=== PATIENT | male | born 1950 | race Caucasian/White ===

== ENCOUNTER → 2016-10-25 | Outpatient (CLI) | payer MEDICARE ==
--- NOTE | 2016-10-25 13:40 | CONS ---
DATE OF CONSULTATION: 10/25/2016 CONSULTATION/NEW PATIENT EVALUATION A 65-year-old gentleman who has been evaluated in the sleep center for his sleep problems. HISTORY OF PRESENT ILLNESS/SLEEP-WAKE EVALUATION: Patient started to complain about difficulties to sleep for about 2 years after he had urosepsis in March 2014. SLEEP SCHEDULE: Presently his sleep schedule from around 11:00 p.m. until 7:00 a.m. FALLING ASLEEP: He has difficulties to fall asleep. DURING SLEEP: According to him, he does not sleep at all. Usually he gets out of bed around 8:00 a.m. in the morning. According to his she could hear snoring at night and she believes that patient still sleeps. No TV in bedroom. He stays in different positions. Positive history of sleeptalking. Patient worries about his sleep during the day. [place] Sleepiness Scale is 0. DURING THE DAY/WAKE STATE: He lies down during the day. He does not feel that he sleeps, but according to his , his head goes down and she believes he has episodes of sleep during that time. PAST MEDICAL HISTORY: Positive for urosepsis in 2013, major ( ) cognitive disorder, hypertension, hyperlipidemia, questionable transient ischemic attack with episodes of dizziness in August 2015, anxiety, depression, hypothyroidism, psoriasis. PAST SURGICAL HISTORY: Surgery for thyroid nodules, benign, removed in 2014. Status post TURP in 2013. MEDICATIONS: Amlodipine, levothyroxine, atorvastatin, clopidogrel, paroxetine, donepezil, alprazolam. SOCIAL HISTORY: Negative for smoking or using alcohol. REVIEW OF SYSTEMS: Difficulties to sleep. No fevers. No double vision. No recent chest pain. No shortness of breath. No abdominal pain. No bleeding episodes. No blood in urine. No seizure episodes. FAMILY HISTORY: Hypertension, cancer, mental illness, restless legs. PHYSICAL EXAMINATION: GENERAL: A 65-year-old gentleman without distress. VITAL SIGNS: BP 147/82, HR 62, RR 16. Height 5 feet 9-1/2 inches, weight 190 pounds, BMI 27.6. Neck 18-1/2 inches in circumference. Temperature 97.9. HEENT: PERRLA, EOMI. Evaluation of oropharynx showed low position of soft palate, retrognathia 3 mm. NECK: Supple. No JVD. Thyroid is not palpable. LUNGS: Clear to percussion and to auscultation. Good air exchange. No wheezing or rhonchi. HEART: S1, S2 regular. No murmurs, gallops or rubs. ABDOMEN: Soft and nontender. Bowel sounds are present. No organomegaly appreciated. EXTREMITIES: Psoriatic plaques on elbow. No clubbing or cyanosis. [employer] SYSTEMS ADMINISTRATOR: Slight bilateral tremor of the hands. Awake, alert, and oriented x3. Cranial nerves 2 to 7 intact. There is no fasciculation or atrophy noted. No focal deficits observed. IMPRESSION: 1. Difficulties to initiate sleep, insomnia. 2. Possible paradoxical insomnia, sleep state misperception. 3. Snoring, low position of soft palate, restriction of nasal breathing, possible obstructive sleep apnea-hypopnea syndrome. 4. Hypertension. 5. Major ( ) cognitive disorder. 6. Hyperlipidemia. 7. History of transient ischemic attack with significant episodes of dizziness in 2014. 8. Anxiety. 9. Depression. 10. Hypothyroidism. 11. Status post benign nodule removed from thyroid 2014. 12. Status post urosepsis in 2013. 13. Status post TURP. 14. Psoriasis. 15. Restriction of nasal breathing on the right side. PLAN: 1. Polysomnography for evaluation of patient's breathing during sleep. 2. CPAP/BiPAP titration if sleep study confirms obstructive sleep apnea-hypopnea syndrome. 3. Preferable position during sleep on the side. 4. No driving if patient feels any sleepiness. Patient is aware of civil and criminal liability for unsafe driving. 5. I will see patient for follow-up visit to explain results of the testing and following plan. 6. I discussed with the patient stimulus control, paradoxical intention for treatment of insomnia. 7. Check for insomnia has been recommended. 8. No watching clock. Thank you very much for referring this patient for consultation. Sincerely, Milton Fabian MD, PhD, FAASM. Diplomat of [place] [employer], Sleep Medicine Board by [place] [employer] [place] [employer] [facility] [place]
== END | disposition home or self-care (01) ==
LOC: SLEEP 10:18
PROVIDERS: ATTEND Internal Medicine
DX: G47.00 Insomnia, unspecified (principal); I10 Essential (primary) hypertension; F09 Unspecified mental disorder due to known physiological condition; E78.5 Hyperlipidemia, unspecified; Z86.73 Personal history of transient ischemic attack (TIA), and cerebral infarction without residual deficits; F41.9 Anxiety disorder, unspecified; F32.9 Major depressive disorder, single episode, unspecified; E03.9 Hypothyroidism, unspecified; L40.9 Psoriasis, unspecified; R06.83 Snoring; Z98.890 Other specified postprocedural states; Z79.899 Other long term (current) drug therapy
CPT/HCPCS: 99211

== ENCOUNTER 2016-11-27 12:51 | Inpatient (IN) | payer MEDICARE ==
[2016-11-27] MEDS ORDERED: LORazepam 2 MG/ML SYRINGE IM STA (13:30)
[2016-11-27] MEDS ORDERED: SODIUM CHLORIDE 0.9% 1,000 ML IV ONE (13:32)
[2016-11-27] MEDS ORDERED: LORazepam 2 MG/ML SYRINGE IV STA ×2 (13:32→20:32)
--- NOTE | 2016-11-27 13:32 | ED ---
General Adult HPI - General Chief complaint: Altered Mental Status Stated complaint: Mental Health Time Seen by Provider: 11/27/16 13:05 Source: EMS, RN notes reviewed Mode of arrival: EMS Limitations: altered mental status - History of Present Illness Initial comments: This is a 66-year-old male who presents to the emergency department with his he is unable to give me any history secondary to his altered mental status. states he became agitated and aggressive today. states she started throwing things around the house the TV clocks off the wall and started shuffling her. states he has had mental illness. The last 3 years which seemed to start after the patient was uroseptic 3 years ago. states he's been altered ever since the urosepsis incident but he normally does not get violent or start destroying things in the house. states prior to today he' s had no fever or chills that she knows of he has not had any vomiting or diarrhea that she knows of he has not exhibited any shortness of breath or difficulty breathing. She states that he has not indicated to her anything that is bothering him. She states is baseline is sitting on a couch biting his hands and making grunting noises. She states she deals with everything around the house he only thing he can do his feet himself go to the bathroom and shower. - Related Data Home Medications Medication Instructions Recorded Confirmed Levothyroxine Sodium [Synthroid] 50 mcg PO [id number] 03/09/15 11/27/16 amLODIPine [Norvasc] 10 mg PO DAILY 01/20/16 11/27/16 ALPRAZolam [Xanax] 1 mg PO HS PRN 11/27/16 11/27/16 Donepezil [Aricept] 10 mg PO HS 11/27/16 11/27/16 PARoxetine [Paxil] 20 mg PO DIRECTED 11/27/16 11/27/16 Previous Rx's Medication Instructions Recorded Atorvastatin [Lipitor] 40 mg PO DAILY #30 tab 09/21/15 Clopidogrel [Plavix] 75 mg PO DAILY #30 tab 09/21/15 Allergies Allergy/AdvReac Type Severity Reaction Status Date / Time levofloxacin AdvReac Unknown Verified 11/27/16 13:34 Review of Systems ROS Statement: Those systems with pertinent positive or pertinent negative responses have been documented in the HPI. ROS Other: All systems not noted in ROS Statement are negative. Past Medical History Past Medical History: Chest Pain / Angina, GERD/Reflux, Hypertension, Osteoarthritis (OA), Thyroid Disorder Additional Past Medical History / Comment(s): HX UTI W/ SEPSIS 2013, past hx. chest pain-nothing current, tremors hands, heart murmur, esophageal spasms History of Any Multi-Drug Resistant Organisms: None Reported Past Surgical History: Prostate Surgery, Tonsillectomy Additional Past Surgical History / Comment(s): TURP, right thyroid lobectomy () Past Anesthesia/Blood Transfusion Reactions: No Reported Reaction Additional Past Anesthesia/Blood Transfusion Reaction / Comment(s): CLAUSTERPHOBIA Past Psychological History: Anxiety, Panic Disorder Additional Psychological History / Comment(s): ANXIETY, PANIC ATTACKS SINCE LAST HOSPITALIZATION Smoking Status: Never smoker Past Alcohol Use History: None Reported Past Drug Use History: None Reported - Past Family History Brother(s) Family Medical History: Cancer Sister(s) Family Medical History: Hypertension Father Family Medical History: Hypertension Additional Family Medical History / Comment(s): PT STATED DAD AT AGE 89 COMPLICATIONS FROM MRSA INFECTION. Mother Family Medical History: Hypertension General Exam - General Exam Comments Initial Comments: GENERAL: Patient is well-developed and well-nourished. Patient is nontoxic and well- hydrated and is in no acute distress. ENT: Neck is soft and supple. No significant lymphadenopathy is noted. Oropharynx is clear. Moist mucous membranes. EYES: The sclera were anicteric and conjunctiva were pink and moist. Extraocular movements were intact and pupils were equal round and reactive to light. Eyelids were unremarkable. PULMONARY: Unlabored respirations. Good breath sounds bilaterally. No audible rales rhonchi or wheezing was noted. CARDIOVASCULAR: There is a regular rate and rhythm without any murmurs gallops or rubs. ABDOMEN: Soft and nontender with normal bowel sounds. No palpable organomegaly was noted. There is no palpable pulsatile mass. SKIN: Skin is clear with no lesions or rashes and otherwise unremarkable. NEUROLOGIC: Patient is alert and oriented unable to assess orientation since he doesn't answer my questions. Cranial nerves II through XII are grossly intact. Motor and sensory are also intact. Normal speech, volume and content. Symmetrical smile. MUSCULOSKELETAL: Normal extremities with adequate strength and full range of motion. No lower extremity swelling or edema. No calf tenderness. LYMPHATICS: No significant lymphadenopathy is noted PSYCHIATRIC: Patient does not answer my questions he just sits there and wants and bites his hands on talking with his . Limitations: altered mental status Course Vital Signs 11/27/16 13:02 Temperature 98.1 F Pulse Rate 106 H Respiratory 26 H Rate Blood Pressure 154/99 Medical Decision Making - Medical Decision Making I had a clinical certification because the petition the patient to be admitted - Lab Data Result diagrams: 11/27/16 13:05 11/27/16 13:05 Lab Results 11/27/16 11/27/16 11/27/16 Range/Units 13:05 13:05 13:05 WBC 8.0 (3.8-10.6) k/uL RBC 4.66 (4.30-5.90) m/uL Hgb 14.1 (13.0-17.5) gm/dL Hct 43.1 (39.0-53.0) % MCV 92.5 (80.0-100.0) fL MCH 30.3 (25.0-35.0) pg MCHC 32.8 (31.0-37.0) g/dL RDW 14.3 (11.5-15.5) % Plt Count 293 (150-450) k/uL Neutrophils % 76 % Lymphocytes % 14 % Monocytes % 7 % Eosinophils % 1 % Basophils % 0 % Neutrophils # 6.1 (1.3-7.7) k/uL Lymphocytes # 1.1 (1.0-4.8) k/uL Monocytes # 0.5 (0-1.0) k/uL Eosinophils # 0.1 (0-0.7) k/uL Basophils # 0.0 (0-0.2) k/uL Sodium 145 (137-145) mmol/L Potassium 4.3 (3.5-5.1) mmol/L Chloride 106 (98-107) mmol/L Carbon Dioxide 23 (22-30) mmol/L Anion Gap 16 mmol/L BUN 11 (9-20) mg/dL Creatinine 0.75 (0.66-1.25) mg/dL Est GFR (MDRD) Af Amer >60 (>60 ml/min/1.73 sqM) Est GFR (MDRD) Non-Af >60 (>60 ml/min/1.73 sqM) Glucose 90 (74-99) mg/dL Calcium 9.5 (8.4-10.2) mg/dL Total Bilirubin 0.8 (0.2-1.3) mg/dL AST 26 (17-59) U/L ALT 37 (21-72) U/L Alkaline Phosphatase 97 (38-126) U/L Total Protein 7.4 (6.3-8.2) g/dL Albumin 4.5 (3.5-5.0) g/dL Urine Color Yellow Urine Appearance Clear (Clear) Urine pH 7.0 (5.0-8.0) Ur Specific [place] 1.014 (1.001-1.035) Urine Protein Trace H (Negative) Urine Glucose (UA) Negative (Negative) Urine Ketones Negative (Negative) Urine Blood Negative (Negative) Urine Nitrate Negative (Negative) Urine Bilirubin Negative (Negative) Urine Urobilinogen <2.0 (<2.0) mg/dL Ur Leukocyte Esterase Negative (Negative) Urine Opiates Screen Not Detected (NotDetected) Ur Oxycodone Screen Not Detected (NotDetected) Urine Methadone Screen Not Detected (NotDetected) Ur Propoxyphene Screen Not Detected (NotDetected) Ur Barbiturates Screen Not Detected (NotDetected) U Tricyclic Antidepress Not Detected (NotDetected) Ur Phencyclidine Scrn Not Detected (NotDetected) Ur Amphetamines Screen Not Detected (NotDetected) U Methamphetamines Scrn Not Detected (NotDetected) U Benzodiazepines Scrn Detected H (NotDetected) Urine Cocaine Screen Not Detected (NotDetected) U Marijuana (THC) Screen Not Detected (NotDetected) Serum Alcohol <10 mg/dL Disposition Clinical Impression: Anxiety, Mood disorder Disposition: ADMITTED IP TO THIS HOSP Referrals: Maribel Long III, MD [Primary Care Provider] - 1-2 days Time of Disposition: 17:37
[2016-11-27 14:50] LABS: Appearance,Urine Clear (Clear); Bilirubin,Urine Negative (Negative); Glucose,Urine (UA) Negative (Negative); Ketones,Urine Negative (Negative); Leukocyte Esterase,Urine Negative (Negative); Nitrite,Urine Negative (Negative); Protein,Urine Trace (Negative); Specific Gravity,Urine 1.014 (1.001-1.035); UA Billing (MACRO vs. MICRO) CHEM; Urobilinogen,Urine <2.0 mg/dL (<2.0)
[2016-11-27 14:52] LABS: Basophils % (A) 0 %; CH 31.5; CHCM 34.2; Eosinophils # (A) 0.1 k/uL (0-0.7); Eosinophils % (A) 1 %; HCT 43.1 % (39.0-53.0); HDW 3.08; HGB 14.1 gm/dL (13.0-17.5); Luc # (Auto) 0.19; Luc % (Auto) 2; Lymphocytes # (A) 1.1 k/uL (1.0-4.8); Lymphocytes % (A) 14 %; MCH 30.3 pg (25.0-35.0); MCHC 32.8 g/dL (31.0-37.0); MCV 92.5 fL (80.0-100.0); Mean Platelet Volume 7.3; Monocytes # (A) 0.5 k/uL (0-1.0); Monocytes % (A) 7 %; Neutrophils # (A) 6.1 k/uL (1.3-7.7); Neutrophils % (A) 76 %; RBC 4.66 m/uL (4.30-5.90); RDW 14.3 % (11.5-15.5); WBC (Perox) 8.47
[2016-11-27 15:08] LABS: ALT 37 U/L (21-72); AST 26 U/L (17-59); Alcohol <10 mg/dL; Alkaline Phosphatase 97 U/L (38-126); Anion Gap 16 mmol/L; Blood Urea Nitrogen 11 mg/dL (9-20); Calcium 9.5 mg/dL (8.4-10.2); Carbon Dioxide 23 mmol/L (22-30); Chloride 106 mmol/L (98-107); Glucose 90 mg/dL (74-99); Non-African American GFR(MDRD) >60 (>60 ml/min/1.73 sqM); Potassium 4.3 mmol/L (3.5-5.1); Sodium 145 mmol/L (137-145); Total Bilirubin 0.8 mg/dL (0.2-1.3); Total Protein 7.4 g/dL (6.3-8.2)
[2016-11-27] MEDS ORDERED: ACETAMINOPHEN TAB 325 MG TAB PO PRN (22:38)
[2016-11-27] MEDS ORDERED: ZIPRASIDONE 20 MG VIAL IM PRN (22:38)
[2016-11-27] MEDS ORDERED: MAGNESIUM HYDROXIDE 2,400 MG/10 ML CUP PO PRN (22:38)
[2016-11-27] MEDS ORDERED: MAG HYDROX/AL HYDROX/SIMETH 30 ML CUP PO PRN (22:38)
[2016-11-28] MEDS: LEVOTHYROXINE 50 MCG TAB PO SCH (08:12)
[2016-11-28] MEDS: CLOPIDOGREL 75 MG TAB PO SCH (08:13)
[2016-11-28] MEDS: ATORVASTATIN 40 MG TAB PO SCH (08:13)
[2016-11-28] MEDS: amLODIPine 10 MG TAB PO SCH (08:13)
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
[2016-11-28] MEDS: CITALOPRAM HYDROBROMIDE 10 MG TAB PO SCH (11:59)
[2016-11-28] MEDS: LORazepam 1 MG TAB PO PRN (15:48)
[2016-11-28] MEDS: DONEPEZIL 10 MG TAB PO SCH (20:21)
[2016-11-28] MEDS ORDERED: QUEtiapine 25 MG TAB PO SCH (21:00)
--- NOTE | 2016-11-28 22:57 | CONS ---
DATE OF CONSULTATION: REASON FOR CONSULTATION: Medical history and physical. HISTORY OF PRESENTING ILLNESS: This is a 66-year-old gentleman who has been admitted to the hospital, as he had an episode of agitation due to an argument with his . Patient apparently threw lamps and caused a ruckus at home. Patient was petitioned by his in the emergency room. Patient apparently has been having tinnitus for the last 6 to 7 months. Patient was seen by Dr. Robison and was examined and was apparently told to undergo a sleep study. Patient denies being on any recent antibiotics like gentamicin or diuretics like furosemide. Patient denies having any loss of hearing, states that his only complaint is tinnitus, which has been bothering him. Patient also underwent a workup up at [facility] and was noted to have some Lewy body dementia. At the time of my examination, patient stated that his tinnitus has been unbearable, stated that hence he gets anxious and starts biting his fingers. As mentioned above, he denies having any change in hearing. Denies having any ear fullness or vertigo at this time. Patient denies having any headaches, change in vision, neck stiffness, nausea, vomiting chest pain, difficulty in breathing, dyspnea, abdominal pain, urinary urgency or frequency or change in bowel habits in the recent times. Past medical history includes: 1. History of hypertension. 2. History of hypothyroidism. 3. History of dyslipidemia. ALLERGIES: LEVAQUIN. Medications were reviewed. FAMILY HISTORY: Not pertinent to current admission. SOCIAL HISTORY: Patient currently lives with his . Denies any illicit drug use or tobacco history. PHYSICAL EXAM: Vitals were reviewed and were within normal limits. GENERAL APPEARANCE: Alert, oriented x3, in no distress. HEAD: Atraumatic, normocephalic. Pupils are equal, round and reactive to light and accommodation. Gross examination of his external ears appeared to be within normal limits. Extraocular movements are intact. Pupils are round and reactive to light and accommodation. Neck is supple. No JVD. LUNGS: Good air entry. Clear to auscultation. No rhonchi or wheezing appreciated. HEART: S1, S2 heard. Regular rate and rhythm. No murmurs appreciated. ABDOMEN: Soft, nontender. No organomegaly. Bowel sounds are intact. LOWER EXTREMITIES: No edema noted. NEUROLOGICAL EXAMINATION: Cranial nerves II through XII grossly intact. No motor or sensory deficits noted. Strength is 5/5 in all 4 extremities. No dysdiadochokinesia noted. Gait appears to be within normal limits. Patient is able to follow a 2-step command. No gross hearing loss is appreciated at this time. LABORATORY DATA: Reviewed. Patient's labs were within normal limits. ASSESSMENT AND PLAN: 1. Acute psychosis. 2. Some concern for Lewy body dementia? 3. Hypothyroidism. 4. Hypertension. 5. Dyslipidemia 6. Tinnitus. PLAN: Patient appears to have had some testing done by ENT physician in the community, Dr. Robison. Patient does not appear to have any loss of ( ) hearing. Further testing, including rare differentials, would include acoustic neuroma, which would also be extremely uncommon. There may be some benefit with obtaining MRI. However, this could be done on an outpatient basis, as patient has had this issue for a chronic period of time. The patient's tinnitus can be treated with benzodiazepines; however, there are not really any additional treatment options, unfortunately. Please call us with any additional questions. We will follow the patient intermittently. Thank you for the consultation.
[2016-11-29] MEDS: LEVOTHYROXINE 50 MCG TAB PO SCH (06:36)
[2016-11-29] MEDS: ATORVASTATIN 40 MG TAB PO SCH (08:39)
[2016-11-29] MEDS: CITALOPRAM HYDROBROMIDE 10 MG TAB PO SCH (08:39)
[2016-11-29] MEDS: amLODIPine 10 MG TAB PO SCH (08:39)
[2016-11-29] MEDS: CLOPIDOGREL 75 MG TAB PO SCH (08:39)
[2016-11-29] MEDS: LORazepam 1 MG TAB PO PRN (08:48)
--- NOTE | 2016-11-29 09:01 | P.PN ---
Progress Note - Text Interval history: The patient is found in his room nursing is at bedside. The patient's has been hyperventilating he is acutely agitated he is not verbalizing why. He continues to intermittently and briefly by at his hand he demonstrates some of the same air swallowing behavior. It is documented that the patient slept 6 hours last evening. We will discuss his other function on the unit during team meeting this morning. Mental status exam: The patient is dressed in the same clothing is yesterday he has a disheveled appearance hygiene is impaired. Eye contact is poor. He is hyperventilating he does respond to nursing intervention somewhat and that he slows his breathing rate. Very quickly he will bite at his hand he will run his hands through his hair and demonstrates significant psychomotor agitation. He is not verbalizing any responses to questions asked. Insight and judgment are poor. He continues to experience symptoms of psychosis. He continues to demonstrate tremor of his upper extremities. Plan: The patient will continue on his current medications we will titrate the Seroquel to 25 mg twice daily hoping to have a calming effect. Vital signs reviewed. Lab results reviewed. The patient remains an indirect danger to himself and requires continued psychiatric hospitalization. Social work notes were reviewed. We will continue to discuss appropriate placement for the patient upon discharge. We will continue to monitor him for safety. We will monitor his by mouth intake. We will consider other medication changes
[2016-11-29] MEDS: QUEtiapine 25 MG TAB PO SCH ×2 (09:35→21:38)
[2016-11-29] MEDS: DONEPEZIL 10 MG TAB PO SCH (21:38)
[2016-11-30] MEDS: LEVOTHYROXINE 50 MCG TAB PO SCH (06:33)
--- NOTE | 2016-11-30 09:11 | P.PN ---
Progress Note - Text Interval history: The patient is found in his room he follows me to an interview room. He states that he has not been attending groups he reports that he has not been attending meals he states he did not sleep. Nursing documentation suggests that he slept 7 hours last night. Documentation reports he did not eat breakfast this morning. He states that "I'm never going to get better I'm just going to ". He states "nothing will make this better" he terminates the interview by stating "can I go back to my room and ". He was seen by the welder repair for routine medical consultation no acute issues were identified. Mental status exam: The patient's presents with poor hygiene and poor grooming there is a foul body odor. He is dressed in the same clothing. Eye contact is poor. He holds his head with both hands elbows resting on the table. He shakes both of his legs. He is quite perseverative and repeats some words numerous times consecutively. He continues to describe having a buzzing/ ringing in his ears that will not cease. He continues to have evidence of skin irritation due to self-inflicted biting on his hand. He endorses hopelessness thinking he reports no thoughts of harming others. He is partially cooperative today. Insight and judgment are poor. Plan: The patient will be continued on his current medications we will consider titrating them further. We will give consideration to possibly using a mood stabilizer like Depakote or even possibly Clozaril although there is limited evidence. The patient requires continued psychiatric hospitalization. I did speak with his in person yesterday and we decided that we would need to hold a family meeting on the unit involving her son's to discuss placement options. We will continue to monitor the patient for safety and monitor his by mouth intake as well as vital signs.
[2016-11-30] MEDS: amLODIPine 10 MG TAB PO SCH (10:19)
[2016-11-30] MEDS: ATORVASTATIN 40 MG TAB PO SCH (10:19)
[2016-11-30] MEDS: CLOPIDOGREL 75 MG TAB PO SCH (10:20)
[2016-11-30] MEDS: CITALOPRAM HYDROBROMIDE 10 MG TAB PO SCH (10:21)
[2016-11-30] MEDS: QUEtiapine 25 MG TAB PO SCH ×2 (10:21→21:58)
[2016-11-30] MEDS: DONEPEZIL 10 MG TAB PO SCH (21:58)
[2016-12-01] MEDS: amLODIPine 10 MG TAB PO SCH (08:12)
[2016-12-01] MEDS: ATORVASTATIN 40 MG TAB PO SCH (08:12)
[2016-12-01] MEDS: LEVOTHYROXINE 50 MCG TAB PO SCH (08:12)
[2016-12-01] MEDS: CLOPIDOGREL 75 MG TAB PO SCH (08:12)
[2016-12-01] MEDS: QUEtiapine 25 MG TAB PO SCH (08:14)
[2016-12-01] MEDS: CITALOPRAM HYDROBROMIDE 10 MG TAB PO SCH (08:14)
[2016-12-01] MEDS: LORazepam 1 MG TAB PO PRN ×2 (08:14→22:36)
--- NOTE | 2016-12-01 10:07 | P.PN ---
Progress Note - Text Interval history: The patient is found in his room he follows me to an interview room. He reports that he did not sleep at all last night it is documented that he slept 6 hours. The patient is much more engaged in the interview today and participates. He states he continues to have significant ringing of his ears and buzzing sounds. Specifically he states it's ringing in his right ear and buzzing in his left ear. He continues to stay in his room throughout the day and not attend groups. We discussed the importance of him not doing that and at least getting out in the hallway even if he is seated alone and reading a book or some other activity. We discussed his current medications. He anticipates his family will visit over the weekend. Mental status exam: The patient is alert he is dressed in the same clothing he does not have a follow odor today. He has a disheveled appearance. He states he is making a conscious effort not to bite his fingers. He does have erythematous regions on both index fingers but they appear to be the same as yesterday. He is reporting no suicidal or homicidal thoughts. He shares some insight into his aggressive behavior at home and he verbalizes remorse. He states he continues to be tortured by the ear ringing/buzzing phenomenon. His affect is brighter today. He demonstrates no verbal or physical aggressiveness. He does move numerous times while seated in the chair demonstrating increased psychomotor agitation. With outstretched hands he continues to demonstrate a tremor of fine amplitude bilaterally. Plan: The patient will continue on the Celexa we will titrate the Seroquel to 25 mg during the day and 50 mg at bedtime. We will trial Symmetrel 100 mg during the day to see if this reduces any tremor behavior. We discussed possibly using Clozaril. We will monitor him for safety and encourage his participation in the milieu. Social work is attempting to arrange a family meeting. Vital signs reviewed.
[2016-12-01] MEDS: AMANTADINE HCL 100 MG CAP PO SCH (11:33)
[2016-12-01] MEDS: DONEPEZIL 10 MG TAB PO SCH (21:43)
[2016-12-01] MEDS: QUEtiapine 50 MG TAB PO SCH (21:43)
[2016-12-02] MEDS: LORazepam 1 MG TAB PO PRN ×2 (06:47→22:13)
[2016-12-02] MEDS: LEVOTHYROXINE 50 MCG TAB PO SCH (08:18)
[2016-12-02] MEDS: ATORVASTATIN 40 MG TAB PO SCH (08:19)
[2016-12-02] MEDS: CLOPIDOGREL 75 MG TAB PO SCH (08:19)
[2016-12-02] MEDS: amLODIPine 10 MG TAB PO SCH (08:19)
[2016-12-02] MEDS: QUEtiapine 25 MG TAB PO SCH (08:21)
[2016-12-02] MEDS: AMANTADINE HCL 100 MG CAP PO SCH ×2 (08:21→13:10)
[2016-12-02] MEDS: CITALOPRAM HYDROBROMIDE 10 MG TAB PO SCH (08:21)
--- NOTE | 2016-12-02 10:58 | P.PN ---
Progress Note - Text Interval history: The patient is found in group he follows me to an interview room. He states group is "fascinating, I didn't want to leave". During our session he details the variety of topics that were discussed in group. He reports that he walked 2 hours yesterday and he is making an effort to participate in the milieu. He felt his tremor was more controlled and he had more motivation. He states for some reason after to 30 he lost energy and he felt he was shaky again. He states he did not sleep one hour last night however it is documented he slept 6 hours. He reports that last evening the ringing and buzzing noise switched to a big band radio station. He did have a visit with his last evening and he anticipates she will return tonight with their son Fer. Mental status exam: The patient is disheveled but less so than previous days. He continues to wear the same clothing. There is no foul body odor. Eye contact is improved he is much more engaged conversation today. Speech is verbose he is directable he reports his mood is better he reports no suicidal or homicidal ideation intent or plan. He continues to report the ringing/ buzzing phenomenon in his years and last night and into this morning big band music. Insight and judgment limited. He does much better today tracking the conversation and his premorbid above average intelligence is more evident in conversation. He does demonstrate some tremor of his upper extremities. Plan: The patient will be continued on his current medications I will increase is symmetrical to 100 mg twice daily. We discussed the risks of exacerbating any hallucinations with this medication in general and certainly the increase. We both feel that the benefits may outweigh this risk and we will proceed area we will continue to monitor him for safety and encourage his participation in the milieu. We do have a family meeting scheduled on the mental health unit for Saturday. He is aware that he has a deferral conference tomorrow and we discussed that meeting.
[2016-12-02] MEDS: DONEPEZIL 10 MG TAB PO SCH (22:12)
[2016-12-02] MEDS: QUEtiapine 50 MG TAB PO SCH (22:13)
[2016-12-03] MEDS: LEVOTHYROXINE 50 MCG TAB PO SCH (06:30)
[2016-12-03] MEDS: ATORVASTATIN 40 MG TAB PO SCH (09:06)
[2016-12-03] MEDS: CITALOPRAM HYDROBROMIDE 10 MG TAB PO SCH (09:06)
[2016-12-03] MEDS: CLOPIDOGREL 75 MG TAB PO SCH (09:06)
[2016-12-03] MEDS: QUEtiapine 25 MG TAB PO SCH (09:06)
[2016-12-03] MEDS: AMANTADINE HCL 100 MG CAP PO SCH ×2 (09:06→12:37)
[2016-12-03] MEDS: LORazepam 1 MG TAB PO PRN ×2 (09:07→21:14)
--- NOTE | 2016-12-03 09:43 | P.PN ---
Progress Note - Text Interval history: The patient is found in his room he follows me to an interview room. He states "nothing is going to help nothing is ever going to get better". He states he has no goals for today and is is going to lying in bed in his room. He reports ongoing auditory stimuli causing distress. He is reporting no visual hallucinations. We tried to discuss some of his successes over the weekend but he minimizes those and states "nothing's going to help". Mental status exam: The patient is disheveled he is wearing different clothing today versus prior days. Eye contact is intermittent. Speech is less spontaneous. He appears more distressed and does not readily engage in conversation. He continues report some hopelessness thinking he verbalizes no desire to kill himself he reports no thoughts of harming others. Compared to the weekend his thinking is much more nihilistic. He demonstrates tremor of his upper extremities at rest and with intention. He remains oriented to person place and date. Plan: We will continue the patient's medications as written we will continue to monitor him for safety. I believe he has a deferral conference today and we have a family meeting scheduled for tomorrow. The patient's presentation has been changing day-to-day which is concerning in terms of trying to predict future behavior. He was recently violent due to his frustrations with his current symptoms and lack of hope. Vital signs reviewed blood pressure elevated today we will monitor further.
[2016-12-03] MEDS: amLODIPine 10 MG TAB PO SCH (10:25)
[2016-12-03] MEDS: DONEPEZIL 10 MG TAB PO SCH (21:12)
[2016-12-03] MEDS: QUEtiapine 50 MG TAB PO SCH (21:12)
[2016-12-04] MEDS: LEVOTHYROXINE 50 MCG TAB PO SCH (06:58)
[2016-12-04] MEDS: AMANTADINE HCL 100 MG CAP PO SCH ×2 (08:42→13:30)
[2016-12-04] MEDS: amLODIPine 10 MG TAB PO SCH (08:42)
[2016-12-04] MEDS: ATORVASTATIN 40 MG TAB PO SCH (08:43)
[2016-12-04] MEDS: CITALOPRAM HYDROBROMIDE 10 MG TAB PO SCH (08:43)
[2016-12-04] MEDS: LORazepam 1 MG TAB PO PRN ×2 (08:43→21:26)
[2016-12-04] MEDS: CLOPIDOGREL 75 MG TAB PO SCH (08:43)
[2016-12-04] MEDS: QUEtiapine 25 MG TAB PO SCH (08:43)
--- NOTE | 2016-12-04 09:03 | P.PN ---
Progress Note - Text Interval history: The patient is found in his room he follows me to an interview room. He states things are "terrible" he feels he will not get better. He endorses feelings of hopelessness. He was observed earlier in the morning the dining room he reports eating a little. He continues to report no sleep but staff feel that he is getting some sleep overnight. I was informed that the patient did not defer and that he does have a full court hearing this afternoon.. He does not seem aware of this proceeding and we discussed that in detail. He endorses an anxious mood and depressed mood. He continues to state "nothing will help". Mental status exam: The patient is a male appearing his stated age. He has a disheveled appearance he is dressed in the same clothing is yesterday. Eye contact is intermittent. He endorses a depressed and anxious mood he reports feeling hopeless. When asked about suicide he states "nobody wants to hurt himself" no homicidal ideation. He is endorsing no visual hallucinations but reports a constant ringing buzzing noise. He states the big band music stopped. Insight and judgment limited. He is oriented to person place and date. There is tremor noted of his upper extremities. He is picking at the skin on his scalp he is redirected not to. The skin irritation on his index fingers appears stable with no worsening. Insight and judgment impaired. He demonstrates no verbal or physical aggressiveness. Plan: The patient will continue on his current medications. I will participate in a family meeting with his and son this morning. We will just he and the court hearing this afternoon. We will consider use of Clozaril. The patient requires continued hospitalization as there is been no appreciable improvement and his behavior remains unpredictable at this point. Vital signs reviewed. No new labs to review. We will continue to monitor him for safety.
[2016-12-04 10:47] LABS: Basophils % (A) 1 %; CH 31.5; CHCM 33.9; Eosinophils % (A) 1 %; HCT 44.5 % (39.0-53.0); HDW 2.97; HGB 14.5 gm/dL (13.0-17.5); Luc # (Auto) 0.13; Luc % (Auto) 2; Lymphocytes # (A) 0.9 k/uL (1.0-4.8); Lymphocytes % (A) 15 %; MCH 30.5 pg (25.0-35.0); MCHC 32.7 g/dL (31.0-37.0); MCV 93.3 fL (80.0-100.0); Mean Platelet Volume 6.7; Monocytes # (A) 0.3 k/uL (0-1.0); Monocytes % (A) 5 %; Neutrophils # (A) 4.7 k/uL (1.3-7.7); Neutrophils % (A) 77 %; RBC 4.77 m/uL (4.30-5.90); RDW 14.2 % (11.5-15.5); WBC 6.1 k/uL (3.8-10.6)
[2016-12-04] MEDS: DONEPEZIL 10 MG TAB PO SCH (21:18)
[2016-12-04] MEDS: QUEtiapine 50 MG TAB PO SCH (21:19)
[2016-12-05] MEDS: LEVOTHYROXINE 50 MCG TAB PO SCH (08:21)
[2016-12-05] MEDS: AMANTADINE HCL 100 MG CAP PO SCH ×2 (09:20→13:45)
[2016-12-05] MEDS: amLODIPine 10 MG TAB PO SCH (09:21)
[2016-12-05] MEDS: CLOPIDOGREL 75 MG TAB PO SCH (09:21)
[2016-12-05] MEDS: ATORVASTATIN 40 MG TAB PO SCH (09:21)
[2016-12-05] MEDS: LORazepam 1 MG TAB PO PRN (09:23)
[2016-12-05] MEDS: CITALOPRAM HYDROBROMIDE 10 MG TAB PO SCH (09:23)
[2016-12-05] MEDS: QUEtiapine 25 MG TAB PO SCH (09:23)
--- NOTE | 2016-12-05 10:15 | P.PN ---
Progress Note - Text Interval history the patient is found in his room he follows me to an interview room. On the wait to the interview room he can be heard stating to himself numerous times "nothing is going to help". She seated in his chair he has poor eye contact he has no spontaneous speech today. Most responses include him saying "nothing is going to help". He endorses ongoing auditory hallucinations. He continues to deny sleeping at night. Mental status exam: The patient has a disheveled appearance he has not shaved hair is uncombed. He is dressed in the same clothing as the last 2 days. No eye contact no spontaneous speech. He holds his hand up to his forehead but demonstrates no picking behavior. Insight and judgment impaired. Affect is blunted. He endorses ongoing auditory hallucination in the form of ringing/ buzzing. He is more engaged in nihilistic thinking today. Plan: A family meeting was held yesterday involving the patient's son and . We discussed the patient's current symptoms recent behavior and prognosis. We reviewed his current medications and Clozaril as an option. We decided to taper him off of Seroquel and initiate Clozaril hoping that it would reduce some of the psychosis with the least amount of extrapyramidal side effect risk. We also discussed placement needs for the patient upon discharge. At this point they do not feel safe with him returning home. His has applied for guardianship and that is currently with the court. They have met with their family wire tester to address financial issues regarding placement. I will illuminate the Seroquel evening dose and initiate Clozaril 25 mg at bedtime. We just a CBC and differential yesterday those are within normal limits. We will continue the Aricept Celexa and Symmetrel is written. We will look for opportunities to simplify his medication regimen if possible. We discussed with his family the risk of agranulocytosis, sedation and weight gain. They all concurred that any potential benefit from claws role out ways those risks. The patient requires continued psychiatric hospitalization as he is unsuited for return home or any other placement at this time.
[2016-12-05] MEDS: DONEPEZIL 10 MG TAB PO SCH (20:15)
[2016-12-05] MEDS: cloZAPine 25 MG TAB PO SCH (20:16)
[2016-12-06] MEDS: LEVOTHYROXINE 50 MCG TAB PO SCH (08:14)
--- NOTE | 2016-12-06 09:27 | P.PN ---
Progress Note - Text Interval history: The patient is found in his room he follows me to an interview room. He states his mood is "terrible". We did initiate Clozaril last evening and he perceives sleeping 3-4 hours. Again it is documented that he slept 6. He states he continues to experiencing ringing buzzing and now banging noise in his head. He feels the banging noise is at the top left portion of his head. He has been isolating in his room. He reports that he has gone down to meals and eating "a little bit". Mental status exam: The patient is a disheveled male appearing his stated age. He is dressed in the same clothing. His hair is not combed. He is noticed to pick at his scalp he will stop when redirected. He has not demonstrated any biting behavior. He continues to convey he feels hopeless and states "nothing will work". He continues to be engaged in nihilistic thinking. He reports no thoughts of harming others he is endorsing no other hallucinations and the noises described above. He is oriented to person place and date. There is no verbal or physical aggressiveness demonstrated. Insight and judgment remains impaired. Plan: The patient will continue on the Clozaril. I will discontinue the Seroquel after this morning's dose. We plan to titrate the claws role further during the course of this hospitalization. The patient requires continued psychiatric hospitalization. We will monitor his vitals and continue monitoring him for safety. We will continue to encourage his participation milieu.
[2016-12-06] MEDS: QUEtiapine 25 MG TAB PO SCH (09:31)
[2016-12-06] MEDS: AMANTADINE HCL 100 MG CAP PO SCH ×2 (10:34→13:06)
[2016-12-06] MEDS: ATORVASTATIN 40 MG TAB PO SCH (10:34)
[2016-12-06] MEDS: CLOPIDOGREL 75 MG TAB PO SCH (10:34)
[2016-12-06] MEDS: amLODIPine 10 MG TAB PO SCH (10:34)
[2016-12-06] MEDS: CITALOPRAM HYDROBROMIDE 10 MG TAB PO SCH (10:35)
[2016-12-06] MEDS: LORazepam 1 MG TAB PO PRN (10:35)
[2016-12-06] MEDS: cloZAPine 25 MG TAB PO SCH (20:22)
[2016-12-06] MEDS: DONEPEZIL 10 MG TAB PO SCH (20:22)
[2016-12-07] MEDS: LEVOTHYROXINE 50 MCG TAB PO SCH (06:39)
--- NOTE | 2016-12-07 08:17 | P.PN ---
Progress Note - Text Interval history: The patient is found in his room. He follows me to the [facility] to speak. He continues to state things are "terrible" he continues to state several times "nothing will help". He seated quietly he slowly picks at her scalp and he is directed not to. He initiates no conversation. He reports attending no groups but does continue to eat. I described recent medication changes he asks no questions. Mental status exam: The patient is alert he seated calmly in the chair he has his elbow on the table his hand on his head he is noted to gently pick at his scalp. Eye contact is poor. No spontaneous speech he provides brief answers. He continues to be engaged in nihilistic thinking. He reports feeling hopeless. He continues to report a buzzing/banging/ringing no lanes in different parts of his head. Insight and judgment are impaired. He is oriented to person place he names a day the week as Saturday rather than Saturday. He demonstrates no verbal or physical aggressiveness. His tremor today seems less prominent. He is endorsing no visual hallucinations he is endorsing no thoughts of harming others. Plan: The patient will continue on the Clozaril we will increase the dose to 50 mg at bedtime. Vital signs reviewed. He will continue on the Aricept, Celexa, Symmetrel. We will monitor him for safety and encourage some ambulation on the unit with some participation in groups. He continues to require continued psychiatric hospitalization.
[2016-12-07] MEDS: CLOPIDOGREL 75 MG TAB PO SCH (08:45)
[2016-12-07] MEDS: AMANTADINE HCL 100 MG CAP PO SCH ×2 (08:45→12:40)
[2016-12-07] MEDS: ATORVASTATIN 40 MG TAB PO SCH (08:45)
[2016-12-07] MEDS: CITALOPRAM HYDROBROMIDE 10 MG TAB PO SCH (08:45)
[2016-12-07] MEDS: amLODIPine 10 MG TAB PO SCH (08:45)
[2016-12-07] MEDS: cloZAPine 25 MG TAB PO SCH (21:10)
[2016-12-07] MEDS: DONEPEZIL 10 MG TAB PO SCH (21:10)
[2016-12-08] MEDS: LEVOTHYROXINE 50 MCG TAB PO SCH (07:59)
[2016-12-08] MEDS: AMANTADINE HCL 100 MG CAP PO SCH ×2 (08:22→12:24)
[2016-12-08] MEDS: CLOPIDOGREL 75 MG TAB PO SCH (08:22)
[2016-12-08] MEDS: ATORVASTATIN 40 MG TAB PO SCH (08:22)
[2016-12-08] MEDS: amLODIPine 10 MG TAB PO SCH (08:22)
[2016-12-08] MEDS: CITALOPRAM HYDROBROMIDE 10 MG TAB PO SCH (08:22)
[2016-12-08] MEDS: LORazepam 1 MG TAB PO PRN ×2 (08:23→23:25)
--- NOTE | 2016-12-08 15:46 | P.PN ---
Progress Note - Text Interval history: Patient seen in cross coverage today for Dr. Ramsey. He reports that he has had significant difficulty with sleep. Reports that he has had this issue with hearing a buzzing sound. He reports that he has been feeling a grinding feeling in his head and also hears a buzzing sound. He also relays that 3 times a day he hears a radio broadcast. He reports how frustrating this is. He makes reference to chipping some of his teeth today because of grinding. Mental status exam: He is alert and cooperative with the interview. He does not show any significant agitation. He describes feeling a grinding feeling in his head and also hearing a buzzing sound. He also makes reference to hearing a radio broadcast 3 times a day. He seems to relay that his mood is doing pretty good. He denies any thoughts of harm to self or others. Plan: We'll maintain current psychotropic medications. Patient relates that he feels like the current medications have given him some benefit. He has been recently started on Clozaril. We will monitor for any medication side effects continue to monitor his symptoms. We'll continue to cover this patient over the weekend for Dr. Ramsey.
[2016-12-08] MEDS: cloZAPine 25 MG TAB PO SCH (20:59)
[2016-12-08] MEDS: DONEPEZIL 10 MG TAB PO SCH (21:00)
[2016-12-09] MEDS: amLODIPine 10 MG TAB PO SCH (08:48)
[2016-12-09] MEDS: CLOPIDOGREL 75 MG TAB PO SCH (08:48)
[2016-12-09] MEDS: LEVOTHYROXINE 50 MCG TAB PO SCH (08:48)
[2016-12-09] MEDS: ATORVASTATIN 40 MG TAB PO SCH (08:48)
[2016-12-09] MEDS: CITALOPRAM HYDROBROMIDE 10 MG TAB PO SCH (08:48)
[2016-12-09] MEDS: AMANTADINE HCL 100 MG CAP PO SCH ×2 (08:48→12:32)
--- NOTE | 2016-12-09 16:33 | P.PN ---
Progress Note - Text Interval history: Patient seen in cross coverage today for Dr. Ramsey. He reports that he feels about the same today. He slept about 4 hours last night which is better than before. He continues to report feeling the grinding feeling and also hearing the buzzing. He relays that this is more than frustrating for him. He has not been going to any groups today. Mental status exam: He was found in his room lying in bed. He does awaken easily with name-calling and is cooperative with the interview. His speech is fluent, not rapid or pressured. He does not show any significant agitation. His mood he describes as about the same. He denies any thoughts of harm to self or others. he continues to verbalize hearing a buzzing sound and feeling a grinding feeling. Plan: We'll maintain current psychotropic medications. Continue to monitor for any side effects and monitor his ongoing response. Dr. Ramsey to resume care this patient starting tomorrow.
[2016-12-09] MEDS: DONEPEZIL 10 MG TAB PO SCH (21:09)
[2016-12-09] MEDS: cloZAPine 25 MG TAB PO SCH (21:09)
[2016-12-10] MEDS: ATORVASTATIN 40 MG TAB PO SCH (08:07)
[2016-12-10] MEDS: CITALOPRAM HYDROBROMIDE 10 MG TAB PO SCH (08:07)
[2016-12-10] MEDS: AMANTADINE HCL 100 MG CAP PO SCH ×2 (08:07→12:50)
[2016-12-10] MEDS: LEVOTHYROXINE 50 MCG TAB PO SCH (08:07)
[2016-12-10] MEDS: amLODIPine 10 MG TAB PO SCH (08:07)
[2016-12-10] MEDS: CLOPIDOGREL 75 MG TAB PO SCH (08:07)
--- NOTE | 2016-12-10 09:22 | P.PN ---
Progress Note - Text Interval history: The patient is found in his room he follows me to an interview room. He states "nothing changed" he states his mood is terrible and continues to repeat several times "nothing will work". He answers a few questions briefly he offers no spontaneous speech other than to ask "are we done yet". Mental status exam: The patient is alert he has impaired eye contact he seated holding his head in his hand. He is dressed in different clothing from when I have seen him last. Speech is in response to questions asked the only spontaneous speech she will offer is as noted above. He is perseverating and continues to utilize nihilistic thinking. He reports feeling hopeless. He states he does not want to kill himself but "this is no life". He becomes upset when discussing his family's desire not to have him back home and states "I don't know what the plan is" he is reporting no homicidal thoughts he is demonstrating no verbal or physical aggressiveness. Insight and judgment remain impaired. He appears disheveled hygiene is impaired. Plan: The patient will continue on his current medications I will titrate Clozaril to 75 mg at bedtime. He is reporting no side effects so far we will continue to monitor. He requires continued psychiatric hospitalization. Social work and the patient's family have been looking for appropriate placement for when he is appropriate for discharge from this unit. Vital signs reviewed.
[2016-12-10] MEDS: cloZAPine 25 MG TAB PO SCH (20:49)
[2016-12-10] MEDS: DONEPEZIL 10 MG TAB PO SCH (20:49)
[2016-12-10] MEDS: LORazepam 1 MG TAB PO PRN (20:51)
[2016-12-11] MEDS: LEVOTHYROXINE 50 MCG TAB PO SCH (08:23)
[2016-12-11] MEDS: CLOPIDOGREL 75 MG TAB PO SCH (08:23)
[2016-12-11] MEDS: CITALOPRAM HYDROBROMIDE 10 MG TAB PO SCH (08:23)
[2016-12-11] MEDS: amLODIPine 10 MG TAB PO SCH (08:23)
[2016-12-11] MEDS: ATORVASTATIN 40 MG TAB PO SCH (08:23)
[2016-12-11] MEDS: AMANTADINE HCL 100 MG CAP PO SCH ×2 (08:24→12:36)
--- NOTE | 2016-12-11 09:38 | P.PN ---
Progress Note - Text Interval history: The patient is found in his room he follows me to an interview room. Although staff documented less sleep last night he feels he slept well. He states this morning he is trying to be more optimistic. The radio station hallucination has returned. He states he continues to hear "this is HM the big band sound" he continues to hear a buzzing and ringing noise. He asks me if I would be able to use a stethoscope and listen to his head so that I can perceive the same sound. Social work notes reviewed it appears that family is exploring placement at [facility] on the [place]. The patient reports eating this morning he is reporting no medication side effect. He is reporting no excessive sedation because of the claws role. Vital signs reviewed. Mental status exam: The patient is alert he is dressed in his own clothing he has combed his hair. Speech is spontaneous fluent and mildly pressured at times. He is quite demonstrative with speech today but demonstrates no agitated behavior. His affect appears brighter today. Insight and judgment limited. He continues to experience auditory hallucinations he is reporting no visual hallucinations. He is reporting no acute suicidal ideation intent or plan but states it's torture trying to live with these hallucinations. The previous wounds on his fingers are healing he has not been participating in biting behavior. Plan: The patient will continue on his current medications we will likely titrate the claws role further tomorrow night. He appears to be tolerating the claws role without any adverse side effects. We will continue monitoring him for safety and encourage his participation in the milieu when possible. Reality orientation is provided.
[2016-12-11] MEDS: cloZAPine 25 MG TAB PO SCH (20:34)
[2016-12-11] MEDS: DONEPEZIL 10 MG TAB PO SCH (20:34)
[2016-12-11] MEDS: LORazepam 1 MG TAB PO PRN (20:35)
[2016-12-12] MEDS: LORazepam 1 MG TAB PO PRN (06:31)
--- NOTE | 2016-12-12 08:56 | P.PN ---
Progress Note - Text Interval history: The patient is found in the dining room he follows me to an interview room. He reports that he has had the best night's sleep since he's been here. Interestingly staff documentation reflects that he did not sleep at all last night. He reports that some of the ringing noise has reduced he is now feeling "puffs of air" coming from his ears. He reports making more of an effort to get out of his room and sits through portions of groups. He reports difficulty trying to attend to conversations when he is experiencing these auditory hallucinations as it is distracting. He continues to hear music at times as well as the buzzing and ringing noises. Mental status exam: The patient is dressed in the same clothing is yesterday. Again he is combed his hair. Eye contact is appropriate he has spontaneous speech that is mildly pressured at times but he is directable. There is some disorganization of thought at times but at other times his thought process can be more linear. He continues to report auditory hallucinations. His mood is adversely affected by those hallucinations. Affect is brighter. He continues to demonstrate still a significant amount of fluctuation in mood and affect. Insight and judgment impaired. He is oriented to person and place month and year. He continues to have some tremor of his upper extremities. Plan: The patient will continue on the Clozaril we will titrate 200 mg at bedtime. Vital signs reviewed. He remains afebrile there has been no significant decrease in blood pressure. He is reporting no increase in appetite he is reporting no excessive sedation during the day. We will monitor for side effects further. He requires continued psychiatric hospitalization. Family has been collaborating with social work in terms of placement options.
[2016-12-12] MEDS: AMANTADINE HCL 100 MG CAP PO SCH ×2 (09:23→13:07)
[2016-12-12] MEDS: ATORVASTATIN 40 MG TAB PO SCH (09:23)
[2016-12-12] MEDS: amLODIPine 10 MG TAB PO SCH (09:23)
[2016-12-12] MEDS: CLOPIDOGREL 75 MG TAB PO SCH (09:24)
[2016-12-12] MEDS: CITALOPRAM HYDROBROMIDE 10 MG TAB PO SCH (09:24)
[2016-12-12 09:59] LABS: Basophils # (A) 0.1 k/uL (0-0.2); Basophils % (A) 1 %; CH 32.1; CHCM 34.3; Eosinophils % (A) 1 %; HCT 41.3 % (39.0-53.0); HDW 3.01; Luc # (Auto) 0.13; Luc % (Auto) 2; Lymphocytes % (A) 12 %; MCV 94.3 fL (80.0-100.0); Mean Platelet Volume 8.2; Monocytes # (A) 0.3 k/uL (0-1.0); Monocytes % (A) 4 %; Neutrophils # (A) 6.7 k/uL (1.3-7.7); Neutrophils % (A) 81 %; RBC 4.38 m/uL (4.30-5.90); RDW 14.3 % (11.5-15.5); WBC 8.3 k/uL (3.8-10.6); WBC (Perox) 8.42
[2016-12-12] MEDS: cloZAPine 100 MG TAB PO SCH (21:09)
[2016-12-12] MEDS: DONEPEZIL 10 MG TAB PO SCH (21:09)
[2016-12-13] MEDS: LORazepam 1 MG TAB PO PRN (04:11)
[2016-12-13] MEDS: LEVOTHYROXINE 50 MCG TAB PO SCH (07:16)
--- NOTE | 2016-12-13 08:54 | P.PN ---
Progress Note - Text Interval history: The patient is found in the hallway he follows me to an interview room. He still describes his mood as "terrible" but he has been more alert and interactive on the mental health unit at times. He states that he slept better it is documented he slept 4 hours. Appetite is stable. He appreciated a visit from his last evening. He continues to report auditory hallucinations of "ringing, buzzing, crunching noises". We discussed the continued titration of Clozaril and he is reporting no side effect. Mental status exam: The patient is alert he is dressed in his own clothing he has combed his hair. Eye contact is appropriate. He spontaneously engages in conversation. He describes his mood as being "terrible" due to ongoing auditory hallucinations. He can be linear at times it will briefly become tangential. He will engage in some description of delusional thought briefly. Insight and judgment impaired. He continues to have some tremor of his upper extremities he demonstrates no verbal or physical aggressiveness. He is aware of the correct month day and year and current location. Wounds on his fingers continue to heal. At times he picks at his scalp but causes no injury. He is reporting no acute suicidal ideation intent or plan but states "it's hard to live like this". Plan: The patient will continue on his current medication we have recently titrated the Clozaril. Results from the last CBC with differential were reviewed and they are adequate for continued Clozaril use. Vital signs reviewed. He is afebrile. We will continue to monitor him for safety. As we continue to attempt to stabilize him his family continues to look for appropriate placement for when he is ready for discharge.
[2016-12-13] MEDS: ATORVASTATIN 40 MG TAB PO SCH (09:00)
[2016-12-13] MEDS: CITALOPRAM HYDROBROMIDE 10 MG TAB PO SCH (09:00)
[2016-12-13] MEDS: amLODIPine 10 MG TAB PO SCH (09:00)
[2016-12-13] MEDS: AMANTADINE HCL 100 MG CAP PO SCH ×2 (09:00→13:25)
[2016-12-13] MEDS: CLOPIDOGREL 75 MG TAB PO SCH (09:00)
[2016-12-13] MEDS: cloZAPine 100 MG TAB PO SCH (21:54)
[2016-12-13] MEDS: DONEPEZIL 10 MG TAB PO SCH (21:55)
[2016-12-14] MEDS: LEVOTHYROXINE 50 MCG TAB PO SCH (06:53)
[2016-12-14] MEDS: CITALOPRAM HYDROBROMIDE 10 MG TAB PO SCH (09:28)
[2016-12-14] MEDS: LORazepam 1 MG TAB PO PRN (09:28)
[2016-12-14] MEDS: amLODIPine 10 MG TAB PO SCH (09:29)
[2016-12-14] MEDS: CLOPIDOGREL 75 MG TAB PO SCH (09:29)
[2016-12-14] MEDS: ATORVASTATIN 40 MG TAB PO SCH (09:29)
[2016-12-14] MEDS: AMANTADINE HCL 100 MG CAP PO SCH ×2 (09:29→13:02)
--- NOTE | 2016-12-14 11:40 | P.PN ---
Progress Note - Text Interval history: The patient is found in the dining room he follows me to an interview room. He reports his mood is "terrible". He is endorsing auditory and visual hallucinations. Staff report that he is described several symptoms of psychosis lately. His sleep is documented as 4 hours last night he feels it was longer. Appetite is stable. He is reporting no feelings of fatigue in the morning subsequent to the Clozaril we will monitor. Efforts are continued in terms of finding him placement. Mental status exam: The patient is dressed in his own clothing he has a disheveled appearance eye contact is intermittent. Speech is less spontaneous today versus last 2 days. He does provide brief answers to questions asked. He continues to hold his hand in a position where he picks at his scalp lightly causing no injury. He continues to have auditory and visual hallucinations. At times he verbalizes a delusional thought process. Insight and judgment are impaired. Plan: The patient will continue on his current medication we will titrate the Clozaril to 125 mg at bedtime and continue his other psychotropic medications as written. We will continue to monitor him for safety and encourage his participation in the milieu. Vital signs reviewed.
[2016-12-14] MEDS: cloZAPine 100 MG TAB PO SCH (21:42)
[2016-12-14] MEDS: cloZAPine 25 MG TAB PO SCH (21:42)
[2016-12-14] MEDS: DONEPEZIL 10 MG TAB PO SCH (21:42)
[2016-12-15] MEDS: LORazepam 1 MG TAB PO PRN (03:28)
[2016-12-15] MEDS: LEVOTHYROXINE 50 MCG TAB PO SCH (06:52)
[2016-12-15] MEDS: CLOPIDOGREL 75 MG TAB PO SCH (08:50)
[2016-12-15] MEDS: AMANTADINE HCL 100 MG CAP PO SCH ×2 (08:50→13:11)
[2016-12-15] MEDS: ATORVASTATIN 40 MG TAB PO SCH (08:50)
[2016-12-15] MEDS: CITALOPRAM HYDROBROMIDE 10 MG TAB PO SCH (08:50)
[2016-12-15] MEDS: amLODIPine 10 MG TAB PO SCH (08:53)
--- NOTE | 2016-12-15 13:07 | P.PN ---
Progress Note - Text SUBJECTIVE: I reviewed the medical record, interviewed patient He complained of having poor sleep because"I AM HAVING RINGING ON MY RIGHT EAR ,BUZZ ON MY LEFT EAR AND NOW I AM HEARING MUSIC FOR LAST THREE DAYS",patient endorses anxiety because "PEOPLE ASSUMING THAT I AM CRAZY BUT I WANT CURE FOR THESE RINGING ,I WANT TO SLEEP 8 HOURS" OBJECTIVE: He presented as a casually dressed male who was pleasant on approach.,not shaved ,marginal grooming He maintained eye contact and attended the interview. Speech is circumstantial ,intense demeanor ,endorses hallucinations and somatic delusion ,stated mood "ANXIOUS",affect is constricted ,denies any suicidal or homicidal ideation.,alert and oriented to person ,could not recall hospital name ,concrete thinking,perseveration , insight is impaired PLAN: Continue inpatient psychiatric hospitalization. Started on Clozaril and will be titrate it slowly to eliminate psychosis. Encourage participation in therapeutic groups and activities. Assess clinical status response to treatment daily basis.
[2016-12-15] MEDS: DONEPEZIL 10 MG TAB PO SCH (21:46)
[2016-12-15] MEDS: cloZAPine 25 MG TAB PO SCH (21:46)
[2016-12-15] MEDS: cloZAPine 100 MG TAB PO SCH (21:46)
[2016-12-16] MEDS: LORazepam 1 MG TAB PO PRN ×2 (00:40→08:21)
[2016-12-16] MEDS ORDERED: ZIPRASIDONE 20 MG VIAL IM PRN (00:58)
[2016-12-16] MEDS ORDERED: LORazepam 2 MG/ML SYRINGE IM PRN (01:01)
[2016-12-16] MEDS ORDERED: WATER FOR INJECTION, STERILE 10 ML IV ONE (01:10)
[2016-12-16] MEDS: LEVOTHYROXINE 50 MCG TAB PO SCH (06:55)
[2016-12-16] MEDS: CLOPIDOGREL 75 MG TAB PO SCH (08:19)
[2016-12-16] MEDS: CITALOPRAM HYDROBROMIDE 10 MG TAB PO SCH (08:19)
[2016-12-16] MEDS: amLODIPine 10 MG TAB PO SCH (08:19)
[2016-12-16] MEDS: AMANTADINE HCL 100 MG CAP PO SCH ×2 (08:19→12:56)
[2016-12-16] MEDS: ATORVASTATIN 40 MG TAB PO SCH (08:19)
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
--- NOTE | 2016-12-16 14:26 | P.PN ---
Progress Note - Text ADDENDUM TO MY PREVIOUS NOTE: I discontinue Symmetral as it might increase psychosis
[2016-12-16 15:34] LABS: Potassium 4.2 mmol/L (3.5-5.1)
[2016-12-16] MEDS: cloZAPine 25 MG TAB PO SCH (21:30)
[2016-12-16] MEDS: DONEPEZIL 10 MG TAB PO SCH (21:30)
[2016-12-16] MEDS: cloZAPine 100 MG TAB PO SCH (21:30)
[2016-12-17] MEDS: LEVOTHYROXINE 50 MCG TAB PO SCH (08:43)
[2016-12-17] MEDS: CLOPIDOGREL 75 MG TAB PO SCH (08:44)
[2016-12-17] MEDS: ATORVASTATIN 40 MG TAB PO SCH (08:44)
[2016-12-17] MEDS: CITALOPRAM HYDROBROMIDE 10 MG TAB PO SCH (08:44)
[2016-12-17] MEDS: amLODIPine 10 MG TAB PO SCH (08:44)
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
[2016-12-17] MEDS: DONEPEZIL 10 MG TAB PO SCH (21:09)
[2016-12-17] MEDS: cloZAPine 25 MG TAB PO SCH (21:09)
[2016-12-17] MEDS: cloZAPine 100 MG TAB PO SCH (21:09)
[2016-12-18] MEDS: LEVOTHYROXINE 50 MCG TAB PO SCH (06:45)
[2016-12-18] MEDS: ATORVASTATIN 40 MG TAB PO SCH (08:25)
[2016-12-18] MEDS: CITALOPRAM HYDROBROMIDE 10 MG TAB PO SCH (08:25)
[2016-12-18] MEDS: CLOPIDOGREL 75 MG TAB PO SCH (08:25)
[2016-12-18] MEDS: amLODIPine 10 MG TAB PO SCH (08:25)
--- NOTE | 2016-12-18 08:49 | P.PN ---
Progress Note - Text Interval history: The patient is found in his room. He states he stayed in his room all day yesterday. He reports feeling "worse than ever". He states he does not sleep well appetite is stable. He continues to experience auditory hallucinations. He admits to having some thoughts of people trying to kill him and blowing up the hospital. He has been compliant with his medication. He has no questions regarding his medication. Mental status exam: The patient is alert he is dressed in different clothing today he has combed his hair. Eye contact is poor speech is nonspontaneous. He provides brief answers to questions asked. He continues to engage in hopeless nihilistic thinking. He appears to have ongoing paranoid and persecutory thought in the presence of auditory hallucinations and likely visual hallucinations. Insight and judgment are poor. He continues to demonstrate tremor of his upper extremities. He continues to hold his hand up by his head gently rubbing his scalp no injury noted. Affect is flat. He demonstrates no verbal or physical aggressive behavior. He is oriented to person place and date. Plan: The patient will continue on the Clozaril we will titrate to 175 mg at bedtime. He will continue on the Aricept and Celexa. Vital signs reviewed. We will monitor him for safety he requires continued hospitalization for his acute symptoms of psychosis. He is not appropriate for discharge to a lesser level of care as this would put him and possibly others at risk.
[2016-12-18] MEDS: DONEPEZIL 10 MG TAB PO SCH (20:30)
[2016-12-18] MEDS: cloZAPine 100 MG TAB PO SCH (20:33)
[2016-12-18] MEDS: cloZAPine 25 MG TAB PO SCH (20:33)
[2016-12-19] MEDS: LEVOTHYROXINE 50 MCG TAB PO SCH (06:36)
--- NOTE | 2016-12-19 08:41 | P.PN ---
Progress Note - Text Interval history: The patient is found in the dining room he follows me to an interview room. He perceives that he slept better last evening. He continues to speak at length regarding the buzzing ear piercing noise he is hearing. He states last night he was able to change the sound by tapping the left side of his forehead and this would worsen the sound and cause reverberations. He notices when he is excited in his heart rate is up the noise will increase as well. He tends to isolate in his room lately. He has been speaking with his he is aware that she is looking at an [facility] home today. Mental status exam: The patient is alert he seated calmly eye contact is appropriate speech is more spontaneous he's more engaged in the conversation. He speaks several minutes about his son's and some of their history. The patient states he feels terrible he doesn't feel that this noise phenomenon will ever improve. He does have hopelessness thinking he is reporting no desire to however. He reports no thoughts of harming others. He is endorsing no specific delusions today but they have been intermittent lately. He is endorsing no current visual hallucinations but again those have been intermittent lately. Insight and judgment impaired. He is oriented to person place and date. Plan: The patient will continue on his current medication we plan to continue titrating the Clozaril. Vital signs reviewed. We will redraw a CBC with differential. He is encouraged to stay out of his room more and participate in at least portions of the milieu.
[2016-12-19] MEDS: CLOPIDOGREL 75 MG TAB PO SCH (09:13)
[2016-12-19] MEDS: CITALOPRAM HYDROBROMIDE 10 MG TAB PO SCH (09:13)
[2016-12-19] MEDS: ATORVASTATIN 40 MG TAB PO SCH (09:13)
[2016-12-19] MEDS: amLODIPine 10 MG TAB PO SCH (09:13)
[2016-12-19] MEDS: LORazepam 1 MG TAB PO PRN ×2 (09:13→17:55)
[2016-12-19 09:30] LABS: Basophils % (A) 0 %; CH 31.4; CHCM 33.9; Eosinophils # (A) 0.1 k/uL (0-0.7); Eosinophils % (A) 2 %; HCT 43.6 % (39.0-53.0); HGB 14.3 gm/dL (13.0-17.5); Luc # (Auto) 0.16; Luc % (Auto) 2; Lymphocytes # (A) 1.2 k/uL (1.0-4.8); Lymphocytes % (A) 14 %; MCH 30.7 pg (25.0-35.0); MCHC 32.8 g/dL (31.0-37.0); MCV 93.4 fL (80.0-100.0); Mean Platelet Volume 7.1; Monocytes # (A) 0.4 k/uL (0-1.0); Monocytes % (A) 5 %; Neutrophils # (A) 6.3 k/uL (1.3-7.7); Neutrophils % (A) 76 %; RBC 4.67 m/uL (4.30-5.90); WBC 8.2 k/uL (3.8-10.6)
[2016-12-19] MEDS: cloZAPine 100 MG TAB PO SCH (21:09)
[2016-12-19] MEDS: DONEPEZIL 10 MG TAB PO SCH (21:09)
[2016-12-19] MEDS: cloZAPine 25 MG TAB PO SCH (21:09)
[2016-12-20] MEDS: LORazepam 1 MG TAB PO PRN ×2 (04:48→09:06)
[2016-12-20] MEDS: LEVOTHYROXINE 50 MCG TAB PO SCH (06:26)
[2016-12-20] MEDS: amLODIPine 10 MG TAB PO SCH (09:06)
[2016-12-20] MEDS: ATORVASTATIN 40 MG TAB PO SCH (09:06)
[2016-12-20] MEDS: CLOPIDOGREL 75 MG TAB PO SCH (09:06)
[2016-12-20] MEDS: CITALOPRAM HYDROBROMIDE 10 MG TAB PO SCH (09:06)
--- NOTE | 2016-12-20 09:35 | P.PN ---
Progress Note - Text SUBJECTIVE: Patient was seen and I reviewed records:,patient slept better with higher of Clozaril",still endorsing auditory hallucinations ,persecutory delusion ,not able to concentrate "Because of buzzing in my ears", still having anxiety and according to him "Voices are the same ,some old friends trying to mess up my brain " Per nursing staff :patient slept 6 hours ,minimal participation in groups ,did require PRN Ativan this morning for anxiety OBJECTIVE: He presented as a casually dressed male .,not shaved , marginal grooming ,body odor He maintained eye contact . Speech is non spontaneous ,endorses hallucinations and delusion ,denies any suicidal or homicidal ideation ,insight and judgment are poor PLAN: Continue inpatient psychiatric hospitalization. Continue Clozaril and Celexa ,same doses. Encourage participation in therapeutic groups and activities. Assess clinical status response to treatment daily basis.
[2016-12-20] MEDS: DONEPEZIL 10 MG TAB PO SCH (20:15)
[2016-12-20] MEDS: cloZAPine 100 MG TAB PO SCH (20:15)
[2016-12-20] MEDS: cloZAPine 25 MG TAB PO SCH (20:15)
[2016-12-21] MEDS: LEVOTHYROXINE 50 MCG TAB PO SCH (06:32)
[2016-12-21] MEDS: amLODIPine 10 MG TAB PO SCH (08:20)
[2016-12-21] MEDS: CITALOPRAM HYDROBROMIDE 10 MG TAB PO SCH (08:20)
[2016-12-21] MEDS: ATORVASTATIN 40 MG TAB PO SCH (08:20)
[2016-12-21] MEDS: CLOPIDOGREL 75 MG TAB PO SCH (08:20)
--- NOTE | 2016-12-21 12:46 | P.PN ---
Progress Note - Text Progress Note - Text SUBJECTIVE: Patient was seen,cross covering DR Ramsey , still endorsing auditory hallucinations ,persecutory delusion ,not able to concentrate "Because of buzzing in my ears", still having anxiety and according to him "Voices are the same ,some old friends trying to mess up my brain ",he reports that his sleep is restless any "Up every hour"but able to fall back asleep Discussed his case and postplan discharge in morning treatment team , is his guardian ,son and are reluctant to look for placement Per nursing staff :patient slept 6 hours ,minimal participation in groups ,did not require any PRN since yesterday noon ,no aggressive or combative behavior OBJECTIVE: He presented as a casually dressed male .,not shaved , marginal grooming ,body odor He maintained eye contact . Speech is non spontaneous ,endorses hallucinations and delusion ,denies any suicidal or homicidal ideation ,insight and judgment are poor PLAN: Continue inpatient psychiatric hospitalization. Increase Clozaril to 200 mg HS ,continue rest of medications ,same dose Encourage participation in therapeutic groups and activities. Assess clinical status response to treatment daily basis.,SW to meet with family to discuss placement
[2016-12-21] MEDS: LORazepam 1 MG TAB PO PRN (14:43)
[2016-12-21] MEDS: DONEPEZIL 10 MG TAB PO SCH (21:10)
[2016-12-21] MEDS: cloZAPine 100 MG TAB PO SCH (21:10)
[2016-12-22] MEDS: LEVOTHYROXINE 50 MCG TAB PO SCH (06:43)
[2016-12-22] MEDS: ATORVASTATIN 40 MG TAB PO SCH (08:03)
[2016-12-22] MEDS: amLODIPine 10 MG TAB PO SCH (08:03)
[2016-12-22] MEDS: CITALOPRAM HYDROBROMIDE 10 MG TAB PO SCH (08:03)
[2016-12-22] MEDS: CLOPIDOGREL 75 MG TAB PO SCH (08:04)
[2016-12-22] MEDS: LORazepam 1 MG TAB PO PRN (08:04)
--- NOTE | 2016-12-22 16:57 | P.PN ---
Progress Note - Text SUBJECTIVE: I reviewed the medical record and interviewed Mr. Jordan. 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 He presented to the unit on 12/07/2016 with increasing agitation. He stated that he is doing poorly and complaining of constant ringing in his ears. He alleged has a result of the tinnitus he is "nonfunctional." He complains of poor sleep, poor appetite and restlessness. OBJECTIVE: He presented as a casually groomed elderly male who was pleasant on approach. He maintained eye contact and appeared to attend to the interview. He held his fingers to his Zoroastrianism throughout the interview. He had no physical abnormalities. He had a distressed facial expression. He was alert and oriented to person, month and year. He showed psychomotor retardation but no abnormal involuntary movements. His gait was slow but steady. His speech was spontaneous with decreased rate, rhythm and volume. He had no articulation difficulties. His affect was blunted and dysphoric. He denied suicidal ideation or wishes. He denied homicidal ideation. He expressed depressive cognitions such as hopelessness and helplessness. He perseverated about the tinnitus and his general poor functioning. He did not express ideas reference or paranoid ideation. His thinking was concrete but his associations were coherent. He denied hallucinations and did not appear to be responding to internal stimuli. [facility] completed the [facility] Orientation Memory and Concentration test. His total weighted error score was 10; the total weighted score greater than 10 is consistent with a dementia. He knew the year and the month. He was able to register the memory phrase "Jarret Wall, [address] [place] [address].". He estimated the time correctly within 1 hour actual time. He was able to count backwards from 20 and see the months of the year in reverse order (beginning with September ). He did not remember single element of the memory phrase. ASSESSMENT: He severely mentally ill and showed a minimal response to treatment. He continues to have evidence of memory impairment. PLAN: Continue inpatient hospitalization. warp worker is assisting the family with placement. Continue Celexa 10 mg daily, clozapine 200 mg at bedtime and Aricept 20 mg at bedtime. Continue lorazepam 1 mg by mouth/IM every 4 hours when necessary for agitation. Continue Norvasc 10 mg daily for hypertension and Lipitor 40 mg daily for hypercholesterolemia. Encouraged participation in therapeutic groups and activities as tolerated. Evaluate clinical status response to treatment on a daily basis.
[2016-12-22] MEDS: DONEPEZIL 10 MG TAB PO SCH (21:12)
[2016-12-22] MEDS: cloZAPine 100 MG TAB PO SCH (21:12)
[2016-12-23] MEDS: LEVOTHYROXINE 50 MCG TAB PO SCH (05:56)
[2016-12-23] MEDS: amLODIPine 10 MG TAB PO SCH (10:31)
[2016-12-23] MEDS: ATORVASTATIN 40 MG TAB PO SCH (10:31)
[2016-12-23] MEDS: CLOPIDOGREL 75 MG TAB PO SCH (10:32)
[2016-12-23] MEDS: CITALOPRAM HYDROBROMIDE 10 MG TAB PO SCH (10:33)
[2016-12-23] MEDS: LORazepam 1 MG TAB PO PRN (10:33)
--- NOTE | 2016-12-23 15:51 | P.PN ---
Progress Note - Text SUBJECTIVE: I reviewed the medical record and interviewed Mr. Jordan. 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 He presented to the unit on 12/07/2016 with increasing agitation. He again complained of any constant ringing in his ears. He also talked about the "grinding sound" in his left ear "that sounds like a meat blender." He complains of poor sleep but denied that he is tired or fatigued during the day. OBJECTIVE: He presented as a casually groomed elderly male who was pleasant on approach. He maintained eye contact and appeared to attend to the interview. As yesterday, he held his fingers to his religion throughout the interview. He had no physical abnormalities. He had a distressed facial expression. He showed psychomotor retardation but no abnormal involuntary movements. His gait was slow but steady. His speech was spontaneous with decreased rate, rhythm and volume. He had no articulation difficulties. His affect was blunted and dysphoric. He denied suicidal ideation or wishes. He denied homicidal ideation. He expressed depressive cognitions such as hopelessness and helplessness. He perseverated about the tinnitus and his general poor functioning. He did not express ideas reference or paranoid ideation. His thinking was concrete but his associations were coherent. He denied hallucinations and did not appear to be responding to internal stimuli. ASSESSMENT: He severely mentally ill and showed a minimal response to treatment. He continues to have evidence of memory impairment. PLAN: Continue inpatient hospitalization. warp worker is assisting the family with placement. Continue Celexa 10 mg daily, clozapine 200 mg at bedtime and Aricept 20 mg at bedtime. Continue lorazepam 1 mg by mouth/IM every 4 hours when necessary for agitation. Continue Norvasc 10 mg daily for hypertension and Lipitor 40 mg daily for hypercholesterolemia. Encouraged participation in therapeutic groups and activities as tolerated. Evaluate clinical status response to treatment on a daily basis.
[2016-12-23] MEDS: DONEPEZIL 10 MG TAB PO SCH (20:16)
[2016-12-23] MEDS: cloZAPine 100 MG TAB PO SCH (20:16)
[2016-12-24] MEDS: LEVOTHYROXINE 50 MCG TAB PO SCH (06:50)
[2016-12-24] MEDS: CLOPIDOGREL 75 MG TAB PO SCH (09:16)
[2016-12-24] MEDS: CITALOPRAM HYDROBROMIDE 10 MG TAB PO SCH (09:16)
[2016-12-24] MEDS: ATORVASTATIN 40 MG TAB PO SCH (09:16)
[2016-12-24] MEDS: amLODIPine 10 MG TAB PO SCH (09:16)
[2016-12-24] MEDS: LORazepam 1 MG TAB PO PRN (09:19)
--- NOTE | 2016-12-24 09:54 | P.PN ---
Progress Note - Text Interval history: The patient is found in his room he follows me to an interview room. He reports things are about the same. He does describe experiencing auditory and visual hallucinations last evening where he saw and heard numerous family members in his room. He states it felt very real to him and couldn't understand why they were all in his room at midnight. He continues to report poor sleep staff documented 7 hours of sleep however. He states his appetite is been stable. He is describing no feelings of fatigue he is describing no dizziness. Social work notes reviewed. Mental status exam: patient is disheveled he is dressed in his own clothing hygiene grooming impaired. Eye contact is intermittent. He does have some spontaneous speech and overall is cooperative today. He is troubled by recent auditory and visual hallucinations. He continues to report a nonstop buzzing/ ringing sound. He continues to feel hopeless as he feels these symptoms will never improve. He is reporting no thoughts of harming others. Speech is nonpressured. He is oriented to person place day month and year. Minimal tremor noticed this morning. He continues to hold his hand at the side of his head. Insight and judgment impaired. Plan: The patient will continue on his current medications the Clozaril was titrated in my absence to 200 mg at bedtime. Vital signs are reviewed. We will continue to monitor him for safety. Social work continues to collaborate with his family in terms of placement options.
[2016-12-24] MEDS: DONEPEZIL 10 MG TAB PO SCH (20:19)
[2016-12-24] MEDS: cloZAPine 100 MG TAB PO SCH (20:19)
[2016-12-25] MEDS: LEVOTHYROXINE 50 MCG TAB PO SCH (06:35)
[2016-12-25] MEDS: CITALOPRAM HYDROBROMIDE 10 MG TAB PO SCH (08:33)
[2016-12-25] MEDS: CLOPIDOGREL 75 MG TAB PO SCH (08:33)
[2016-12-25] MEDS: amLODIPine 10 MG TAB PO SCH (08:33)
[2016-12-25] MEDS: ATORVASTATIN 40 MG TAB PO SCH (08:33)
--- NOTE | 2016-12-25 08:43 | P.PN ---
Progress Note - Text Interval history: The patient is found in his room he follows me to an interview room. He describes that his mood is terrible he feels fearful and distraught. He states the visual hallucinations are worse. Last night he visualized family members and past employees in his room. He finds this very discomforting. Subsequently he has been isolating in his room despite a desire of wanting to go to group. It was recorded that he had no hours of sleep last night and he endorses the same. He endorses hopeless feelings and continues to have nihilistic thoughts. Mental status exam: The patient is alert he seated calmly in the chair he has no eye contact he holds his hand to his head. His hair is uncombed hygiene grooming impaired. He has not shaved and is growing a muir. Tremor of his upper extremities is fine amplitude. He endorses a terrible mood with hopelessness thinking. He is focused on a worsening of his psychosis primarily visual hallucinations. He is concerned that there is some meaning behind the occurrence of the visual hallucinations. He has demonstrated paranoid thinking. Insight and judgment impaired. He demonstrates increased psychomotor activity without aggressiveness this morning. He has no spontaneous speech he briefly answers questions. He was oriented to month and year he incorrectly name the day of the week as Saturday. Plan: We will continue the Clozaril and increase to 225 mg at bedtime. The patient's symptoms of psychosis appear exacerbated further which is causing more dysfunction for him. Continue Aricept and Celexa as written. The patient requires inpatient psychiatric hospitalization at this time. Due to the current status of his psychosis he would not be appropriate for a lesser level of care as he would almost certainly be readmitted immediately. We will continue to monitor for safety and encourage full participation in the milieu. We have a family meeting scheduled involving his son and this morning.
[2016-12-25 11:39] VITALS: BMI 26.0
[2016-12-25] MEDS: cloZAPine 100 MG TAB PO SCH (21:26)
[2016-12-25] MEDS: cloZAPine 25 MG TAB PO SCH (21:26)
[2016-12-25] MEDS: DONEPEZIL 10 MG TAB PO SCH (21:27)
[2016-12-25] MEDS: LORazepam 1 MG TAB PO PRN (21:28)
[2016-12-26] MEDS ORDERED: ZIPRASIDONE 20 MG VIAL IM PRN (00:03)
[2016-12-26] MEDS ORDERED: WATER FOR INJECTION, STERILE 10 ML IV ONE (00:14)
[2016-12-26] MEDS ORDERED: ZIPRASIDONE 20 MG VIAL IM ONE (00:14)
[2016-12-26] MEDS: LEVOTHYROXINE 50 MCG TAB PO SCH (07:12)
--- NOTE | 2016-12-26 09:01 | P.PN ---
Progress Note - Text Interval history: The patient is found in his room he follows me to an interview room. He had a more difficult evening and that he had more visual hallucinations which was causing him concern and fear. Nursing had contacted me last night as result and he was given a Geodon injection. This did seem to calm his symptoms. There was no report of any aggressive behavior and he was directable. Sleep was documented at only 3 hours. He continues to describe a bad mood with ongoing auditory hallucinations. We did hold a family meeting yesterday involving his son and [id number] and family sports attorney. We discussed discharge plans and were able to reach a consensus. We agreed that we need to continue attempting to reduce the psychosis prior to discharge however as it does lead to dysfunction in any residential setting. Mental status exam: The patient is alert he is disheveled grooming is poor. Eye contact is intermittent. He initially has no spontaneous speech but this improves as the session goes on. He continues to experience auditory hallucinations last evening he was experiencing visual hallucinations of the pictures falling off of the moya. Nursing states he was inspecting the doors and appeared fearful. He verbalizes concern that his may not be safe he is reassured that she is safe as we do spoke with her in person yesterday. Insight and judgment are poor. He demonstrates no aggressive behavior this morning. Speech is nonpressured fluent. He demonstrates no tremor this morning. There is some psychomotor slowing. Plan: The patient has shown no beneficial response to any other antipsychotic previously we will continue utilizing the claws role due to its low risk of EPS. We have just titrated yesterday we will plan to titrate further. We will consider increasing Celexa. Because of the patient's psychosis he is not appropriate for discharge at this time. Discharge planning continues. Vital signs reviewed. We will continue to monitor him for safety. Blood work continues to be appropriate for continued use of Clozaril.
[2016-12-26] MEDS: CLOPIDOGREL 75 MG TAB PO SCH (09:08)
[2016-12-26] MEDS: CITALOPRAM HYDROBROMIDE 10 MG TAB PO SCH (09:08)
[2016-12-26] MEDS: ATORVASTATIN 40 MG TAB PO SCH (09:08)
[2016-12-26] MEDS: amLODIPine 10 MG TAB PO SCH (09:08)
[2016-12-26] MEDS: LORazepam 1 MG TAB PO PRN ×2 (09:10→21:56)
[2016-12-26 09:31] LABS: Basophils # (A) 0.1 k/uL (0-0.2); Basophils % (A) 1 %; CH 31.4; CHCM 33.7; Eosinophils # (A) 0.2 k/uL (0-0.7); Eosinophils % (A) 2 %; HCT 41.7 % (39.0-53.0); HGB 13.3 gm/dL (13.0-17.5); Luc # (Auto) 0.18; Luc % (Auto) 2; Lymphocytes # (A) 1.1 k/uL (1.0-4.8); Lymphocytes % (A) 14 %; MCH 29.8 pg (25.0-35.0); MCHC 31.9 g/dL (31.0-37.0); MCV 93.4 fL (80.0-100.0); Mean Platelet Volume 7.5; Monocytes # (A) 0.4 k/uL (0-1.0); Monocytes % (A) 5 %; Neutrophils % (A) 76 %; RBC 4.47 m/uL (4.30-5.90); RDW 13.7 % (11.5-15.5); WBC 7.9 k/uL (3.8-10.6); WBC (Perox) 8.11
[2016-12-26] MEDS: cloZAPine 100 MG TAB PO SCH (21:53)
[2016-12-26] MEDS: cloZAPine 25 MG TAB PO SCH (21:54)
[2016-12-26] MEDS: DONEPEZIL 10 MG TAB PO SCH (21:54)
[2016-12-27] MEDS: LEVOTHYROXINE 50 MCG TAB PO SCH (06:34)
--- NOTE | 2016-12-27 08:49 | P.PN ---
Progress Note - Text Interval history: The patient is found in his room he follows me to an interview room. He reports he feels "terrible". He believes he may have slept more last night compared to the past 2 nights. Staff documented 6 hours of sleep last night. He continues to comply with his medications. He reports waking in the middle night feeling confused. No agitated behavior reported. He has no questions regarding his medications he is endorsing no side effects. He abbreviate's session this morning wanting to go back to bed. Mental status exam: The patient is alert he is disheveled he is wearing different clothing than yesterday. Staff were able to get him in the shower yesterday. Eye contact is intermittent. Speech is fluent mainly responsive to questions asked. He is endorsing ongoing auditory and visual hallucinations. He will intermittently express paranoid thoughts. Insight and judgment are impaired. He is demonstrating no verbal or physical aggressiveness. He is easily directable. He is oriented to person place month and year. No tremor noted today. Plan: The patient will continue on his current medication we will consider titrating Clozaril further. We will monitor him for safety. Vital signs reviewed. Results from CBC with differential reviewed those values are appropriate for continued use of Clozaril.
[2016-12-27] MEDS: ATORVASTATIN 40 MG TAB PO SCH (08:56)
[2016-12-27] MEDS: amLODIPine 10 MG TAB PO SCH (08:56)
[2016-12-27] MEDS: CLOPIDOGREL 75 MG TAB PO SCH (08:57)
[2016-12-27] MEDS: CITALOPRAM HYDROBROMIDE 10 MG TAB PO SCH (08:57)
[2016-12-27] MEDS: LORazepam 1 MG TAB PO PRN (08:58)
[2016-12-27] MEDS: DONEPEZIL 10 MG TAB PO SCH (20:29)
[2016-12-27] MEDS ORDERED: cloZAPine 100 MG TAB PO SCH (21:00)
[2016-12-27] MEDS ORDERED: cloZAPine 25 MG TAB PO SCH (21:00)
[2016-12-28] MEDS: LEVOTHYROXINE 50 MCG TAB PO SCH (06:32)
--- NOTE | 2016-12-28 08:25 | P.PN ---
Progress Note - Text Interval history: The patient is found in his room he follows me to an interview room. He reports he did sleep somewhat last night, staff recorded 6 hours of sleep. Social work notes reviewed. Vital signs reviewed. Lab results reviewed. The patient continues to report visual hallucinations. He endorses no thoughts of harming himself or others. He voices no concerns regarding his medication he reports no physical pain or dizziness. He does not feel sedated during the day. Mental status exam: The patient is alert he seated calmly he slowly rubs his left mormonism with his hand there is no picking behavior. He seated calmly eye contact is intermittent. He has little spontaneous speech but does respond to questions briefly. He is endorsing no current hallucinations. He has intermittently been experiencing some delusional thought but he denies having any at this moment. Insight and judgment impaired. He demonstrates no verbal or physical aggressiveness. He remains oriented to person place and date. Affect is fairly [place]. Tremor activity is very low amplitude. Plan: The patient will continue on his current medication we will titrate the Clozaril to 250 mg at bedtime he will continue on the Celexa and Aricept. We will continue to monitor for safety and encourage more participation in the milieu.
[2016-12-28] MEDS: CLOPIDOGREL 75 MG TAB PO SCH (09:03)
[2016-12-28] MEDS: ATORVASTATIN 40 MG TAB PO SCH (09:03)
[2016-12-28] MEDS: amLODIPine 10 MG TAB PO SCH (09:03)
[2016-12-28] MEDS: CITALOPRAM HYDROBROMIDE 10 MG TAB PO SCH (09:03)
[2016-12-28] MEDS: DONEPEZIL 10 MG TAB PO SCH (21:26)
[2016-12-28] MEDS: cloZAPine 100 MG TAB PO SCH (21:26)
[2016-12-28] MEDS: cloZAPine 25 MG TAB PO SCH (21:26)
[2016-12-28] MEDS: LORazepam 1 MG TAB PO PRN (21:28)
[2016-12-29] MEDS: LEVOTHYROXINE 50 MCG TAB PO SCH (06:47)
[2016-12-29] MEDS: amLODIPine 10 MG TAB PO SCH (09:20)
[2016-12-29] MEDS: CLOPIDOGREL 75 MG TAB PO SCH (09:20)
[2016-12-29] MEDS: ATORVASTATIN 40 MG TAB PO SCH (09:20)
[2016-12-29] MEDS: CITALOPRAM HYDROBROMIDE 10 MG TAB PO SCH (09:21)
--- NOTE | 2016-12-29 13:07 | P.PN ---
Progress Note - Text Interval history: The patient is found in his room he follows me to an interview room. It is documented he slept approximately 5 hours last night. He reports either having hallucinations or vivid dreams and cannot discern the difference. He states the auditory hallucination described as white noise is worse. He has isolated in his room most of yesterday and all of this morning. He will go down for lunch he is encouraged to participate in groups afterward. Mental status exam: The patient is alert grooming is mildly improved hygiene is impaired. Eye contact is appropriate speech is fluent nonpressured. He maintains a flat affect. He continues to endorse auditory hallucinations. He is reporting no acute suicidal or homicidal ideation intent or plan. There is no verbal or physical aggressiveness. Insight and judgment limited. He is oriented to person place and date. Plan: The patient will continue on his current medication we will consider further titrations. We will monitor him for safety. He has been evaluated for placement we are awaiting feedback. Vital signs reviewed.
[2016-12-29] MEDS: cloZAPine 100 MG TAB PO SCH (21:30)
[2016-12-29] MEDS: LORazepam 1 MG TAB PO PRN (21:31)
[2016-12-29] MEDS: DONEPEZIL 10 MG TAB PO SCH (21:31)
[2016-12-29] MEDS: cloZAPine 25 MG TAB PO SCH (21:31)
[2016-12-30] MEDS: CITALOPRAM HYDROBROMIDE 10 MG TAB PO SCH (09:15)
--- NOTE | 2016-12-30 11:34 | P.PN ---
Progress Note - Text Interval history: The patient is found in his room he follows me to an interview room. He reports things are "about the same". He endorses ongoing auditory and visual hallucinations. He did meet with his last evening. He was able to discuss topics that he read about in the newspaper. He has not been attending groups he did eat breakfast. He is endorsing no side effects from his medication. We discussed placement plans upon discharge. Mental status exam: The patient is alert he is cooperative more pleasant. He endorses the same mood that feels "terrible". He does readily engage in a conversation pertaining to local government and politics. He is reporting no acute suicidal or homicidal ideation intent or plan. He verbalizes some visual hallucinations over the evening hours. He verbalizes concerns that people here at the hospital are approaching him to participate in fund raising activities. He expresses concern as this would be inappropriate as he is a patient here. No verbal or physical aggressiveness. He is oriented to person place and date. Insight and judgment limited. Plan: The patient's will continue on his current medications. Vital signs reviewed. Recent labs reviewed. We will continue to monitor him for safety and encourage his participation in the milieu.
[2016-12-30] MEDS: cloZAPine 25 MG TAB PO SCH (21:07)
[2016-12-30] MEDS: DONEPEZIL 10 MG TAB PO SCH (21:07)
[2016-12-30] MEDS: cloZAPine 100 MG TAB PO SCH (21:07)
[2016-12-30] MEDS: LORazepam 1 MG TAB PO PRN (21:08)
[2016-12-31] MEDS: CITALOPRAM HYDROBROMIDE 10 MG TAB PO SCH (09:00)
[2016-12-31] MEDS: LORazepam 1 MG TAB PO PRN (09:01)
--- NOTE | 2016-12-31 09:32 | P.PN ---
Progress Note - Text Interval history: The patient is found in his room he follows me to an interview room. He reports he feels about the same. He did have a pleasant visit with his last evening and he was able to discussed that at length. He continues to describe auditory hallucinations at cause concern. He reports no command auditory hallucinations. He has no suicidal or homicidal ideation. We discussed his impending transition to another placement he had no questions. He is reporting no side effects from the Clozaril. Mental status exam: The patient is alert he is disheveled he is dressed in his own clothing. Speech is more spontaneous today he is more engaged in the session. He continues to report auditory hallucinations. He describes having vivid dreams throughout the night. Typically he is found lying in bed. He demonstrates no aggressive behavior speech is nonpressured he maintains an appropriate tone. His tremor overall is improved. Insight and judgment limited. He maintains a constricted affect. He is oriented to person place and date. Again he reports no acute suicidal or homicidal ideation intent or plan. Plan: The patient's will continue on his current medication we will consider further titration. We will discuss discharge planning further during team meeting this morning. Vital signs reviewed.
--- NOTE | 2016-12-31 11:59 | XR ---
EXAMINATION TYPE: XR chest 1V DATE OF EXAM: 12/31/2016 11:30 AM COMPARISON: Prior chest x-ray 30 June 2016 HISTORY: [facility] placement TECHNIQUE: Single frontal view of the chest is obtained. FINDINGS: Heart size is borderline which may be technical. No evident pneumonia, pneumothorax, or pl eural effusion. Exam is expiratory. Pulmonary vascularity and traci are stable. IMPRESSION: Borderline cardiac size, expiratory exam. Patient is rotated. Follow-up as indicated.
[2016-12-31] MEDS: cloZAPine 100 MG TAB PO SCH (20:56)
[2016-12-31] MEDS: cloZAPine 25 MG TAB PO SCH (20:56)
[2016-12-31] MEDS: DONEPEZIL 10 MG TAB PO SCH (20:56)
[2017-01-01] MEDS ORDERED: ACETAMINOPHEN TAB 325 MG TAB PO PRN (08:30)
[2017-01-01] MEDS ORDERED: MAGNESIUM HYDROXIDE 2,400 MG/10 ML CUP PO PRN (08:31)
[2017-01-01] MEDS ORDERED: MAG HYDROX/AL HYDROX/SIMETH 30 ML CUP PO PRN (08:31)
[2017-01-01] MEDS: CITALOPRAM HYDROBROMIDE 10 MG TAB PO SCH (08:37)
[2017-01-01] MEDS: LORazepam 1 MG TAB PO PRN ×2 (08:37→21:52)
[2017-01-01] MEDS: CLOPIDOGREL 75 MG TAB PO SCH (08:47)
[2017-01-01] MEDS: ATORVASTATIN 40 MG TAB PO SCH (08:47)
[2017-01-01] MEDS: LEVOTHYROXINE 50 MCG TAB PO SCH (08:47)
[2017-01-01] MEDS: amLODIPine 10 MG TAB PO SCH (08:47)
--- NOTE | 2017-01-01 09:11 | P.DS ---
Providers Date of admission: 11/27/16 21:13 Expected date of discharge: 01/01/17 Attending physician: Clemente Ramsey Consults: 11/27/16 22:38 Consult Physician Routine Consulting Provider: eNema Townsend Consult Reason/Comments: follow up H & P Do you want consulting provider notified?: Yes, Notify in am Primary care physician: Maribel Long - Discharge Diagnosis(es) (1) Unspecified psychosis Current Visit: Yes Status: Acute Priority: High (2) Major neurocognitive disorder Current Visit: Yes Status: Acute Priority: High Hospital Course: Brief summary of admission note: This patient is a 66-year-old male who is known to my outpatient practice who was admitted to the mental health unit through the emergency room for acute agitated behavior in the context of experiencing psychosis. The patient was petitioned to the hospital by his as he had demonstrated aggressive behavior at home he threw a lamp a TV jewelry boxes and made a hole in the wall. He had been experiencing visual hallucinations. The patient has been extensively evaluated by neurology's primary care and also neuropsychology. With his second neuropsychology evaluation there was documentation that he was demonstrating characteristics of major neurocognitive disorder and there was a strong suspicion of Mercedes body involvement. The patient is previously been tried on numerous psychotropic medications. For full details please refer to my psychiatric evaluation dated 11/28/2016. Summary of hospital course: For complete detail please refer to the electronic medical record as the patient has been admitted for over 1 month. The patient was admitted involuntarily there was a hearing and subsequent court order for treatment. The patient was placed back on Celexa as the Paxil was discontinued we restarted Aricept and ultimately decided to use Clozaril. The patient did demonstrate some tremor that was assumed to be Parkinson's like but not necessarily due to Parkinson's disease. We did try to reduce that with Symmetrel and the patient seemed to eventually get more agitated with it. Symmetrel was discontinued after a brief trial. Clozaril was initiated and slowly titrated during the course of the hospitalization. The patient demonstrated no sedation no excessive salivation and reported no substantial increase in appetite. During the hospitalization we held 2 family meetings involving his and son Nhan. His family did not feel safe having him return home and a variety of placement options were discussed. The patient did demonstrate agitated behavior at least twice on the mental health unit during the course of the month but there has been no aggressive behavior over the last more than one week. The claws role may be controlling that better. He does continue to verbalize visual and auditory hallucinations that are intermittent. He has been able to participate in meals. He has been directable for bathing. He was seen for routine medical consultation. Mental status exam: The patient is alert he has a disheveled appearance he is dressed in his own clothing. Eye contact is good speech is mainly reactive to questions asked today. Intermittently he can demonstrate some spontaneous speech. He holds his hands up to his head but does not demonstrate any self- injurious behavior there is no picking or scratching behavior. He has stopped biting at his finger and those wounds have healed several weeks ago. He reports no acute suicidal or homicidal ideation intent or plan. He reports an auditory hallucination that we'll change from a ringing/buzzing/banging noise. He will report some intermittent visual hallucinations but reports none now. There is mild evidence of tremor of his left upper extremity amplitude is low. He demonstrates no verbal or physical aggressiveness. He is oriented to person place and date. Affect is flat. Impressions 1. Psychosis unspecified, major neurocognitive disorder was suspected Mercedes body involvement 2. Hypertension, hypothyroidism, hyperlipidemia 3. Psychosocial dysfunction due to progressive symptoms of major neurocognitive impairment Plan: The patient will be discharged today to a placement at [facility]. A patient portal representative from that facility has met with the patient and was found suitable for there residence. The patient's family has visited that site as well and has found it acceptable. The patient will continue on Celexa 10 mg daily, Aricept 20 mg at bedtime, Clozaril 250 mg at bedtime, Ativan will be available as needed 1 mg up to twice daily. He will continue to require weekly blood draws for a complete blood count and differential in order to continue Clozaril use. There have been no lab abnormalities preventing Clozaril use while hospitalized. The patient appears to have a progressive neurocognitive disorder and he has demonstrated significant decline over the last 2 years. He has been on our mental health unit for over 1 month we feel at this point he is stable enough to transition to a lesser level of care. Family is instructed to bring him back to the hospital with any acute safety concerns. Plan - Discharge Summary New Discharge Prescriptions: Atorvastatin [Lipitor] 40 mg PO DAILY #30 tab Citalopram Hydrobromide [CeleXA] 10 mg PO DAILY #30 tab Clopidogrel [Plavix] 75 mg PO DAILY #30 tab Donepezil [Aricept] 20 mg PO HS #60 tab LORazepam [Ativan] 1 mg PO BID PRN #60 tab PRN Reason: Anxiety Levothyroxine Sodium [Synthroid] 50 mcg PO AC-BRKFST #30 tab amLODIPine [Norvasc] 10 mg PO DAILY #30 tab cloZAPine [Clozaril] 200 mg PO HS #60 tab cloZAPine [Clozaril] 50 mg PO HS #60 tab Discharge Medication List Atorvastatin [Lipitor] 40 mg PO DAILY #30 tab 01/01/17 [Rx] Citalopram Hydrobromide [CeleXA] 10 mg PO DAILY #30 tab 01/01/17 [Rx] Clopidogrel [Plavix] 75 mg PO DAILY #30 tab 01/01/17 [Rx] Donepezil [Aricept] 20 mg PO HS #60 tab 01/01/17 [Rx] LORazepam [Ativan] 1 mg PO BID PRN #60 tab 01/01/17 [Rx] Levothyroxine Sodium [Synthroid] 50 mcg PO AC-BRKFST #30 tab 01/01/17 [Rx] amLODIPine [Norvasc] 10 mg PO DAILY #30 tab 01/01/17 [Rx] cloZAPine [Clozaril] 50 mg PO HS #60 tab 01/01/17 [Rx] cloZAPine [Clozaril] 200 mg PO HS #60 tab 01/01/17 [Rx] Follow up Appointment(s)/Referral(s): Maribel Long III, MD [Primary Care Provider] - 1-2 days Activity/Diet/Wound Care/Special Instructions: Follow up with Dr Long for referral of MRI due to ringing in ears
[2017-01-01 11:31] LABS: Basophils # (A) 0.1 k/uL (0-0.2); Basophils % (A) 1 %; CH 31.8; CHCM 34.2; Eosinophils # (A) 0.1 k/uL (0-0.7); Eosinophils % (A) 1 %; HCT 43.1 % (39.0-53.0); HDW 3.13; HGB 14.4 gm/dL (13.0-17.5); Luc # (Auto) 0.15; Luc % (Auto) 2; Lymphocytes # (A) 0.9 k/uL (1.0-4.8); Lymphocytes % (A) 13 %; MCH 31.2 pg (25.0-35.0); MCHC 33.3 g/dL (31.0-37.0); MCV 93.6 fL (80.0-100.0); Mean Platelet Volume 7.5; Monocytes # (A) 0.3 k/uL (0-1.0); Monocytes % (A) 5 %; Neutrophils # (A) 5.9 k/uL (1.3-7.7); Neutrophils % (A) 79 %; RDW 13.5 % (11.5-15.5); WBC 7.5 k/uL (3.8-10.6); WBC (Perox) 7.25
[2017-01-01] MEDS: cloZAPine 25 MG TAB PO SCH (21:51)
[2017-01-01] MEDS: cloZAPine 100 MG TAB PO SCH (21:51)
[2017-01-01] MEDS: DONEPEZIL 10 MG TAB PO SCH (21:51)
[2017-01-02] MEDS: LEVOTHYROXINE 50 MCG TAB PO SCH (05:31)
[2017-01-02] MEDS: amLODIPine 10 MG TAB PO SCH (09:38)
[2017-01-02] MEDS: ATORVASTATIN 40 MG TAB PO SCH (09:38)
[2017-01-02] MEDS: CLOPIDOGREL 75 MG TAB PO SCH (09:38)
[2017-01-02] MEDS: CITALOPRAM HYDROBROMIDE 10 MG TAB PO SCH (09:38)
[2017-01-02] MEDS: LORazepam 1 MG TAB PO PRN (09:40)
--- NOTE | 2017-01-02 10:45 | P.PN ---
Progress Note - Text Interval history: The patient is found in his room he follows me to an interview room. He reports no change in mood. Staff report that the patient's been isolating in his room. He has been participating in meals. His was here yesterday for a visit as a continue to discuss placement plans. The patient has no questions or concerns regarding his medication. Mental status exam: The patient is alert he is a disheveled appearance he is dressed in his own clothing the samples as yesterday. Eye contact is intermittent. He often looks down at the floor. He continues to endorse auditory hallucinations. He is endorsing no specific delusions today. There has been no aggressive behavior. Insight and judgment are impaired. He demonstrates no verbal or physical aggressiveness. He is oriented to person place and date. Affect is flat. Plan: The patient's will continue on his current psychotropic medications we anticipated discharge tomorrow. The patient cannot be discharged to any other level of care sooner. We will continue to monitor him for safety and encourage his participation in the milieu.
[2017-01-02] MEDS: DONEPEZIL 10 MG TAB PO SCH (21:51)
[2017-01-02] MEDS: cloZAPine 25 MG TAB PO SCH (21:51)
[2017-01-02] MEDS: cloZAPine 100 MG TAB PO SCH (21:51)
[2017-01-03] MEDS: LEVOTHYROXINE 50 MCG TAB PO SCH (06:17)
[2017-01-03 07:00] VITALS: BP 170/92; PULSE 58; RESP 18; TEMP 97.5
[2017-01-03] MEDS: CITALOPRAM HYDROBROMIDE 10 MG TAB PO SCH (08:50)
[2017-01-03] MEDS: amLODIPine 10 MG TAB PO SCH (08:50)
[2017-01-03] MEDS: CLOPIDOGREL 75 MG TAB PO SCH (08:50)
[2017-01-03] MEDS: ATORVASTATIN 40 MG TAB PO SCH (08:51)
--- NOTE | 2017-01-03 09:16 | P.DS ---
Providers Date of admission: 11/27/16 21:13 Expected date of discharge: 01/03/17 Attending physician: Clemente Ramsey Consults: 11/27/16 22:38 Consult Physician Routine Consulting Provider: Neema Townsend Consult Reason/Comments: follow up H & P Do you want consulting provider notified?: Yes, Notify in am Primary care physician: Maribel Long - Discharge Diagnosis(es) (1) Unspecified psychosis Current Visit: Yes Status: Acute Priority: High (2) Major neurocognitive disorder Current Visit: Yes Status: Acute Priority: High Hospital Course: Please refer to discharge summary hospital course dictated on 01/01/2017. The discharge had to be canceled on 01/01/2017 due to paperwork and logistical issues. The patient continues to demonstrate no aggressive behavior. Mental status exam: The patient is alert he is dressed in his own clothing he has a disheveled appearance. Eye contact is improved from yesterday. He continues to hold his hand up by his [employer] but is not scratching or picking. He is aware he is being discharged today. He reports no acute suicidal or homicidal ideation intent or plan. He endorses a continued auditory hallucination of a ringing/buzzing noise. He reports no command auditory hallucinations. He states his visual hallucinations have stopped now for several nights. He is endorsing no specific delusions currently he has demonstrated some suspiciousness from time to time. Insight and judgment impaired. Cognitively he is oriented to person place and date. He demonstrates no abnormal involuntary movements since initiating claws role. His previously noted tremor has improved. Patient Condition at Discharge: Stable Plan - Discharge Summary New Discharge Prescriptions: Atorvastatin [Lipitor] 40 mg PO DAILY #30 tab Citalopram Hydrobromide [CeleXA] 10 mg PO DAILY #30 tab Clopidogrel [Plavix] 75 mg PO DAILY #30 tab Donepezil [Aricept] 20 mg PO HS #60 tab LORazepam [Ativan] 1 mg PO BID PRN #60 tab PRN Reason: Anxiety Levothyroxine Sodium [Synthroid] 50 mcg PO AC-BRKFST #30 tab amLODIPine [Norvasc] 10 mg PO DAILY #30 tab cloZAPine [Clozaril] 200 mg PO HS #60 tab cloZAPine [Clozaril] 50 mg PO HS #60 tab Discharge Medication List Atorvastatin [Lipitor] 40 mg PO DAILY #30 tab 01/01/17 [Rx] Citalopram Hydrobromide [CeleXA] 10 mg PO DAILY #30 tab 01/01/17 [Rx] Clopidogrel [Plavix] 75 mg PO DAILY #30 tab 01/01/17 [Rx] Donepezil [Aricept] 20 mg PO HS #60 tab 01/01/17 [Rx] LORazepam [Ativan] 1 mg PO BID PRN #60 tab 01/01/17 [Rx] Levothyroxine Sodium [Synthroid] 50 mcg PO AC-BRKFST #30 tab 01/01/17 [Rx] amLODIPine [Norvasc] 10 mg PO DAILY #30 tab 01/01/17 [Rx] cloZAPine [Clozaril] 50 mg PO HS #60 tab 01/01/17 [Rx] cloZAPine [Clozaril] 200 mg PO HS #60 tab 01/01/17 [Rx] Follow up Appointment(s)/Referral(s): Clemente Ramsey [Other] - 01/04/17 3:40 pm (Dr Ramsey) Maribel Long III, MD [Primary Care Provider] - 1-2 days Patient Instructions/Handouts: Mood Disorders (DC), Generalized Anxiety Disorder (DC), Suicide Prevention for Adults (DC) Activity/Diet/Wound Care/Special Instructions: Follow up with Dr Long for referral of MRI due to ringing in ears. Take medications as prescribed. Regular diet. Activity as tolerated. Notify your care provider if symptoms worsen.
== END 2017-01-03 15:19 | disposition home or self-care (01) | DRG 57 ==
LOC: EC 12:51 → 3MHU 21:13
PROVIDERS: ADMIT Psychiatry & Neurology Psychiatry; ATTEND Psychiatry & Neurology Psychiatry
DX: G31.83 Neurocognitive disorder with Lewy bodies (principal); F01.51 Vascular dementia, unspecified severity, with behavioral disturbance; R45.851 Suicidal ideations; F02.81 Dementia in other diseases classified elsewhere, unspecified severity, with behavioral disturbance; F23 Brief psychotic disorder; I10 Essential (primary) hypertension; K22.4 Dyskinesia of esophagus; F22 Delusional disorders; G47.9 Sleep disorder, unspecified; F41.0 Panic disorder [episodic paroxysmal anxiety]; K21.9 Gastro-esophageal reflux disease without esophagitis; M19.90 Unspecified osteoarthritis, unspecified site; E89.0 Postprocedural hypothyroidism; R06.4 Hyperventilation; L53.9 Erythematous condition, unspecified; F41.9 Anxiety disorder, unspecified; E78.00 Pure hypercholesterolemia, unspecified; R25.1 Tremor, unspecified; E78.5 Hyperlipidemia, unspecified; H93.19 Tinnitus, unspecified ear; Z81.8 Family history of other mental and behavioral disorders; Z82.49 Family history of ischemic heart disease and other diseases of the circulatory system; Z79.899 Other long term (current) drug therapy; Z87.440 Personal history of urinary (tract) infections; Z88.1 Allergy status to other antibiotic agents; Z62.810 Personal history of physical and sexual abuse in childhood; Z91.5 Personal history of self-harm; Z80.9 Family history of malignant neoplasm, unspecified; Z90.79 Acquired absence of other genital organ(s); Z71.3 Dietary counseling and surveillance; Z86.79 Personal history of other diseases of the circulatory system
CPT/HCPCS: 36415; 71010; 80051; 80053; 80306; 80320; 81003; 84520; 85025; 93005; 96372; 96374; 96376; 99285

== ENCOUNTER → 2017-02-05 | Outpatient (CLI) | payer MEDICARE ==
--- NOTE | 2017-02-06 16:26 | MR ---
MR brain with and without contrast HISTORY: Tinnitus, ringing in ears and headaches Multiplanar multisequence and postcontrast images through the brain following 20 cc MultiHance IV Comparison to prior brain MRI dated 05 January 2015 There is no restricted diffusion there is no hemorrhage or hydrocephalus. Cerebellopontine angles, co rpus callosum, pituitary, cervical medullary junction are normal. There is cortical atrophy. Perivent ricular and subcortical hyperintensities are again noted on inversion recovery and T2-weighted sequen eugene. No abnormal enhancement following contrast administration. The orbits show a symmetric appearanc e. Mild inflammatory change in the ethmoid air cells, maxillary sinus. IMPRESSION: Stable brain MRI, age-related atrophy and probable chronic small vessel ischemia
== END | disposition home or self-care (01) ==
LOC: RADMRIMAIN 17:56
PROVIDERS: ATTEND Family Medicine
DX: G31.9 Degenerative disease of nervous system, unspecified (principal); H93.13 Tinnitus, bilateral
CPT/HCPCS: 70553; A9577; 36415; 80053; 84439; 84443

== ENCOUNTER → 2017-02-05 | Outpatient (CLI) | payer MEDICARE ==
[2017-02-05 11:50] LABS: ALT 39 U/L (21-72); AST 32 U/L (17-59); Alkaline Phosphatase 136 U/L (38-126); Anion Gap 10 mmol/L; Blood Urea Nitrogen 16 mg/dL (9-20); Calcium 9.7 mg/dL (8.4-10.2); Carbon Dioxide 31 mmol/L (22-30); Chloride 103 mmol/L (98-107); Glucose 91 mg/dL (74-99); Non-African American GFR(MDRD) >60 (>60 ml/min/1.73 sqM); Potassium 4.2 mmol/L (3.5-5.1); Sodium 144 mmol/L (137-145); Total Bilirubin 0.7 mg/dL (0.2-1.3); Total Protein 7.7 g/dL (6.3-8.2)
== END | disposition home or self-care (01) ==
LOC: LABWHC1 11:21
PROVIDERS: ATTEND Family Medicine
DX: E03.9 Hypothyroidism, unspecified (principal); I10 Essential (primary) hypertension
CPT/HCPCS: 36415; 80053; 84439; 84443

== ENCOUNTER → 2017-09-18 | Outpatient (CLI) | payer MEDICARE ==
[2017-09-18 09:51] LABS: ALT 38 U/L (21-72); AST 22 U/L (17-59); Alkaline Phosphatase 111 U/L (38-126); Anion Gap 11 mmol/L; Blood Urea Nitrogen 14 mg/dL (9-20); Calcium 9.8 mg/dL (8.4-10.2); Carbon Dioxide 27 mmol/L (22-30); Chloride 107 mmol/L (98-107); Cholesterol 158 mg/dL (<200); Glucose 101 mg/dL (74-99); HDL Cholesterol 47 mg/dL (40-60); Non-African American GFR(MDRD) >60 (>60 ml/min/1.73 sqM); Potassium 4.2 mmol/L (3.5-5.1); Sodium 145 mmol/L (137-145); Total Bilirubin 0.5 mg/dL (0.2-1.3); Total Protein 7.2 g/dL (6.3-8.2)
== END | disposition home or self-care (01) ==
LOC: LABWHC1 08:32
PROVIDERS: ATTEND Family Medicine
DX: Z00.01 Encounter for general adult medical examination with abnormal findings (principal); I10 Essential (primary) hypertension; R14.2 Eructation; E03.9 Hypothyroidism, unspecified; F41.1 Generalized anxiety disorder; I67.9 Cerebrovascular disease, unspecified; F33.1 Major depressive disorder, recurrent, moderate
CPT/HCPCS: 36415; 80053; 80061; 82306; 83735; 84439; 84443

== ENCOUNTER → 2018-03-14 | Outpatient (CLI) | payer MEDICARE | END | disposition home or self-care (01) | LOC: LABWHC1 12:49 | PROVIDERS: ATTEND Otolaryngology | DX: E03.9 Hypothyroidism, unspecified (principal) | CPT/HCPCS: 36415; 84439; 84443 ==

== ENCOUNTER 2018-05-17 12:22 | Inpatient (IN) | payer MEDICARE ==
[2018-05-17] MEDS ORDERED: SODIUM CHLORIDE 0.9% 500 ML IV ONE (12:57)
--- NOTE | 2018-05-17 13:03 | ED ---
General Adult HPI - General Chief complaint: Altered Mental Status Stated complaint: TREMORS, SPEACH PROBLEMS Time Seen by Provider: 05/17/18 12:33 Source: patient, RN notes reviewed, old records reviewed Mode of arrival: wheelchair Limitations: no limitations - History of Present Illness Initial comments: 67-year-old male presents for evaluation of confusion and UTI. Patient is accompanied by his who is able to give the majority history. She states that he has been dealing with some confusion over the past several months. This has been worse over the past several days. He was diagnosed with urinary tract infection at his primary care office yesterday and was started on Bactrim. Patient's was instructed to present to the emergency Department if symptoms did not improve with antibiotic treatment. Patient does report increased urinary frequency and dysuria. No fever or chills. No headache. No focal numbness or weakness. No chest pain or shortness of breath. - Related Data Home Medications Medication Instructions Recorded Confirmed Aspirin 325 mg PO HS 05/17/18 05/17/18 Cholecalciferol [Vitamin D3] 1,000 unit PO DAILY 05/17/18 05/17/18 Citalopram Hydrobromide [CeleXA] 20 mg PO HS 05/17/18 05/17/18 Donepezil [Aricept] 20 mg PO DAILY 05/17/18 05/17/18 Gabapentin [Neurontin] 100 mg PO TID 05/17/18 05/17/18 Levothyroxine Sodium [Synthroid] 75 mcg PO DAILY 05/17/18 05/17/18 Lisinopril [Zestril] 10 mg PO HS 05/17/18 05/17/18 Sulfamethox-Tmp 800-160Mg [Bactrim 1 tab PO Q12HR 05/17/18 05/17/18 DS 800-160 mg] cloZAPine [Clozaril] 50 mg PO QAM 05/17/18 05/17/18 cloZAPine [Clozaril] 250 mg PO HS 05/17/18 05/17/18 Previous Rx's Medication Instructions Recorded Atorvastatin [Lipitor] 40 mg PO DAILY #30 tab 01/01/17 Allergies Allergy/AdvReac Type Severity Reaction Status Date / Time levofloxacin AdvReac Unknown Verified 05/17/18 13:10 Review of Systems ROS Statement: Those systems with pertinent positive or pertinent negative responses have been documented in the HPI. ROS Other: All systems not noted in ROS Statement are negative. Past Medical History Past Medical History: Chest Pain / Angina, GERD/Reflux, Hypertension, Osteoarthritis (OA), Thyroid Disorder Additional Past Medical History / Comment(s): HX UTI W/ SEPSIS 2013, past hx. chest pain-nothing current, tremors hands, heart murmur, esophageal spasms History of Any Multi-Drug Resistant Organisms: None Reported Past Surgical History: Prostate Surgery, Tonsillectomy Additional Past Surgical History / Comment(s): TURP, right thyroid lobectomy () Past Anesthesia/Blood Transfusion Reactions: No Reported Reaction Additional Past Anesthesia/Blood Transfusion Reaction / Comment(s): CLAUSTERPHOBIA Past Psychological History: Anxiety, Panic Disorder Smoking Status: Never smoker Past Alcohol Use History: None Reported Past Drug Use History: None Reported - Past Family History Brother(s) Family Medical History: Cancer Sister(s) Family Medical History: Hypertension Father Family Medical History: Hypertension Additional Family Medical History / Comment(s): PT STATED DAD AT AGE 89 COMPLICATIONS FROM MRSA INFECTION. Mother Family Medical History: Hypertension General Exam Limitations: no limitations General appearance: alert, in no apparent distress Head exam: Present: atraumatic, normocephalic Eye exam: Present: normal appearance, PERRL, EOMI ENT exam: Present: normal exam Neck exam: Present: normal inspection. Absent: tenderness, meningismus Respiratory exam: Present: normal lung sounds bilaterally. Absent: respiratory distress, wheezes Cardiovascular Exam: Present: regular rate, normal rhythm GI/Abdominal exam: Present: soft. Absent: distended, tenderness Extremities exam: Present: normal inspection, normal capillary refill. Absent: pedal edema Neurological exam: Present: alert, oriented X3, CN II-XII intact, other ( Generalized tremor). Absent: motor sensory deficit Psychiatric exam: Present: normal affect, normal mood Skin exam: Present: warm, dry, intact Course Vital Signs 05/17/18 05/17/18 05/17/18 12:25 13:29 14:27 Temperature 99.1 F Pulse Rate 94 89 64 Respiratory 20 20 20 Rate Blood Pressure 117/72 147/74 132/88 O2 Sat by Pulse 99 95 99 Oximetry EKG Findings - EKG Comments: EKG Findings:: EKG: Normal sinus rhythm, rightward axis, no ST segment elevation or depression, rate of 88, CA interval 140, QRS duration 88, QTC 399 Medical Decision Making - Medical Decision Making 67-year-old male presenting with acute on chronic confusion and altered mental status. Patient is being treated for UTI as an outpatient. His neurologic examination is nonfocal. Head CT is obtained, there is concern for vague wedge- shaped hypoattenuation in the right frontal region. Patient is given aspirin although there is no exact time course related to the symptoms as patient has been confused for several days and has some level of confusion over the past several months. Chest x-ray negative for focal pneumonia. Urinalysis does show positive nitrates, large leukocyte esterase and greater than 182 white blood cell count. Urine culture pending. Patient started on ceftriaxone for UTI, failed outpatient treatment. CBC is unremarkable, CMP within normal limits. Patient will be admitted for further evaluation and treatment. Neurology placed on consult for acute on chronic confusion and abnormal CT. - Lab Data Result diagrams: 05/17/18 13:15 05/17/18 13:15 Lab Results 05/17/18 05/17/18 05/17/18 Range/Units 13:15 13:15 13:15 WBC 8.9 (3.8-10.6) k/uL RBC 3.82 L (4.30-5.90) m/uL Hgb 11.2 L (13.0-17.5) gm/dL Hct 34.9 L (39.0-53.0) % MCV 91.3 (80.0-100.0) fL MCH 29.4 (25.0-35.0) pg MCHC 32.1 (31.0-37.0) g/dL RDW 14.5 (11.5-15.5) % Plt Count 203 (150-450) k/uL Neutrophils % 84 % Lymphocytes % 6 % Monocytes % 7 % Eosinophils % 0 % Basophils % 0 % Neutrophils # 7.5 (1.3-7.7) k/uL Lymphocytes # 0.5 L (1.0-4.8) k/uL Monocytes # 0.6 (0-1.0) k/uL Eosinophils # 0.0 (0-0.7) k/uL Basophils # 0.0 (0-0.2) k/uL PT 11.1 (9.0-12.0) sec INR 1.2 H (<1.2) APTT 26.4 (22.0-30.0) sec Sodium 142 (137-145) mmol/L Potassium 4.3 (3.5-5.1) mmol/L Chloride 106 (98-107) mmol/L Carbon Dioxide 28 (22-30) mmol/L Anion Gap 8 mmol/L BUN 18 (9-20) mg/dL Creatinine 1.10 (0.66-1.25) mg/dL Est GFR (CKD-EPI)AfAm 79 (>60 ml/min/1.73 sqM) Est GFR (CKD-EPI)NonAf 68 (>60 ml/min/1.73 sqM) Glucose 107 H (74-99) mg/dL Plasma Lactic Acid Tay (0.7-2.0) mmol/L Calcium 8.9 (8.4-10.2) mg/dL Total Bilirubin 0.6 (0.2-1.3) mg/dL AST 25 (17-59) U/L ALT 32 (21-72) U/L Alkaline Phosphatase 79 (38-126) U/L Total Protein 6.3 (6.3-8.2) g/dL Albumin 3.7 (3.5-5.0) g/dL Urine Color Urine Appearance (Clear) Urine pH (5.0-8.0) Ur Specific [place] (1.001-1.035) Urine Protein (Negative) Urine Glucose (UA) (Negative) Urine Ketones (Negative) Urine Blood (Negative) Urine Nitrite (Negative) Urine Bilirubin (Negative) Urine Urobilinogen (<2.0) mg/dL Ur Leukocyte Esterase (Negative) Urine RBC (0-5) /hpf Urine WBC (0-5) /hpf Urine WBC Clumps (None) /hpf Urine Bacteria (None) /hpf Urine Mucus (None) /hpf 05/17/18 05/17/18 Range/Units 13:15 13:15 WBC (3.8-10.6) k/uL RBC (4.30-5.90) m/uL Hgb (13.0-17.5) gm/dL Hct (39.0-53.0) % MCV (80.0-100.0) fL MCH (25.0-35.0) pg MCHC (31.0-37.0) g/dL RDW (11.5-15.5) % Plt Count (150-450) k/uL Neutrophils % % Lymphocytes % % Monocytes % % Eosinophils % % Basophils % % Neutrophils # (1.3-7.7) k/uL Lymphocytes # (1.0-4.8) k/uL Monocytes # (0-1.0) k/uL Eosinophils # (0-0.7) k/uL Basophils # (0-0.2) k/uL PT (9.0-12.0) sec INR (<1.2) APTT (22.0-30.0) sec Sodium (137-145) mmol/L Potassium (3.5-5.1) mmol/L Chloride (98-107) mmol/L Carbon Dioxide (22-30) mmol/L Anion Gap mmol/L BUN (9-20) mg/dL Creatinine (0.66-1.25) mg/dL Est GFR (CKD-EPI)AfAm (>60 ml/min/1.73 sqM) Est GFR (CKD-EPI)NonAf (>60 ml/min/1.73 sqM) Glucose (74-99) mg/dL Plasma Lactic Acid Tay 1.0 (0.7-2.0) mmol/L Calcium (8.4-10.2) mg/dL Total Bilirubin (0.2-1.3) mg/dL AST (17-59) U/L ALT (21-72) U/L Alkaline Phosphatase (38-126) U/L Total Protein (6.3-8.2) g/dL Albumin (3.5-5.0) g/dL Urine Color Yellow Urine Appearance Cloudy (Clear) Urine pH 6.5 (5.0-8.0) Ur Specific [place] 1.015 (1.001-1.035) Urine Protein 1+ H (Negative) Urine Glucose (UA) Negative (Negative) Urine Ketones Negative (Negative) Urine Blood Small H (Negative) Urine Nitrite Positive (Negative) Urine Bilirubin Negative (Negative) Urine Urobilinogen <2.0 (<2.0) mg/dL Ur Leukocyte Esterase Large H (Negative) Urine RBC 2 (0-5) /hpf Urine WBC >182 H (0-5) /hpf Urine WBC Clumps Few H (None) /hpf Urine Bacteria Rare H (None) /hpf Urine Mucus Occasional H (None) /hpf Disposition Clinical Impression: UTI (urinary tract infection), Failure of outpatient treatment, Altered mental status Disposition: ADMITTED IP TO THIS HOSP Condition: Stable Is patient prescribed a controlled substance at d/c from ED?: No Referrals: Maribel Long III, MD [Primary Care Provider] - 1-2 days Decision to Admit Reason: Admit from EC Decision Date: 05/17/18 Decision Time: 15:16
[2018-05-17 13:44] LABS: Basophils % (A) 0 %; Eosinophils % (A) 0 %; HCT 34.9 % (39.0-53.0); HGB 11.2 gm/dL (13.0-17.5); Lymphocytes # (A) 0.5 k/uL (1.0-4.8); Lymphocytes % (A) 6 %; MCH 29.4 pg (25.0-35.0); MCHC 32.1 g/dL (31.0-37.0); MCV 91.3 fL (80.0-100.0); Monocytes # (A) 0.6 k/uL (0-1.0); Monocytes % (A) 7 %; Neutrophils # (A) 7.5 k/uL (1.3-7.7); Neutrophils % (A) 84 %; Platelet Count 203 k/uL (150-450); RBC 3.82 m/uL (4.30-5.90); RDW 14.5 % (11.5-15.5); WBC 8.9 k/uL (3.8-10.6)
[2018-05-17 13:51] LABS: Albumin 3.7 g/dL (3.5-5.0); Calcium 8.9 mg/dL (8.4-10.2); Potassium 4.3 mmol/L (3.5-5.1); Total Bilirubin 0.6 mg/dL (0.2-1.3); Total Protein 6.3 g/dL (6.3-8.2)
[2018-05-17 14:06] LABS: INR 1.2 (<1.2); Partial Thromboplastin Time 26.4 sec (22.0-30.0); Prothrombin Time 11.1 sec (9.0-12.0)
--- NOTE | 2018-05-17 14:14 | CT ---
EXAMINATION TYPE: CT brain wo con DATE OF EXAM: 05/17/2018 COMPARISON: 09/16/2015 HISTORY: Altered mental status CT DLP: 1008.1 mGycm Automated exposure control for dose reduction was used. FINDINGS: There is a vague wedge-shaped area of hypoattenuation within the right frontal lobe seen o n 2 images only and therefore this could be artifact related to the dense adjacent calvarium are unde rlying early infarct. There is no acute intracranial hemorrhage or midline shift identified. There is diffuse ventricular and sulcal prominence consistent with diffuse age-related cerebral atrophy. The re is low-attenuation in the periventricular white matter consistent with chronic small vessel ischem ic change. The globes are intact and the visualized sinuses are clear. IMPRESSION: Vague wedge-shaped area of hypoattenuation within the right frontal lobe may relate to fo siria ischemia or artifact as it is seen on 2 images only series 6 image 29 and image 28. This is in th e distribution of the middle cerebral artery. If there is further concern MRI could be performed.
[2018-05-17 14:15] LABS: Appearance,Urine Cloudy (Clear); Bacteria,Urine Rare /hpf; Bilirubin,Urine Negative (Negative); Blood,Urine Small (Negative); Color,Urine Yellow; Glucose,Urine (UA) Negative (Negative); Ketones,Urine Negative (Negative); Leukocyte Esterase,Urine Large (Negative); Mucus,Urine Occasional /hpf; Nitrite,Urine Positive (Negative); PH, Urine 6.5 (5.0-8.0); Protein,Urine 1+ (Negative); RBC,Urine 2 /hpf (0-5); Specific Gravity,Urine 1.015 (1.001-1.035); Urobilinogen,Urine <2.0 mg/dL (<2.0); WBC,Urine >182 /hpf (0-5)
--- NOTE | 2018-05-17 14:20 | XR ---
EXAMINATION TYPE: XR chest 2V DATE OF EXAM: 05/17/2018 COMPARISON: 12/31/2016 HISTORY: Altered mental status TECHNIQUE: Frontal and lateral views of the chest are obtained. FINDINGS: There is no focal air space opacity, pleural effusion, or pneumothorax seen. The cardiac silhouette size is mildly enlarged. The osseous structures are intact. Mild multilevel degenerative changes of the thoracic spine are seen. IMPRESSION: No acute cardiopulmonary process.
[2018-05-17] MEDS ORDERED: ASPIRIN 325 MG TAB PO STA (14:27)
[2018-05-17] MEDS ORDERED: cefTRIAXone IN SWFI 1,000 MG/10 ML SYRINGE IVP STA (14:31)
[2018-05-17] MEDS ORDERED: NALOXONE 0.4 MG/ML 1 ML VIAL IV PRN (15:10)
[2018-05-17] MEDS ORDERED: SODIUM CHLORIDE 0.9% 1,000 ML IV SCH (15:15)
[2018-05-17] MEDS ORDERED: LORazepam 2 MG/ML INJ IV PRN (15:45)
[2018-05-17] MEDS ORDERED: HYDROcodone/APAP 5-325MG 1 EACH TAB PO PRN (15:45)
[2018-05-17] MEDS ORDERED: ALPRAZolam 0.25 MG TAB PO PRN (15:45)
[2018-05-17] MEDS ORDERED: ACETAMINOPHEN TAB 325 MG TAB PO STA (15:57)
[2018-05-17] MEDS ORDERED: SODIUM CHLORIDE 0.9% 1,000 ML with MVI, ADULT NO.4 WITH VIT K 10 ML, THIAMINE 100 MG, F... IV ONE ×4 (17:00)
--- NOTE | 2018-05-17 17:05 | HP ---
HISTORY AND PHYSICAL CHIEF COMPLAINT: Change in mental status. HISTORY OF PRESENT ILLNESS: This 67-year-old gentleman with past medical history of multiple medical problems including chest pain, GERD, hypertension, hyperlipidemia, hypothyroidism, prostate surgery, claustrophobia, anxiety, panic disorder, being followed by Dr. Long in the outpatient setting apparently had features of UTI. The patient was being treated in the outpatient setting for UTI with antibiotics. The family noted that the patient is getting progressively more confused and because of concerns, the patient was taken to [facility] and was admitted for further evaluation and treatment. Confusion worsening 80% over the past several months also. There is no history of headache, loss of consciousness, seizures at this time. PAST MEDICAL HISTORY: History of GERD, hypertension and DJD, history of prostate surgery, anxiety/ panic disorder. MEDICATIONS: Prior to admission include home medications are: 1. Bactrim DS 1 p.o. b.i.d. 2. Synthroid 75 mcg p.o. daily. 3. Neurontin 100 mg p.o. daily. 4. Aricept 10 mg. 5. Vitamin D3 1000 daily. 6. Clozaril 50 mg q.h.s. 7. Lipitor 40 mg p.o. daily. 8. Aspirin 320 mg q.h.s. 9. Zestril 10 mg q.h.s. 10.Celexa 10 mg. 11.Clozaril 250 mg q.h.s. ALLERGIES: LEVAQUIN. FAMILY HISTORY: History of cancer, MRSA in the family. SOCIAL HISTORY: No history of smoking. No history of alcohol intake. REVIEW OF SYSTEMS: Review of systems could not be taken, the patient is mildly confused. PHYSICAL EXAM: The pulse is 68, blood pressure 140/77, respiration 20. Patient is confused. Temperature 98 degrees, pulse ox 98% on 2 L. HEENT is conjunctivae normal. Oral mucosa moist. Neck is no jugular venous distention. No carotid bruit. No lymph node enlargement. Cardiovascular systems: S1, S2 muffled. Respirations: Breath sounds diminished in the bases, scattered rhonchi. No crackles. ABDOMEN: Soft, nontender. No mass palpable. Legs: No edema and no swelling. NERVOUS SYSTEM: Higher functions as mentioned earlier. Moves all four extremities. No focal deficits. Lymphatics: No lymph nodes palpable in the neck, axillae or groin. Skin: No ulcer, rash or bleeding. LAB STUDIES: WBC 8.8, hemoglobin 11.2, INR 1.2 glucose 107. UA noted. ASSESSMENT: 1. Acute urinary tract infection with sepsis. 2. Change in mental status acute on chronic metabolic encephalopathy. Rule out stroke, right frontal lobe infarction. 3. Gastroesophageal reflux disease. 4. History of chest pain, angina. 5. Hypertension. 6. History of degenerative joint disease. 7. Hypothyroidism. 8. History of sepsis in the past. 9. History of tremors. 10.History of claustrophobia. 11.Anxiety/panic disorder. 12.History of unspecified psychosis. RECOMMENDATION AND DISCUSSION: Recommend to continue current medications, management and symptomatic treatment. Otherwise, at this time, I would initiate broad-spectrum IV antibiotics. Follow the cultures. The CT scan of the brain which is done today showed area of hypoattenuation within the right frontal lobe disorder. I would also recommend possible MRI and Neurology consultation also as well. Overall prognosis guarded because of multiple complex medical issues as mentioned earlier. Further recommendations to follow. See orders for details. DVT prophylaxis. Discussed with the family at length. Copy of dictation being forwarded to Dr. Long who is the primary physician. MMODL / IJN: [id number] / NED
[2018-05-17] MEDS: GABAPENTIN 100 MG CAP PO SCH ×2 (17:24→21:09)
[2018-05-17] MEDS ORDERED: ASPIRIN 325 MG TAB PO SCH (21:00)
[2018-05-17] MEDS: HEPARIN SODIUM,PORCINE 5,000 UNIT/ML 1 ML VIAL SQ SCH (21:09)
[2018-05-17] MEDS: CITALOPRAM HYDROBROMIDE 20 MG TAB PO SCH (21:09)
[2018-05-17] MEDS: LISINOPRIL 10 MG TAB PO SCH (21:09)
[2018-05-17] MEDS: cloZAPine 100 MG TAB PO SCH (21:53)
[2018-05-18 06:25] LABS: Basophils % (A) 0 %; Eosinophils # (A) 0.1 k/uL (0-0.7); Eosinophils % (A) 1 %; HCT 32.2 % (39.0-53.0); HGB 10.6 gm/dL (13.0-17.5); Lymphocytes # (A) 0.5 k/uL (1.0-4.8); Lymphocytes % (A) 7 %; MCH 29.9 pg (25.0-35.0); MCHC 33.1 g/dL (31.0-37.0); MCV 90.4 fL (80.0-100.0); Mean Platelet Volume 6.9; Monocytes # (A) 0.6 k/uL (0-1.0); Monocytes % (A) 8 %; Neutrophils # (A) 5.8 k/uL (1.3-7.7); Neutrophils % (A) 81 %; Platelet Count 195 k/uL (150-450); RBC 3.55 m/uL (4.30-5.90); RDW 14.6 % (11.5-15.5); WBC 7.2 k/uL (3.8-10.6)
[2018-05-18] MEDS: PANTOPRAZOLE 40 MG TABLET PO SCH (06:32)
[2018-05-18] MEDS: LEVOTHYROXINE 75 MCG TAB PO SCH (06:32)
[2018-05-18 06:41] LABS: Anion Gap 6 mmol/L; Blood Urea Nitrogen 16 mg/dL (9-20); Calcium 8.4 mg/dL (8.4-10.2); Carbon Dioxide 27 mmol/L (22-30); Chloride 108 mmol/L (98-107); Glucose 106 mg/dL (74-99); Potassium 4.3 mmol/L (3.5-5.1); Sodium 141 mmol/L (137-145)
[2018-05-18] MEDS: cefTRIAXone IN SWFI 1,000 MG/10 ML SYRINGE IVP SCH (08:02)
[2018-05-18] MEDS: CHOLECALCIFEROL 1,000 UNIT TAB PO SCH (08:02)
[2018-05-18] MEDS: GABAPENTIN 100 MG CAP PO SCH ×3 (08:02→21:17)
[2018-05-18] MEDS: DONEPEZIL 10 MG TAB PO SCH (08:02)
[2018-05-18] MEDS: cloZAPine 25 MG TAB PO SCH (08:02)
[2018-05-18] MEDS: HEPARIN SODIUM,PORCINE 5,000 UNIT/ML 1 ML VIAL SQ SCH ×2 (08:02→21:16)
[2018-05-18] MEDS: ATORVASTATIN 40 MG TAB PO SCH (08:02)
[2018-05-18] MEDS: ACETAMINOPHEN TAB 500 MG TAB PO PRN ×3 (08:19→21:30)
[2018-05-18 09:16] LABS: Cholesterol 116 mg/dL (<200); HDL Cholesterol 25 mg/dL (40-60); LDL Cholesterol,Calculated 71 mg/dL (0-99); Triglycerides 99 mg/dL (<150)
--- NOTE | 2018-05-18 09:29 | US ---
EXAMINATION TYPE: US carotid duplex BILAT DATE OF EXAM: 05/18/2018 COMPARISON: Previous study dated 09/09/1715. CLINICAL HISTORY: cva. uncontrolled movements, h/o TIA EXAM MEASUREMENTS: RIGHT: Peak Systolic Velocity (PSV) cm/sec ----- Right CCA: 57.2 ----- Right ICA: 131.8 ----- Right ECA: 201.2 ICA/CCA ratio: 2.3 RIGHT: End Diastole cm/sec ----- Right CCA: 18.8 ----- Right ICA: 57.5 ----- Right ECA: 20.0 LEFT: Peak Systolic Velocity (PSV) cm/sec ----- Left CCA: 55.0 ----- Left ICA: 160.4 ----- Left ECA: 144.2 ICA/CCA ratio: 2.9 LEFT: End Diastole cm/sec ----- Left CCA: 18.7 ----- Left ICA: 60.2 ----- Left ECA: 21.5 VERTEBRALS (direction of flow): Right Vertebral: Antegrade Left Vertebral: Antegrade Rhythm: Normal Extensive plaque seen at bilateral bulbs/ICA's with increased velocities noted at bilateral prox ICA' s. IMPRESSION: 1. 50-69% BY DIAMETER STENOSIS OF BOTH PROXIMAL ICAS. 2. ELEVATED FLOW VELOCITY BOTH ECAS. Criteria for Assigning % of Stenosis / Diameter reduction (Estimation based on the indirect measurements of the internal carotid artery velocities (ICA PSV). 1. Normal (no stenosis)=ICA PSV < 125 cm/s: ratio < 2.0: ICA EDV<40 cm/s. 2. Less than 50% stenosis=ICA PSV < 125 cm/s: ratio < 2.0: ICA EDV<40 cm/s. 3. 50 to 69% stenosis=ICA PSV of 125 to 230 cm/s: ration 2.0 ? 4.0: ICA EDV 40-100 cm/s. 4. Greater than 70% stenosis to near occlusion= ICA PSV > 230 cm/s: ratio > 4.0: ICA EDV > 100 cm/s. 5. Near occlusion= ICA PSV velocities may be low or undetectable: variable ratio and ICA EDV. 6. Total occlusion=unable to detect flow.
[2018-05-18] MEDS: MULTIVITAMINS, THERA 1 EACH TAB PO SCH (12:10)
[2018-05-18] MEDS: THIAMINE 100 MG TAB PO SCH (12:10)
[2018-05-18] MEDS: FOLIC ACID 1 MG TAB PO SCH (12:10)
--- NOTE | 2018-05-18 13:15 | PN ---
PROGRESS NOTE DATE OF SERVICE: 05/18/2018 This 67-year-old gentleman was admitted with acute UTI and sepsis. He continues to be confused. The patient also complaining of involuntary jerks also. The CT scan showed right frontal lobe possible right frontal infarction. MRI is pending at this time. Carotid Doppler was done which showed a 50-69% diameter stenosis of both proximal internal carotid arteries. PAST MEDICAL HISTORY: Reviewed. REVIEW OF SYSTEMS: CARDIOVASCULAR, no angina. RESPIRATORY: As mentioned earlier. GI: As mentioned. : No dysuria. NERVOUS SYSTEM: No numbness, weakness. CURRENT MEDICATIONS: Reviewed and include: 1. Tylenol 500 mg q.6 hours p.r.n. 2. [place] 5 mg q.6h p.r.n. 3. Xanax 0.5 t.i.d. 4. Aspirin 325 mg q.h.s. 5. Lipitor 40 mg daily. 6. Rocephin 1 g daily. 7. Vitamin D3 1000 daily. 8. Celexa 20 mg q.h.s. 9. Cozaar 250 mg q.h.s. 10.Aricept 20 mg p.o. daily. 11.Neurontin 100 mg p.o. t.i.d. 12.Heparin 5000 subcu b.i.d. 13.Synthroid 75 mcg p.o. daily. 14.Zestril 10 mg p.o. q.h.s. 15.Ativan 0.5 mg p.r.n. 16.Narcan. 17.Protonix. PHYSICAL EXAM: Patient is alert and oriented x1. Pulse 71, blood pressure 123/64, respirations 20, temperature is 99.5, T-max 100.5, pulse ox 98% on room air. HEENT: Conjunctivae normal. Oral mucosa moist. NECK: No jugular venous distention. No carotid bruit. No lymph node enlargement. CARDIOVASCULAR: S1, S2. No S3, no S4. RESPIRATORY: Breath sounds diminished in the bases. A few scattered rhonchi and crackles. ABDOMEN: Soft, obese, nontender. No mass palpable. LEGS: No edema, no swelling. NERVOUS SYSTEM: Diffusely weak. LABS: WBC 7.8, hemoglobin 10.6. UA noted. ASSESSMENT: 1. Acute urinary tract infection with sepsis. 2. Change in mental status, acute on chronic metabolic encephalopathy with possibly secondary to sepsis. 3. 50-69% internal carotid artery stenosis bilaterally. 4. Possible acute right frontal lobe infarction. 5. Gastroesophageal reflux disease. 6. Possible myoclonic jerks. 7. History of chest pain, angina. 8. Hypertension. 9. History of degenerative joint disease. 10.Hypothyroidism. 11.History of sepsis in the past. 12.History of tremors. 13.History of claustrophobia. 14.Anxiety, panic disorder. 15.History of unspecified psychosis. RECOMMENDATIONS AND DISCUSSION: I recommend to continue current management and symptomatic treatment. Otherwise at this time I would recommend continue with neurology evaluation. I would also recommend infectious disease evaluation. Otherwise continue the rest of the medications. DVT prophylaxis. Will supplement multivitamins and further recommendations to follow. Also check magnesium. Will await neurology consultation. Overall prognosis guarded because of multiple complex medical issues. Final cultures are still pending. The patient is initiated on Rocephin. MMODL / IJN: [id number] /
--- NOTE | 2018-05-18 17:43 | P.CNNES ---
History of Present Illness Consult date: 05/18/18 Requesting physician: Reynaldo Cedeño Reason for Consult: altered mental status Chief complaint: altered mental status History of Present Illness: Neurology is consulting on a 67-year-old male with altered mental status. Patient presented evaluation related to confusion UTI. Patient's stated to the ED that he has been dealing with some confusion over the past several months. Been worse in the past several days. Patient was diagnosed with urinary tract infection by primary care provider and started on Bactrim. Patient's was told to bring the patient to the ED if the symptoms did not improve with antibiotic treatment. Patient reported increased urinary frequency and dysuria. No fever or chills, no headache, no focal numbness or weakness, no chest pain shortness of breath. On contact today, patient was supine in bed resting in no acute distress. patient was alert and oriented 3. Patient had complaints of bilateral lower extremity generalized weakness. Patient denied unilateral weakness. Patient did complain of an upper torso tremor/twitch that has been increasing in frequency, intensity and distribution for the last 6-12 months. Patient states the twitch originally began directly below the xiphoid process radiated superiorly and outward and now causes the shoulders to rotate inward during the event. Patient states his symptoms are quite distressing. No exacerbating or alleviating factors noted. Review of Systems systems not noted in HPI or negative Past Medical History Past Medical History: Cancer, Chest Pain / Angina, GERD/Reflux, Hypertension, Osteoarthritis (OA), Thyroid Disorder Additional Past Medical History / Comment(s): HX UTI W/ SEPSIS 2013, past hx. chest pain-nothing current, tremors hands, heart murmur, esophageal spasms History of Any Multi-Drug Resistant Organisms: None Reported Past Surgical History: Prostate Surgery, Tonsillectomy Additional Past Surgical History / Comment(s): TURP, right thyroid lobectomy (), skin ca removed Past Anesthesia/Blood Transfusion Reactions: No Reported Reaction Additional Past Anesthesia/Blood Transfusion Reaction / Comment(s): CLAUSTERPHOBIA Smoking Status: Never smoker - Past Family History Brother(s) Family Medical History: Cancer Sister(s) Family Medical History: Hypertension Father Family Medical History: Hypertension Additional Family Medical History / Comment(s): PT STATED DAD AT AGE 89 COMPLICATIONS FROM MRSA INFECTION. Mother Family Medical History: Hypertension Medications and Allergies Home Medications Medication Instructions Recorded Confirmed Type Atorvastatin [Lipitor] 40 mg PO DAILY #30 tab 01/01/17 05/17/18 Rx Aspirin 325 mg PO HS 05/17/18 05/17/18 History Cholecalciferol [Vitamin D3] 1,000 unit PO DAILY 05/17/18 05/17/18 History Citalopram Hydrobromide [CeleXA] 20 mg PO HS 05/17/18 05/17/18 History Donepezil [Aricept] 20 mg PO DAILY 05/17/18 05/17/18 History Gabapentin [Neurontin] 100 mg PO TID 05/17/18 05/17/18 History Levothyroxine Sodium [Synthroid] 75 mcg PO DAILY 05/17/18 05/17/18 History Lisinopril [Zestril] 10 mg PO HS 05/17/18 05/17/18 History Sulfamethox-Tmp 800-160Mg [Bactrim 1 tab PO Q12HR 05/17/18 05/17/18 History DS 800-160 mg] cloZAPine [Clozaril] 50 mg PO QAM 05/17/18 05/17/18 History cloZAPine [Clozaril] 250 mg PO HS 05/17/18 05/17/18 History Allergies Allergy/AdvReac Type Severity Reaction Status Date / Time levofloxacin AdvReac Unknown Verified 05/17/18 13:10 Physical Examination - Vital Signs Vital Signs: Vital Signs Temp Pulse Resp BP Pulse Ox 05/18/18 15:47 100 F H 81 20 132/78 93 L 05/18/18 11:24 99.5 F 71 20 123/64 96 05/18/18 08:00 100.5 F H 88 20 132/62 92 L 05/18/18 04:05 98.8 F 88 20 158/81 96 05/18/18 00:05 98.5 F 73 17 115/67 95 05/17/18 20:10 98.1 F 73 17 115/67 95 Intake and Output 05/18/18 05/18/18 05/18/18 06:59 14:59 22:59 Intake Total 690 476 Output Total 525 Balance 690 -49 Intake: Intake, IV Titration 450 Amount Sodium Chloride 0.9% 1, 450 000 ml @ 75 mls/hr IV . [id number] ONE with Mvi, Adult No.4 with Vit K 10 ml with Thiamine 100 mg with Folic Acid 1 mg Rx#: [id number] Oral 240 476 Output: Urine 525 Other: Voiding Method Urinal Urinal Urinal Incontinent Incontinent Incontinent # Voids 2 1 Weight 100.5 kg General appearance: Alert & oriented x3, no apparent distress. Head: Atraumatic, normocephalic, normal inspection Eyes: Well appearance, PERRLA, EOMI. Absent scleral icterus, conjunctival injection, nystagmus, periorbital swelling. Ear, nose and throat: Normal exam, mucous membranes moist Neck: Normal inspection, absent tenderness, lymphadenopathy. Respiratory: No increased work of breathing Cardiovascular: Regular rate, rhythm GI/abdominal: No guarding, twitch that originates directly below the xiphoid process and can occur up to several times per minute. (Last approximately 2-3 seconds. Extremities: Full range of motion, normal capillary refill, no tenderness, pedal edema joint swelling, calf tenderness. Neurological: cranial nerves II through XII intact no lateralizing weakness no seizure activity noted on physical exam no pronator drift and no nystagmus. Left lower extremity: 4-/5 Right lower extremity: 4-/5 Left upper extremity: 4/5 Right upper extremity: 4/5 Sensation: Left lower extremity: normal Right lower extremity: normal Left upper extremity: normal Right upper extremity:normal Psychological: Mood and Affect appropriate for setting Results CT brain vague wedge-shaped area of hypoattenuation within the right frontal lobe. A related to focal ischemia artifacts as it is seen in 2 images only C6 image 29 and 28. This is in the distribution of the middle cerebral artery. If there is further concern MRI recommended. Carotid Doppler: 50-69% bilateral diameter stenosis of both proximal ICAs. Elevated flow velocity both ECAs. EEG ordered MRI brain with contrast ordered by other provider - Laboratory Findings CBC and BMP: 05/18/18 05:41 05/18/18 05:41 Abnormal Lab Findings: Abnormal Labs 05/17/18 05/17/18 05/17/18 13:15 13:15 13:15 RBC 3.82 L Hgb 11.2 L Hct 34.9 L Lymphocytes # 0.5 L INR 1.2 H Chloride Glucose 107 H Magnesium HDL Cholesterol Urine Protein Urine Blood Ur Leukocyte Esterase Urine WBC Urine WBC Clumps Urine Bacteria Urine Mucus 05/17/18 05/18/18 05/18/18 13:15 05:41 05:41 RBC 3.55 L Hgb 10.6 L Hct 32.2 L Lymphocytes # 0.5 L INR Chloride 108 H Glucose 106 H Magnesium HDL Cholesterol Urine Protein 1+ H Urine Blood Small H Ur Leukocyte Esterase Large H Urine WBC >182 H Urine WBC Clumps Few H Urine Bacteria Rare H Urine Mucus Occasional H 05/18/18 05/18/18 05:41 05:41 RBC Hgb Hct Lymphocytes # INR Chloride Glucose Magnesium 2.4 H HDL Cholesterol 25 L Urine Protein Urine Blood Ur Leukocyte Esterase Urine WBC Urine WBC Clumps Urine Bacteria Urine Mucus urinalysis significant findings notes large leukoesterase, urine wbc's greater than 182, urine nitrite positive Assessment and Plan (1) Twitch Narrative/Plan: Patient on physical exam does have intermittent but recurrent twitching of the upper abdominal area which then encompasses the bilateral shoulders causing the shoulders to rotate in. Occurrences take place frequently and are causing significant emotional distress for the patient. Neurological workup as follows : MRI brain with contrast as previously ordered by other provider, EEG. Current Visit: Yes Status: Acute Code(s): R25.3 - FASCICULATION SNOMED Code(s): 19172183 (2) Altered mental status Narrative/Plan: patient is alert and oriented 3. It does appear the patient altered mental status has improved. symptoms at presentation are consistent to some degree with both right frontal lobe infarct as well as UTI. Continue to monitor patient for any neurological status changes. discontinue: Aspirin 325 mg Prescribed: Plavix 75 mg daily Continue Lipitor as noted. Continue to correct any other underlying etiology which may have attributed to patient status which would include UTI Current Visit: Yes Status: Acute Code(s): R41.82 - ALTERED MENTAL STATUS, UNSPECIFIED SNOMED Code(s): 260606561 (3) UTI (urinary tract infection) Narrative/Plan: continue to correct underlying etiology. Defer to primary team Current Visit: Yes Status: Acute Code(s): N39.0 - URINARY TRACT INFECTION, SITE NOT SPECIFIED SNOMED Code(s): 74283184 (4) Abnormal CT of brain Narrative/Plan: Patient does have vague wedge-shaped area of hypoattenuation within the right frontal lobe which may relate to focal ischemia or artifact. In distribution of middle cerebral artery. MRI should be performed. Patient does have MRI with contrast are scheduled by nursing home social worker. patient does exhibit some symptoms consistent with right frontal lobe infarct which would include muscle weakness, behavior/personality changes. some symptoms are also consistent with UTI as well. Definitive etiology for patient's symptoms is still undetermined. further workup pending. Current Visit: Yes Status: Acute Code(s): R90.89 - OTH ABNORMAL FINDINGS ON DIAGNOSTIC IMAGING OF CNSL SNOMED Code(s): 239019845 Plan: Status: Neurology will continue to follow and provide updates as needed or warranted. Contact our office with any questions I have discussed the plan of care with the physician prior to implementation and he agrees with the plan as implemented.
[2018-05-18] MEDS: cloZAPine 100 MG TAB PO SCH (21:16)
[2018-05-18] MEDS: CITALOPRAM HYDROBROMIDE 20 MG TAB PO SCH (21:16)
[2018-05-18] MEDS: LISINOPRIL 10 MG TAB PO SCH (21:17)
[2018-05-19 06:31] LABS: Basophils % (A) 0 %; Eosinophils # (A) 0.1 k/uL (0-0.7); Eosinophils % (A) 1 %; HCT 31.5 % (39.0-53.0); HGB 10.1 gm/dL (13.0-17.5); Lymphocytes # (A) 0.9 k/uL (1.0-4.8); Lymphocytes % (A) 10 %; MCH 28.7 pg (25.0-35.0); MCHC 32.1 g/dL (31.0-37.0); MCV 89.5 fL (80.0-100.0); Mean Platelet Volume 7.4; Monocytes # (A) 0.5 k/uL (0-1.0); Monocytes % (A) 6 %; Neutrophils # (A) 7.1 k/uL (1.3-7.7); Neutrophils % (A) 80 %; Platelet Count 217 k/uL (150-450); RBC 3.52 m/uL (4.30-5.90); RDW 14.3 % (11.5-15.5); WBC 8.9 k/uL (3.8-10.6)
[2018-05-19 06:47] LABS: Anion Gap 5 mmol/L; Blood Urea Nitrogen 12 mg/dL (9-20); Calcium 8.5 mg/dL (8.4-10.2); Carbon Dioxide 26 mmol/L (22-30); Chloride 109 mmol/L (98-107); Glucose 107 mg/dL (74-99); Potassium 4.2 mmol/L (3.5-5.1); Sodium 140 mmol/L (137-145)
[2018-05-19] MEDS: LEVOTHYROXINE 75 MCG TAB PO SCH (06:56)
[2018-05-19] MEDS: PANTOPRAZOLE 40 MG TABLET PO SCH (06:57)
[2018-05-19] MEDS: CLOPIDOGREL 75 MG TAB PO SCH (08:37)
[2018-05-19] MEDS: ATORVASTATIN 40 MG TAB PO SCH (08:37)
[2018-05-19] MEDS: HEPARIN SODIUM,PORCINE 5,000 UNIT/ML 1 ML VIAL SQ SCH ×2 (08:38→20:55)
[2018-05-19] MEDS: cloZAPine 25 MG TAB PO SCH (08:38)
[2018-05-19] MEDS: CHOLECALCIFEROL 1,000 UNIT TAB PO SCH (08:38)
[2018-05-19] MEDS: GABAPENTIN 100 MG CAP PO SCH ×3 (08:39→20:54)
[2018-05-19] MEDS: DONEPEZIL 10 MG TAB PO SCH (08:39)
[2018-05-19] MEDS: cefTRIAXone IN SWFI 1,000 MG/10 ML SYRINGE IVP SCH (09:43)
--- NOTE | 2018-05-19 10:54 | P.CONS ---
History of Present Illness - Reason for Consult Consult date: 05/19/18 Sepsis - History of Present Illness This is a 67-year-old male patient who presented to the emergency center due to altered mental status thought to be related to underlying urinary tract infection. Patient apparently was treated for a urinary tract infection by Dr. Long and has been on Bactrim for several days. Patient's noted that he was more confused and brought him into [facility] emergency center for evaluation. He was found to have a temperature max of 102.2, heart rate and blood pressure were stable. White count 8.9 and lactic acid 1. Creatinine 1.1. Urinalysis was cloudy, blood small, leukoesterase large, WBCs greater than 182, WBC clumps few. Blood culture showing no growth after 24 hours and urine culture was finalized with no growth after 18 hours. He had a chest x-ray that showed no acute cardiopulmonary process. CAT scan of the brain revealed a vague wedge-shaped area of hypoattenuation within the right frontal lobe may relate to focal ischemia or artifact. Patient is scheduled for MRI this morning. Carotid ultrasound showed 50-69% stenosis bilateral proximal ICA. Patient has been admitted to the selective care unit, started on Rocephin. He has been seen in consultation by neurology and MRI of the brain and EEG, homocystine been ordered. Patient is complaining of twitching to his upper body which he states has been constant and going on for more than a year. He states he has seen Dr. Ceballos and Dr. Kidd for this with no real explanation for the twitching. Patient does state he has shortness of breath is been going on for a long time and no change. He denies having any chest pain. No cough or sputum production. He has had decreased appetite and thinks he has lost 3-4 pounds in the past week. He does complain of dysuria that has been going on for at least 3 days and leaking of urine. Patient does complain of lightheadedness and he has had 3 falls due to dizziness at home. He denies having any injury with these falls. At one point , patient states he has some lower abdominal pain and later he does not have pain. He states he has had fever and chills. He complains of low back pain which he thinks is from the bed. He denies any nausea, vomiting or diarrhea. He does have surgical scars noted on his left cheek and left rastafarian area which he states is for cancer and treated by Dr. Jonh sanders 6-7 weeks ago. He believes he has a follow-up appointment but does not know when this is scheduled. Review of Systems All systems: negative Constitutional: Reports chills, Reports fatigue, Reports fever, Reports poor appetite, Reports weight loss Eyes: denies blurred vision, denies pain Ears, nose, mouth and throat: Reports vertigo, Denies dental pain, Denies headache, Denies mouth pain, Denies sore throat Cardiovascular: Reports lightheadedness, Reports shortness of breath, Denies chest pain, Denies decreased exercise tolerance, Denies dyspnea on exertion, Denies edema, Denies leg edema, Denies syncope Respiratory: Reports dyspnea, Denies cough, Denies cough with sputum, Denies excessive sputum, Denies hemoptysis, Denies home oxygen, Denies wheezing Gastrointestinal: Denies abdominal pain, Denies diarrhea, Denies nausea, Denies vomiting Genitourinary: Reports dysuria, Reports incontinence Musculoskeletal: Reports frequent falls, Reports gait dysfunction, Denies myalgias Integumentary: Denies pruritus, Denies rash Neurological: Denies numbness, Denies weakness Psychiatric: Denies anxiety, Denies depression Endocrine: Denies fatigue, Denies weight change Past Medical History Past Medical History: Cancer, Chest Pain / Angina, GERD/Reflux, Hypertension, Osteoarthritis (OA), Thyroid Disorder Additional Past Medical History / Comment(s): HX UTI W/ SEPSIS 2013, past hx. chest pain-nothing current, tremors hands, heart murmur, esophageal spasms History of Any Multi-Drug Resistant Organisms: None Reported Past Surgical History: Prostate Surgery, Tonsillectomy Additional Past Surgical History / Comment(s): TURP, right thyroid lobectomy (), skin ca removed Past Anesthesia/Blood Transfusion Reactions: No Reported Reaction Additional Past Anesthesia/Blood Transfusion Reaction / Comm: CLAUSTERPHOBIA Smoking Status: Never smoker Additional Past Alcohol Use History / Comment(s): Patient is a lifelong nonsmoker. He denies any marijuana, street drug or alcohol use. 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 He lives at home with his . He denies any service. - Past Family History Brother(s) Family Medical History: Cancer Sister(s) Family Medical History: Hypertension Father Family Medical History: Hypertension Additional Family Medical History / Comment(s): PT STATED DAD AT AGE 89 COMPLICATIONS FROM MRSA INFECTION. Mother Family Medical History: Hypertension Medications and Allergies Home Medications Medication Instructions Recorded Confirmed Type Atorvastatin [Lipitor] 40 mg PO DAILY #30 tab 01/01/17 05/17/18 Rx Aspirin 325 mg PO HS 05/17/18 05/17/18 History Cholecalciferol [Vitamin D3] 1,000 unit PO DAILY 05/17/18 05/17/18 History Citalopram Hydrobromide [CeleXA] 20 mg PO HS 05/17/18 05/17/18 History Donepezil [Aricept] 20 mg PO DAILY 05/17/18 05/17/18 History Gabapentin [Neurontin] 100 mg PO TID 05/17/18 05/17/18 History Levothyroxine Sodium [Synthroid] 75 mcg PO DAILY 05/17/18 05/17/18 History Lisinopril [Zestril] 10 mg PO HS 05/17/18 05/17/18 History Sulfamethox-Tmp 800-160Mg [Bactrim 1 tab PO Q12HR 05/17/18 05/17/18 History DS 800-160 mg] cloZAPine [Clozaril] 50 mg PO QAM 05/17/18 05/17/18 History cloZAPine [Clozaril] 250 mg PO HS 05/17/18 05/17/18 History Allergies Allergy/AdvReac Type Severity Reaction Status Date / Time levofloxacin AdvReac Unknown Verified 05/17/18 13:10 Physical Exam Vitals: Vital Signs Temp Pulse Resp BP Pulse Ox 05/19/18 08:00 99.5 F 80 19 133/70 95 05/19/18 03:51 98.8 F 81 20 145/76 93 L 05/19/18 00:15 99.4 F 83 20 129/67 95 05/18/18 20:10 99.9 F H 73 20 113/64 96 05/18/18 15:47 100 F H 81 20 132/78 93 L 05/18/18 11:24 99.5 F 71 20 123/64 96 Intake and Output 05/18/18 05/19/18 05/19/18 22:59 06:59 14:59 Intake Total 716 240 Output Total 500 Balance 716 -500 240 Intake: Oral 716 240 Output: Urine 500 Other: Voiding Method Urinal Urinal Urinal Incontinent Incontinent Incontinent # Voids 1 Weight 101.1 kg Gen: This is a obese 67-year-old male. He has seen in bed and appears to be comfortable and in no acute distress. HEENT: Head is normocephalic. There is a surgical scar over the left cheek and left rastafarian area. Wound are healed with no signs of infection. Pupils equal, round. Sclerae is anicteric. Conjunctiva pink. Mucous members of the mouth are moist. NECK: Supple. No JVD. No lymphadenopathy. No thyromegaly. LUNGS: Clear to auscultation. No wheezes or rhonchi. No intercostal retractions. HEART: Regular rate and rhythm. No murmur. ABDOMEN: Soft. Bowel sounds are present. No masses. No tenderness. No suprapubic tenderness. No CVA tenderness bilaterally. EXTREMITIES: No pedal edema. No calf tenderness. Dorsalis pedis +1 bilaterally. NEUROLOGICAL: Patient is awake, alert and oriented x3. Cranial nerves 2 through 12 are grossly intact. Patient is able to answer most questions appropriately. There appears to be some short-term memory deficits. Results Results: Laboratory Results WBC 8.9 k/uL (3.8-10.6) 05/19/18 06:12 RBC 3.52 m/uL (4.30-5.90) L 05/19/18 06:12 Hgb 10.1 gm/dL (13.0-17.5) L 05/19/18 06:12 Hct 31.5 % (39.0-53.0) L 05/19/18 06:12 MCV 89.5 fL (80.0-100.0) 05/19/18 06:12 MCH 28.7 pg (25.0-35.0) 05/19/18 06:12 MCHC 32.1 g/dL (31.0-37.0) 05/19/18 06:12 RDW 14.3 % (11.5-15.5) 05/19/18 06:12 Plt Count 217 k/uL (150-450) 05/19/18 06:12 Neutrophils % 80 % 05/19/18 06:12 Lymphocytes % 10 % 05/19/18 06:12 Monocytes % 6 % 05/19/18 06:12 Eosinophils % 1 % 05/19/18 06:12 Basophils % 0 % 05/19/18 06:12 Neutrophils # 7.1 k/uL (1.3-7.7) 05/19/18 06:12 Lymphocytes # 0.9 k/uL (1.0-4.8) L 05/19/18 06:12 Monocytes # 0.5 k/uL (0-1.0) 05/19/18 06:12 Eosinophils # 0.1 k/uL (0-0.7) 05/19/18 06:12 Basophils # 0.0 k/uL (0-0.2) 05/19/18 06:12 PT 11.1 sec (9.0-12.0) 05/17/18 13:15 INR 1.2 (<1.2) H 05/17/18 13:15 APTT 26.4 sec (22.0-30.0) 05/17/18 13:15 Sodium 140 mmol/L (137-145) 05/19/18 06:12 Potassium 4.2 mmol/L (3.5-5.1) 05/19/18 06:12 Chloride 109 mmol/L (98-107) H 05/19/18 06:12 Carbon Dioxide 26 mmol/L (22-30) 05/19/18 06:12 Anion Gap 5 mmol/L 05/19/18 06:12 BUN 12 mg/dL (9-20) 05/19/18 06:12 Creatinine 0.80 mg/dL (0.66-1.25) 05/19/18 06:12 Est GFR (CKD-EPI)AfAm >90 (>60 ml/min/1.73 sqM) 05/19/18 06:12 Est GFR (CKD-EPI)NonAf >90 (>60 ml/min/1.73 sqM) 05/19/18 06:12 Glucose 107 mg/dL (74-99) H 05/19/18 06:12 Plasma Lactic Acid Tay 1.0 mmol/L (0.7-2.0) 05/17/18 13:15 Calcium 8.5 mg/dL (8.4-10.2) 05/19/18 06:12 Magnesium 2.4 mg/dL (1.6-2.3) H 05/18/18 05:41 Total Bilirubin 0.6 mg/dL (0.2-1.3) 05/17/18 13:15 AST 25 U/L (17-59) 05/17/18 13:15 ALT 32 U/L (21-72) 05/17/18 13:15 Alkaline Phosphatase 79 U/L (38-126) 05/17/18 13:15 Total Protein 6.3 g/dL (6.3-8.2) 05/17/18 13:15 Albumin 3.7 g/dL (3.5-5.0) 05/17/18 13:15 Triglycerides 99 mg/dL (<150) 05/18/18 05:41 Cholesterol 116 mg/dL (<200) 05/18/18 05:41 LDL Cholesterol, Calc 71 mg/dL (0-99) 05/18/18 05:41 HDL Cholesterol 25 mg/dL (40-60) L 05/18/18 05:41 Urine Color Yellow 05/17/18 13:15 Urine Appearance Cloudy (Clear) 05/17/18 13:15 Urine pH 6.5 (5.0-8.0) 05/17/18 13:15 Ur Specific [place] 1.015 (1.001-1.035) 05/17/18 13:15 Urine Protein 1+ (Negative) H 05/17/18 13:15 Urine Glucose (UA) Negative (Negative) 05/17/18 13:15 Urine Ketones Negative (Negative) 05/17/18 13:15 Urine Blood Small (Negative) H 05/17/18 13:15 Urine Nitrite Positive (Negative) 05/17/18 13:15 Urine Bilirubin Negative (Negative) 05/17/18 13:15 Urine Urobilinogen <2.0 mg/dL (<2.0) 05/17/18 13:15 Ur Leukocyte Esterase Large (Negative) H 05/17/18 13:15 Urine RBC 2 /hpf (0-5) 05/17/18 13:15 Urine WBC >182 /hpf (0-5) H 05/17/18 13:15 Urine WBC Clumps Few /hpf (None) H 05/17/18 13:15 Urine Bacteria Rare /hpf (None) H 05/17/18 13:15 Urine Mucus Occasional /hpf (None) H 05/17/18 13:15 CBC & Chem 7: 05/19/18 06:12 05/19/18 06:12 Labs: Abnormal Lab Results - Last 24 Hours (Table) 05/18/18 05/19/18 05/19/18 Range/Units 05:41 06:12 06:12 RBC 3.52 L (4.30-5.90) m/uL Hgb 10.1 L (13.0-17.5) gm/dL Hct 31.5 L (39.0-53.0) % Lymphocytes # 0.9 L (1.0-4.8) k/uL Chloride 109 H (98-107) mmol/L Glucose 107 H (74-99) mg/dL Magnesium 2.4 H (1.6-2.3) mg/dL Microbiology - Last 24 Hours (Table) 05/17/18 13:15 Urine Culture - Final Urine,Voided 05/17/18 13:15 Blood Culture - Preliminary Blood No Growth after 24 hours Assessment and Plan Plan: This is a 67-year-old male patient who presented to the hospital with signs of sepsis possibly from urinary tract infection. Patient presented with fever and metabolic encephalopathy. Patient is currently on Rocephin which will be continued. Urine culture has been finalized with no growth on this admission. Blood cultures showing no growth after 24 hours. We will ask that the urinalysis and urine culture done at Dr. Long's office be obtained for review. There is also concern for abnormality on the CAT scan of the brain and possible stroke like symptoms. Patient is followed by neurology and is scheduled for MRI and EEG today. Continue supportive care. Further recommendations as patient progresses. The above dictated assessment and findings were discussed with Dr. Boston. The impression and plan of care have been directed as dictated. Homa Harris nurse practitioner acting as scribe for Dr. Boston.
[2018-05-19] MEDS: MULTIVITAMINS, THERA 1 EACH TAB PO SCH (11:20)
[2018-05-19] MEDS: THIAMINE 100 MG TAB PO SCH (11:20)
[2018-05-19] MEDS: FOLIC ACID 1 MG TAB PO SCH (11:20)
--- NOTE | 2018-05-19 15:16 | PN ---
PROGRESS NOTE DATE OF SERVICE: 05/19/2018. INTERVAL HISTORY: This 67-year-old gentleman admitted with UTI and sepsis, is on broad-spectrum antibiotics. Sensorium is slightly improved. The Infectious Disease and neurology are following the patient closely at this time. No chest pain. No palpitations. No fever. EXAM: Alert and oriented x2. Pulse 77, blood pressure 130/72, respiration 18, temperature 98.2, pulse ox 98% on room air. HEENT: Conjunctivae normal. Neck: No jugular venous distention. Cardiovascular: S1, S2 muffled. Respiratory: Breath sounds diminished in the bases. Bilateral scattered rhonchi and crackles. Abdomen is soft, nontender. Legs are no edema, no swelling. LABS: WBC 8, hemoglobin 10.1. ASSESSMENT: 1. Acute urinary tract infection with sepsis, negative cultures so far. 2. Change in mental status, acute on chronic metabolic encephalopathy, possibly secondary to sepsis. 3. 50-69 internal carotid artery stenosis bilaterally. 4. Possible acute right frontal lobe infarction. 5. Gastroesophageal reflux disease. 6. Possible myoclonic jerks. 7. History of chest pain/angina. 8. Hypertension. 9. History of degenerative joint disease. 10.Hypothyroidism. 11.History of sepsis in the past. 12.History of tremors. 13.History of claustrophobia. 14.History of panic disorder. 15.History of unspecified psychosis. RECOMMENDATIONS AND DISCUSSION: Recommend to continue current medications, medical management. Continue to monitor. Symptomatic treatment. Otherwise at this time, continue the current medication. Cultures are negative so far. As mentioned earlier, we will continue to monitor along with Neurology. MR brain has been ordered and as well as EEG. The prognosis guarded because of multiple complex medical issues. Further recommendations to follow. MMODL / IJN: [id number] /
--- NOTE | 2018-05-19 20:36 | P.PN ---
Subjective Progress Note Date: 05/19/18 Principal diagnosis: altered mental status Neurology is following on a 67-year-old male for altered mental status. Patient presented to the ED for confusion and possible UTI. Patient has been having increased confusion over the past several months. It increased in the several days preceding presentation. Patient was diagnosed with UTI per primary care provider, started on antibioticsBactrim. When patient did not improve with antibiotic therapy, spouse brought patient to the ED for further evaluation and workup. On contact today, patient was supine in bed resting in no acute distress. Patient was alert and oriented 2. Patient complains still of bilateral lower extremity generalized weakness but it is mildly improving. Patient denied unilateral lateralizing weakness. Patient did complain of upper torso tremors/ twitching that has been increasing in frequency, intensity and distribution the last 6-12 months. Patient noted that the twitch originally began directly below the xiphoid process radiated superiorly and outward and now causes the shoulders to rotate inward during the event. Patient states his symptoms are quite distressing. No exacerbating or relieving factors. Objective - Vital Signs Vital signs: Vital Signs Temp 98.5 F 05/19/18 16:00 Pulse 75 05/19/18 16:00 Resp 18 05/19/18 16:00 BP 125/66 05/19/18 16:00 Pulse Ox 97 05/19/18 16:00 Intake & Output 05/19/18 05/19/18 05/20/18 06:59 18:59 06:59 Intake Total 480 576 Output Total 500 175 Balance -20 401 Weight 101.1 kg Intake: Oral 480 576 Output: Urine 500 175 Other: Voiding Method Urinal Urinal Incontinent Incontinent # Voids 1 # Bowel Movements 1 - Exam General appearance: Alert & oriented x2, no apparent distress. Head: Atraumatic, normocephalic, normal inspection Eyes: Well appearance, PERRLA, EOMI. Absent scleral icterus, conjunctival injection, nystagmus, periorbital swelling. Ear, nose and throat: Normal exam, mucous membranes moist Neck: Normal inspection, absent tenderness, lymphadenopathy. Respiratory: No increased work of breathing Cardiovascular: Regular rate, rhythm GI/abdominal: No guarding twitch that originates directly below xiphoid process and can occur up to several times per minute Extremities: Full range of motion, normal capillary refill, no tenderness, pedal edema joint swelling, calf tenderness. Neurological: cranial nerves II through XII intact no lateralizing weakness no seizure activity noted on physical exam no pronator drift and no nystagmus. Left lower extremity: 4/5 Right lower extremity: 4/5 Left upper extremity: 5/5 Right upper extremity:5 /5 Sensation: Left lower extremity: normal Right lower extremity: normal Left upper extremity: normal Right upper extremity:normal Psychological: Mood and Affect appropriate for setting - Labs CBC & Chem 7: 05/19/18 06:12 05/19/18 06:12 Labs: Abnormal Lab Results - Last 24 Hours (Table) 05/19/18 05/19/18 Range/Units 06:12 06:12 RBC 3.52 L (4.30-5.90) m/uL Hgb 10.1 L (13.0-17.5) gm/dL Hct 31.5 L (39.0-53.0) % Lymphocytes # 0.9 L (1.0-4.8) k/uL Chloride 109 H (98-107) mmol/L Glucose 107 H (74-99) mg/dL Microbiology - Last 24 Hours (Table) 05/17/18 13:15 Blood Culture - Preliminary Blood No Growth after 48 hours 05/17/18 13:15 Urine Culture - Final Urine,Voided Assessment and Plan (1) Twitch Narrative/Plan: Patient on physical exam does have intermittent but recurrent twitching of the upper abdominal area which then encompasses the bilateral shoulders causing the shoulders to rotate in. Occurrences are taking place less frequently today but are causing significant emotional distress for the patient. Neurological workup as follows: MRI brain with contrast as previously ordered by other provider. EEG is pending. patient was previously worked up by [facility] in [place] no etiology found approximately 2 years ago. Patient did not have any further workup post [facility]. If patient's MRI brain is unremarkable for any verifiable etiology, patient can continue workup in the outpatient setting. Current Visit: Yes Status: Acute Code(s): R25.3 - FASCICULATION SNOMED Code(s): 47482046 (2) Altered mental status Narrative/Plan: patient is alert and oriented 2. . Symptoms at presentation are consistent to some degree with both right frontal lobe infarct as well as UTI. Possible multifactorial encephalopathy, EEG pending Continue to monitor patient for any neurological status changes. discontinue: Aspirin 325 mg Prescribed: Plavix 75 mg daily Continue Lipitor as noted. Continue to correct any other underlying etiology which may have attributed to patient status which would include UTI Current Visit: Yes Status: Acute Code(s): R41.82 - ALTERED MENTAL STATUS, UNSPECIFIED SNOMED Code(s): 948218939 (3) UTI (urinary tract infection) Narrative/Plan: continue to correct underlying etiology. Defer to primary team Current Visit: Yes Status: Acute Code(s): N39.0 - URINARY TRACT INFECTION, SITE NOT SPECIFIED SNOMED Code(s): 61288750 (4) Abnormal CT of brain Narrative/Plan: Patient does have "vague wedge-shaped area of hypoattenuation within the right frontal lobe which may relate to focal ischemia or artifact. In distribution of middle cerebral artery." MRI should be performed. Patient does have MRI with contrast are scheduled by seaming inspector. Patient does exhibit some symptoms consistent with right frontal lobe infarct which would include muscle weakness, behavior/personality changes. Some symptoms are also consistent with UTI/encephalopathy as well. Definitive etiology for patient's symptoms is still undetermined. further workup pending. If MRI of the brain confirms acute or subacute infarct, patient can be placed for rehabilitation for lower extremity strengthening and generalized weakness. Current Visit: Yes Status: Acute Code(s): R90.89 - OTH ABNORMAL FINDINGS ON DIAGNOSTIC IMAGING OF CNSL SNOMED Code(s): 287991651 (5) Carotid stenosis Narrative/Plan: Patient does have carotid stenosis noted at 50-69% bilaterally. medical management recommended. Current Visit: Yes Status: Acute Code(s): I65.29 - OCCLUSION AND STENOSIS OF UNSPECIFIED CAROTID ARTERY SNOMED Code(s): 01017189 Plan: STATUS: Neurology will continue to follow provide updates as needed or warranted. contact our office with any questions I have discussed the plan of care with the physician prior to implementation and he agrees with the plan as implemented.
[2018-05-19] MEDS: cloZAPine 100 MG TAB PO SCH (20:54)
[2018-05-19] MEDS: CITALOPRAM HYDROBROMIDE 20 MG TAB PO SCH (20:54)
[2018-05-19] MEDS: LISINOPRIL 10 MG TAB PO SCH (20:54)
--- NOTE | 2018-05-19 23:52 | P.CON ---
Consult Note - . Consult date: 05/19/18 Assessment/Plan:: This is a 67-year-old male patient who presented to the emergency center due to altered mental status thought to be related to underlying urinary tract infection. Patient apparently was treated for a urinary tract infection by Dr. Long and has been on Bactrim for several days. Patient's noted that he was more confused and brought him into [facility] emergency center for evaluation. He was found to have a temperature max of 102.2, heart rate and blood pressure were stable. White count 8.9 and lactic acid 1. Creatinine 1.1. Urinalysis was cloudy, blood small, leukoesterase large, WBCs greater than 182, WBC clumps few. Blood culture showing no growth after 24 hours and urine culture was finalized with no growth after 18 hours. He had a chest x-ray that showed no acute cardiopulmonary process. CAT scan of the brain revealed a vague wedge-shaped area of hypoattenuation within the right frontal lobe may relate to focal ischemia or artifact. Patient is scheduled for MRI this morning. Carotid ultrasound showed 50-69% stenosis bilateral proximal ICA. Patient has been admitted to the selective care unit, started on Rocephin. He has been seen in consultation by neurology and MRI of the brain and EEG, homocystine been ordered. Patient is complaining of twitching to his upper body which he states has been constant and going on for more than a year. He states he has seen Dr. Ceballos and Dr. Kidd for this with no real explanation for the twitching. Patient does state he has shortness of breath is been going on for a long time and no change. He denies having any chest pain. No cough or sputum production. He has had decreased appetite and thinks he has lost 3-4 pounds in the past week. He does complain of dysuria that has been going on for at least 3 days and leaking of urine. Patient does complain of lightheadedness and he has had 3 falls due to dizziness at home. He denies having any injury with these falls. At one point , patient states he has some lower abdominal pain and later he does not have pain. He states he has had fever and chills. He complains of low back pain which he thinks is from the bed. He denies any nausea, vomiting or diarrhea. He does have surgical scars noted on his left cheek and left episcopalian area which he states is for cancer and treated by Dr. Jonh sanders 6-7 weeks ago. He believes he has a follow-up appointment but does not know when this is scheduled. Please see the consult note as dictated by nurse practitioner Mrs. Homa Harris. This pleasant 67-year-old gentleman has multiple difficulties including evidence of a fever in the outpatient setting and likely urinary tract infection. It is a. The urine culture is positive for E. coli and we await the final data. For now we'll treat with Rocephin pending further culture data. No valvular finish his course of antibiotic therapy as an outpatient for his gram-negative urinary tract infection and evidence of sepsis at admission. His fever is improving and his mental status is also improved. He is quite distraught about his underlying neurological difficulties that are of a jerking activity that apparently initiates subdiaphragmatic and then involves both of his arms. At rest on the exam is noted that he has fasciculations of his tongue and also has fasciculations of the interossei muscles of the hands left more predominant than the right. The patient is having neurological evaluation to further try to characterize the time between all of these findings. Fasciculations of interossei muscles are noted and would query neurology about amyotrophic lateral sclerosis. There apparently is culture that shows evidence of E. coli and hopefully this will be susceptible to oral agents to allow the transition to oral treatment. Cultures should be back tomorrow from the outpatient setting. I agree with evaluation, assessment and plan as dictated by nurse practitioner Mrs. Homa Harris.
[2018-05-20] MEDS: ACETAMINOPHEN TAB 500 MG TAB PO PRN (04:44)
[2018-05-20 06:34] LABS: Glucose,Whole Blood 100 mg/dL (75-99)
[2018-05-20] MEDS: LEVOTHYROXINE 75 MCG TAB PO SCH (06:36)
[2018-05-20] MEDS: PANTOPRAZOLE 40 MG TABLET PO SCH (06:36)
[2018-05-20 06:50] LABS: Basophils % (A) 1 %; Eosinophils # (A) 0.2 k/uL (0-0.7); Eosinophils % (A) 2 %; HCT 33.7 % (39.0-53.0); HGB 11.1 gm/dL (13.0-17.5); Lymphocytes # (A) 1.2 k/uL (1.0-4.8); Lymphocytes % (A) 15 %; MCH 29.3 pg (25.0-35.0); MCHC 32.8 g/dL (31.0-37.0); MCV 89.4 fL (80.0-100.0); Mean Platelet Volume 7.2; Monocytes # (A) 0.4 k/uL (0-1.0); Monocytes % (A) 5 %; Neutrophils # (A) 6.1 k/uL (1.3-7.7); Neutrophils % (A) 75 %; Platelet Count 252 k/uL (150-450); RBC 3.77 m/uL (4.30-5.90); RDW 14.4 % (11.5-15.5); WBC 8.1 k/uL (3.8-10.6)
[2018-05-20 07:13] LABS: Anion Gap 6 mmol/L; Blood Urea Nitrogen 12 mg/dL (9-20); Carbon Dioxide 26 mmol/L (22-30); Chloride 108 mmol/L (98-107); Glucose 100 mg/dL (74-99); Potassium 4.5 mmol/L (3.5-5.1); Sodium 140 mmol/L (137-145)
--- NOTE | 2018-05-20 09:19 | MR ---
EXAMINATION TYPE: MR brain wo/w con DATE OF EXAM: 05/20/2018 COMPARISON: MRI brain February 05, 2017. CT brain May 17, 2018. HISTORY: Uncontrolled tremors/acute stroke per order. Patient admitted for acute onset confusion and altered mental status with tremors and difficulty speaking 3 days earlier. TECHNIQUE: Multiplanar, multisequence images of the brain and brainstem is performed without and with IV contras t, utilizing 10 mL intravenous Gadavist . FINDINGS: Diffusion weighted images demonstrate no evidence of a recent infarct or other diffusion ab normality. There is no worrisome extra-axial fluid collection. There is diffuse ventricular and sulc al prominence consistent with diffuse cerebral atrophy. There are scattered foci of T2 hyperintensity seen throughout the white matter bilaterally. Approximately 10-20 scattered small lesions are redemo nstrated. Midline structures demonstrate normal morphology. The craniocervical junction appears within normal limits. Post contrast images demonstrate no abnormal enhancement. The dural venous sinuses appear pa tent. The visualized sinuses are clear and the globes are intact. The nasal septum remains deviated t o left of midline. IMPRESSION: 1. No evidence of a recent infarct. 2. Stable mild diffuse age-related cerebral atrophy and mild to moderate chronic small vessel ischemi c change. No abnormal enhancement noted.
[2018-05-20] MEDS: ATORVASTATIN 40 MG TAB PO SCH (10:27)
[2018-05-20] MEDS: DONEPEZIL 10 MG TAB PO SCH (10:28)
[2018-05-20] MEDS: CLOPIDOGREL 75 MG TAB PO SCH (10:28)
[2018-05-20] MEDS: cloZAPine 25 MG TAB PO SCH (10:28)
[2018-05-20] MEDS: GABAPENTIN 100 MG CAP PO SCH ×3 (10:28→20:13)
[2018-05-20] MEDS: HEPARIN SODIUM,PORCINE 5,000 UNIT/ML 1 ML VIAL SQ SCH ×2 (10:28→20:14)
[2018-05-20] MEDS: CHOLECALCIFEROL 1,000 UNIT TAB PO SCH (10:28)
[2018-05-20] MEDS: MULTIVITAMINS, THERA 1 EACH TAB PO SCH (10:29)
[2018-05-20] MEDS: FOLIC ACID 1 MG TAB PO SCH (10:29)
[2018-05-20] MEDS: THIAMINE 100 MG TAB PO SCH (10:30)
[2018-05-20] MEDS: cefTRIAXone IN SWFI 1,000 MG/10 ML SYRINGE IVP SCH (10:44)
--- NOTE | 2018-05-20 12:53 | PN ---
PROGRESS NOTE DATE OF SERVICE: 05/20/2018 This 67-year-old gentleman admitted with acute UTI with sepsis is being treated with antibiotics. The cultures are negative so far. No chest pain or palpitations. Patient has tremors and also gait dysfunction. ECF rehab is also being evaluated. PHYSICAL EXAMINATION: On exam, alert and oriented x3. Pulse 71, pressure 129/76, respirations 16, temperature 98 degrees, pulse ox 93% on room air. HEENT: Conjunctivae normal. Oral mucosa moist. NECK: No jugular venous distention. No carotid bruit. No lymph node enlargement. CARDIOVASCULAR: S1 and S2 muffled. RESPIRATORY: Breath sounds diminished at the bases. No rhonchi, no crackles. ABDOMEN: Soft, nontender. LEGS: No edema, no swelling. NERVOUS SYSTEM: Diffusely weak and tremors. LABS: WBC 8.2, hemoglobin 11.1. Sodium 140, potassium 4.5. ASSESSMENT: 1. Acute urinary tract infection with sepsis, negative cultures so far. 2. Change in mental status, acute on chronic metabolic encephalopathy, possibly secondary to sepsis. 3. A 50% to 69% internal carotid artery stenosis bilaterally. 4. Possible acute right frontal lobe infarction suspected on admission but MRI shows no infarction currently. 5. Gastroesophageal reflux disease. 6. Possible myoclonic jerks. 7. History of chest pain, angina. 8. Hypertension. 9. History of degenerative joint disease. 10.Hypothyroidism. 11.History of sepsis in the past. 12.History of tremors. 13.History of claustrophobia. 14.History of panic disorder. 15.History of unspecified psychosis. 16.Gait dysfunction. RECOMMENDATIONS AND DISCUSSION: In this 67-year-old gentleman who presented with multiple complex medical issues, will monitor the patient closely. Continue the current medications. Continue symptomatic treatment. PT/OT evaluation. DVT prophylaxis. Broad-spectrum IV antibiotics. Otherwise continue to monitor. The prognosis is guarded. Also discussed with the patient as well as case resource manager, PT, OT evaluation, possible ECF rehab. Guarded prognosis. Further recommendations to follow. MMBLAKEL / MEGGAN: [id number] /
--- NOTE | 2018-05-20 17:27 | P.PN ---
Subjective Progress Note Date: 05/20/18 Patient is a pleasant 67-year-old male who is being followed by the neurology service for altered mental status. Patient came to [facility] for increasing weakness and confusion. On admission, patient was found to have a urinary tract infection. Patient had a fever and infectious disease was consulted. Patient is currently being treated with antibiotics. Patient had computed tomography scan of the brain which showed area of hypoattenuation within the frontal lobe which could be focal ischemia or artifact. MRI of the brain was done which showed no evidence of recent infarct. MRI of the brain did show age-related cerebral atrophy and chronic small vessel ischemic disease. Patient does have involuntary muscle movements which have been going on for months. Patient is extremely weak but did get up with physical therapy today. Patient continues to have tongue fasciculations as well as fasciculations of both hands. At the time of my evaluation, patient is resting comfortably in bed and appears to be in no acute distress. Objective - Vital Signs Vital signs: Vital Signs Temp 97.3 F L 05/20/18 12:00 Pulse 64 05/20/18 12:00 Resp 18 05/20/18 12:00 BP 128/72 05/20/18 12:00 Pulse Ox 96 05/20/18 12:00 Intake & Output 05/19/18 05/20/18 05/20/18 18:59 06:59 18:59 Intake Total 576 10 298 Output Total 175 Balance 401 10 298 Weight 100 kg Intake: IV 10 0.9 NS 10 Oral 576 298 Output: Urine 175 Other: Voiding Method Urinal Urinal Urinal Incontinent Incontinent Diaper Incontinent # Voids 1 1 # Bowel Movements 1 - Exam PHYSICAL EXAM: GENERAL APPEARANCE: Patient is a well-developed, male who appears to be in no acute distress. HEENT: Normocephalic, atraumatic, no facial asymmetry is seen. Neck is supple with no masses felt. CARDIOVASCULAR: Regular rate and rhythm. ABDOMEN: Nontender, nondistended. EXTREMITIES: Show no edema or clubbing. Bilateral muscle jerking noted NEUROLOGICAL EXAM: Patient is awake, alert, and oriented 3. Speech and language are normal. Strength is 5-/5 in bilateral upper extremities and 4+/5 in bilateral lower extremities. Sensory exam to light touch is normal in all 4 extremities. No facial asymmetry is seen on cranial nerve testing. Patient has large muscle group twitching which is uncontrolled. Patient does have noticeable tongue fasciculations while at rest. Mild chronic bilateral upper extremity tremors noted. No seizure activity is seen. - Labs CBC & Chem 7: 05/20/18 06:09 05/20/18 06:09 Labs: Abnormal Lab Results - Last 24 Hours (Table) 05/20/18 05/20/18 05/20/18 Range/Units 06:09 06:09 06:32 RBC 3.77 L (4.30-5.90) m/uL Hgb 11.1 L (13.0-17.5) gm/dL Hct 33.7 L (39.0-53.0) % Chloride 108 H (98-107) mmol/L Glucose 100 H (74-99) mg/dL POC Glucose (mg/dL) 100 H (75-99) mg/dL Microbiology - Last 24 Hours (Table) 05/17/18 13:15 Blood Culture - Preliminary Blood No Growth after 72 hours Assessment and Plan Plan: Impression: 1. Involuntary muscle twitching 2. Altered mental status, likely from infectious encephalopathy 3. Urinary tract infection 4. Carotid artery stenosis 5. History of tremors 6. Lower extremity weakness Recommendations: Altered mental status has significantly improved. Altered mental status likely due to infectious encephalopathy. Patient continues to be treated for urinary tract infection. A vascular consult is ordered due to carotid artery stenosis. Given patient's increased weakness, muscle jerking and twitching, tongue fasciculations, and other muscle twitching, patient will need NCS/EMG's as an outpatient as well as possible muscle biopsy. ALS is certainly in the differential diagnosis. I will order a CPK. Patient will need outpatient follow-up to confirm or dismiss diagnosis of ALS. Continue current medical management. Continue physical therapy. I will continue to follow with you. Further recommendations to follow. I performed an examination of the patient and discussed the management with the COUNSEL. I have reviewed the COUNSEL notes and agree with the findings and plan of care.
--- NOTE | 2018-05-20 18:26 | EEG ---
ELECTROENCEPHALOGRAM REPORT DATE OF SERVICE: 05/20/2018. REASON FOR TESTING: Altered mental status. DESCRIPTION OF THE PROCEDURE: This EEG was performed using a 21 channel digital electroencephalograph, following international 10-20 system. DESCRIPTION OF THE RECORDING: From the beginning of the tracing, and with patient's eyes closed, the background rhythm was mostly consisting of 8 Hz alpha frequency in the posterior occipital leads. No obvious asymmetry is seen. Photic stimulation was performed with no driving response seen. No pathological waves were elicited. Hyperventilation was not performed. The patient remains awake throughout the tracing. No epileptiform discharges were seen. Occasional movement artifacts are noticed. His EKG lead showed an irregularly irregular rhythm with a normal rate. INTERPRETATION: This awake EEG can be considered within normal limits except his EKG lead showed an irregularly irregular rhythm with a normal rate. No epileptiform discharges were seen. The absence of epileptiform discharges does not rule out the diagnosis of epilepsy; therefore, clinical correlation is recommended. MMBLAKEL / IJN: [id number] /
[2018-05-20] MEDS: cloZAPine 100 MG TAB PO SCH (20:13)
[2018-05-20] MEDS: CITALOPRAM HYDROBROMIDE 20 MG TAB PO SCH (20:13)
[2018-05-20] MEDS: LISINOPRIL 10 MG TAB PO SCH (20:13)
[2018-05-20] MEDS ORDERED: ONDANSETRON 4 MG/2 ML VIAL IVP PRN (21:08)
--- NOTE | 2018-05-20 21:40 | XR ---
EXAMINATION TYPE: XR abdomen 1V DATE OF EXAM: 05/20/2018 9:30 PM CLINICAL HISTORY: Abdominal pain TECHNIQUE: Supine and left supine image of the abdomen is obtained. COMPARISON: 01/16/2016. FINDINGS: Similar-appearing calcification is seen over the right iliac bone in comparison to the prio r of 2016. No dilated large or small bowel are seen. Phleboliths are noted within the pelvis. Moderat e degenerative change of the femoral acetabular joints and lumbosacral junction are noted. Evaluation for pneumoperitoneum is limited given patient motion on the exam. IMPRESSION: Nonobstructive bowel gas pattern.
--- NOTE | 2018-05-20 22:42 | P.PN ---
Subjective Progress Note Date: 05/20/18 This is a 67-year-old male patient who presented to the emergency center due to altered mental status thought to be related to underlying urinary tract infection. Patient apparently was treated for a urinary tract infection by Dr. Long and has been on Bactrim for several days. Patient's noted that he was more confused and brought him into [facility] emergency center for evaluation. He was found to have a temperature max of 102.2, heart rate and blood pressure were stable. White count 8.9 and lactic acid 1. Creatinine 1.1. Urinalysis was cloudy, blood small, leukoesterase large, WBCs greater than 182, WBC clumps few. Blood culture showing no growth after 24 hours and urine culture was finalized with no growth after 18 hours. He had a chest x-ray that showed no acute cardiopulmonary process. CAT scan of the brain revealed a vague wedge-shaped area of hypoattenuation within the right frontal lobe may relate to focal ischemia or artifact. Patient is scheduled for MRI this morning. Carotid ultrasound showed 50-69% stenosis bilateral proximal ICA. Patient has been admitted to the selective care unit, started on Rocephin. He has been seen in consultation by neurology and MRI of the brain and EEG, homocystine been ordered. Patient is complaining of twitching to his upper body which he states has been constant and going on for more than a year. He states he has seen Dr. Ceballos and Dr. Kidd for this with no real explanation for the twitching. Patient does state he has shortness of breath is been going on for a long time and no change. He denies having any chest pain. No cough or sputum production. He has had decreased appetite and thinks he has lost 3-4 pounds in the past week. He does complain of dysuria that has been going on for at least 3 days and leaking of urine. Patient does complain of lightheadedness and he has had 3 falls due to dizziness at home. He denies having any injury with these falls. At one point , patient states he has some lower abdominal pain and later he does not have pain. He states he has had fever and chills. He complains of low back pain which he thinks is from the bed. He denies any nausea, vomiting or diarrhea. He does have surgical scars noted on his left cheek and left buddhism area which he states is for cancer and treated by Dr. Jonh sanders 6-7 weeks ago. He believes he has a follow-up appointment but does not know when this is scheduled. 05/20/2018 patient is feeling slightly better today. Still is quite bothered by the jerking events that occur. Is not having fever today. Objective - Vital Signs Vital signs: Vital Signs Temp 97.0 F L 05/20/18 19:58 Pulse 90 05/20/18 20:00 Resp 18 05/20/18 20:00 BP 123/78 05/20/18 19:58 Pulse Ox 95 05/20/18 19:58 Intake & Output 05/20/18 05/20/18 05/21/18 06:59 18:59 06:59 Intake Total 10 298 10 Balance 10 298 10 Weight 100 kg Intake: IV 10 10 0.9 NS 10 Invasive Line 1 10 Oral 298 Other: Voiding Method Urinal Urinal Toilet Incontinent Diaper Urinal Incontinent Diaper Incontinent # Voids 1 1 - Exam Gen: This is a obese 67-year-old male. He has seen in bed and appears to be comfortable and in no acute distress. HEENT: Head is normocephalic. There is a surgical scar over the left cheek and left buddhism area. Wound are healed with no signs of infection. Pupils equal, round. Sclerae is anicteric. Conjunctiva pink. Mucous members of the mouth are moist. NECK: Supple. No JVD. No lymphadenopathy. No thyromegaly. LUNGS: Clear to auscultation. No wheezes or rhonchi. No intercostal retractions. HEART: Regular rate and rhythm. No murmur. ABDOMEN: Soft. Bowel sounds are present. No masses. No tenderness. No suprapubic tenderness. No CVA tenderness bilaterally. EXTREMITIES: No pedal edema. No calf tenderness. Dorsalis pedis +1 bilaterally. NEUROLOGICAL: Patient is awake, alert and oriented x3. Has evidence of fasciculations of the tongue and of the interossei muscles of the hand has seen occasional significant jerk it appears originally in the left chest and up to the shoulders. - Labs CBC & Chem 7: 05/20/18 06:09 05/20/18 06:09 Labs: Abnormal Lab Results - Last 24 Hours (Table) 05/20/18 05/20/18 05/20/18 Range/Units 06:09 06:09 06:32 RBC 3.77 L (4.30-5.90) m/uL Hgb 11.1 L (13.0-17.5) gm/dL Hct 33.7 L (39.0-53.0) % Chloride 108 H (98-107) mmol/L Glucose 100 H (74-99) mg/dL POC Glucose (mg/dL) 100 H (75-99) mg/dL Creatine Kinase (55-170) U/L 05/20/18 Range/Units 17:49 RBC (4.30-5.90) m/uL Hgb (13.0-17.5) gm/dL Hct (39.0-53.0) % Chloride (98-107) mmol/L Glucose (74-99) mg/dL POC Glucose (mg/dL) (75-99) mg/dL Creatine Kinase 36 L (55-170) U/L Microbiology - Last 24 Hours (Table) 05/17/18 13:15 Blood Culture - Preliminary Blood No Growth after 72 hours Laboratory Results WBC 8.1 k/uL (3.8-10.6) 05/20/18 06:09 RBC 3.77 m/uL (4.30-5.90) L 05/20/18 06:09 Hgb 11.1 gm/dL (13.0-17.5) L 05/20/18 06:09 Hct 33.7 % (39.0-53.0) L 05/20/18 06:09 MCV 89.4 fL (80.0-100.0) 05/20/18 06:09 MCH 29.3 pg (25.0-35.0) 05/20/18 06:09 MCHC 32.8 g/dL (31.0-37.0) 05/20/18 06:09 RDW 14.4 % (11.5-15.5) 05/20/18 06:09 Plt Count 252 k/uL (150-450) 05/20/18 06:09 Neutrophils % 75 % 05/20/18 06:09 Lymphocytes % 15 % 05/20/18 06:09 Monocytes % 5 % 05/20/18 06:09 Eosinophils % 2 % 05/20/18 06:09 Basophils % 1 % 05/20/18 06:09 Neutrophils # 6.1 k/uL (1.3-7.7) 05/20/18 06:09 Lymphocytes # 1.2 k/uL (1.0-4.8) 05/20/18 06:09 Monocytes # 0.4 k/uL (0-1.0) 05/20/18 06:09 Eosinophils # 0.2 k/uL (0-0.7) 05/20/18 06:09 Basophils # 0.0 k/uL (0-0.2) 05/20/18 06:09 PT 11.1 sec (9.0-12.0) 05/17/18 13:15 INR 1.2 (<1.2) H 05/17/18 13:15 APTT 26.4 sec (22.0-30.0) 05/17/18 13:15 Sodium 140 mmol/L (137-145) 05/20/18 06:09 Potassium 4.5 mmol/L (3.5-5.1) 05/20/18 06:09 Chloride 108 mmol/L (98-107) H 05/20/18 06:09 Carbon Dioxide 26 mmol/L (22-30) 05/20/18 06:09 Anion Gap 6 mmol/L 05/20/18 06:09 BUN 12 mg/dL (9-20) 05/20/18 06:09 Creatinine 0.80 mg/dL (0.66-1.25) 05/20/18 06:09 Est GFR (CKD-EPI)AfAm >90 (>60 ml/min/1.73 sqM) 05/20/18 06:09 Est GFR (CKD-EPI)NonAf >90 (>60 ml/min/1.73 sqM) 05/20/18 06:09 Glucose 100 mg/dL (74-99) H 05/20/18 06:09 POC Glucose (mg/dL) 100 mg/dL (75-99) H 05/20/18 06:32 POC Glu Events Manager ID Angelica Mcneill 05/20/18 06:32 Plasma Lactic Acid Tay 1.0 mmol/L (0.7-2.0) 05/17/18 13:15 Calcium 9.0 mg/dL (8.4-10.2) 05/20/18 06:09 Magnesium 2.4 mg/dL (1.6-2.3) H 05/18/18 05:41 Total Bilirubin 0.6 mg/dL (0.2-1.3) 05/17/18 13:15 AST 25 U/L (17-59) 05/17/18 13:15 ALT 32 U/L (21-72) 05/17/18 13:15 Alkaline Phosphatase 79 U/L (38-126) 05/17/18 13:15 Creatine Kinase 36 U/L (55-170) L 05/20/18 17:49 Total Protein 6.3 g/dL (6.3-8.2) 05/17/18 13:15 Albumin 3.7 g/dL (3.5-5.0) 05/17/18 13:15 Triglycerides 99 mg/dL (<150) 05/18/18 05:41 Cholesterol 116 mg/dL (<200) 05/18/18 05:41 LDL Cholesterol, Calc 71 mg/dL (0-99) 05/18/18 05:41 HDL Cholesterol 25 mg/dL (40-60) L 05/18/18 05:41 Homocysteine 13.66 umol/L (4.00-14.00) 05/18/18 14:45 Urine Color Yellow 05/17/18 13:15 Urine Appearance Cloudy (Clear) 05/17/18 13:15 Urine pH 6.5 (5.0-8.0) 05/17/18 13:15 Ur Specific Offerman 1.015 (1.001-1.035) 05/17/18 13:15 Urine Protein 1+ (Negative) H 05/17/18 13:15 Urine Glucose (UA) Negative (Negative) 05/17/18 13:15 Urine Ketones Negative (Negative) 05/17/18 13:15 Urine Blood Small (Negative) H 05/17/18 13:15 Urine Nitrite Positive (Negative) 05/17/18 13:15 Urine Bilirubin Negative (Negative) 05/17/18 13:15 Urine Urobilinogen <2.0 mg/dL (<2.0) 05/17/18 13:15 Ur Leukocyte Esterase Large (Negative) H 05/17/18 13:15 Urine RBC 2 /hpf (0-5) 05/17/18 13:15 Urine WBC >182 /hpf (0-5) H 05/17/18 13:15 Urine WBC Clumps Few /hpf (None) H 05/17/18 13:15 Urine Bacteria Rare /hpf (None) H 05/17/18 13:15 Urine Mucus Occasional /hpf (None) H 05/17/18 13:15 Microbiology 05/17/18 13:15 Blood Blood Culture - Preliminary No Growth after 72 hours 05/17/18 13:15 Urine,Voided Urine Culture - Final Assessment and Plan (1) Failure of outpatient treatment Current Visit: Yes Status: Acute Code(s): Z78.9 - OTHER SPECIFIED HEALTH STATUS SNOMED Code(s): 013351582 (2) UTI (urinary tract infection) Narrative/Plan: This pleasant 67-year-old gentleman has multiple difficulties including evidence of a fever in the outpatient setting and likely urinary tract infection. The urine culture is positive for E. coli and we await the final culture data. For now we'll treat with Rocephin pending further culture data. No valvular finish his course of antibiotic therapy as an outpatient for his gram-negative urinary tract infection and evidence of sepsis at admission. His fever is improving and his mental status is also improved. He is quite distraught about his underlying neurological difficulties that are of a jerking activity that apparently initiates subdiaphragmatic and then involves both of his arms. At rest on the exam is noted that he has fasciculations of his tongue and also has fasciculations of the interossei muscles of the hands left more predominant than the right. The patient is having neurological evaluation to further try to characterize the time between all of these findings. Fasciculations of interossei muscles are noted and would query neurology about amyotrophic lateral sclerosis. At this time await the final susceptibility so that a plan for outpatient Therapy can be initiated. Hopefully will be oral. He has been seen by neurology and several tests have occurred. Await her final input and if any further workup needs to be initiated regarding this event fasciculations is having on his tongue and hand muscles at this time. Current Visit: Yes Status: Acute Code(s): N39.0 - URINARY TRACT INFECTION, SITE NOT SPECIFIED SNOMED Code(s): 26780755 (3) Fasciculations of muscle Current Visit: Yes Status: Acute Code(s): R25.3 - FASCICULATION SNOMED Code(s): 46053677
[2018-05-21 04:49] VITALS: RESP 16
[2018-05-21] MEDS: PANTOPRAZOLE 40 MG TABLET PO SCH (06:32)
[2018-05-21] MEDS: LEVOTHYROXINE 75 MCG TAB PO SCH (06:32)
[2018-05-21 06:37] LABS: Basophils # (A) 0.1 k/uL (0-0.2); Basophils % (A) 1 %; Eosinophils # (A) 0.1 k/uL (0-0.7); Eosinophils % (A) 1 %; HCT 37.8 % (39.0-53.0); HGB 11.5 gm/dL (13.0-17.5); Lymphocytes # (A) 1.2 k/uL (1.0-4.8); Lymphocytes % (A) 11 %; MCH 27.3 pg (25.0-35.0); MCHC 30.5 g/dL (31.0-37.0); MCV 89.3 fL (80.0-100.0); Mean Platelet Volume 7.3; Monocytes # (A) 0.5 k/uL (0-1.0); Monocytes % (A) 5 %; Neutrophils % (A) 81 %; Platelet Count 324 k/uL (150-450); RBC 4.24 m/uL (4.30-5.90); RDW 14.5 % (11.5-15.5)
[2018-05-21 06:56] LABS: Anion Gap 8 mmol/L; Blood Urea Nitrogen 18 mg/dL (9-20); Calcium 8.9 mg/dL (8.4-10.2); Carbon Dioxide 25 mmol/L (22-30); Chloride 107 mmol/L (98-107); Glucose 98 mg/dL (74-99); Potassium 4.7 mmol/L (3.5-5.1); Sodium 140 mmol/L (137-145)
--- NOTE | 2018-05-21 08:42 | CONS ---
DATE OF CONSULTATION: 05/21/2018 This is 67-year-old gentleman who has been admitted to [facility] with history of mental status change. The patient has been diagnosed with urinary tract infection under care of Infectious Disease. There is no history of TIA, amaurosis fugax or any motor deficit. The patient had an ultrasound of the carotid which showed 50% to 69% stenosis bilateral. His MRI of the brain showed no evidence of acute stroke age related findings. MEDICAL HISTORY: History of angina, history of hypertension, history of osteoarthritis, history of thyroid disorder. PHYSICAL EXAMINATION: On examination, patient was seen in her room. His vital signs stable. NECK: Supple. No bruit appreciated. CHEST: Clear to auscultation. ABDOMEN: Soft. Femoral pulses are present. Normal motor functions. CT scan showed there is a wedge-shaped area of hypoattenuation with right frontal lobe which may be related to a focal ischemic infarct. MRI of the brain showed no evidence of ischemic infarct. Ultrasound is 50% to 69% stenosis. Plan is at this point, the patient has no evidence of any motor deficit. Motor functions are normal. MRI of the brain shows no evidence of acute stroke. PLAN: The plan is medical management. Will follow with you. Discussed with the patient in detail. MMODL / IJN: [id number] / MTDD
[2018-05-21] MEDS: ATORVASTATIN 40 MG TAB PO SCH (08:53)
[2018-05-21] MEDS: CHOLECALCIFEROL 1,000 UNIT TAB PO SCH (08:53)
[2018-05-21] MEDS: HEPARIN SODIUM,PORCINE 5,000 UNIT/ML 1 ML VIAL SQ SCH (08:53)
[2018-05-21] MEDS: DONEPEZIL 10 MG TAB PO SCH (08:54)
[2018-05-21] MEDS: MULTIVITAMINS, THERA 1 EACH TAB PO SCH (08:54)
[2018-05-21] MEDS: THIAMINE 100 MG TAB PO SCH (08:54)
[2018-05-21] MEDS: GABAPENTIN 100 MG CAP PO SCH ×2 (08:54→15:06)
[2018-05-21] MEDS: FOLIC ACID 1 MG TAB PO SCH (08:54)
[2018-05-21] MEDS: cloZAPine 25 MG TAB PO SCH (08:54)
[2018-05-21] MEDS: CLOPIDOGREL 75 MG TAB PO SCH (08:54)
[2018-05-21] MEDS: cefTRIAXone IN SWFI 1,000 MG/10 ML SYRINGE IVP SCH (08:56)
[2018-05-21 13:30] LABS: Glucose,Whole Blood 137 mg/dL (75-99)
--- NOTE | 2018-05-21 14:53 | P.PN ---
Subjective Progress Note Date: 05/21/18 Patient is a pleasant 67-year-old male who is being followed by the neurology service for altered mental status. Patient came to [facility] for increasing weakness and confusion. On admission, patient was found to have a urinary tract infection. Patient had a fever and infectious disease was consulted. Patient is currently being treated with antibiotics. Patient had computed tomography scan of the brain which showed area of hypoattenuation within the frontal lobe which could be focal ischemia or artifact. MRI of the brain was done which showed no evidence of recent infarct. MRI of the brain did show age-related cerebral atrophy and chronic small vessel ischemic disease. Patient does have involuntary muscle movements which have been going on for months. Patient is extremely weak but did get up with physical therapy today. Patient continues to have tongue fasciculations as well as fasciculations of both hands. At the time of my evaluation, patient is resting comfortably in bed and appears to be in no acute distress. 05/21/2018 Patient is a pleasant 67-year-old male is being followed by the neurology service for altered mental status. Patient and state patient has been getting weaker and weaker over the past few months. Patient does report increased shortness of breath even though O2 sat is within normal limits. Patient has concerning large muscle group jerking as well as tongue fasciculations and hand fasciculations. He denies difficulty swallowing. Hand eye coordination is normal. Patient is currently being treated for urinary tract infection. Infectious disease is following. Patient also states he has lower extremity weakness which has been progressing over the last few months. Patient was seen by physical therapy and deemed safe to go home with a walker. No new neurological symptoms reported. At the time of my evaluation, patient's resting comfortably in bed and appears to be in no acute distress. Patient does have ongoing twitching and muscle jerking. Objective - Vital Signs Vital signs: Vital Signs Temp 97.1 F L 05/21/18 11:37 Pulse 88 05/21/18 11:39 Resp 16 05/21/18 11:39 BP 123/80 05/21/18 11:37 Pulse Ox 96 05/21/18 11:37 Intake & Output 05/20/18 05/21/18 05/21/18 18:59 06:59 18:59 Intake Total 642 712 1250 Balance 899 402 3045 Weight 99.3 kg Intake: IV 10 Invasive Line 1 10 Oral 408 [id number] Other: Voiding Method Urinal Toilet Toilet Diaper Urinal Urinal Incontinent Diaper Diaper Incontinent Incontinent # Voids 1 1 - Exam PHYSICAL EXAM: GENERAL APPEARANCE: Patient is a well-developed, male who appears to be in no acute distress. HEENT: Normocephalic, atraumatic, no facial asymmetry is seen. Neck is supple with no masses felt. CARDIOVASCULAR: Regular rate and rhythm. ABDOMEN: Nontender, nondistended. EXTREMITIES: Show no edema or clubbing. Bilateral muscle jerking noted NEUROLOGICAL EXAM: Patient is awake, alert, and oriented 3. Speech and language are normal. Strength is 5-/5 in bilateral upper extremities and 4+/5 in bilateral lower extremities. Sensory exam to light touch is normal in all 4 extremities. No facial asymmetry is seen on cranial nerve testing. Patient has large muscle group twitching which is uncontrolled. Patient does have noticeable tongue fasciculations while at rest. Mild chronic bilateral upper extremity tremors noted. No seizure activity is seen. - Labs CBC & Chem 7: 05/21/18 05:51 05/21/18 05:51 Labs: Abnormal Lab Results - Last 24 Hours (Table) 05/20/18 05/21/18 05/21/18 Range/Units 17:49 05:51 13:28 WBC 11.0 H (3.8-10.6) k/uL RBC 4.24 L (4.30-5.90) m/uL Hgb 11.5 L (13.0-17.5) gm/dL Hct 37.8 L (39.0-53.0) % MCHC 30.5 L (31.0-37.0) g/dL Neutrophils # 9.0 H (1.3-7.7) k/uL POC Glucose (mg/dL) 137 H (75-99) mg/dL Creatine Kinase 36 L (55-170) U/L Microbiology - Last 24 Hours (Table) 05/17/18 13:15 Blood Culture - Preliminary Blood No Growth after 72 hours Assessment and Plan Plan: Impression: 1. Involuntary muscle twitching 2. Altered mental status, likely from infectious encephalopathy 3. Urinary tract infection 4. Carotid artery stenosis 5. History of tremors 6. Lower extremity weakness Recommendations: Altered mental status has significantly improved. Altered mental status likely due to infectious encephalopathy. Patient continues to be treated for urinary tract infection. Vascular consult for carotid artery stenosis was done and medical management is recommended. Given patient's increased weakness, muscle jerking and twitching, tongue fasciculations, and other muscle twitching, patient will need NCS/EMG's as an outpatient as well as possible muscle biopsy. ALS is certainly in the differential diagnosis. CPK was done and is low at 36. Patient will need outpatient follow-up to confirm or dismiss diagnosis of ALS. I recommend he follow up in the office in 1-2 weeks so testing can begin. Patient is stable from a neurological standpoint for discharge. I do recommend short-term inpatient rehab if PT deems it necessary. Continue current medical management. Continue physical therapy. I will continue to follow with you on an as-needed basis. Feel free to call with any questions or concerns. I performed an examination of the patient and discussed the management with the POLE INSPECTOR. I have reviewed the POLE INSPECTOR notes and agree with the findings and plan of care.
[2018-05-21 15:14] VITALS: BP 119/75; PULSE 82; TEMP 97.7
--- NOTE | 2018-05-21 16:45 | P.DS ---
Providers Date of admission: 05/17/18 15:10 Expected date of discharge: 05/21/18 Attending physician: Neema Choudhury Consults: 05/17/18 15:11 Consult Physician Routine Consulting Provider: Lb Kidd Consult Reason/Comments: AMS Do you want consulting provider notified?: Yes 05/18/18 11:36 Consult Physician Routine Consulting Provider: Jarret Boston Consult Reason/Comments: sepsis Do you want consulting provider notified?: Yes 05/20/18 14:24 Consult Physician Routine Consulting Provider: Yves Ryan Consult Reason/Comments: positive carotid doppler, symptomatic Do you want consulting provider notified?: Yes Primary care physician: Maribel [facility] Course: Final Diagnoses: 1. Acute UTI with sepsis, urine culture negative 2. Acute on chronic metabolic encephalopathy, possibly secondary to sepsis 3. Bilateral internal carotid stenosis, 50-69% 4. Possible acute right frontal lobe infarction suspected on admission, but MRI shows no infarction currently 5. Possible myoclonic jerks in a patient with history of tremors; further workup outpatient with neurology 6. Panic disorder 7. Hypertension 8. Gait dysfunction Hospital course:This a 67-year-old gentleman admitted with acute UTI with sepsis and multiple other medical issues including gait dysfunction and tremors. Neurology workup completed. Neurology recommending further outpatient testing including muscle biopsy, ruling out possible ALS. Bilateral Carotid stenosis, evaluated by vascular surgery, recommending follow- up in one month. Treated with IV antibiotics as per infectious disease. Evaluated by PT/OT, recommending home at discharge. Significant clinical improvement. Patient has been cleared by consults for discharge. Patient is being discharged home in a stable condition with guarded prognosis. EXAM: GENERAL: Sitting up in bed, no acute distressCARDIOVASCULAR: S1, S2 muffled. No murmur RESPIRATION: Breath sounds diminished in the bases. No rhonchi or crackles.ABDOMEN: Soft, nontender . No guarding. no masses.Bowel sounds heard. PSYCHIATRY: Alert and oriented -3, mood and affect normal.NERVOUS SYSTEM: No focal deficits. The impression and plan of care has been dictated as directed. : I performed a history and examination of this patient, discussed the same with the dictator. I agree with the dictator's note ,documented as a scribe. Any additional findings or plans will be noted. Patient Condition at Discharge: Stable Plan - Discharge Summary Discharge Rx Participant: Yes New Discharge Prescriptions: New Sulfamethox-Tmp 800-160Mg [Bactrim DS 800-160 mg] 1 tab PO Q12HR #28 tab Clopidogrel [Plavix] 75 mg PO DAILY #30 tab Folic Acid 1 mg PO DAILY@1200 #30 tab Multivitamins, Thera [Multivitamin (formulary)] 1 each PO DAILY@1200 #30 tab Pantoprazole [Protonix] 40 mg PO AC-BRKFST #30 tablet. Thiamine [Vitamin B-1] 100 mg PO DAILY@1200 #30 tab Continue Atorvastatin [Lipitor] 40 mg PO DAILY #30 tab Lisinopril [Zestril] 10 mg PO HS Levothyroxine Sodium [Synthroid] 75 mcg PO DAILY Gabapentin [Neurontin] 100 mg PO TID Donepezil [Aricept] 20 mg PO DAILY Citalopram Hydrobromide [CeleXA] 20 mg PO HS Cholecalciferol [Vitamin D3] 1,000 unit PO DAILY cloZAPine [Clozaril] 250 mg PO HS cloZAPine [Clozaril] 50 mg PO QAM Discontinued Sulfamethox-Tmp 800-160Mg [Bactrim DS 800-160 mg] 1 tab PO Q12HR Aspirin 325 mg PO HS Discharge Medication List Atorvastatin [Lipitor] 40 mg PO DAILY #30 tab 01/01/17 [Rx] Cholecalciferol [Vitamin D3] 1,000 unit PO DAILY 05/17/18 [History] Citalopram Hydrobromide [CeleXA] 20 mg PO HS 05/17/18 [History] Donepezil [Aricept] 20 mg PO DAILY 05/17/18 [History] Gabapentin [Neurontin] 100 mg PO TID 05/17/18 [History] Levothyroxine Sodium [Synthroid] 75 mcg PO DAILY 05/17/18 [History] Lisinopril [Zestril] 10 mg PO HS 05/17/18 [History] cloZAPine [Clozaril] 50 mg PO QAM 05/17/18 [History] cloZAPine [Clozaril] 250 mg PO HS 05/17/18 [History] Clopidogrel [Plavix] 75 mg PO DAILY #30 tab 05/21/18 [Rx] Folic Acid 1 mg PO DAILY@1200 #30 tab 05/21/18 [Rx] Multivitamins, Thera [Multivitamin (formulary)] 1 each PO DAILY@1200 #30 tab 11/07 [Rx] Pantoprazole [Protonix] 40 mg PO AC-BRKFST #30 tablet.dr 05/21/18 [Rx] Sulfamethox-Tmp 800-160Mg [Bactrim DS 800-160 mg] 1 tab PO Q12HR #28 tab [Rx] Thiamine [Vitamin B-1] 100 mg PO DAILY@1200 #30 tab 05/21/18 [Rx] Follow up Appointment(s)/Referral(s): Maribel Long III, MD [Primary Care Provider] - 05/23/18 2:00 pm (Saturday. Previously scheduled appointment) Jarret Boston MD [STAFF PHYSICIAN] - As Needed (Office will call you if follow up appointment is needed or you can follow up with Dr. Long on urinary tract infection.) Lb Kidd MD [STAFF PHYSICIAN] - 1 Week (Follow up in 1-2 weeks for further testing. Office will call you with appointment.) Yves Ryan MD [STAFF PHYSICIAN] - 4 Weeks (Please follow up in 1 month ) Ambulatory/Diagnostic Orders: Complete Blood Count w/diff [LAB.AMB] Time Frame: 3 Days, Location: None Selected Patient Instructions/Handouts: Urinary Tract Infection in Men (DC), Carotid Artery Disease (DC), Encephalopathy (DC)
[2018-05-22] MEDS ORDERED: cloZAPine 25 MG TAB PO SCH (09:00)
== END 2018-05-21 18:33 | disposition home or self-care (01) | DRG 871 ==
LOC: EC 12:22 → EEVIPCON 12:22 → 6SEL 15:10
PROVIDERS: ADMIT Hospitalist; ATTEND Hospitalist
DX: A41.51 Sepsis due to Escherichia coli [E. coli] (principal); G93.41 Metabolic encephalopathy; N39.0 Urinary tract infection, site not specified; R65.20 Severe sepsis without septic shock; K21.9 Gastro-esophageal reflux disease without esophagitis; I10 Essential (primary) hypertension; E78.5 Hyperlipidemia, unspecified; R01.1 Cardiac murmur, unspecified; I65.23 Occlusion and stenosis of bilateral carotid arteries; E03.9 Hypothyroidism, unspecified; F41.9 Anxiety disorder, unspecified; R26.9 Unspecified abnormalities of gait and mobility; F40.240 Claustrophobia; E66.9 Obesity, unspecified; F41.0 Panic disorder [episodic paroxysmal anxiety]; Z79.82 Long term (current) use of aspirin; Z79.890 Hormone replacement therapy; Z79.899 Other long term (current) drug therapy; Z88.1 Allergy status to other antibiotic agents; Z82.49 Family history of ischemic heart disease and other diseases of the circulatory system; Z68.29 Body mass index [BMI] 29.0-29.9, adult
CPT/HCPCS: 36415; 70450; 70553; 71046; 74018; 80048; 80053; 80061; 81001; 82550; 83090; 83605; 83735; 85025; 85610; 85730; 87040; 87086; 93005; 93880; 95816; 96361; 96374; 99285

== ENCOUNTER → 2018-05-24 | Outpatient (CLI) | payer MEDICARE ==
[2018-05-24 11:33] LABS: Basophils # (A) 0.1 k/uL (0-0.2); Basophils % (A) 1 %; Eosinophils # (A) 0.1 k/uL (0-0.7); Eosinophils % (A) 1 %; HCT 38.3 % (39.0-53.0); HGB 12.3 gm/dL (13.0-17.5); Lymphocytes # (A) 1.3 k/uL (1.0-4.8); Lymphocytes % (A) 12 %; MCH 28.8 pg (25.0-35.0); MCHC 32.2 g/dL (31.0-37.0); MCV 89.4 fL (80.0-100.0); Mean Platelet Volume 7.2; Monocytes # (A) 0.3 k/uL (0-1.0); Monocytes % (A) 3 %; Neutrophils # (A) 8.8 k/uL (1.3-7.7); Neutrophils % (A) 82 %; Platelet Count 454 k/uL (150-450); RBC 4.28 m/uL (4.30-5.90); RDW 14.5 % (11.5-15.5); WBC 10.9 k/uL (3.8-10.6)
[2018-05-24 11:41] LABS: Calcium 9.7 mg/dL (8.4-10.2); Potassium 4.7 mmol/L (3.5-5.1)
== END | disposition home or self-care (01) ==
LOC: LABWHC1 11:20
PROVIDERS: ATTEND Nurse Practitioner
DX: N39.0 Urinary tract infection, site not specified (principal)
CPT/HCPCS: 36415; 80048; 85025

== ENCOUNTER → 2018-06-19 | Outpatient (CLI) | payer MEDICARE ==
[2018-06-19 13:25] LABS: C Reactive Protein 5.2 mg/L (<10.0)
== END | disposition home or self-care (01) ==
LOC: LABWHC1 12:24
PROVIDERS: ATTEND Nurse Practitioner Acute Care
DX: M62.838 Other muscle spasm (principal); R25.1 Tremor, unspecified
CPT/HCPCS: 36415; 82550; 85652; 86140

== ENCOUNTER → 2018-10-08 | Outpatient (CLI) | payer MEDICARE ==
--- NOTE | 2018-10-08 18:21 | PN ---
PROGRESS NOTE DATE OF SERVICE: 10/08/2018 67-year-old gentleman who has been [facility] for treatment of obstructive sleep apnea-hypopnea syndrome. I saw patient in October of 2016, and then the patient had a home sleep apnea test which was done by primary care physician and subsequently patient received automatic machine which she is using now. Patient continues to wake up with the machine. I checked his CPAP unit today. Usage is every night in 27/30 nights more than 4 hours. Average usage 7.5 hours. Pressure in the range from 5-15 cm of water. Leak is 37 L/minute apnea-hypopnea index 18.4 with a central apnea index 11.4. [place] Sleepiness Scale is 14. MEDICATIONS: Levothyroxine, atorvastatin, Donepezil, clozapine, citalopram, lisinopril, clonazepam, Divalproex. PHYSICAL EXAM: Patient in no distress. BP 144/88, HR 87, RR 15, height 5 feet 10 inches, weight 220.6, body mass index 31.5. Neck is 17 inches in circumference. Temperature 98.3, oxygen saturation at room air 96%. Oropharynx: Low position of soft palate. Abdomen slightly obese. Slight bilateral tremor of hands. Neck Supple, no JVD. Thyroid is not palpable. LUNGS Clear to percussion and to auscultation. Good air exchange. No wheezing or rhonchi. HEART S1, S2 regular. No murmurs, gallops, or rubs. ABDOMEN: Obese. Soft and nontender. Bowel sounds are present. No organomegaly appreciated. EXTREMITIES No clubbing or cyanosis. CODING COMPLIANCE MANAGER Awake, alert, and oriented X3. Cranial nerves 2 to 7 intact. There is no fasciculation or atrophy. noted. No focal deficits observed. SKIN: Psoriatic plaques on elbows and back. IMPRESSION: 1. Obstructive sleep apnea and central sleep apnea-hypopnea syndrome, but by results of the home sleep study on treatment with auto PAP presently patient demonstrated great compliance with treatment, but treatment is not fully effective. The patient has episodes of obstructive and central sleep apnea by the reading from the machine and awakenings from sleep. 2. History of transient ischemic attack with episodes of dizziness in 2014. 3. Hypertension. 4. Hyperlipidemia. 5. Memory problem. 6. History of anxiety. 7. History of depression. 8. History of hypothyroidism. 9. Status post benign nodule removed from thyroid 2014. 10.Status post urosepsis in 2013. 11.Status post TURP. PLAN: 1. To get results to home sleep apnea test from 2016. 2. CPAP titration if necessary using of Auto Servo ventilator for correction of patient respiratory abnormalities during sleep. 3. Losing weight. 4. Sleep hygiene with regular time in bed for at least 8 hours. 5. The patient does not drive. 6. Significant leaking from the mask, we will fit the patient with a different style of mask. Thank you very much for allowing me to participate in management of your patient. Sincerely, Milton Fabian MD, PhD, FAASM Diplomat of [employer] Rug Cleaner Helper of [facility] MMODL / IJN: [id number] /
== END | disposition home or self-care (01) ==
LOC: SLEEP 16:00
PROVIDERS: ATTEND Internal Medicine
DX: G47.33 Obstructive sleep apnea (adult) (pediatric) (principal); I10 Essential (primary) hypertension; E78.5 Hyperlipidemia, unspecified; Z86.73 Personal history of transient ischemic attack (TIA), and cerebral infarction without residual deficits; R41.3 Other amnesia; F41.9 Anxiety disorder, unspecified; F32.9 Major depressive disorder, single episode, unspecified; E03.9 Hypothyroidism, unspecified; Z99.89 Dependence on other enabling machines and devices; Z98.890 Other specified postprocedural states; Z79.899 Other long term (current) drug therapy

== ENCOUNTER → 2018-11-26 | Outpatient (CLI) | payer MEDICARE ==
--- NOTE | 2018-11-26 16:29 | PN ---
PROGRESS NOTE DATE OF SERVICE: 11/26/2018 68-year-old gentleman has been followed in [facility] for treatment of obstructive and central sleep apnea-hypopnea syndrome. In October of 2018, patient had CPAP-BiPAP titration and on the pressure 18/13 cm of water, patient respiration was on control. Apnea-hypopnea index was 0. SLEEP SCHEDULE: Presently, the patient is on treatment with BiPAP at home and I recommend range of the pressure with minimal pressure of 13 and maximal 18. While using machine, patient continued to have awakenings from sleep and there is some leak from the mask also. I checked his BiPAP unit, setting is minimal EPAP 13 cm of water and maximal IPAP 18 cm of water with a pressure support of 4. Ramp is off. Usage of the machine is 27 out of 27 nights and 26 out of 27 nights more than 4 hours. Average usage 8.6 hours. Pressure is 17.6/13.7. Leak is 28 L/minute. Apnea-hypopnea index 33.8, and that includes central apnea index 28.9. [place] Sleepiness Scale today is 10. MEDICATIONS: Levothyroxine, atorvastatin, Donepezil, clozapine, citalopram, lisinopril, clonazepam, . PHYSICAL EXAM: Patient in no distress. BP 144/89, HR 80, RR 16, height 5 feet 10 inches, weight 219, body mass index 31.4, temperature 97.6, oxygen saturation at room air 94%. Oropharynx showed extremely low position of soft palate. Mallampati 4. Abdomen slightly obese. Neck Supple, no JVD. Thyroid is not palpable. LUNGS Clear to percussion and to auscultation. Good air exchange. No wheezing or rhonchi. HEART S1, S2 regular. No murmurs, gallops, or rubs. ABDOMEN: Slightly obese. Soft and nontender. Bowel sounds are present. No organomegaly appreciated. EXTREMITIES No clubbing or cyanosis. INSTRUMENT MAINTENANCE SUPERVISOR Awake, alert, and oriented X3. Cranial nerves 2 to 7 intact. There is no fasciculation or atrophy. noted. No focal deficits observed. IMPRESSION: 1. Patient central and obstructive sleep apnea-hypopnea syndrome. The patient demonstrated practically 100% compliance with treatment. Feeling better with the usage of the machine, but quite significant leak from the mask, 28 L/minute and according to the machine, high apnea-hypopnea index. 2. History of transient ischemic attack in 2014. 3. Hypertension. 4. Hyperlipidemia. 5. Memory problem. 6. History of anxiety. 7. History of depression. 8. History of hypothyroidism. 9. Status post benign nodule removed from thyroid 2014. 10.Status post urosepsis in 2013. 11.Status post TURP. PLAN: 1. I will change our range of the pressures with a minimal range down and within maximal range slightly up. 2. Patient will try to use Dream Wear full-face mask. 3. I will see patient in 1 month. 4. If the patient will continue to have significant amount of central sleep apnea by the reading from the machine, we will proceed with BiPAP titration with a goal of possibly switch patient to BiPAP, ST mode or auto Servo ventilator. Thank you very much for allowing me to participate in management of your patient. Sincerely, Milton Fabian MD, PhD, FAASM Diplomat of [place] [employer] Still Photographer of [facility] MMODL / TAYLORN: [id number] /
== END | disposition home or self-care (01) ==
LOC: SLEEP 14:53
PROVIDERS: ATTEND Internal Medicine
DX: G47.33 Obstructive sleep apnea (adult) (pediatric) (principal); G47.31 Primary central sleep apnea; I10 Essential (primary) hypertension; E78.5 Hyperlipidemia, unspecified; R41.3 Other amnesia; F41.9 Anxiety disorder, unspecified; F32.9 Major depressive disorder, single episode, unspecified; E03.9 Hypothyroidism, unspecified; Z86.018 Personal history of other benign neoplasm; Z99.89 Dependence on other enabling machines and devices; Z98.890 Other specified postprocedural states; Z86.73 Personal history of transient ischemic attack (TIA), and cerebral infarction without residual deficits; Z86.19 Personal history of other infectious and parasitic diseases; Z90.79 Acquired absence of other genital organ(s); Z79.899 Other long term (current) drug therapy

== ENCOUNTER → 2018-11-28 | Outpatient (CLI) | payer MEDICARE | END | disposition home or self-care (01) | LOC: LABWHC1 16:24 | PROVIDERS: ATTEND Nurse Practitioner Acute Care | DX: G45.9 Transient cerebral ischemic attack, unspecified (principal); R25.9 Unspecified abnormal involuntary movements; R25.1 Tremor, unspecified; R41.3 Other amnesia | CPT/HCPCS: 36415; 80164 ==

== ENCOUNTER 2018-12-01 10:30 | Inpatient (IN) | payer MEDICARE ==
--- NOTE | 2018-12-01 11:24 | ED ---
Fall HPI <Reynaldo Basilio - Last Filed: 12/01/18 14:20> - General Source: patient, family, EMS Mode of arrival: EMS <Jesi Street - Last Filed: 12/01/18 22:21> - General Chief Complaint: Fall Stated Complaint: Fall Time Seen by Provider: 12/01/18 10:37 - History of Present Illness Initial Comments: 68-year-old male with PMH of angina, HTN and weakness presenting today for chief complaint of fall from standing. Patient's family states that he has been dealing with generalized weakness and has been evaluated by outpatient neurology Dr. Kidd on multiple occasions with multiple MRI studies. Today they were in office at Dr. Munoz office when patient attempted to clean off the toilet seat he fell forward, follows witnessed denies any head injury. Patient denies any headache, nausea, vomiting, dizziness, diplopia, visual loss or changes. Patient does admit to low back pain. He denies any hip, upper or lower extremity pain he denies any numbness tingling or loss sensation lower extremities. He denies any loss of bowel bladder control. Family denies any seizure-like activity. Patient denies any dyspnea, dyspnea on exertion, chest pain. Patient states he has overall felt weaker for the past 2 days, family states that he has had 2 falls from bed within the past week. Patient states immediately following the fall he had some tingling in his left leg, he states this immediately subsided. Remainder of review review of systems negative, patient denies any recent speech changes, fever, chills, back pain, abdominal pain, nausea or vomiting, numbness dysuria or hematuria, constipation or diarrhea, headaches or visual changes, or any other complaints. Patient family states he does seem more week over course of past few months, but otherwise pt at baseline. Upon arrival pt VS reveal elevated BP. Pt complaining of low back pain. (Jesi Street) - Related Data Home Medications Medication Instructions Recorded Confirmed Citalopram Hydrobromide [CeleXA] 20 mg PO HS 05/17/18 12/01/18 Donepezil [Aricept] 20 mg PO DAILY 05/17/18 12/01/18 Levothyroxine Sodium [Synthroid] 75 mcg PO DAILY 05/17/18 12/01/18 Lisinopril [Zestril] 10 mg PO HS 05/17/18 12/01/18 Amantadine HCl [Amantadine] 100 mg PO BID 12/01/18 12/01/18 Divalproex [Depakote] 250 mg PO TID 12/01/18 12/01/18 Folic Acid 1 mg PO DAILY 12/01/18 12/01/18 Propranolol [Inderal] 40 mg PO BID 12/01/18 12/01/18 cloZAPine [Clozaril] 300 mg PO DAILY 12/01/18 12/01/18 clonazePAM [KlonoPIN] 0.5 mg PO TID 12/01/18 12/01/18 Previous Rx's Medication Instructions Recorded Atorvastatin [Lipitor] 40 mg PO DAILY #30 tab 01/01/17 Clopidogrel [Plavix] 75 mg PO DAILY #30 tab 05/21/18 Allergies Allergy/AdvReac Type Severity Reaction Status Date / Time levofloxacin AdvReac Unknown Verified 12/01/18 11:13 Review of Systems ROS Other: All systems not noted in ROS Statement are negative. <Reynaldo Basilio - Last Filed: 12/01/18 14:20> ROS Other: All systems not noted in ROS Statement are negative. <Jesi Street - Last Filed: 12/01/18 22:21> ROS Statement: Those systems with pertinent positive or pertinent negative responses have been documented in the HPI. Past Medical History Past Medical History: Cancer, Chest Pain / Angina, GERD/Reflux, Hypertension, Osteoarthritis (OA), Thyroid Disorder Additional Past Medical History / Comment(s): HX UTI W/ SEPSIS 2013, past hx. chest pain-nothing current, tremors hands, heart murmur, esophageal spasms History of Any Multi-Drug Resistant Organisms: None Reported Past Surgical History: Prostate Surgery, Tonsillectomy Additional Past Surgical History / Comment(s): TURP, right thyroid lobectomy (), skin ca removed Past Anesthesia/Blood Transfusion Reactions: No Reported Reaction Additional Past Anesthesia/Blood Transfusion Reaction / Comment(s): CLAUSTERPHOBIA Past Psychological History: Anxiety, Panic Disorder Smoking Status: Never smoker Past Alcohol Use History: None Reported Past Drug Use History: None Reported - Past Family History Brother(s) Family Medical History: Cancer Sister(s) Family Medical History: Hypertension Father Family Medical History: Hypertension Additional Family Medical History / Comment(s): PT STATED DAD AT AGE 89 COMPLICATIONS FROM MRSA INFECTION. Mother Family Medical History: Hypertension <Jesi Street - Last Filed: 12/01/18 22:21> General Exam <Reynaldo Basilio - Last Filed: 12/01/18 14:20> Limitations: no limitations <Jesi Street - Last Filed: 12/01/18 22:21> - General Exam Comments Initial Comments: General: The patient is awake and alert, in no distress, and does not appear acutely ill. Eye: +3 mm pupils are equal, round and reactive to light, extra-ocular movements are intact. No nystagmus. There is normal conjunctiva bilaterally. No signs of icterus. Ears, nose, mouth and throat: There are moist mucous membranes and no oral lesions. Neck: The neck is supple, there is no tenderness or JVD. Cardiovascular: There is a regular rate and rhythm. No murmur, rub or gallop is appreciated. Respiratory: Lungs are clear to auscultation, respirations are non-labored, breath sounds are equal. No wheezes, stridor, rales, or rhonchi. Gastrointestinal: Soft, non-distended, non-tender abdomen without masses or organomegaly noted. There is no rebound or guarding present. No CVA tenderness. Bowel sounds are unremarkable. Musculoskeletal: Patient has midline tenderness to palpation of the lumbar spine. Patient also has paravertebral tenderness of lumbar spine. There is no tenderness to palpation midline or paravertebral the cervical spine. Or thoracic. Generalized weakness, no focal. 4/5 of the UE and LE equal b/l. Sensation intact of the UE and LE equal b/l. Radial and DP pulses equal bilaterally 2+. Neurological: A&O x 3. CN II-XII intact, There are no obvious motor or sensory deficits. Coordination intact finger to nose, heel to mcclendon. No pronator drift. Speech is normal. NIH 0. Occasional myoclonic jerk of the UE. Skin: Skin is warm and dry and no rashes or lesions are noted. Psychiatric: Cooperative, appropriate mood & affect, normal judgment. (Jesi Street) Vital Signs 12/01/18 12/01/18 12/01/18 10:38 10:43 10:50 Temperature 97.4 F L Pulse Rate 60 57 L Respiratory 20 18 Rate Blood Pressure 123/108 131/78 O2 Sat by Pulse 96 95 100 Oximetry 12/01/18 12/01/18 12/01/18 11:00 11:10 11:20 Temperature Pulse Rate 57 L 59 L Respiratory 18 18 Rate Blood Pressure 131/78 130/115 130/89 O2 Sat by Pulse 99 99 Oximetry 12/01/18 12/01/18 12/01/18 11:30 11:50 12:00 Temperature Pulse Rate 61 56 L Respiratory 20 18 Rate Blood Pressure 130/89 O2 Sat by Pulse 95 100 Oximetry 12/01/18 12/01/18 12/01/18 12:10 12:20 12:30 Temperature Pulse Rate 58 L 56 L 55 L Respiratory 20 17 16 Rate Blood Pressure 118/73 118/73 O2 Sat by Pulse 96 95 97 Oximetry 12/01/18 12/01/18 12/01/18 12:40 12:50 13:00 Temperature Pulse Rate 56 L 56 L 55 L Respiratory 17 16 14 Rate Blood Pressure 137/87 138/83 O2 Sat by Pulse 97 98 Oximetry 12/01/18 12/01/18 12/01/18 13:10 13:20 13:30 Temperature Pulse Rate 55 L 55 L 56 L Respiratory 14 13 14 Rate Blood Pressure 139/88 144/83 144/83 O2 Sat by Pulse 97 98 Oximetry 12/01/18 12/01/18 12/01/18 13:40 13:50 14:00 Temperature Pulse Rate 56 L 58 L 57 L Respiratory 14 12 20 Rate Blood Pressure 142/89 134/83 134/83 O2 Sat by Pulse 93 L 95 Oximetry 12/01/18 12/01/18 12/01/18 14:10 14:20 14:30 Temperature Pulse Rate 58 L 59 L Respiratory 18 13 12 Rate Blood Pressure 129/94 129/94 O2 Sat by Pulse 98 99 97 Oximetry 12/01/18 12/01/18 12/01/18 14:40 14:50 15:00 Temperature Pulse Rate 58 L 58 L 57 L Respiratory 12 12 13 Rate Blood Pressure 122/82 117/76 117/76 O2 Sat by Pulse 95 94 L 93 L Oximetry 12/01/18 12/01/18 12/01/18 15:10 15:20 15:30 Temperature Pulse Rate 57 L 56 L 55 L Respiratory 12 18 11 L Rate Blood Pressure 118/75 95/70 95/70 O2 Sat by Pulse 94 L 94 L 93 L Oximetry 12/01/18 12/01/18 12/01/18 15:40 15:50 16:00 Temperature Pulse Rate 58 L 54 L 55 L Respiratory 11 L 11 L 9 L Rate Blood Pressure 118/76 126/86 126/86 O2 Sat by Pulse 96 96 94 L Oximetry 12/01/18 12/01/18 16:10 16:20 Temperature Pulse Rate 54 L 53 L Respiratory 12 12 Rate Blood Pressure 134/81 138/83 O2 Sat by Pulse 93 L 93 L Oximetry Medical Decision Making - Lab Data Result diagrams: 12/01/18 10:55 12/01/18 10:55 <Reynaldo Basilio - Last Filed: 12/01/18 14:20> - Lab Data Result diagrams: 12/01/18 10:55 12/01/18 10:55 <[address] - Last Filed: 12/01/18 22:21> - Medical Decision Making The patient was seen and examined. All diagnostics were reviewed. The case is discussed with PA and I agree with the findings as documented. The case is also discussed with Dr. Kidd and he currently is working the patient up for some memory loss and myoclonic jerking. He feels as though he may have some non -Alzheimer's dementia. He feels as though the patient can follow-up with him as an outpatient once discharged. The case is discussed with Dr. Choudhury and he is agreeable to admission. (Reynaldo Basilio) 68-year-old male presenting for follow-up. Imaging studies revealed an L3 fracture that is stable. No signs of spell stenosis on examination. Patient has been evaluated on a regular outpatient basis by neurologist Dr. Kidd, who was contacted in regards to patient baseline neurological exam/history. He states that weakness has been an ongoing issue. He does not feel it is acute. CT was obtained of the brain and C-spine negative. There was evidence of an L3 fracture. At this time patient's pain is not controlled. He is unable to ambulate secondary to the pain in his back. At this time given patient's complaint of generalized weakness, there are history of increasing falls, new onset L3 fracture with uncontrolled pain I feel patient should be admitted for physical therapy, occupational therapy social work consult, orthopedic evaluation. At this time due for the patient's chronic neurological complaints neurology and my attending provider who spoke with neurolgy feel pt weakness/ myoclonic jerking can be evaluated on outpatient basis. No focal neurological defitics on exam, CT (-). Labs as noted above. pt transfered to the floor in stable conidtion. (Jesi Street) - Lab Data Lab Results 12/01/18 12/01/18 12/01/18 Range/Units 10:55 10:55 10:55 WBC 8.1 (3.8-10.6) k/uL RBC 4.01 L (4.30-5.90) m/uL Hgb 12.6 L (13.0-17.5) gm/dL Hct 37.0 L (39.0-53.0) % MCV 92.3 (80.0-100.0) fL MCH 31.5 (25.0-35.0) pg MCHC 34.1 (31.0-37.0) g/dL RDW 14.8 (11.5-15.5) % Plt Count 204 (150-450) k/uL Neutrophils % 81 % Lymphocytes % 12 % Monocytes % 5 % Eosinophils % 1 % Basophils % 0 % Neutrophils # 6.5 (1.3-7.7) k/uL Lymphocytes # 1.0 (1.0-4.8) k/uL Monocytes # 0.4 (0-1.0) k/uL Eosinophils # 0.1 (0-0.7) k/uL Basophils # 0.0 (0-0.2) k/uL PT (9.0-12.0) sec INR (<1.2) APTT (22.0-30.0) sec Sodium 143 (137-145) mmol/L Potassium 4.4 (3.5-5.1) mmol/L Chloride 108 H (98-107) mmol/L Carbon Dioxide 29 (22-30) mmol/L Anion Gap 6 mmol/L BUN 16 (9-20) mg/dL Creatinine 1.02 (0.66-1.25) mg/dL Est GFR (CKD-EPI)AfAm 86 (>60 ml/min/1.73 sqM) Est GFR (CKD-EPI)NonAf 74 (>60 ml/min/1.73 sqM) Glucose 104 H (74-99) mg/dL Calcium 9.3 (8.4-10.2) mg/dL Magnesium 1.8 (1.6-2.3) mg/dL Total Bilirubin 0.5 (0.2-1.3) mg/dL AST 27 (17-59) U/L ALT 29 (21-72) U/L Alkaline Phosphatase 61 (38-126) U/L Total Creatine Kinase 48 L (55-170) U/L CK-MB (CK-2) 0.2 (0.0-2.4) ng/mL CK-MB (CK-2) Rel Index 0.4 Troponin I <0.012 (0.000-0.034) ng/mL Total Protein 6.2 L (6.3-8.2) g/dL Albumin 3.7 (3.5-5.0) g/dL 12/01/18 Range/Units 10:55 WBC (3.8-10.6) k/uL RBC (4.30-5.90) m/uL Hgb (13.0-17.5) gm/dL Hct (39.0-53.0) % MCV (80.0-100.0) fL MCH (25.0-35.0) pg MCHC (31.0-37.0) g/dL RDW (11.5-15.5) % Plt Count (150-450) k/uL Neutrophils % % Lymphocytes % % Monocytes % % Eosinophils % % Basophils % % Neutrophils # (1.3-7.7) k/uL Lymphocytes # (1.0-4.8) k/uL Monocytes # (0-1.0) k/uL Eosinophils # (0-0.7) k/uL Basophils # (0-0.2) k/uL PT 12.6 H (9.0-12.0) sec INR 1.2 H (<1.2) APTT 24.3 (22.0-30.0) sec Sodium (137-145) mmol/L Potassium (3.5-5.1) mmol/L Chloride (98-107) mmol/L Carbon Dioxide (22-30) mmol/L Anion Gap mmol/L BUN (9-20) mg/dL Creatinine (0.66-1.25) mg/dL Est GFR (CKD-EPI)AfAm (>60 ml/min/1.73 sqM) Est GFR (CKD-EPI)NonAf (>60 ml/min/1.73 sqM) Glucose (74-99) mg/dL Calcium (8.4-10.2) mg/dL Magnesium (1.6-2.3) mg/dL Total Bilirubin (0.2-1.3) mg/dL AST (17-59) U/L ALT (21-72) U/L Alkaline Phosphatase (38-126) U/L Total Creatine Kinase (55-170) U/L CK-MB (CK-2) (0.0-2.4) ng/mL CK-MB (CK-2) Rel Index Troponin I (0.000-0.034) ng/mL Total Protein (6.3-8.2) g/dL Albumin (3.5-5.0) g/dL - EKG Data EKG Comments: A 12-lead EKG was performed and shows the following: Rate is 57bpm, and rhythm is normal sinus, bradycardia. There are normal QRS complexes.. ST segments have no elevation or depression, and VT segments appear normal. Nonspecific T wave abnormality. EKG evaluated bynaomi and Dr. Basilio. (Jesi Street) Disposition <Reynaldo Basilio - Last Filed: 12/01/18 14:20> Is patient prescribed a controlled substance at d/c from ED?: No Time of Disposition: 14:41 Decision to Admit Reason: Admit from EC Decision Date: 12/01/18 Decision Time: 14:41 <[address] - Last Filed: 12/01/18 22:21> Clinical Impression: Intractable pain, Decreased ambulation status, Frequent falls, Generalized weakness, Fall, Back pain Disposition: ADMITTED IP TO [facility] Condition: Stable
[2018-12-01 11:49] LABS: Basophils % (A) 0 %; Eosinophils # (A) 0.1 k/uL (0-0.7); Eosinophils % (A) 1 %; HGB 12.6 gm/dL (13.0-17.5); Lymphocytes % (A) 12 %; MCH 31.5 pg (25.0-35.0); MCHC 34.1 g/dL (31.0-37.0); MCV 92.3 fL (80.0-100.0); Mean Platelet Volume 7.1; Monocytes # (A) 0.4 k/uL (0-1.0); Monocytes % (A) 5 %; Neutrophils # (A) 6.5 k/uL (1.3-7.7); Neutrophils % (A) 81 %; Platelet Count 204 k/uL (150-450); RBC 4.01 m/uL (4.30-5.90); RDW 14.8 % (11.5-15.5); WBC 8.1 k/uL (3.8-10.6)
[2018-12-01 12:01] LABS: INR 1.2 (<1.2); Partial Thromboplastin Time 24.3 sec (22.0-30.0); Prothrombin Time 12.6 sec (9.0-12.0)
[2018-12-01] MEDS ORDERED: MORPHINE SULFATE 4 MG/ML SYRINGE IVP STA ×2 (12:01→14:00)
[2018-12-01 12:02] LABS: Albumin 3.7 g/dL (3.5-5.0); Calcium 9.3 mg/dL (8.4-10.2); Magnesium 1.8 mg/dL (1.6-2.3); Potassium 4.4 mmol/L (3.5-5.1); Total Bilirubin 0.5 mg/dL (0.2-1.3); Total Protein 6.2 g/dL (6.3-8.2)
--- NOTE | 2018-12-01 12:03 | CT ---
EXAMINATION TYPE: CT brain bettie hoyt DATE OF EXAM: 05/09/2018 COMPARISON: December 01, 2018 HISTORY: fall, pain CT DLP: 1373.[address] of the brain was performed. The ventricles, basal cisterns and sulci overlying the cerebral convexities demonstrate mild enlargem ent. There is no evidence for intracranial hemorrhage or sulcal effacement. There is decreased attenuatio n about the periventricular white matter and deep white matter of both cerebral hemispheres, compatib le with chronic small vessel ischemia. No mass effects are seen. If symptoms persist consider MRI. Osseous calvarium is intact. IMPRESSION: 1. Age related atrophic and chronic small vessel ischemic change without acute intracranial process seen at this time. CT Cervical Spine: Unenhanced CT of the cervical spine was performed with bone and soft tissue window settings submitted . Coronal and sagittal reconstruction is obtained. There is normal alignment and prevertebral soft tissues. No evidence for acute cervical fracture . Scattered degenerative disc disease and spondylosis. Biapical scarring. IMPRESSION: 1. No evidence for acute fracture or subluxation of the cervical spine.
--- NOTE | 2018-12-01 12:07 | XR ---
EXAMINATION TYPE: XR chest 2V DATE OF EXAM: 12/01/2018 COMPARISON: 05/17/2018 INDICATION: Pain weakness dizziness TECHNIQUE: Frontal and lateral views of the chest are obtained. FINDINGS: The heart size is moderately prominent. The pulmonary vasculature is normal. The lungs are clear. IMPRESSION: 1. No acute pulmonary process.
--- NOTE | 2018-12-01 12:11 | CT ---
EXAMINATION TYPE: CT thor lumbar spine wo con DATE OF EXAM: 12/01/2018 COMPARISON: None HISTORY: fall, pain CT DLP: [address] of the thoracic and lumbar spine was performed. Bone and soft tissue window settings a re submitted as well as coronal and sagittal reconstructions. The thoracic segments are intact. There is no evidence for compression fracture. No evidence for maria fernanda lignment. There is mild scattered degenerative disc space narrowing throughout the thoracic spine wit h mild ventral spondylosis. Bone island is noted of T10. No bony destructive processes are seen. Mild superior endplate loss of height involving L3 with loss of height estimated at less than 10%. Th ere is no evidence for instability. No additional fractures are evident. No significant paraspinal he matoma. Severe degenerative narrowing is noted at L4-5 with moderate disc space narrowing at L3-4. No paraspinal masses are identified. Incidental bilateral nephrolithiasis. Right iliac bone island no ravindra as well. IMPRESSION: 1. Very mild superior endplate compression fracture of L3. 2. Degenerative changes as noted.
[2018-12-01 12:17] LABS: Creatine Kinase 48 U/L (55-170)
[2018-12-01 12:30] LABS: Creatine Kinase MB 0.2 ng/mL (0.0-2.4); Troponin I <0.012 ng/mL (0.000-0.034)
[2018-12-01] MEDS ORDERED: MORPHINE SULFATE 4 MG/ML SYRINGE IV PRN (14:36)
[2018-12-01] MEDS ORDERED: NALOXONE 0.4 MG/ML 1 ML VIAL IV PRN (14:36)
--- NOTE | 2018-12-01 15:52 | P.HPIM ---
History of Present Illness This is a pleasant 68 years old male with past medical history of skin cancer, coronary artery disease, GERD, hypertension, hypothyroidism. Presents because of dizziness and fall. Patient states that this morning he was trying to get up and going to her stroke when he felt dizzy as he is about to fall down and syncope, while he is urinating he fell and hit his head and lower back. His pain in the lower back was 10/10 when he came in, after he got 1 or 2 doses of morphine in the emergency room his pain disappeared as 0/10 when I saw the patient. Patient denies incontinence of urine or bowel movement. He denies weakness or abnormal sensation in his lower leg. On admission Vitas looks stable, CBC and BMP were unremarkable with normal liver enzymes. Has normal chest x-ray. Lumbar CT: Mild compression of fracture of L3. CT of the brain: Atrophic changes with no acute process. CT cervical spine: No acute fracture. Review of Systems CONSTITUTIONAL: No fever, no malaise, no fatigue. HEENT: No recent visual problems or hearing problems. Denied any sore throat. CARDIOVASCULAR: No orthopnea, PND, no palpitations, no syncope. PULMONARY: No shortness of breath, no cough, no hemoptysis. GASTROINTESTINAL: No diarrhea, no nausea, no vomiting, no abdominal pain. Normoactive bowel sounds. NEUROLOGICAL: No headaches, no weakness, no numbness. HEMATOLOGICAL: Denies any bleeding or petechiae. GENITOURINARY: Denies any burning micturition, frequency, or urgency. MUSCULOSKELETAL/RHEUMATOLOGICAL: Denies any joint pain, swelling, or any muscle pain. ENDOCRINE: Denies any polyuria or polydipsia. Past Medical History Past Medical History: Cancer, Chest Pain / Angina, GERD/Reflux, Hypertension, Osteoarthritis (OA), Thyroid Disorder Additional Past Medical History / Comment(s): HX UTI W/ SEPSIS 2013, past hx. chest pain-nothing current, tremors hands, heart murmur, esophageal spasms History of Any Multi-Drug Resistant Organisms: None Reported Past Surgical History: Prostate Surgery, Tonsillectomy Additional Past Surgical History / Comment(s): TURP, right thyroid lobectomy (), skin ca removed Past Anesthesia/Blood Transfusion Reactions: No Reported Reaction Additional Past Anesthesia/Blood Transfusion Reaction / Comment(s): CLAUSTERPHOBIA Past Psychological History: Anxiety, Panic Disorder Smoking Status: Never smoker Past Alcohol Use History: None Reported Past Drug Use History: None Reported - Past Family History Brother(s) Family Medical History: Cancer Sister(s) Family Medical History: Hypertension Father Family Medical History: Hypertension Additional Family Medical History / Comment(s): PT STATED DAD AT AGE 89 COMPLICATIONS FROM MRSA INFECTION. Mother Family Medical History: Hypertension Medications and Allergies Home Medications Medication Instructions Recorded Confirmed Type Atorvastatin [Lipitor] 40 mg PO DAILY #30 tab 01/01/17 12/01/18 Rx Citalopram Hydrobromide [CeleXA] 20 mg PO HS 05/17/18 12/01/18 History Donepezil [Aricept] 20 mg PO DAILY 05/17/18 12/01/18 History Levothyroxine Sodium [Synthroid] 75 mcg PO DAILY 05/17/18 12/01/18 History Lisinopril [Zestril] 10 mg PO HS 05/17/18 12/01/18 History Clopidogrel [Plavix] 75 mg PO DAILY #30 tab 05/21/18 12/01/18 Rx Divalproex [Depakote] 250 mg PO TID 12/01/18 12/01/18 History Propranolol [Inderal] 40 mg PO BID 12/01/18 12/01/18 History cloZAPine [Clozaril] 300 mg PO HS 12/01/18 12/01/18 History clonazePAM [KlonoPIN] 1 mg PO TID 12/01/18 12/01/18 History Allergies Allergy/AdvReac Type Severity Reaction Status Date / Time levofloxacin AdvReac Unknown Verified 12/01/18 11:13 Physical Exam Vitals: Vital Signs Temp Pulse Resp BP Pulse Ox 12/01/18 14:20 58 L 13 129/94 99 12/01/18 14:10 18 98 12/01/18 14:00 57 L 20 134/83 12/01/18 13:50 58 L 12 134/83 95 12/01/18 13:40 56 L 14 142/89 93 L 12/01/18 13:30 56 L 14 144/83 98 12/01/18 13:20 55 L 13 144/83 97 12/01/18 13:10 55 L 14 139/88 12/01/18 13:00 55 L 14 98 12/01/18 12:50 56 L 16 138/83 12/01/18 12:40 56 L 17 137/87 97 12/01/18 12:30 55 L 16 118/73 97 12/01/18 12:20 56 L 17 118/73 95 12/01/18 12:10 58 L 20 96 12/01/18 12:00 56 L 18 100 12/01/18 11:50 61 20 95 12/01/18 11:30 130/89 12/01/18 11:20 130/89 12/01/18 11:10 59 L 18 130/115 99 12/01/18 11:00 57 L 18 131/78 99 12/01/18 10:50 57 L 18 131/78 100 12/01/18 10:43 95 12/01/18 10:38 97.4 F L 60 20 123/108 96 Intake and Output 12/01/18 12/01/18 12/01/18 06:59 14:59 22:59 Other: Weight 90.718 kg -GENERAL: The patient is alert and oriented x2, to place and person, and partially to time, not in any acute distress. Obese HEENT: Pupils are round and equally reacting to light. EOMI. No scleral icterus. No conjunctival pallor. Normocephalic, atraumatic. No pharyngeal erythema. No thyromegaly. CARDIOVASCULAR: S1 and S2 present. No murmurs, rubs, or gallops. PULMONARY: Chest is clear to auscultation, no wheezing or crackles. ABDOMEN: Soft, nontender, nondistended, normoactive bowel sounds. No palpable organomegaly. -MUSCULOSKELETAL: No joint swelling or deformity. Lower back tenderness EXTREMITIES: No cyanosis, clubbing, or pedal edema. -NEUROLOGICAL: Gross neurological examination did not reveal any focal deficits. Motor exam of lower extremity shows symmetrically strong 5/5. No sensation abnormality. Motor and upper extremity is 5/5 with no sensory deficits SKIN: No rashes. Results CBC & Chem 7: 12/01/18 10:55 12/01/18 10:55 Labs: Abnormal Lab Results - Last 24 Hours (Table) 12/01/18 12/01/18 12/01/18 Range/Units 10:55 10:55 10:55 RBC 4.01 L (4.30-5.90) m/uL Hgb 12.6 L (13.0-17.5) gm/dL Hct 37.0 L (39.0-53.0) % PT (9.0-12.0) sec INR (<1.2) Chloride 108 H (98-107) mmol/L Glucose 104 H (74-99) mg/dL Total Creatine Kinase 48 L (55-170) U/L Total Protein 6.2 L (6.3-8.2) g/dL 12/01/18 Range/Units 10:55 RBC (4.30-5.90) m/uL Hgb (13.0-17.5) gm/dL Hct (39.0-53.0) % PT 12.6 H (9.0-12.0) sec INR 1.2 H (<1.2) Chloride (98-107) mmol/L Glucose (74-99) mg/dL Total Creatine Kinase (55-170) U/L Total Protein (6.3-8.2) g/dL Assessment and Plan Assessment: Dizziness, presyncope Fall Lower back and head trauma Mild compression of fracture of L3 Degenerative joint disease History of skin cancer History of GERD Essential hypertension Hyperlipidemia Dementia History of myoclonic jerks since 2013 as per at bedside Plan: This is a pleasant 68 years old male who presents because of presyncope and fall. Call cardiology consult. Telemetry bed. Check urine analysis. Ask for PT and OT evaluation and call for orthopedic consult as well because of his compression fraction of L3.Labs and medication were reviewed.. Continue same treatment. Continue with symptomatic treatment. Resume home medication. Monitor lytes and vitals. DVT and GI prophylaxis. Further recommendations of the clinical course of the patient DVT prophylaxis: Subcutaneous heparin GI Prophylaxis: Pepcid PT/OT: Pending Prognosis is guarded
[2018-12-01] MEDS: HYDROcodone/APAP 5-325MG 1 EACH TAB PO PRN (22:20)
[2018-12-01] MEDS: DOXYCYCLINE 100 MG CAP PO SCH (22:20)
[2018-12-01] MEDS: SODIUM CHLORIDE 0.9% 1,000 ML IV SCH (22:42)
[2018-12-02 08:07] LABS: Basophils % (A) 0 %; Eosinophils # (A) 0.1 k/uL (0-0.7); Eosinophils % (A) 1 %; HCT 37.4 % (39.0-53.0); HGB 12.5 gm/dL (13.0-17.5); Lymphocytes # (A) 0.9 k/uL (1.0-4.8); Lymphocytes % (A) 13 %; MCH 31.3 pg (25.0-35.0); MCHC 33.3 g/dL (31.0-37.0); Mean Platelet Volume 7.1; Monocytes # (A) 0.6 k/uL (0-1.0); Monocytes % (A) 9 %; Neutrophils # (A) 5.5 k/uL (1.3-7.7); Neutrophils % (A) 77 %; Platelet Count 184 k/uL (150-450); RBC 3.98 m/uL (4.30-5.90); RDW 15.1 % (11.5-15.5); WBC 7.2 k/uL (3.8-10.6)
[2018-12-02] MEDS: DOXYCYCLINE 100 MG CAP PO SCH ×2 (08:21→21:06)
[2018-12-02] MEDS: HEPARIN SODIUM,PORCINE 5,000 UNIT/ML 1 ML VIAL SQ SCH ×2 (08:21→21:09)
[2018-12-02] MEDS: HYDROcodone/APAP 5-325MG 1 EACH TAB PO PRN ×2 (08:21→21:08)
[2018-12-02 08:31] LABS: Anion Gap 5 mmol/L; Blood Urea Nitrogen 16 mg/dL (9-20); Calcium 8.7 mg/dL (8.4-10.2); Carbon Dioxide 33 mmol/L (22-30); Chloride 105 mmol/L (98-107); Glucose 88 mg/dL (74-99); Potassium 3.6 mmol/L (3.5-5.1); Sodium 143 mmol/L (137-145)
[2018-12-02] MEDS ORDERED: FAMOTIDINE 20 MG/2 ML VIAL IV SCH (09:00)
--- NOTE | 2018-12-02 10:37 | P.CNOR ---
History of Present Illness - [facility] Consult date: 12/02/18 Consult reason: fracture History of present illness: Patient is a 68-year-old male who was admitted to [facility] yesterday afternoon. Patient was apparently a doctor's appointment when he became dizzy, lost his balance and fell onto his back. Patient admits to hitting his head during the fall. Patient was brought to [facility] emergency room, imaging and lab test were done. Imaging demonstrated a mild compression fracture involving the L3 vertebrae. Patient also has a history of myoclonic jerks, this is been for the last 3 or 4 years. Patient admits this may have contributed to her fall. Patient denies any previous orthopedic surgery, specifically involving the knees /hip/low back. He uses a walker occasionally. Patient states that he has seen neurology for the myoclonic jerks and they have continued to work him up for this, he's been given no formal diagnosis. Patient evaluated today at bedside. He notes no severe pain involving the low back. Pain medication has received since admission is helped with that. He denies any new onset bilateral knee pain, bilateral foot or ankle pain, loss of bowel or bladder function. Review of Systems Constitutional: Reports as per HPI Past Medical History Past Medical History: Cancer, Chest Pain / Angina, GERD/Reflux, Hypertension, Osteoarthritis (OA), Thyroid Disorder Additional Past Medical History / Comment(s): HX UTI W/ SEPSIS 2013, past hx. chest pain-nothing current, tremors hands, heart murmur, esophageal spasms History of Any Multi-Drug Resistant Organisms: None Reported Past Surgical History: Prostate Surgery, Tonsillectomy Additional Past Surgical History / Comment(s): TURP, right thyroid lobectomy (), skin ca removed Past Anesthesia/Blood Transfusion Reactions: No Reported Reaction Additional Past Anesthesia/Blood Transfusion Reaction / Comm: CLAUSTERPHOBIA Past Psychological History: Anxiety, Panic Disorder Smoking Status: Never smoker Past Alcohol Use History: None Reported Past Drug Use History: None Reported - Past Family History Brother(s) Family Medical History: Cancer Sister(s) Family Medical History: Hypertension Father Family Medical History: Hypertension Additional Family Medical History / Comment(s): PT STATED DAD AT AGE 89 COMPLICATIONS FROM MRSA INFECTION. Mother Family Medical History: Hypertension Medications and Allergies Home Medications Medication Instructions Recorded Confirmed Type Atorvastatin [Lipitor] 40 mg PO DAILY #30 tab 01/01/17 12/01/18 Rx Citalopram Hydrobromide [CeleXA] 20 mg PO HS 05/17/18 12/01/18 History Donepezil [Aricept] 20 mg PO DAILY 05/17/18 12/01/18 History Levothyroxine Sodium [Synthroid] 75 mcg PO DAILY 05/17/18 12/01/18 History Lisinopril [Zestril] 10 mg PO HS 05/17/18 12/01/18 History Clopidogrel [Plavix] 75 mg PO DAILY #30 tab 05/21/18 12/01/18 Rx Amantadine HCl [Amantadine] 100 mg PO BID 12/01/18 12/01/18 History Divalproex [Depakote] 250 mg PO TID 12/01/18 12/01/18 History Folic Acid 1 mg PO DAILY 12/01/18 12/01/18 History Propranolol [Inderal] 40 mg PO BID 12/01/18 12/01/18 History cloZAPine [Clozaril] 300 mg PO DAILY 12/01/18 12/01/18 History clonazePAM [KlonoPIN] 0.5 mg PO TID 12/01/18 12/01/18 History Allergies Allergy/AdvReac Type Severity Reaction Status Date / Time levofloxacin AdvReac Unknown Verified 12/01/18 11:13 Physical Examination General orthopedic exam: No open lesions or sores visualized throughout the bilateral lower extremities, he does have psoriatic lesions over the anterior aspect of both knees. No obvious areas of soft tissue swelling or erythema Range of motion of the bilateral extremities intact, this including hip flexion and extension, knee flexion and extension, plantar flexion, dorsiflexion, EHL, FHL. Straight leg raise is intact bilaterally Strength testing of the lower extremities demonstrated no significant defects Sensory exam to light touch throughout both extremities intact Dorsalis pedis pulses 2+ bilaterally Results - Labs Labs: Abnormal Lab Results - Last 24 Hours (Table) 12/01/18 12/01/18 12/01/18 Range/Units 10:55 10:55 10:55 RBC 4.01 L (4.30-5.90) m/uL Hgb 12.6 L (13.0-17.5) gm/dL Hct 37.0 L (39.0-53.0) % Lymphocytes # (1.0-4.8) k/uL PT (9.0-12.0) sec INR (<1.2) Chloride 108 H (98-107) mmol/L Carbon Dioxide (22-30) mmol/L Glucose 104 H (74-99) mg/dL Total Creatine Kinase 48 L (55-170) U/L Total Protein 6.2 L (6.3-8.2) g/dL 12/01/18 12/02/18 12/02/18 Range/Units 10:55 07:09 07:09 RBC 3.98 L (4.30-5.90) m/uL Hgb 12.5 L (13.0-17.5) gm/dL Hct 37.4 L (39.0-53.0) % Lymphocytes # 0.9 L (1.0-4.8) k/uL PT 12.6 H (9.0-12.0) sec INR 1.2 H (<1.2) Chloride (98-107) mmol/L Carbon Dioxide 33 H (22-30) mmol/L Glucose (74-99) mg/dL Total Creatine Kinase (55-170) U/L Total Protein (6.3-8.2) g/dL H & H 12/01/18 12/02/18 Range/Units 10:55 07:09 Hgb 12.6 L 12.5 L (13.0-17.5) gm/dL Hct 37.0 L 37.4 L (39.0-53.0) % Coagulation 12/01/18 Range/Units 10:55 INR 1.2 H (<1.2) Result Diagrams: 12/02/18 07:09 12/02/18 07:09 - Diagnostic results CT Scan - lumbar: report reviewed, image reviewed Assessment and Plan Plan: Imaging: Thoracic and lumbar CT imaging report reviewed. Images demonstrate mild compression fracture involving the L3 vertebrae. Assessment: 1. Mild compression fracture L3 vertebrae 2. Status post fall from standing 3. Dizziness/syncopal episode 4. Other medical comorbidities Plan: I was able to discuss the case, including the physical exam findings and imaging studies with my attending physician Dr. Amaya. Prescription for a TLSO brace was placed, patient will be fitted for that today. Recommended physical therapy evaluation, this concluded walker ambulation Pain control GI and DVT prophylaxis per medical recommendations Other medical lab technologist recommendations Plan follow-up in the outpatient setting in 2 weeks for x-ray evaluation Time with Patient: Less than 30
[2018-12-02] MEDS: SODIUM CHLORIDE 0.9% 1,000 ML IV SCH (11:13)
--- NOTE | 2018-12-02 11:50 | ECHOF ---
Referral Reason:syncope MEASUREMENTS -------- HEIGHT: 182.9 cm WEIGHT: 90.7 kg BP: 118/75 RVIDd: 3.6 cm (< 3.3) IVSd: 1.2 cm (0.6 - 1.1) LVIDd: 4.1 cm (3.9 - 5.3) LVPWd: 1.7 cm (0.6 - 1.1) IVSs: 1.8 cm LVIDs: 2.8 cm LVPWs: 1.7 cm LA Diam: 3.7 cm (2.7 - 3.8) LAESV Index (A-L): 28.76 ml/m Ao Diam: 3.1 cm (2.0 - 3.7) AV Cusp: 2.7 cm (1.5 - 2.6) LA Diam: 4.2 cm (2.7 - 3.8) MV EXCURSION: 15.249 mm (> 18.000) MV EF SLOPE: 55 mm/s (70 - 150) EPSS: 0.2 cm MV E Lam: 0.57 m/s MV DecT: 249 ms MV A Lam: 0.70 m/s MV E/A Ratio: 0.82 RAP: 5.00 mmHg RVSP: 40.09 mmHg FINDINGS -------- Sinus rhythm. This was a technically adequate study. The left ventricular size is normal. There is mild concentric left ventricular hypertrophy. Overa ll left ventricular systolic function is normal with, an EF between 55 - 60 %. The right ventricle is mildly enlarged. The left atrial size is normal. The right atrial size is normal. There is mild aortic valve sclerosis. There is no evidence of aortic regurgitation. Mild mitral annular calcification present. Mild mitral regurgitation is present. Mild tricuspid regurgitation present. There is mild pulmonary hypertension. The right ventricular systolic pressure, as measured by Doppler, is 40.09mmHg. Trace/mild (physiologic) pulmonic regurgitation. The aortic root size is normal. There is no pericardial effusion. CONCLUSIONS -------- 1. The left ventricular size is normal. 2. There is mild concentric left ventricular hypertrophy. 3. Overall left ventricular systolic function is normal with, an EF between 55 - 60 %. 4. The right ventricle is mildly enlarged. 5. The left atrial size is normal. 6. The right atrial size is normal. 7. There is mild aortic valve sclerosis. 8. Mild mitral annular calcification present. 9. Mild mitral regurgitation is present. 10. Mild tricuspid regurgitation present. 11. There is mild pulmonary hypertension. 12. The right ventricular systolic pressure, as measured by Doppler, is 40.09mmHg. 13. Trace/mild (physiologic) pulmonic regurgitation. 14. The aortic root size is normal. 15. There is no pericardial effusion. DIRECTOR PHARMACOLOGY: aCrlie Buckner RDCS
--- NOTE | 2018-12-02 12:36 | P.PN ---
Subjective This is a pleasant 68 years old male with past medical history of skin cancer, coronary artery disease, GERD, hypertension, hypothyroidism. Presents because of dizziness and fall. Patient states that this morning he was trying to get up and going to her stroke when he felt dizzy as he is about to fall down and syncope, while he is urinating he fell and hit his head and lower back. His pain in the lower back was 10/10 when he came in, after he got 1 or 2 doses of morphine in the emergency room his pain disappeared as 0/10 when I saw the patient. Patient denies incontinence of urine or bowel movement. He denies weakness or abnormal sensation in his lower leg. On admission Vitas looks stable, CBC and BMP were unremarkable with normal liver enzymes. Has normal chest x-ray. Lumbar CT: Mild compression of fracture of L3. CT of the brain: Atrophic changes with no acute process. CT cervical spine: No acute fracture. 12/02/2018 Patient is a little better today with still complaining of from back pain at the fracture site. Orthopedic consult is appreciated and they recommended a brace for him and physical therapy with pain management. Resume home medication today. Patient has bilateral hand tremor and he uses a propranolol for its. His Vitas looks stable and he is saturating 94% on room air. His CBC is stable. Creatinine 0.9. Objective - Vital Signs Vital signs: Vital Signs Temp 98.3 F 12/02/18 06:16 Pulse 68 12/02/18 06:16 Resp 16 12/02/18 06:16 BP 118/75 12/02/18 06:16 Pulse Ox 94 L 12/02/18 06:16 Intake & Output 12/01/18 12/02/18 12/02/18 18:59 06:59 18:59 Intake Total 300 Output Total 450 Balance 300 -450 Weight 90.718 kg Intake: Intake, IV Titration 300 Amount Sodium Chloride 0.9% 1, 300 000 ml @ 50 mls/hr IV . [facility] Rx#:[id number] Output: Urine 450 Other: Voiding Method Urinal # Voids 1 - Exam -GENERAL: The patient is alert and oriented x2, to place and person, and partially to time, not in any acute distress. Obese HEENT: Pupils are round and equally reacting to light. EOMI. No scleral icterus. No conjunctival pallor. Normocephalic, atraumatic. No pharyngeal erythema. No thyromegaly. CARDIOVASCULAR: S1 and S2 present. No murmurs, rubs, or gallops. PULMONARY: Chest is clear to auscultation, no wheezing or crackles. ABDOMEN: Soft, nontender, nondistended, normoactive bowel sounds. No palpable organomegaly. -MUSCULOSKELETAL: No joint swelling or deformity. Lower back tenderness EXTREMITIES: No cyanosis, clubbing, or pedal edema. -NEUROLOGICAL: Gross neurological examination did not reveal any focal deficits. Motor exam of lower extremity shows symmetrically strong 5/5. No sensation abnormality. Motor and upper extremity is 5/5 with no sensory deficits SKIN: No rashes. - Labs CBC & Chem 7: 12/02/18 07:09 12/02/18 07:09 Labs: Abnormal Lab Results - Last 24 Hours (Table) 12/02/18 12/02/18 Range/Units 07:09 07:09 RBC 3.98 L (4.30-5.90) m/uL Hgb 12.5 L (13.0-17.5) gm/dL Hct 37.4 L (39.0-53.0) % Lymphocytes # 0.9 L (1.0-4.8) k/uL Carbon Dioxide 33 H (22-30) mmol/L Assessment and Plan Assessment: Dizziness, presyncope Fall Lower back and head trauma Mild compression of fracture of L3 Degenerative joint disease History of skin cancer History of GERD Essential hypertension Hyperlipidemia Dementia History of myoclonic jerks since 2014 as per at bedside Plan: This is a pleasant 68 years old male who presents because of presyncope and fall. Call cardiology consult. Telemetry bed. Check urine analysis. Ask for PT and OT evaluation and call for orthopedic consult as well because of his compression fraction of L3.Labs and medication were reviewed.. Continue same treatment. Continue with symptomatic treatment. Resume home medication. Monitor lytes and vitals. DVT and GI prophylaxis. Further recommendations of the clinical course of the patient DVT prophylaxis: Subcutaneous heparin GI Prophylaxis: Pepcid PT/OT: Pending Prognosis is guarded
--- NOTE | 2018-12-02 14:32 | P.CRDCN ---
History of Present Illness History of present illness: This is a pleasant 68-year-old male past medical history significant for hypertension, dyslipidemia, peripheral vascular disease with bilateral carotid artery stenosis maintained on plavix and chronic myocloinc tremors. He follows in the office with Dr. Yoder. We have been asked to see him in consultation for syncope. He states yesterday while being evaluated at neurology office he became acutely weak and light headed and fell to the ground injuring his lower back. He has been struggling with increasing weakness and gait dysfunction for many months and has been following with neurology as an outpatient with no definitive diagnosis as of yet. He denies feeling chest pain , shortness of breath, palpitations, nausea, vomiting or diaphoresis prior to falling or thereafter. He states he feels as if his legs "gave out" and he fell. Imaging reveals he suffered a compression fracture of L3. He has been seen by orthopedic surgery and is being medically managed with no plans for acute surgical intervention. He is seen and examined laying flat in bed in no acute distress. He denies any further feeling of weakness or dizziness. Although he has not been up out of bed yet today. EKG reveals sinus mechanism with no acute ST or T wave abnormalities noted. Heart rate 57. Chest x-ray is negative for an acute cardiopulmonary process. Echocardiogram obtained reveals preserved left ventricular systolic function with ejection fraction 55-60%, mild MR, mild TR and mild pulmonary hypertension with RVSP of 40 mmHg. Laboratory data reviewed, WBC 7.2, hemoglobin 12.5, platelets 184, sodium 143, potassium 3.6, creatinine 0.91, magnesium 1.8, cardiac enzymes negative 1. Current cardiac medications include atorvastatin 40 mg daily, lisinopril 10 mg daily and propanolol 40 mg twice a day. He also takes Plavix 75 mg daily per vascular surgery secondary to carotid stenosis. Most recent stress test performed in the office with a Lexiscan stress test July 2018 was negative for reversible cardiac ischemia. At the time of my exam: CONSTITUTIONAL: Denies fever. Denies chills. EYES: Denies blurred vision. Denies vision changes. Denies eye pain. EARS, NOSE, MOUTH & THROAT: Denies headache. Denies sore throat. Denies ear pain. CARDIOVASCULAR: Denies chest pain. Denies shortness of breath. Denies orthopnea. Denies PND. Denies palpitations. RESPIRATORY: Denies cough. GASTROINTESTINAL: Denies abdominal pain. Denies diarrhea. Denies constipation. Denies nausea. Denies vomiting. MUSCULOSKELETAL: Complains of pain to the lower back. INTEGUMENTARY: Denies pruitis. Denies rash. NEUROLOGIC: Denies numbness. Denies tingling. Denies weakness. PSYCHIATRIC: Denies anxiety. Denies depression. ENDOCRINE: Denies fatigue. Denies weight change. Denies polydipsia. Denies polyurina. GENITOURINARY: Denies burning, hematuria or urgency with micturation. HEMATOLOGIC: Denies history of anemia. Denies bleeding. Blood pressure 118/75 heart rate 68 afebrile maintaining oxygen saturation on room air GENERAL: This is a 68-year-old male in no apparent distress at the time of my examination. HEENT: Head is atraumatic, normocephalic. Pupils are equal, round. Sclerae anicteric. Conjunctivae are clear. Mucous membranes of the mouth are moist. Neck is supple. There is no jugular venous distention. No carotid bruit is heard. LUNGS: Clear to auscultation no wheezes, rales or rhonchi. No chest wall tenderness is noted on palpation or with deep breathing. HEART: Regular rate and rhythm without murmurs, rubs or gallops. S1 and S2 heard. ABDOMEN: Soft, nontender. Bowel sounds are heard. No organomegaly noted. EXTREMITIES: No evidence of peripheral edema and no calf tenderness noted. VASCULAR: Radial and dorsalis pedis pulses palpated, no evidence of clubbing. NEUROLOGIC: Patient is awake, alert and oriented x3. ASSESSMENT Fall from standing Near syncope Compression fracture Hypertension Dyslipidemia Peripheral vascular disease PLAN Echo has been obtained and reviewed. Telemetry tracings unremarkable for an acute arrhythmia. No signs of angina or heart failure. Near syncope seems to be related to generalized weakness with significant deconditioning. No further cardiac work-up at this time. Ongoing medical management. Follow up with Dr. Yoder upon discharge. Thank you kindly for this consultation. Nurse Practitioner note has been reviewed, I agree with a documented findings and plan of care. Patient was seen and examined. Past Medical History Past Medical History: Cancer, Chest Pain / Angina, GERD/Reflux, Hypertension, Osteoarthritis (OA), Thyroid Disorder Additional Past Medical History / Comment(s): HX UTI W/ SEPSIS 2013, past hx. chest pain-nothing current, tremors hands, heart murmur, esophageal spasms History of Any Multi-Drug Resistant Organisms: None Reported Past Surgical History: Prostate Surgery, Tonsillectomy Additional Past Surgical History / Comment(s): TURP, right thyroid lobectomy (), skin ca removed Past Anesthesia/Blood Transfusion Reactions: No Reported Reaction Additional Past Anesthesia/Blood Transfusion Reaction / Comment(s): CLAUSTERPHOBIA Past Psychological History: Anxiety, Panic Disorder Smoking Status: Never smoker Past Alcohol Use History: None Reported Past Drug Use History: None Reported - Past Family History Brother(s) Family Medical History: Cancer Sister(s) Family Medical History: Hypertension Father Family Medical History: Hypertension Additional Family Medical History / Comment(s): PT STATED DAD AT AGE 89 COMPLICATIONS FROM MRSA INFECTION. Mother Family Medical History: Hypertension Medications and Allergies Home Medications Medication Instructions Recorded Confirmed Type Atorvastatin [Lipitor] 40 mg PO DAILY #30 tab 01/01/17 12/01/18 Rx Citalopram Hydrobromide [CeleXA] 20 mg PO HS 05/17/18 12/01/18 History Donepezil [Aricept] 20 mg PO DAILY 05/17/18 12/01/18 History Levothyroxine Sodium [Synthroid] 75 mcg PO DAILY 05/17/18 12/01/18 History Lisinopril [Zestril] 10 mg PO HS 05/17/18 12/01/18 History Clopidogrel [Plavix] 75 mg PO DAILY #30 tab 05/21/18 12/01/18 Rx Amantadine HCl [Amantadine] 100 mg PO BID 12/01/18 12/01/18 History Divalproex [Depakote] 250 mg PO TID 12/01/18 12/01/18 History Folic Acid 1 mg PO DAILY 12/01/18 12/01/18 History Propranolol [Inderal] 40 mg PO BID 12/01/18 12/01/18 History cloZAPine [Clozaril] 300 mg PO DAILY 12/01/18 12/01/18 History clonazePAM [KlonoPIN] 0.5 mg PO TID 12/01/18 12/01/18 History Allergies Allergy/AdvReac Type Severity Reaction Status Date / Time levofloxacin AdvReac Unknown Verified 12/01/18 11:13 Physical Exam Vitals: Vital Signs Temp Pulse Pulse Resp BP BP Pulse Ox 12/02/18 06:16 98.3 F 68 16 118/75 94 L 12/02/18 00:00 58 L 17 12/01/18 22:57 98.2 F 64 17 143/80 95 12/01/18 18:55 98.2 F 68 16 141/81 12/01/18 16:20 53 L 12 138/83 93 L 12/01/18 16:10 54 L 12 134/81 93 L 12/01/18 16:00 55 L 9 L 126/86 94 L 12/01/18 15:50 54 L 11 L 126/86 96 12/01/18 15:40 58 L 11 L 118/76 96 12/01/18 15:30 55 L 11 L 95/70 93 L 12/01/18 15:20 56 L 18 95/70 94 L 12/01/18 15:10 57 L 12 118/75 94 L 12/01/18 15:00 57 L 13 117/76 93 L 12/01/18 14:50 58 L 12 117/76 94 L 12/01/18 14:40 58 L 12 122/82 95 12/01/18 14:30 59 L 12 129/94 97 12/01/18 14:20 58 L 13 129/94 99 Intake and Output 12/01/18 12/02/18 12/02/18 22:59 06:59 14:59 Intake Total 300 Output Total 450 Balance 300 -450 Intake: Intake, IV Titration 300 Amount Sodium Chloride 0.9% 1, 300 000 ml @ 50 mls/hr IV . Q20H [facility] Rx#:[id number] Output: Urine 450 Other: Voiding Method Urinal # Voids 1 1 Results 12/02/18 07:09 12/02/18 07:09 CBC 12/02/18 Range/Units 07:09 WBC 7.2 (3.8-10.6) k/uL RBC 3.98 L (4.30-5.90) m/uL Hgb 12.5 L (13.0-17.5) gm/dL Hct 37.4 L (39.0-53.0) % Plt Count 184 (150-450) k/uL Comprehensive Metabolic Panel 12/02/18 Range/Units 07:09 Sodium 143 (137-145) mmol/L Potassium 3.6 (3.5-5.1) mmol/L Chloride 105 (98-107) mmol/L Carbon Dioxide 33 H (22-30) mmol/L BUN 16 (9-20) mg/dL Creatinine 0.91 (0.66-1.25) mg/dL Glucose 88 (74-99) mg/dL Calcium 8.7 (8.4-10.2) mg/dL Current Medications Generic Name Dose Route Start Last Admin Trade Name Freq PRN Reason Stop Dose Admin Hydrocodone Bitart/Acetaminophen 2 each 12/01/18 22:02 12/02/18 08:21 [place] 5-325 PO 2 each Q6HR PRN Administration Moderate Pain Amantadine HCl 100 mg 12/02/18 21:00 Symmetrel PO BID [facility] Atorvastatin Calcium 40 mg 12/02/18 12:27 Lipitor PO DAILY [facility] Citalopram Hydrobromide 20 mg 12/02/18 21:00 Celexa PO HS [facility] Clonazepam 0.5 mg 12/02/18 16:00 Klonopin PO TID [facility] Clopidogrel Bisulfate 75 mg 12/02/18 12:30 Plavix PO DAILY [facility] Clozapine 300 mg 12/02/18 12:30 Clozaril PO DAILY [facility] Divalproex Sodium 250 mg 12/02/18 16:00 Depakote PO TID [facility] Donepezil HCl 20 mg 12/02/18 12:27 Aricept PO DAILY [facility] Doxycycline Monohydrate 100 mg 12/01/18 21:15 12/02/18 08:21 Vibramycin PO 100 mg BID [facility] Administration Famotidine 20 mg 12/02/18 09:00 12/02/18 08:21 Pepcid IV 20 mg Q12HR [facility] Administration Folic Acid 1 mg 12/02/18 12:30 Folic Acid PO DAILY [facility] Heparin Sodium (Porcine) 5,000 unit 12/02/18 09:00 12/02/18 08:21 Heparin SQ 5,000 unit Q12HR [facility] Administration Sodium Chloride 1,000 mls @ 50 mls/hr 12/01/18 14:45 12/02/18 11:13 Saline 0.9% IV Not Given .Q20H [facility] Levothyroxine Sodium 75 mcg 12/02/18 12:30 Synthroid PO DAILY@0630 [facility] Lisinopril 10 mg 12/02/18 21:00 Zestril PO HS [facility] Morphine Sulfate 4 mg 12/01/18 14:36 Morphine Sulfate (Inj) IV Q4HR PRN Severe Pain Naloxone HCl 0.2 mg 12/01/18 14:36 Narcan IV Q2M PRN Opioid Reversal Propranolol HCl 40 mg 12/02/18 21:00 Inderal PO BID [facility] Intake and Output 12/01/18 12/02/18 12/02/18 22:59 06:59 14:59 Intake Total 300 Output Total 450 Balance 300 -450 Intake: Intake, IV Titration 300 Amount Sodium Chloride 0.9% 1, 300 000 ml @ 50 mls/hr IV . Q20H [facility] Rx#:[id number] Output: Urine 450 Other: Voiding Method Urinal # Voids 1 1 12/02/18 07:09 12/02/18 07:09
[2018-12-02] MEDS: CLOPIDOGREL 75 MG TAB PO SCH (15:50)
[2018-12-02] MEDS: LEVOTHYROXINE 75 MCG TAB PO SCH (15:50)
[2018-12-02] MEDS: FOLIC ACID 1 MG TAB PO SCH (15:50)
[2018-12-02] MEDS: DIVALPROEX 250 MG TABLET.DR PO SCH ×2 (15:50→21:07)
[2018-12-02] MEDS: clonazePAM 0.5 MG TAB PO SCH ×2 (15:50→21:07)
[2018-12-02] MEDS: cloZAPine 25 MG TAB PO SCH (15:50)
[2018-12-02] MEDS: DONEPEZIL 10 MG TAB PO SCH (15:50)
[2018-12-02] MEDS: ATORVASTATIN 40 MG TAB PO SCH (15:54)
[2018-12-02] MEDS: CITALOPRAM HYDROBROMIDE 20 MG TAB PO SCH (21:03)
[2018-12-02] MEDS: AMANTADINE HCL 100 MG CAP PO SCH (21:03)
[2018-12-02] MEDS: cloZAPine 100 MG TAB PO SCH (21:04)
[2018-12-02] MEDS: FAMOTIDINE 20 MG TAB PO SCH (21:05)
[2018-12-02] MEDS: LISINOPRIL 10 MG TAB PO SCH (21:06)
[2018-12-02] MEDS: PROPRANOLOL 40 MG TAB PO SCH (21:07)
[2018-12-03] MEDS: SODIUM CHLORIDE 0.9% 1,000 ML IV SCH (05:28)
[2018-12-03] MEDS: LEVOTHYROXINE 75 MCG TAB PO SCH (05:29)
[2018-12-03] MEDS: AMANTADINE HCL 100 MG CAP PO SCH ×2 (09:46→21:38)
[2018-12-03] MEDS: ATORVASTATIN 40 MG TAB PO SCH (09:46)
[2018-12-03] MEDS: clonazePAM 0.5 MG TAB PO SCH ×2 (09:47→16:09)
[2018-12-03] MEDS: cloZAPine 25 MG TAB PO SCH (09:47)
[2018-12-03] MEDS: CLOPIDOGREL 75 MG TAB PO SCH (09:47)
[2018-12-03] MEDS: DOXYCYCLINE 100 MG CAP PO SCH ×2 (09:49→21:38)
[2018-12-03] MEDS: DONEPEZIL 10 MG TAB PO SCH (09:49)
[2018-12-03] MEDS: DIVALPROEX 250 MG TABLET.DR PO SCH ×3 (09:49→21:39)
[2018-12-03] MEDS: FOLIC ACID 1 MG TAB PO SCH (09:50)
[2018-12-03] MEDS: FAMOTIDINE 20 MG TAB PO SCH ×2 (09:50→21:38)
--- NOTE | 2018-12-03 11:21 | P.PN ---
Subjective This is a pleasant 68 years old male with past medical history of skin cancer, coronary artery disease, GERD, hypertension, hypothyroidism. Presents because of dizziness and fall. Patient states that this morning he was trying to get up and going to her stroke when he felt dizzy as he is about to fall down and syncope, while he is urinating he fell and hit his head and lower back. His pain in the lower back was 10/10 when he came in, after he got 1 or 2 doses of morphine in the emergency room his pain disappeared as 0/10 when I saw the patient. Patient denies incontinence of urine or bowel movement. He denies weakness or abnormal sensation in his lower leg. On admission Vitas looks stable, CBC and BMP were unremarkable with normal liver enzymes. Has normal chest x-ray. Lumbar CT: Mild compression of fracture of L3. CT of the brain: Atrophic changes with no acute process. CT cervical spine: No acute fracture. 12/02/2018 Patient is a little better today with still complaining of from back pain at the fracture site. Orthopedic consult is appreciated and they recommended a brace for him and physical therapy with pain management. Resume home medication today. Patient has bilateral hand tremor and he uses a propranolol for its. His Vitas looks stable and he is saturating 94% on room air. His CBC is stable. Creatinine 0.9. 12/03/2018 Patient is more confused today. He opens eyes and answer questions appropriately to go back to sleep. He still complaining from back pain. Brace at bedside, physical therapy evaluating the patient and patient might need going to rehab. We'll do further workup including CBC, BMP, urinalysis and chest x-ray.we will decrease his narcotic from 2 tablets every 6 hours to 1 tablet every 12 hours when necessary. Also do CT of the brain Review of system CONSTITUTIONAL: No fever, no malaise, no fatigue. HEENT: No recent visual problems or hearing problems. Denied any sore throat. CARDIOVASCULAR: No orthopnea, PND, no palpitations, no syncope. PULMONARY: No shortness of breath, no cough, no hemoptysis. GASTROINTESTINAL: No diarrhea, no nausea, no vomiting, no abdominal pain. Normoactive bowel sounds. NEUROLOGICAL: No headaches, no weakness, no numbness. HEMATOLOGICAL: Denies any bleeding or petechiae. GENITOURINARY: Denies any burning micturition, frequency, or urgency. MUSCULOSKELETAL/RHEUMATOLOGICAL: Denies any joint pain, swelling, or any muscle pain. ENDOCRINE: Denies any polyuria or polydipsia. medication: Amantadine, Lipitor, Celexa, Klonopin, Plavix, clozapine, Depakote, Aricept, doxycycline, Pepcid, folic acid, heparin, [place], levothyroxine, lisinopril, morphine, Inderal, Objective - Vital Signs Vital signs: Vital Signs Temp 97.8 F 12/03/18 07:15 Pulse 58 L 12/03/18 07:15 Resp 18 12/03/18 08:20 BP 101/65 12/03/18 07:15 Pulse Ox 96 12/03/18 08:03 Intake & Output 12/02/18 12/03/18 12/03/18 18:59 06:59 18:59 Intake Total 400 Output Total 650 300 Balance -650 100 Intake: Intake, IV Titration 400 Amount Sodium Chloride 0.9% 1, 400 000 ml @ 50 mls/hr IV . Q20H [facility] Rx#:[id number] Output: Urine 650 300 Other: Voiding Method Urinal Urinal Urinal # Voids 1 - Exam -GENERAL: The patient is alert and oriented x2, to place and person, and partially to time, not in any acute distress. Obese HEENT: Pupils are round and equally reacting to light. EOMI. No scleral icterus. No conjunctival pallor. Normocephalic, atraumatic. No pharyngeal erythema. No thyromegaly. CARDIOVASCULAR: S1 and S2 present. No murmurs, rubs, or gallops. PULMONARY: Chest is clear to auscultation, no wheezing or crackles. ABDOMEN: Soft, nontender, nondistended, normoactive bowel sounds. No palpable organomegaly. -MUSCULOSKELETAL: No joint swelling or deformity. Lower back tenderness EXTREMITIES: No cyanosis, clubbing, or pedal edema. -NEUROLOGICAL: Gross neurological examination did not reveal any focal deficits. Motor exam of lower extremity shows symmetrically strong 5/5. No sensation abnormality. Motor and upper extremity is 5/5 with no sensory deficits SKIN: No rashes. - Labs CBC & Chem 7: 12/02/18 07:09 12/02/18 07:09 Assessment and Plan Assessment: acute delirium Dizziness, presyncope, Mostly related to deconditioning Fall Lower back and head trauma Mild compression of fracture of L3 Degenerative joint disease History of skin cancer History of GERD Essential hypertension Hyperlipidemia Dementia History of myoclonic jerks since 2013 as per at bedside Plan: This is a pleasant 68 years old male who presents because of presyncope and fall. Call cardiology consult. Telemetry bed. Check urine analysis. Ask for PT and OT evaluation and call for orthopedic consult as well because of his compression fraction of L3.Labs and medication were reviewed.. Continue same treatment. Continue with symptomatic treatment. Resume home medication. Monitor lytes and vitals. DVT and GI prophylaxis. Further recommendations of the clinical course of the patient DVT prophylaxis: Subcutaneous heparin GI Prophylaxis: Pepcid PT/OT: Pending Prognosis is guarded
[2018-12-03] MEDS: HEPARIN SODIUM,PORCINE 5,000 UNIT/ML 1 ML VIAL SQ SCH ×2 (11:22→21:41)
[2018-12-03] MEDS: PROPRANOLOL 40 MG TAB PO SCH ×2 (11:22→21:48)
--- NOTE | 2018-12-03 12:03 | XR ---
EXAMINATION TYPE: XR chest 1V portable DATE OF EXAM: 12/03/2018 HISTORY: Shortness of breath. COMPARISON: 12/01/2018 TECHNIQUE: Single view of the chest is submitted. FINDINGS: Demonstrated are scattered senescent parenchymal change. There is no evidence for focal infiltrate. The heart is stable. Hilar and mediastinal structures are within normal limits. Degenerative changes are seen of the dorsal spine. IMPRESSION: 1. Chronic changes without evidence for acute pulmonary disease.
[2018-12-03 12:11] LABS: Albumin 3.5 g/dL (3.5-5.0); Calcium 8.7 mg/dL (8.4-10.2); Potassium 4.2 mmol/L (3.5-5.1); Total Bilirubin 0.8 mg/dL (0.2-1.3); Total Protein 6.1 g/dL (6.3-8.2)
--- NOTE | 2018-12-03 12:24 | CT ---
EXAMINATION TYPE: CT brain wo con DATE OF EXAM: 12/03/2018 COMPARISON: 12/01/2018 HISTORY: Confusion CT DLP: [address] of the brain was performed. The ventricles, basal cisterns and sulci overlying the cerebral convexities demonstrate mild enlargem ent. There is no evidence for intracranial hemorrhage or sulcal effacement. There is decreased attenuation about the periventricular white matter and deep white matter of both c erebral hemispheres, compatible with chronic small vessel ischemia. Differential diagnosis does inclu de demyelination. No mass effects are seen.No midline shift. Osseous calvarium is intact. If symptoms persist consider MRI. IMPRESSION: 1. Age related atrophic and chronic small vessel ischemic change without acute intracranial process s een at this time.
[2018-12-03 16:13] LABS: Appearance,Urine Clear (Clear); Bilirubin,Urine Negative (Negative); Blood,Urine Negative (Negative); Color,Urine Yellow; Glucose,Urine (UA) Negative (Negative); Ketones,Urine 1+ (Negative); Leukocyte Esterase,Urine Negative (Negative); Nitrite,Urine Negative (Negative); PH, Urine 6.5 (5.0-8.0); Protein,Urine Trace (Negative); Specific Gravity,Urine 1.019 (1.001-1.035); Urobilinogen,Urine <2.0 mg/dL (<2.0)
[2018-12-03] MEDS: CITALOPRAM HYDROBROMIDE 20 MG TAB PO SCH (21:39)
[2018-12-03] MEDS: cloZAPine 100 MG TAB PO SCH (21:39)
[2018-12-03] MEDS: THIAMINE 100 MG/ML 2 ML VIAL IVP SCH (21:42)
[2018-12-03] MEDS: LISINOPRIL 10 MG TAB PO SCH (21:48)
[2018-12-03] MEDS: HYDROcodone/APAP 5-325MG 1 EACH TAB PO PRN (23:54)
[2018-12-04] MEDS: SODIUM CHLORIDE 0.9% 1,000 ML IV SCH (05:50)
[2018-12-04] MEDS: LEVOTHYROXINE 75 MCG TAB PO SCH (05:51)
--- NOTE | 2018-12-04 07:54 | P.PN ---
Subjective This is a pleasant 68 years old male with past medical history of skin cancer, coronary artery disease, GERD, hypertension, hypothyroidism. Presents because of dizziness and fall. Patient states that this morning he was trying to get up and going to her stroke when he felt dizzy as he is about to fall down and syncope, while he is urinating he fell and hit his head and lower back. His pain in the lower back was 10/10 when he came in, after he got 1 or 2 doses of morphine in the emergency room his pain disappeared as 0/10 when I saw the patient. Patient denies incontinence of urine or bowel movement. He denies weakness or abnormal sensation in his lower leg. On admission Vitas looks stable, CBC and BMP were unremarkable with normal liver enzymes. Has normal chest x-ray. Lumbar CT: Mild compression of fracture of L3. CT of the brain: Atrophic changes with no acute process. CT cervical spine: No acute fracture. 12/02/2018 Patient is a little better today with still complaining of from back pain at the fracture site. Orthopedic consult is appreciated and they recommended a brace for him and physical therapy with pain management. Resume home medication today. Patient has bilateral hand tremor and he uses a propranolol for its. His Vitas looks stable and he is saturating 94% on room air. His CBC is stable. Creatinine 0.9. 12/03/2018 Patient is more confused today. He opens eyes and answer questions appropriately to go back to sleep. He still complaining from back pain. Brace at bedside, physical therapy evaluating the patient and patient might need going to rehab. We'll do further workup including CBC, BMP, urinalysis and chest x-ray.we will decrease his narcotic from 2 tablets every 6 hours to 1 tablet every 12 hours when necessary. Also do CT of the brain 12/04/2018 Patient looks more awake today compared to yesterday when he was more confused and lethargic. However patient is still complaining from significant pain and his back. Brace recommended by orthopedic team for his back pain is been ordered as an end bedside. Patient has been evaluated by physical therapist and he might need to go to rehab upon discharge. Workup for confusion so far came back unremarkable including CBC, BMP, urinalysis, chest x-ray and CT of the brain. Further workup has been ordered including TSH, syphilis secreting, ammonia level, and vitamin B12 are still pending. However I think patient confusion is related to polypharmacy and medication, he has several psychiatric medication. First day when he came in he was more awake and when we started his home medication he got more confused. I stopped the Klonopin yesterday and he is more awake today. He is still partially disoriented for example he thought that it is his home however when I told him this is a hospital he could remember it is [facility] [place], he thought it is 2017 and the president is Mr. King however patient is easily reoriented. We will call psych consult for further adjustment of his medication. Also patient has significant pain which might contribute to his confusion, so started lidocaine patch However the patient continued to do well throughout the day then we might expect him what be discharged soon. Tremors better after starting propranolol. When I asked the patient he has history of seizure, he replied never and was not listed in his past medical history. Continue with thamin and gentle hydration Review of system CONSTITUTIONAL: No fever, no malaise, no fatigue. HEENT: No recent visual problems or hearing problems. Denied any sore throat. CARDIOVASCULAR: No orthopnea, PND, no palpitations, no syncope. PULMONARY: No shortness of breath, no cough, no hemoptysis. GASTROINTESTINAL: No diarrhea, no nausea, no vomiting, no abdominal pain. Normoactive bowel sounds. NEUROLOGICAL: No headaches, no weakness, no numbness. HEMATOLOGICAL: Denies any bleeding or petechiae. GENITOURINARY: Denies any burning micturition, frequency, or urgency. MUSCULOSKELETAL/RHEUMATOLOGICAL: Denies any joint pain, swelling, or any muscle pain. ENDOCRINE: Denies any polyuria or polydipsia. medication: Amantadine, Lipitor, Celexa, Plavix, clozapine, Depakote, Aricept, doxycycline, Pepcid, folic acid, heparin, [place], levothyroxine, lisinopril, morphine, Inderal, Objective - Vital Signs Vital signs: Vital Signs Temp 98.7 F 12/04/18 07:07 Pulse 63 12/04/18 07:07 Resp 14 12/04/18 07:07 BP 120/74 12/04/18 07:07 Pulse Ox 96 12/04/18 07:07 Intake & Output 12/03/18 12/04/18 12/04/18 18:59 06:59 18:59 Intake Total 100 Output Total 600 Balance -500 Intake: Oral 100 Output: Urine 600 Other: Voiding Method Urinal Urinal Diaper # Voids 1 1 - Exam -GENERAL: The patient is alert and oriented x2-3, partially oriented to place and person, and partially to time, not in any acute distress. Obese HEENT: Pupils are round and equally reacting to light. EOMI. No scleral icterus. No conjunctival pallor. Normocephalic, atraumatic. No pharyngeal erythema. No thyromegaly. CARDIOVASCULAR: S1 and S2 present. No murmurs, rubs, or gallops. PULMONARY: Chest is clear to auscultation, no wheezing or crackles. ABDOMEN: Soft, nontender, nondistended, normoactive bowel sounds. No palpable organomegaly. -MUSCULOSKELETAL: No joint swelling or deformity. Lower back tenderness EXTREMITIES: No cyanosis, clubbing, or pedal edema. -NEUROLOGICAL: Gross neurological examination did not reveal any focal deficits. Motor exam of lower extremity shows symmetrically strong 5/5. No sensation abnormality. Motor and upper extremity is 5/5 with no sensory deficits SKIN: No rashes. - Labs CBC & Chem 7: 12/02/18 07:09 12/03/18 11:10 Labs: Abnormal Lab Results - Last 24 Hours (Table) 12/03/18 12/03/18 Range/Units 11:10 16:00 Carbon Dioxide 31 H (22-30) mmol/L BUN 21 H (9-20) mg/dL Total Protein 6.1 L (6.3-8.2) g/dL Urine Protein Trace H (Negative) Urine Ketones 1+ H (Negative) Assessment and Plan Assessment: acute delirium, improving. Mostly related to medication effect and pain Dizziness, presyncope, Mostly related to deconditioning Fall, mechanical Lower back and head trauma Mild compression of fracture of L3 Degenerative joint disease History of skin cancer History of GERD Essential hypertension Hyperlipidemia Dementia History of myoclonic jerks since 2013 as per at bedside Plan: This is a pleasant 68 years old male who presents because of presyncope and fall. Call cardiology consult. Consult psychiatry, adjust medication and treat pain. Continue with brace on mobility and follow-up with PT OT for possible rehab placement. Appreciated orthopedic consult as well because of his compression fraction of L3.Labs and medication were reviewed.. Continue same treatment. Continue with symptomatic treatment. Resume home medication. Monitor lytes and vitals. DVT and GI prophylaxis. Further recommendations of the clinical course of the patient DVT prophylaxis: Subcutaneous heparin GI Prophylaxis: Pepcid PT/OT: Pending Prognosis is guarded
[2018-12-04] MEDS: THIAMINE 100 MG/ML 2 ML VIAL IVP SCH (09:01)
[2018-12-04] MEDS: AMANTADINE HCL 100 MG CAP PO SCH ×2 (09:14→21:04)
[2018-12-04] MEDS: cloZAPine 25 MG TAB PO SCH (09:14)
[2018-12-04] MEDS: CLOPIDOGREL 75 MG TAB PO SCH (09:14)
[2018-12-04] MEDS: ATORVASTATIN 40 MG TAB PO SCH (09:14)
[2018-12-04] MEDS: DIVALPROEX 250 MG TABLET.DR PO SCH ×3 (09:15→21:04)
[2018-12-04] MEDS: DONEPEZIL 10 MG TAB PO SCH (09:15)
[2018-12-04] MEDS: DOXYCYCLINE 100 MG CAP PO SCH ×2 (09:15→21:04)
[2018-12-04] MEDS: FOLIC ACID 1 MG TAB PO SCH (09:15)
[2018-12-04] MEDS: FAMOTIDINE 20 MG TAB PO SCH ×2 (09:15→21:03)
[2018-12-04] MEDS: LIDOCAINE 5% PATCH TOPICAL SCH (09:16)
[2018-12-04] MEDS: HEPARIN SODIUM,PORCINE 5,000 UNIT/ML 1 ML VIAL SQ SCH ×2 (09:16→21:02)
[2018-12-04] MEDS: traMADol 50 MG TAB PO SCH ×3 (09:17→21:02)
[2018-12-04] MEDS: PROPRANOLOL 40 MG TAB PO SCH ×2 (09:17→21:04)
[2018-12-04 10:40] LABS: T4, Free (Free Thyroxine) 1.48 ng/dL (0.78-2.19)
[2018-12-04] MEDS: HYDROcodone/APAP 5-325MG 1 EACH TAB PO PRN (13:40)
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
[2018-12-04] MEDS: cloZAPine 100 MG TAB PO SCH (21:03)
[2018-12-04] MEDS: CITALOPRAM HYDROBROMIDE 20 MG TAB PO SCH (21:03)
[2018-12-04] MEDS: LISINOPRIL 10 MG TAB PO SCH (21:03)
[2018-12-05] MEDS: LEVOTHYROXINE 75 MCG TAB PO SCH (04:59)
[2018-12-05] MEDS: SODIUM CHLORIDE 0.9% 1,000 ML IV SCH ×2 (05:00→16:49)
[2018-12-05 07:47] LABS: Anion Gap 6 mmol/L; Blood Urea Nitrogen 17 mg/dL (9-20); Calcium 8.6 mg/dL (8.4-10.2); Carbon Dioxide 26 mmol/L (22-30); Chloride 113 mmol/L (98-107); Glucose 97 mg/dL (74-99); Potassium 4.2 mmol/L (3.5-5.1); Sodium 145 mmol/L (137-145)
[2018-12-05 08:40] LABS: Clozapine (Clozaril) 745 ng/mL (200-700); Norclozapine 167 ng/mL (200-700)
[2018-12-05] MEDS: AMANTADINE HCL 100 MG CAP PO SCH (10:01)
[2018-12-05] MEDS: CLOPIDOGREL 75 MG TAB PO SCH (10:01)
[2018-12-05] MEDS: cloZAPine 25 MG TAB PO SCH (10:01)
[2018-12-05] MEDS: ATORVASTATIN 40 MG TAB PO SCH (10:01)
[2018-12-05] MEDS: FOLIC ACID 1 MG TAB PO SCH (10:02)
[2018-12-05] MEDS: PROPRANOLOL 40 MG TAB PO SCH (10:02)
[2018-12-05] MEDS: DIVALPROEX 250 MG TABLET.DR PO SCH ×2 (10:02→16:49)
[2018-12-05] MEDS: FAMOTIDINE 20 MG TAB PO SCH (10:02)
[2018-12-05] MEDS: traMADol 50 MG TAB PO SCH ×2 (10:02→16:48)
[2018-12-05] MEDS: DONEPEZIL 10 MG TAB PO SCH (10:02)
[2018-12-05] MEDS: DOXYCYCLINE 100 MG CAP PO SCH (10:02)
[2018-12-05] MEDS: HEPARIN SODIUM,PORCINE 5,000 UNIT/ML 1 ML VIAL SQ SCH (10:03)
[2018-12-05] MEDS: LIDOCAINE 5% PATCH TOPICAL SCH (10:11)
[2018-12-05] MEDS: THIAMINE 100 MG/ML 2 ML VIAL IVP SCH (11:11)
[2018-12-05 11:42] VITALS: BP 129/68; RESP 14; TEMP 97.3
[2018-12-05 16:40] VITALS: PULSE 58
== END 2018-12-05 18:55 | disposition short-term general hospital (02) | DRG 552 ==
LOC: EC 10:30 → UNDOADMOB 14:20 → 3NMEDONC 14:20 → OBSVTOIN 12-03 15:03 → INTOOBSV 12-03 15:03
PROVIDERS: ADMIT Internal Medicine; ATTEND Internal Medicine
DX: S32.039A Unspecified fracture of third lumbar vertebra, initial encounter for closed fracture (principal); F33.9 Major depressive disorder, recurrent, unspecified; R53.81 Other malaise; K21.9 Gastro-esophageal reflux disease without esophagitis; E03.9 Hypothyroidism, unspecified; I10 Essential (primary) hypertension; I25.10 Atherosclerotic heart disease of native coronary artery without angina pectoris; W19.XXXA Unspecified fall, initial encounter; R29.6 Repeated falls; F40.240 Claustrophobia; E78.5 Hyperlipidemia, unspecified; F41.0 Panic disorder [episodic paroxysmal anxiety]; G25.3 Myoclonus; I27.20 Pulmonary hypertension, unspecified; I65.29 Occlusion and stenosis of unspecified carotid artery; G31.83 Neurocognitive disorder with Lewy bodies; F02.80 Dementia in other diseases classified elsewhere, unspecified severity, without behavioral disturbance, psychotic disturbance, mood disturbance, and anxiety; M19.90 Unspecified osteoarthritis, unspecified site; S09.90XA Unspecified injury of head, initial encounter; I73.9 Peripheral vascular disease, unspecified; K22.4 Dyskinesia of esophagus; Z87.440 Personal history of urinary (tract) infections; Z79.02 Long term (current) use of antithrombotics/antiplatelets; Z79.890 Hormone replacement therapy; Z79.899 Other long term (current) drug therapy; Z82.49 Family history of ischemic heart disease and other diseases of the circulatory system; Z80.9 Family history of malignant neoplasm, unspecified; Z85.828 Personal history of other malignant neoplasm of skin; Z88.1 Allergy status to other antibiotic agents
CPT/HCPCS: 36415; 70450; 71045; 71046; 72125; 72128; 72131; 80048; 80053; 80159; 80164; 81003; 82140; 82550; 82553; 82607; 83735; 84439; 84443; 84484; 85025; 85610; 85730; 86780; 88300; 93005; 93306; 94760; 96374; 96376; 99285

== ENCOUNTER 2018-12-15 18:53 | Inpatient (IN) | payer MEDICARE ==
[2018-12-15] MEDS ORDERED: SODIUM CHLORIDE 0.9% 1,000 ML IV STA (19:17)
[2018-12-15] MEDS ORDERED: SODIUM CHLORIDE 0.9% 500 ML 500 ML IV STA (19:17)
--- NOTE | 2018-12-15 19:22 | ED ---
SOB HPI - General Source: patient, EMS, RN notes reviewed, old records reviewed Mode of arrival: EMS Limitations: no limitations - History of Present Illness MD Complaint: shortness of breath, chest pain -: minutes(s) Severity: moderate Severity scale (1-10): 6 Quality: aching Consistency: constant Improves With: oxygen Worsens With: exertion Context: recent URI Associated Symptoms: denies other symptoms <Allan Melendez - Last Filed: 12/15/18 20:13> <Saumya Burton - Last Filed: 12/17/18 08:01> - General Chief Complaint: Shortness of Breath Stated Complaint: sob Time Seen by Provider: 12/15/18 19:12 - History of Present Illness Initial Comments: This is a 68-year-old male the ER for evaluation. Patient sent in for psychiatric facility for CT to rule out possibility of PE. Patient is had increasing shortness of breath times one week (Allan Melendez) - Related Data Home Medications Medication Instructions Recorded Confirmed Citalopram Hydrobromide [CeleXA] 20 mg PO DAILY 05/17/18 12/15/18 Donepezil [Aricept] 10 mg PO HS 05/17/18 12/15/18 Levothyroxine Sodium [Synthroid] 75 mcg PO DAILY 05/17/18 12/15/18 Amantadine HCl [Amantadine] 100 mg PO BID 12/01/18 12/15/18 Folic Acid 1 mg PO DAILY 12/01/18 12/15/18 Acetaminophen Tab [Tylenol Tab] 650 mg PO Q6H PRN 12/15/18 12/15/18 Albuterol Nebulized [Ventolin 2.5 mg INHALATION RT-QID 12/15/18 12/15/18 Nebulized] Aspirin EC [Ecotrin Low Dose] 81 mg PO DAILY 12/15/18 12/15/18 Atorvastatin [Lipitor] 40 mg PO HS 12/15/18 12/15/18 Cephalexin [Keflex] 500 mg PO BID@0800,199912/15/18 12/15/18 Multivitamins, Thera [Multivitamin 1 tab PO DAILY 12/15/18 12/15/18 (formulary)] Propranolol [Inderal] 20 mg PO BID 12/15/18 12/15/18 cloZAPine [Clozaril] 150 mg PO HS 12/15/18 12/15/18 clonazePAM [KlonoPIN] 0.5 mg PO BID 12/15/18 12/15/18 Allergies Allergy/AdvReac Type Severity Reaction Status Date / Time levofloxacin AdvReac Unknown Verified 12/15/18 19:04 Review of Systems ROS Other: All systems not noted in ROS Statement are negative. <Allan Melendez - Last Filed: 12/15/18 20:13> ROS Other: All systems not noted in ROS Statement are negative. <Saumya Burton - Last Filed: 12/17/18 08:01> ROS Statement: Those systems with pertinent positive or pertinent negative responses have been documented in the HPI. Past Medical History Past Medical History: Cancer, Chest Pain / Angina, Dementia, GERD/Reflux, Hypertension, Osteoarthritis (OA), Thyroid Disorder Additional Past Medical History / Comment(s): HX UTI W/ SEPSIS 2013, past hx. chest pain-nothing current, tremors hands, heart murmur, esophageal spasms History of Any Multi-Drug Resistant Organisms: None Reported Past Surgical History: Prostate Surgery, Tonsillectomy Additional Past Surgical History / Comment(s): TURP, right thyroid lobectomy (), skin ca removed, SP cath placement Past Anesthesia/Blood Transfusion Reactions: No Reported Reaction Additional Past Anesthesia/Blood Transfusion Reaction / Comment(s): CLAUSTERPHOBIA Past Psychological History: Anxiety, Panic Disorder Smoking Status: Never smoker Past Alcohol Use History: None Reported Past Drug Use History: None Reported - Past Family History Brother(s) Family Medical History: Cancer Sister(s) Family Medical History: Hypertension Father Family Medical History: Hypertension Additional Family Medical History / Comment(s): PT STATED DAD AT AGE 89 COMPLICATIONS FROM MRSA INFECTION. Mother Family Medical History: Hypertension <Allan Melendez - Last Filed: 12/15/18 20:13> General Exam Limitations: no limitations General appearance: alert, in no apparent distress Head exam: Present: atraumatic, normocephalic, normal inspection Eye exam: Present: normal appearance, PERRL, EOMI. Absent: scleral icterus, conjunctival injection, periorbital swelling ENT exam: Present: normal exam, mucous membranes moist Neck exam: Present: normal inspection. Absent: tenderness, meningismus, lymphadenopathy Respiratory exam: Present: normal lung sounds bilaterally. Absent: respiratory distress, wheezes, rales, rhonchi, stridor Cardiovascular Exam: Present: regular rate, normal rhythm, normal heart sounds. Absent: systolic murmur, diastolic murmur, rubs, gallop, clicks GI/Abdominal exam: Present: soft, normal bowel sounds. Absent: distended, tenderness, guarding, rebound, rigid Extremities exam: Present: normal inspection, full ROM, normal capillary refill. Absent: tenderness, pedal edema, joint swelling, calf tenderness Back exam: Present: normal inspection Neurological exam: Present: alert, oriented X3, CN II-XII intact Psychiatric exam: Present: normal affect, normal mood Skin exam: Present: warm, dry, intact, normal color. Absent: rash <Allan Melendez - Last Filed: 12/15/18 20:13> Vital Signs 12/15/18 12/15/18 12/15/18 19:00 21:52 22:00 Temperature 99.2 F Pulse Rate 56 L 48 L 46 L Respiratory 18 Rate Blood Pressure 114/75 118/73 118/73 O2 Sat by Pulse 99 93 L 91 L Oximetry 12/15/18 12/15/18 12/15/18 22:30 23:00 23:30 Temperature Pulse Rate 47 L 46 L 53 L Respiratory Rate Blood Pressure 103/77 134/78 122/84 O2 Sat by Pulse 99 98 96 Oximetry 12/16/18 12/16/18 00:30 01:00 Temperature Pulse Rate 54 L Respiratory Rate Blood Pressure 117/79 126/74 O2 Sat by Pulse 92 L Oximetry Medical Decision Making - Lab Data Result diagrams: 12/15/18 19:25 12/15/18 19:25 - EKG Data -: EKG Interpreted by Me (EKG shows sinus recurred 50, OK 1:30, QRS 80, QTC 406) <Allan Melendez - Last Filed: 12/15/18 20:13> - Lab Data Result diagrams: 12/17/18 04:17 12/17/18 04:17 <Saumya Burton - Last Filed: 12/17/18 08:01> - Medical Decision Making Patient care was signed out to me by Dr. Juan Carlos Garza. Patient is a pleasantly demented 68-year-old male who had recent suprapubic tube placed to [facility], he subsequently had a slip and fall resulting in a lumbar wedge compression fracture. Patient has been in a assisted for 3 days but has been complaining of progressively worsening shortness of breath outpatient labs showed an elevated d-dimer cytosine to the ER for reevaluation. Patient again had an elevated d-dimer here though his troponin and BNP were not elevated he was not tachycardic or hypoxic. Patient's cardiac biomarkers were not elevated computed tomography scan did reveal segmental pulmonary embolism in all lobes. Patient care was discussed with Dr. Farrar of the pulmonary embolism response team [facility]. She recommended based on no elevation of BNP or troponin that the patient be adequately managed with high-dose heparin, she would not recommend intervention at this time. Decision was made to admit the patient to this hospital on high-dose heparin. (Saumya Burton) - Lab Data Lab Results 12/15/18 12/15/18 12/15/18 Range/Units 19:25 19:25 19:25 WBC 12.5 H (3.8-10.6) k/uL RBC 4.15 L (4.30-5.90) m/uL Hgb 13.2 (13.0-17.5) gm/dL Hct 38.6 L (39.0-53.0) % MCV 92.9 (80.0-100.0) fL MCH 31.9 (25.0-35.0) pg MCHC 34.3 (31.0-37.0) g/dL RDW 14.8 (11.5-15.5) % Plt Count 281 (150-450) k/uL Neutrophils % 82 % Lymphocytes % 8 % Monocytes % 6 % Eosinophils % 2 % Basophils % 1 % Neutrophils # 10.3 H (1.3-7.7) k/uL Lymphocytes # 1.0 (1.0-4.8) k/uL Monocytes # 0.8 (0-1.0) k/uL Eosinophils # 0.2 (0-0.7) k/uL Basophils # 0.1 (0-0.2) k/uL PT 13.2 H (9.0-12.0) sec INR 1.3 H (<1.2) APTT 26.7 (22.0-30.0) sec D-Dimer 27.36 H (<0.60) mg/L FEU Sodium 139 (137-145) mmol/L Potassium 5.3 H (3.5-5.1) mmol/L Chloride 106 (98-107) mmol/L Carbon Dioxide 27 (22-30) mmol/L Anion Gap 6 mmol/L BUN 24 H (9-20) mg/dL Creatinine 0.75 (0.66-1.25) mg/dL Est GFR (CKD-EPI)AfAm >90 (>60 ml/min/1.73 sqM) Est GFR (CKD-EPI)NonAf >90 (>60 ml/min/1.73 sqM) Glucose 84 (74-99) mg/dL Calcium 9.2 (8.4-10.2) mg/dL Magnesium 2.2 (1.6-2.3) mg/dL Total Bilirubin 1.0 (0.2-1.3) mg/dL AST 47 (17-59) U/L ALT 24 (21-72) U/L Alkaline Phosphatase 98 (38-126) U/L Troponin I (0.000-0.034) ng/mL NT-Pro-B Natriuret Pep pg/mL Total Protein 6.7 (6.3-8.2) g/dL Albumin 3.7 (3.5-5.0) g/dL Lipase 255 (23-300) U/L 12/15/18 12/15/18 Range/Units 19:25 19:25 WBC (3.8-10.6) k/uL RBC (4.30-5.90) m/uL Hgb (13.0-17.5) gm/dL Hct (39.0-53.0) % MCV (80.0-100.0) fL MCH (25.0-35.0) pg MCHC (31.0-37.0) g/dL RDW (11.5-15.5) % Plt Count (150-450) k/uL Neutrophils % % Lymphocytes % % Monocytes % % Eosinophils % % Basophils % % Neutrophils # (1.3-7.7) k/uL Lymphocytes # (1.0-4.8) k/uL Monocytes # (0-1.0) k/uL Eosinophils # (0-0.7) k/uL Basophils # (0-0.2) k/uL PT (9.0-12.0) sec INR (<1.2) APTT (22.0-30.0) sec D-Dimer (<0.60) mg/L FEU Sodium (137-145) mmol/L Potassium (3.5-5.1) mmol/L Chloride (98-107) mmol/L Carbon Dioxide (22-30) mmol/L Anion Gap mmol/L BUN (9-20) mg/dL Creatinine (0.66-1.25) mg/dL Est GFR (CKD-EPI)AfAm (>60 ml/min/1.73 sqM) Est GFR (CKD-EPI)NonAf (>60 ml/min/1.73 sqM) Glucose (74-99) mg/dL Calcium (8.4-10.2) mg/dL Magnesium (1.6-2.3) mg/dL Total Bilirubin (0.2-1.3) mg/dL AST (17-59) U/L ALT (21-72) U/L Alkaline Phosphatase (38-126) U/L Troponin I <0.012 (0.000-0.034) ng/mL NT-Pro-B Natriuret Pep 149 pg/mL Total Protein (6.3-8.2) g/dL Albumin (3.5-5.0) g/dL Lipase (23-300) U/L Disposition <Allan Melendez B - Last Filed: 12/15/18 20:13> <Saumya Burton P - Last Filed: 12/17/18 08:01> Clinical Impression: Pulmonary embolism Disposition: ADMITTED IP TO THIS HOSP
[2018-12-15 19:48] LABS: Basophils # (A) 0.1 k/uL (0-0.2); Basophils % (A) 1 %; Eosinophils # (A) 0.2 k/uL (0-0.7); Eosinophils % (A) 2 %; HCT 38.6 % (39.0-53.0); HGB 13.2 gm/dL (13.0-17.5); Lymphocytes % (A) 8 %; MCH 31.9 pg (25.0-35.0); MCHC 34.3 g/dL (31.0-37.0); MCV 92.9 fL (80.0-100.0); Mean Platelet Volume 7.7; Monocytes # (A) 0.8 k/uL (0-1.0); Monocytes % (A) 6 %; Neutrophils # (A) 10.3 k/uL (1.3-7.7); Neutrophils % (A) 82 %; Platelet Count 281 k/uL (150-450); RBC 4.15 m/uL (4.30-5.90); RDW 14.8 % (11.5-15.5); WBC 12.5 k/uL (3.8-10.6)
[2018-12-15 19:58] LABS: ALT 24 U/L (21-72); AST 47 U/L (17-59); Albumin 3.7 g/dL (3.5-5.0); Alkaline Phosphatase 98 U/L (38-126); Anion Gap 6 mmol/L; Blood Urea Nitrogen 24 mg/dL (9-20); Calcium 9.2 mg/dL (8.4-10.2); Carbon Dioxide 27 mmol/L (22-30); Chloride 106 mmol/L (98-107); Glucose 84 mg/dL (74-99); Lipase 255 U/L (23-300); Magnesium 2.2 mg/dL (1.6-2.3); Sodium 139 mmol/L (137-145); Total Protein 6.7 g/dL (6.3-8.2)
[2018-12-15 20:07] LABS: Potassium 5.3 mmol/L (3.5-5.1)
[2018-12-15 20:11] LABS: INR 1.3 (<1.2); Partial Thromboplastin Time 26.7 sec (22.0-30.0); Prothrombin Time 13.2 sec (9.0-12.0)
[2018-12-15 20:18] LABS: D-Dimer 27.36 mg/L FEU (<0.60)
--- NOTE | 2018-12-15 20:18 | XR ---
EXAMINATION TYPE: XR chest 2V DATE OF EXAM: 12/15/2018 COMPARISON: 12/03/2018 HISTORY: Short of breath TECHNIQUE: Frontal and lateral views of the chest are obtained. FINDINGS: There is no heart failure nor confluent pneumonic infiltrate. Costophrenic angles are bret r. There are chest leads. Bony thorax is intact. IMPRESSION: No active cardiopulmonary disease. No change. Minimal scarring at the left lung base unc hanged.
[2018-12-15] MEDS ORDERED: MORPHINE SULFATE 4 MG/ML SYRINGE IVP STA ×2 (21:21→21:22)
--- NOTE | 2018-12-15 22:58 | CT ---
EXAM: CT Angiography Chest With Intravenous Contrast CLINICAL HISTORY: ITS.REASON CT Reason: Pain TECHNIQUE: Axial computed tomographic angiography images of the chest with intravenous contrast using pulmonary embolism protocol. DLP is 399.2 mGy- cm. This CT exam was performed using one or more of the following dose reduction techniques: automated exposure control, adjustment of the mA and/or kV according to patient size, and/or use of iterative reconstruction technique. MIP reconstructed images were created and reviewed. COMPARISON: No relevant prior studies available. FINDINGS: Pulmonary arteries: There are segmental branch pulmonary emboli within all lobes. Overall clot burden is moderate. Aorta: No acute findings. No thoracic aortic aneurysm. Lungs: Mild basilar atelectasis.. Pleural space: Unremarkable. No significant effusion. No pneumothorax. Heart: Cardiomegaly and coronary atherosclerosis and trace pericardial effusion. Bones/joints: No acute fracture. No dislocation. Soft tissues: Slight reflux of contrast into the hepatic veins may indicate right heart strain. Right lobe hepatic cysts. Nonobstructing renal calculi. Left renal cortical scarring. Lymph nodes: Unremarkable. No enlarged lymph nodes. IMPRESSION: Segmental branch PE to all lobes. Overall clot burden is moderate. Hepatic venous reflux may indicate mild heart strain. CAD. <MYCVCSECTION> Critical Value Communications 12/15/18 23:00 Call Doctor Regarding Pulmonary Embolism, called Dr. Burton on 12/15 23:00 (-05:00)
[2018-12-15] MEDS ORDERED: HEPARIN SODIUM,PORCINE 5,000 UNIT/ML 1 ML VIAL IV PRN (23:01)
[2018-12-15] MEDS ORDERED: HEPARIN SODIUM,PORCINE 10,000 UNIT/ML 1 ML VIAL IV ONE (23:01)
[2018-12-15] MEDS ORDERED: NALOXONE 0.4 MG/ML 1 ML VIAL IV PRN (23:56)
[2018-12-15] MEDS: HEPARIN SOD,PORK IN 0.45% NACL 25,000 UNIT in 0.45% NACL 1 250ML.BAG IV SCH (23:58)
[2018-12-16 01:23] LABS: Glucose,Whole Blood 104 mg/dL (75-99)
[2018-12-16] MEDS: ACETAMINOPHEN TAB 325 MG TAB PO PRN ×2 (02:54→09:21)
[2018-12-16 05:23] LABS: Basophils % (A) 0 %; Eosinophils # (A) 0.2 k/uL (0-0.7); Eosinophils % (A) 2 %; HCT 37.8 % (39.0-53.0); HGB 12.2 gm/dL (13.0-17.5); Lymphocytes # (A) 1.6 k/uL (1.0-4.8); Lymphocytes % (A) 14 %; MCH 31.2 pg (25.0-35.0); MCHC 32.3 g/dL (31.0-37.0); MCV 96.6 fL (80.0-100.0); Monocytes # (A) 0.6 k/uL (0-1.0); Monocytes % (A) 6 %; Neutrophils # (A) 8.3 k/uL (1.3-7.7); Neutrophils % (A) 76 %; Platelet Count 248 k/uL (150-450); RBC 3.91 m/uL (4.30-5.90); RDW 15.1 % (11.5-15.5); WBC 10.8 k/uL (3.8-10.6)
[2018-12-16 05:42] LABS: Anion Gap 5 mmol/L; Blood Urea Nitrogen 19 mg/dL (9-20); Calcium 8.8 mg/dL (8.4-10.2); Carbon Dioxide 29 mmol/L (22-30); Chloride 106 mmol/L (98-107); Glucose 103 mg/dL (74-99); Potassium 3.9 mmol/L (3.5-5.1); Sodium 140 mmol/L (137-145)
[2018-12-16] MEDS: LEVOTHYROXINE 75 MCG TAB PO SCH (06:41)
[2018-12-16] MEDS: ALBUTEROL NEBULIZED 2.5 MG/3 ML INHALATION SCH ×4 (08:25→19:02)
[2018-12-16] MEDS ORDERED: PROPRANOLOL 20 MG TAB PO SCH (09:00)
[2018-12-16] MEDS: clonazePAM 0.5 MG TAB PO SCH ×2 (09:13→22:00)
[2018-12-16] MEDS: CEPHALEXIN 500 MG CAP PO SCH ×2 (09:13→21:59)
[2018-12-16] MEDS: AMANTADINE HCL 100 MG CAP PO SCH ×2 (09:13→21:59)
[2018-12-16 09:30] LABS: Glucose,Whole Blood 100 mg/dL (75-99)
[2018-12-16] MEDS: HYDROcodone/APAP 5-325MG 1 EACH TAB PO PRN (14:38)
[2018-12-16] MEDS: DEXTROSE 5%-0.9% NACL 1,000 ML IV SCH (14:39)
--- NOTE | 2018-12-16 15:05 | P.HPIM ---
History of Present Illness his is a pleasant 68 years old male with past medical history of skin cancer, coronary artery disease, GERD, hypertension, hypothyroidism, dizziness and fall compression of fracture, 3. She has been recently admitted to the hospital for altered mental status with workup was in revealing patient was transferred to [facility] for neurological evaluation. where pt was sent later on to [facility] Now presents because of dyspnea from [facility] , however pt could not elaborate more in the history. no family at bed side. Patient also has suprapubic Sanchez catheter. With few cc of urine in the bag. Patient currently denies chest pain he has mild tachypnea. No coughing no hemoptysis. No abdominal pain. No dizziness or headache. On admission patient was bradycardic, afebrile, blood pressure is controlled and he is saturating 98% on 2 L. His WBC 10.8 K, hemoglobin was 13.2 and 12.2. BMP was unremarkable. Liver enzymes not elevated and occult blood in the stool was negative. CT edge of the chest moderate clots present. Patient was started on heparin drip and admitted to the ICU. Review of Systems CONSTITUTIONAL: No fever, HEENT: No recent visual problems or hearing problems. PULMONARY: no cough, no hemoptysis. GASTROINTESTINAL: No diarrhea, no nausea, no vomiting, no abdominal pain. Normoactive bowel sounds. NEUROLOGICAL: No headaches, no weakness, no numbness. HEMATOLOGICAL: Denies any bleeding or petechiae. GENITOURINARY: Denies any burning micturition, frequency, or urgency. MUSCULOSKELETAL/RHEUMATOLOGICAL: Denies any joint pain, swelling, or any muscle pain. ENDOCRINE: Denies any polyuria or polydipsia. Past Medical History Past Medical History: Cancer, Chest Pain / Angina, Dementia, GERD/Reflux, Hypertension, Osteoarthritis (OA), Thyroid Disorder Additional Past Medical History / Comment(s): HX UTI W/ SEPSIS 2013, past hx. chest pain-nothing current, tremors hands, heart murmur, esophageal spasms History of Any Multi-Drug Resistant Organisms: None Reported Past Surgical History: Prostate Surgery, Tonsillectomy Additional Past Surgical History / Comment(s): TURP, right thyroid lobectomy (), skin ca removed, SP cath placement Past Anesthesia/Blood Transfusion Reactions: No Reported Reaction Additional Past Anesthesia/Blood Transfusion Reaction / Comment(s): CLAUSTERPHOBIA Past Psychological History: Anxiety, Panic Disorder Additional Psychological History / Comment(s): ANXIETY, PANIC ATTACKS Smoking Status: Never smoker Past Alcohol Use History: None Reported Additional Past Alcohol Use History / Comment(s): Patient is a lifelong nonsmoker. He denies any marijuana, street drug or alcohol use. 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 He lives at home with his .uses walker when up, cpap machine. He denies any service. Past Drug Use History: None Reported - Past Family History Brother(s) Family Medical History: Cancer Sister(s) Family Medical History: Hypertension Father Family Medical History: Hypertension Additional Family Medical History / Comment(s): PT STATED DAD AT AGE 89 COMPLICATIONS FROM MRSA INFECTION. Mother Family Medical History: Hypertension Medications and Allergies Home Medications Medication Instructions Recorded Confirmed Type RX: Citalopram Hydrobromide 20 mg PO DAILY 05/17/18 12/15/18 History [CeleXA] RX: Donepezil [Aricept] 10 mg PO HS 05/17/18 12/15/18 History RX: Levothyroxine Sodium 75 mcg PO DAILY 05/17/18 12/15/18 History [Synthroid] Amantadine HCl [Amantadine] 100 mg PO BID 12/01/18 12/15/18 History RX: Folic Acid 1 mg PO DAILY 12/01/18 12/15/18 History Acetaminophen Tab [Tylenol Tab] 650 mg PO Q6H PRN 12/15/18 12/15/18 History Albuterol Nebulized [Ventolin 2.5 mg INHALATION RT-QID 12/15/18 12/15/18 History Nebulized] Aspirin EC [Ecotrin Low Dose] 81 mg PO DAILY 12/15/18 12/15/18 History Cephalexin [Keflex] 500 mg PO BID@0800,2000 12/15/18 12/15/18 History Multivitamins, Thera [Multivitamin 1 tab PO DAILY 12/15/18 12/15/18 History (formulary)] Propranolol [Inderal] 20 mg PO BID 12/15/18 12/15/18 History RX: Atorvastatin [Lipitor] 40 mg PO HS 12/15/18 12/15/18 History cloZAPine [Clozaril] 150 mg PO HS 12/15/18 12/15/18 History clonazePAM [KlonoPIN] 0.5 mg PO BID 12/15/18 12/15/18 History Allergies Allergy/AdvReac Type Severity Reaction Status Date / Time levofloxacin AdvReac Unknown Verified 12/15/18 19:04 Physical Exam Vitals: Vital Signs Temp Pulse Resp BP Pulse Ox 12/16/18 12:00 98.6 F 53 L 14 141/81 98 12/16/18 10:00 48 L 10 L 143/84 92 L 12/16/18 08:38 56 L 12/16/18 08:27 52 L 12 97 12/16/18 08:00 97.8 F 47 L 12 110/73 97 12/16/18 04:00 98.1 F 47 L 12 125/75 98 12/16/18 02:00 46 L 12 125/75 99 12/16/18 01:30 98.1 F 51 L 14 125/70 98 12/16/18 01:00 126/74 12/16/18 00:30 54 L 117/79 92 L 12/15/18 23:30 53 L 122/84 96 12/15/18 23:00 46 L 134/78 98 12/15/18 22:30 47 L 103/77 99 12/15/18 22:00 46 L 118/73 91 L 12/15/18 21:52 48 L 118/73 93 L 12/15/18 19:00 99.2 F 56 L 18 114/75 99 Intake and Output 12/15/18 12/16/18 12/16/18 22:59 06:59 14:59 Intake Total 800.58 0 Output Total 700 Balance 100.58 0 Intake: IV 700 Sodium Chloride 0.9% 1, 700 000 ml @ 100 mls/hr IV . Q10H [facility] Rx#:[id number] Intake, IV Titration 100.58 0 Amount Heparin Sod,Pork in 0.45% 100.58 0 NaCl 25,000 unit In 0.45 % NaCl 1 250ml.bag @ 18 UNITS/KG/HR 16.81 mls/hr IV .[id number] [facility] Rx#: [id number] Output: Urine 700 Other: Voiding Method Indwelling Catheter Indwelling Catheter Weight 93.44 kg 92 kg 92 kg GENERAL: The patient is alert and oriented x3, not in any acute distress. Well developed, well nourished. HEENT: Pupils are round and equally reacting to light. EOMI. No scleral icterus. No conjunctival pallor. Normocephalic, atraumatic. No pharyngeal erythema. No thyromegaly. CARDIOVASCULAR: S1 and S2 present. No murmurs, rubs, or gallops. PULMONARY: Chest is clear to auscultation, no wheezing or crackles. ABDOMEN: Soft, nontender, nondistended, normoactive bowel sounds. No palpable organomegaly. Suprapubic catheter. MUSCULOSKELETAL: No joint swelling or deformity. EXTREMITIES: No cyanosis, clubbing, or pedal edema. NEUROLOGICAL: Gross neurological examination did not reveal any focal deficits. SKIN: No rashes. Results CBC & Chem 7: 12/16/18 04:48 12/16/18 04:48 Labs: Abnormal Lab Results - Last 24 Hours (Table) 12/15/18 12/15/18 12/15/18 Range/Units 19:25 19:25 19:25 WBC 12.5 H (3.8-10.6) k/uL RBC 4.15 L (4.30-5.90) m/uL Hgb (13.0-17.5) gm/dL Hct 38.6 L (39.0-53.0) % Neutrophils # 10.3 H (1.3-7.7) k/uL PT 13.2 H (9.0-12.0) sec INR 1.3 H (<1.2) APTT (22.0-30.0) sec D-Dimer 27.36 H (<0.60) mg/L FEU Potassium 5.3 H (3.5-5.1) mmol/L BUN 24 H (9-20) mg/dL Glucose (74-99) mg/dL POC Glucose (mg/dL) (75-99) mg/dL 12/16/18 12/16/18 12/16/18 Range/Units 01:18 04:48 04:48 WBC 10.8 H (3.8-10.6) k/uL RBC 3.91 L (4.30-5.90) m/uL Hgb 12.2 L (13.0-17.5) gm/dL Hct 37.8 L (39.0-53.0) % Neutrophils # 8.3 H (1.3-7.7) k/uL PT (9.0-12.0) sec INR (<1.2) APTT >200.0 H* (22.0-30.0) sec D-Dimer (<0.60) mg/L FEU Potassium (3.5-5.1) mmol/L BUN (9-20) mg/dL Glucose (74-99) mg/dL POC Glucose (mg/dL) 104 H (75-99) mg/dL 12/16/18 12/16/18 Range/Units 04:48 09:16 WBC (3.8-10.6) k/uL RBC (4.30-5.90) m/uL Hgb (13.0-17.5) gm/dL Hct (39.0-53.0) % Neutrophils # (1.3-7.7) k/uL PT (9.0-12.0) sec INR (<1.2) APTT (22.0-30.0) sec D-Dimer (<0.60) mg/L FEU Potassium (3.5-5.1) mmol/L BUN (9-20) mg/dL Glucose 103 H (74-99) mg/dL POC Glucose (mg/dL) 100 H (75-99) mg/dL Thrombosis Risk Factor Assmnt - Choose All That Apply Any of the Below Risk Factors Present?: Yes Each Risk Factor Represents 2 Points: Age 61-74 years Each Risk Factor Represents 3 Points: History of DVT/PE Thrombosis Risk Factor Assessment Total Risk Factor Score: 5 Thrombosis Risk Factor Assessment Level: High Risk Assessment and Plan Assessment: Bilateral pulmonary embolism in all lobes with moderate clot burden. Patient was started on heparin drip and sent to the ICU History of essential tremor History of obstructive uropathy, status post suprapubic catheter h/o Fall, mechanical Lower back and head trauma Mild compression of fracture of L3. Using a brace with embolization Degenerative joint disease History of skin cancer History of GERD Essential hypertension Hyperlipidemia Dementia History of myoclonic jerks since 2013 as per Plan: This is a pleasant 68 years old male who presents with bilateral PE. Patient was started on heparin drip and we will continue with that. Patient was admitted to the intensive care unit for further monitoring and management. Hemoglobin is stable and Vitas looks stable. Patient heart rate was on the low side. We will lower his propranolol does from 20 mg twice a day to 10 mg 3 times a day with hold per meters. Labs and medication were reviewed.. Continue same treatment. Continue with symptomatic treatment. Resume home medication. Monitor lytes and vitals. DVT and GI prophylaxis. Further recommendations of the clinical course of the patient DVT prophylaxis: heparin GI Prophylaxis: Pepcid Prognosis is guarded
[2018-12-16] MEDS: PROPRANOLOL 10 MG TAB PO SCH ×2 (15:55→22:09)
[2018-12-16] MEDS: HEPARIN SOD,PORK IN 0.45% NACL 25,000 UNIT in 0.45% NACL 1 250ML.BAG IV SCH (18:01)
[2018-12-16] MEDS: ATORVASTATIN 40 MG TAB PO SCH (21:59)
[2018-12-16] MEDS: FAMOTIDINE 20 MG/2 ML VIAL IV SCH (22:00)
[2018-12-16] MEDS: DONEPEZIL 10 MG TAB PO SCH (22:09)
[2018-12-17 04:53] LABS: Basophils % (A) 1 %; Eosinophils # (A) 0.1 k/uL (0-0.7); Eosinophils % (A) 1 %; HCT 35.8 % (39.0-53.0); HGB 11.9 gm/dL (13.0-17.5); Lymphocytes # (A) 1.1 k/uL (1.0-4.8); Lymphocytes % (A) 14 %; MCH 31.4 pg (25.0-35.0); MCHC 33.2 g/dL (31.0-37.0); MCV 94.6 fL (80.0-100.0); Mean Platelet Volume 7.3; Monocytes # (A) 0.6 k/uL (0-1.0); Monocytes % (A) 7 %; Neutrophils # (A) 6.2 k/uL (1.3-7.7); Neutrophils % (A) 75 %; Platelet Count 248 k/uL (150-450); RBC 3.79 m/uL (4.30-5.90); WBC 8.2 k/uL (3.8-10.6)
[2018-12-17 05:03] LABS: INR 1.3 (<1.2); Partial Thromboplastin Time 72.1 sec (22.0-30.0); Prothrombin Time 13.2 sec (9.0-12.0)
[2018-12-17 05:07] LABS: ALT 26 U/L (21-72); AST 18 U/L (17-59); Albumin 3.1 g/dL (3.5-5.0); Alkaline Phosphatase 102 U/L (38-126); Anion Gap 2 mmol/L; Blood Urea Nitrogen 15 mg/dL (9-20); Calcium 8.5 mg/dL (8.4-10.2); Carbon Dioxide 29 mmol/L (22-30); Chloride 112 mmol/L (98-107); Glucose 95 mg/dL (74-99); Magnesium 2.1 mg/dL (1.6-2.3); Potassium 3.9 mmol/L (3.5-5.1); Sodium 143 mmol/L (137-145); Total Bilirubin 0.6 mg/dL (0.2-1.3); Total Protein 5.6 g/dL (6.3-8.2)
[2018-12-17] MEDS: HEPARIN SOD,PORK IN 0.45% NACL 25,000 UNIT in 0.45% NACL 1 250ML.BAG IV SCH ×2 (05:52→20:43)
[2018-12-17] MEDS: LEVOTHYROXINE 75 MCG TAB PO SCH (05:52)
[2018-12-17] MEDS: DEXTROSE 5%-0.9% NACL 1,000 ML IV SCH ×2 (05:58→21:48)
[2018-12-17] MEDS: ALBUTEROL NEBULIZED 2.5 MG/3 ML INHALATION SCH ×4 (07:38→19:29)
[2018-12-17] MEDS: CEPHALEXIN 500 MG CAP PO SCH ×2 (09:03→20:31)
[2018-12-17] MEDS: AMANTADINE HCL 100 MG CAP PO SCH ×2 (09:03→20:31)
[2018-12-17] MEDS: clonazePAM 0.5 MG TAB PO SCH ×2 (09:03→20:42)
[2018-12-17] MEDS: FAMOTIDINE 20 MG/2 ML VIAL IV SCH (09:03)
[2018-12-17] MEDS: PROPRANOLOL 10 MG TAB PO SCH ×2 (09:04→20:36)
[2018-12-17] MEDS: HYDROcodone/APAP 5-325MG 1 EACH TAB PO PRN ×2 (09:04→17:00)
[2018-12-17] MEDS: MORPHINE SULFATE 2 MG/ML SYRINGE IVP PRN ×2 (12:41→20:25)
--- NOTE | 2018-12-17 16:11 | P.PN ---
Subjective his is a pleasant 68 years old male with past medical history of skin cancer, coronary artery disease, GERD, hypertension, hypothyroidism, dizziness and fall compression of fracture, 3. She has been recently admitted to the hospital for altered mental status with workup was in revealing patient was transferred to [facility] for neurological evaluation. where pt was sent later on to [facility] Now presents because of dyspnea from [facility] , however pt could not elaborate more in the history. no family at bed side. Patient also has suprapubic Sanchez catheter. With few cc of urine in the bag. Patient currently denies chest pain he has mild tachypnea. No coughing no hemoptysis. No abdominal pain. No dizziness or headache. On admission patient was bradycardic, afebrile, blood pressure is controlled and he is saturating 98% on 2 L. His WBC 10.8 K, hemoglobin was 13.2 and 12.2. BMP was unremarkable. Liver enzymes not elevated and occult blood in the stool was negative. CT edge of the chest moderate clots present. Patient was started on heparin drip and admitted to the ICU. 12/17/2018 Patient remains in the ICU, is fully awake and our intent, however he lists lethargic. Patient feels and well without specification. He has ongoing pain in his lower back from her recent compression of fracture the best continue. He has loss of appetite which has been going on for 1 or 2 weeks. No chest pain or dyspnea. No bleeding. No headache. No abdominal pain or nausea vomiting. He has suprapubic Sanchez with a decreased urine output, increase his normal saline from 50 200 mL per hour. Morphine is been added for his back pain. Patient should use his brace whenever out of bed. Also will check bladder scan. His little tachycardic and blood pressure low-normal. We will lower his Inderal for his tremor from 10 mg 3 times a day to every 12 hours. Review of systems CONSTITUTIONAL: No fever, no malaise, no fatigue. HEENT: No recent visual problems or hearing problems. Denied any sore throat. CARDIOVASCULAR: No orthopnea, PND, no palpitations, no syncope. PULMONARY: No shortness of breath, no cough, no hemoptysis. GASTROINTESTINAL: No diarrhea, no nausea, no vomiting, no abdominal pain. Normoactive bowel sounds. NEUROLOGICAL: No headaches, no weakness, no numbness. HEMATOLOGICAL: Denies any bleeding or petechiae. GENITOURINARY: Denies any burning micturition, frequency, or urgency. MUSCULOSKELETAL/RHEUMATOLOGICAL: Denies any joint pain, swelling, or any muscle pain. ENDOCRINE: Denies any polyuria or polydipsia. Medication: Tylenol, of Detrol, amantadine, Lipitor, Keflex, clonidine, Aricept , Pepcid, heparin, [place] 02/20/2025, Synthroid, morphine, Narcan, Inderal. Objective - Vital Signs Vital signs: Vital Signs Temp 98.3 F 12/17/18 12:00 Pulse 49 L 12/17/18 15:33 Resp 77 H 12/17/18 12:00 BP 119/86 12/17/18 12:00 Pulse Ox 98 12/17/18 12:00 Intake & Output 12/16/18 12/17/18 12/17/18 18:59 06:59 18:59 Intake Total 1197.215 718.564 400 Output Total 450 660 200 Balance 747.215 58.564 200 Weight 92 kg 93.5 kg Intake: IV 950 600 400 Dextrose 5%-0.9% NaCl 1, 50 600 400 000 ml @ 50 mls/hr IV . Q20H [facility] Rx#:[id number] Sodium Chloride 0.9% 1, 900 000 ml @ 100 mls/hr IV . Q10H [facility] Rx#:[id number] Intake, IV Titration 127.215 118.564 Amount Heparin Sod,Pork in 0.45% 127.215 118.564 NaCl 25,000 unit In 0.45 % NaCl 1 250ml.bag @ 18 UNITS/KG/HR 16.81 mls/hr IV .[id number] [facility] Rx#: [id number] Oral 120 Output: Urine 450 660 200 Other: Voiding Method Indwelling Catheter Indwelling Catheter Indwelling Catheter - Exam GENERAL: The patient is alert and oriented x3, not in any acute distress. Well developed, well nourished. HEENT: Pupils are round and equally reacting to light. EOMI. No scleral icterus. No conjunctival pallor. Normocephalic, atraumatic. No pharyngeal erythema. No thyromegaly. CARDIOVASCULAR: S1 and S2 present. No murmurs, rubs, or gallops. PULMONARY: Chest is clear to auscultation, no wheezing or crackles. ABDOMEN: Soft, nontender, nondistended, normoactive bowel sounds. No palpable organomegaly. Suprapubic catheter. MUSCULOSKELETAL: No joint swelling or deformity. EXTREMITIES: No cyanosis, clubbing, or pedal edema. NEUROLOGICAL: Gross neurological examination did not reveal any focal deficits. SKIN: No rashes. - Labs CBC & Chem 7: 12/17/18 04:17 12/17/18 04:17 Labs: Abnormal Lab Results - Last 24 Hours (Table) 12/16/18 12/17/18 12/17/18 Range/Units 21:43 04:17 04:17 RBC 3.79 L (4.30-5.90) m/uL Hgb 11.9 L (13.0-17.5) gm/dL Hct 35.8 L (39.0-53.0) % PT (9.0-12.0) sec INR (<1.2) APTT 89.2 H (22.0-30.0) sec Chloride 112 H (98-107) mmol/L Total Protein 5.6 L (6.3-8.2) g/dL Albumin 3.1 L (3.5-5.0) g/dL 12/17/18 Range/Units 04:17 RBC (4.30-5.90) m/uL Hgb (13.0-17.5) gm/dL Hct (39.0-53.0) % PT 13.2 H (9.0-12.0) sec INR 1.3 H (<1.2) APTT 72.1 H (22.0-30.0) sec Chloride (98-107) mmol/L Total Protein (6.3-8.2) g/dL Albumin (3.5-5.0) g/dL Assessment and Plan Assessment: Bilateral pulmonary embolism in all lobes with moderate clot burden. Patient was started on heparin drip and sent to the ICU History of essential tremor History of obstructive uropathy, status post suprapubic catheter h/o Fall, mechanical Lower back and head trauma Mild compression of fracture of L3. Using a brace with embolization Degenerative joint disease History of skin cancer History of GERD Essential hypertension Hyperlipidemia Dementia History of myoclonic jerks since 2013 as per Plan: This is a pleasant 68 years old male who presents with bilateral PE. Patient was started on heparin drip and we will continue with that. Patient was admitted to the intensive care unit for further monitoring and management. Hemoglobin is stable and Vitas looks stable. Patient heart rate was on the low side. We will lower his propranolol does from 20 mg twice a day to 10 mg 3 times a day with hold per meters. Labs and medication were reviewed.. Continue same treatment. Continue with symptomatic treatment. Resume home medication. Monitor lytes and vitals. DVT and GI prophylaxis. Further recommendations of the clinical course of the patient DVT prophylaxis: heparin GI Prophylaxis: Pepcid Prognosis is guarded
[2018-12-17] MEDS: ATORVASTATIN 40 MG TAB PO SCH (20:31)
[2018-12-17] MEDS: FAMOTIDINE 20 MG TAB PO SCH (20:31)
[2018-12-17] MEDS: DONEPEZIL 10 MG TAB PO SCH (20:31)
[2018-12-18] MEDS: MORPHINE SULFATE 2 MG/ML SYRINGE IVP PRN ×3 (03:35→21:33)
[2018-12-18] MEDS: DEXTROSE 5%-0.9% NACL 1,000 ML IV SCH (04:30)
[2018-12-18] MEDS: LEVOTHYROXINE 75 MCG TAB PO SCH (05:33)
[2018-12-18] MEDS: HYDROcodone/APAP 5-325MG 1 EACH TAB PO PRN ×2 (05:33→11:58)
[2018-12-18 06:04] LABS: Basophils % (A) 1 %; Eosinophils # (A) 0.1 k/uL (0-0.7); Eosinophils % (A) 2 %; HCT 33.9 % (39.0-53.0); Lymphocytes # (A) 0.9 k/uL (1.0-4.8); Lymphocytes % (A) 12 %; MCH 31.1 pg (25.0-35.0); MCHC 32.5 g/dL (31.0-37.0); MCV 95.7 fL (80.0-100.0); Mean Platelet Volume 6.8; Monocytes # (A) 0.5 k/uL (0-1.0); Monocytes % (A) 7 %; Neutrophils # (A) 5.7 k/uL (1.3-7.7); Neutrophils % (A) 77 %; Platelet Count 243 k/uL (150-450); RBC 3.54 m/uL (4.30-5.90); RDW 15.1 % (11.5-15.5); WBC 7.4 k/uL (3.8-10.6)
[2018-12-18 06:10] LABS: Anion Gap 4 mmol/L; Blood Urea Nitrogen 13 mg/dL (9-20); Calcium 8.4 mg/dL (8.4-10.2); Carbon Dioxide 27 mmol/L (22-30); Chloride 110 mmol/L (98-107); Glucose 107 mg/dL (74-99); Potassium 3.8 mmol/L (3.5-5.1); Sodium 141 mmol/L (137-145)
[2018-12-18] MEDS: ALBUTEROL NEBULIZED 2.5 MG/3 ML INHALATION SCH ×4 (09:22→20:33)
[2018-12-18] MEDS: PROPRANOLOL 10 MG TAB PO SCH ×2 (09:53→21:21)
[2018-12-18] MEDS: FAMOTIDINE 20 MG TAB PO SCH ×2 (09:54→21:29)
[2018-12-18] MEDS: AMANTADINE HCL 100 MG CAP PO SCH ×2 (09:54→21:29)
[2018-12-18] MEDS: clonazePAM 0.5 MG TAB PO SCH ×2 (09:54→21:29)
[2018-12-18] MEDS: CEPHALEXIN 500 MG CAP PO SCH ×2 (09:54→21:29)
[2018-12-18] MEDS ORDERED: Potassium Replacement Protocol 1 EACH MISC MISCELLANE PRN (16:10)
--- NOTE | 2018-12-18 16:19 | XR ---
EXAMINATION TYPE: XR chest 1V portable DATE OF EXAM: 12/18/2018 COMPARISON: Prior chest x-ray 12/15/2018 HISTORY: Worsening shortness of breath and pulmonary emboli TECHNIQUE: Single frontal view of the chest is obtained. FINDINGS: There may be a spinal curvature. There are cardiac leads. Heart size is stable and enlarge d. No evident airspace disease, pneumothorax, or pleural effusion. Aorta is dense and aneurysmal. IMPRESSION: There is cardiomegaly.
--- NOTE | 2018-12-18 16:29 | P.PN ---
Subjective his is a pleasant 68 years old male with past medical history of skin cancer, coronary artery disease, GERD, hypertension, hypothyroidism, dizziness and fall compression of fracture, 3. She has been recently admitted to the hospital for altered mental status with workup was in revealing patient was transferred to [facility] for neurological evaluation. where pt was sent later on to [facility] Now presents because of dyspnea from [facility] , however pt could not elaborate more in the history. no family at bed side. Patient also has suprapubic Sanchez catheter. With few cc of urine in the bag. Patient currently denies chest pain he has mild tachypnea. No coughing no hemoptysis. No abdominal pain. No dizziness or headache. On admission patient was bradycardic, afebrile, blood pressure is controlled and he is saturating 98% on 2 L. His WBC 10.8 K, hemoglobin was 13.2 and 12.2. BMP was unremarkable. Liver enzymes not elevated and occult blood in the stool was negative. CT edge of the chest moderate clots present. Patient was started on heparin drip and admitted to the ICU. 12/17/2018 Patient remains in the ICU, is fully awake and our intent, however he lists lethargic. Patient feels and well without specification. He has ongoing pain in his lower back from her recent compression of fracture the best continue. He has loss of appetite which has been going on for 1 or 2 weeks. No chest pain or dyspnea. No bleeding. No headache. No abdominal pain or nausea vomiting. He has suprapubic Sanchez with a decreased urine output, increase his normal saline from 50 200 mL per hour. Morphine is been added for his back pain. Patient should use his brace whenever out of bed. Also will check bladder scan. His little tachycardic and blood pressure low-normal. We will lower his Inderal for his tremor from 10 mg 3 times a day to every 12 hours. 12/18/2018 Patient looks lethargic and depressed, he looks withdrawn and does not want to participate in March activities. He feels a Place. And he refusing to eat. Patient also has some chest discomfort in the middle which is mild nonradiating. His urine output is good today. He still complaining of from his back pain at the pressure site, brace at bedside. Physical therapy evaluated the patient yesterday and recommended subacute rehab upon discharge. No leukocytosis and hemoglobin is stable. Creatinine is within normal limits as well as electrolytes. Repeat chest x-ray shows no acute event. Patient still have a little bit dyspnea mostly related to his pulmonary embolism. However we will do serial troponins and EKG as patient still bradycardic while his Inderal is on hold. No much tremor in his hand which is why he was getting the Inderal for, his heart rate is in 40s. Also going to ask for psychiatrist to evaluate the patient, usually he sees Dr. Ramsey who is a psychiatrist. Lidocaine patch for his back pain. Review of systems CONSTITUTIONAL: No fever, no malaise, no fatigue. HEENT: No recent visual problems or hearing problems. Denied any sore throat. CARDIOVASCULAR: No orthopnea, PND, no palpitations, no syncope. PULMONARY: , no hemoptysis. GASTROINTESTINAL: No diarrhea, no nausea, no vomiting, no abdominal pain. Normoactive bowel sounds. NEUROLOGICAL: No headaches, no weakness, no numbness. HEMATOLOGICAL: Denies any bleeding or petechiae. GENITOURINARY: Denies any burning micturition, frequency, or urgency. MUSCULOSKELETAL/RHEUMATOLOGICAL: Denies any joint pain, swelling, or any muscle pain. ENDOCRINE: Denies any polyuria or polydipsia. Medication: Tylenol, of Detrol, amantadine, Lipitor, Keflex, clonidine, Aricept , Pepcid, heparin, [place] 02/20/2025, Synthroid, morphine, Narcan, Inderal. Objective - Vital Signs Vital signs: Vital Signs Temp 98.3 F 12/18/18 12:00 Pulse 48 L 12/18/18 12:00 Resp 10 L 12/18/18 12:00 BP 144/70 12/18/18 12:00 Pulse Ox 98 12/18/18 12:00 Intake & Output 12/17/18 12/18/18 12/18/18 18:59 06:59 18:59 Intake Total 1000 1088.699 525 Output Total 400 770 125 Balance 600 318.699 400 Weight 95.5 kg Intake: IV 1000 950 400 Dextrose 5%-0.9% NaCl 1, 1000 950 400 000 ml @ 50 mls/hr IV . Q20H [facility] Rx#:[id number] Intake, IV Titration 138.699 Amount Heparin Sod,Pork in 0.45% 138.699 NaCl 25,000 unit In 0.45 % NaCl 1 250ml.bag @ 18 UNITS/KG/HR 16.81 mls/hr IV .[id number] [facility] Rx#: [id number] Oral 125 Output: Urine 400 770 125 Other: Voiding Method Indwelling Catheter Indwelling Catheter Indwelling Catheter - Exam GENERAL: The patient is alert and oriented x3, not in any acute distress. Well developed, well nourished. HEENT: Pupils are round and equally reacting to light. EOMI. No scleral icterus. No conjunctival pallor. Normocephalic, atraumatic. No pharyngeal erythema. No thyromegaly. CARDIOVASCULAR: S1 and S2 present. No murmurs, rubs, or gallops. PULMONARY: Chest is clear to auscultation, no wheezing or crackles. ABDOMEN: Soft, nontender, nondistended, normoactive bowel sounds. No palpable organomegaly. Suprapubic catheter. MUSCULOSKELETAL: No joint swelling or deformity. EXTREMITIES: No cyanosis, clubbing, or pedal edema. NEUROLOGICAL: Gross neurological examination did not reveal any focal deficits. SKIN: No rashes. - Labs CBC & Chem 7: 12/18/18 05:26 12/18/18 05:26 Labs: Abnormal Lab Results - Last 24 Hours (Table) 12/18/18 12/18/18 12/18/18 Range/Units 05:26 05:26 05:26 RBC 3.54 L (4.30-5.90) m/uL Hgb 11.0 L (13.0-17.5) gm/dL Hct 33.9 L (39.0-53.0) % Lymphocytes # 0.9 L (1.0-4.8) k/uL APTT 56.8 H (22.0-30.0) sec Chloride 110 H (98-107) mmol/L Glucose 107 H (74-99) mg/dL Assessment and Plan Assessment: Bilateral pulmonary embolism in all lobes with moderate clot burden. Patient was started on heparin drip and sent to the ICU Depression associated with decreased appetite Bradycardia Chest pain, we'll do serial troponins and EKG Generalized weakness History of essential tremor History of obstructive uropathy, status post suprapubic catheter h/o Fall, mechanical Lower back and head trauma Mild compression of fracture of L3. Using a brace with mobilization Degenerative joint disease History of skin cancer History of GERD Essential hypertension Hyperlipidemia Dementia History of myoclonic jerks since 2013 as per Plan: This is a pleasant 68 years old male who presents with bilateral PE. Patient was started on heparin drip and we will continue with that. Patient was admitted to the intensive care unit for further monitoring and management. Hemoglobin is stable and Vitas looks stable. Will call hematology consult for further recommendation. Patient heart rate was on the low side. We'll discharge her troponins and EKG. Propranolol on hold. Patient will need psychiatrist evaluation for his depression. Repeat chest x-ray no active issue.Labs and medication were reviewed.. Continue same treatment. Continue with symptomatic treatment. Resume home medication. Monitor lytes and vitals. DVT and GI prophylaxis. Further recommendations of the clinical course of the patient DVT prophylaxis: heparin GI Prophylaxis: Pepcid Prognosis is guarded, at bedside
[2018-12-18] MEDS ORDERED: POTASSIUM CHLORIDE ER 20 MEQ TAB.ER PO SCH (17:00)
[2018-12-18] MEDS: DONEPEZIL 10 MG TAB PO SCH (21:29)
[2018-12-18] MEDS: ATORVASTATIN 40 MG TAB PO SCH (21:29)
[2018-12-19] MEDS: DEXTROSE 5%-0.9% NACL 1,000 ML IV SCH (00:35)
[2018-12-19] MEDS: HEPARIN SOD,PORK IN 0.45% NACL 25,000 UNIT in 0.45% NACL 1 250ML.BAG IV SCH ×3 (03:56→20:52)
[2018-12-19 05:21] LABS: Basophils # (A) 0.1 k/uL (0-0.2); Basophils % (A) 1 %; Eosinophils # (A) 0.1 k/uL (0-0.7); Eosinophils % (A) 1 %; HCT 34.8 % (39.0-53.0); HGB 11.3 gm/dL (13.0-17.5); Lymphocytes # (A) 0.9 k/uL (1.0-4.8); Lymphocytes % (A) 11 %; MCH 30.7 pg (25.0-35.0); MCHC 32.5 g/dL (31.0-37.0); MCV 94.4 fL (80.0-100.0); Monocytes # (A) 0.5 k/uL (0-1.0); Monocytes % (A) 7 %; Neutrophils # (A) 6.1 k/uL (1.3-7.7); Neutrophils % (A) 79 %; Platelet Count 220 k/uL (150-450); RBC 3.69 m/uL (4.30-5.90); RDW 14.9 % (11.5-15.5); WBC 7.7 k/uL (3.8-10.6)
[2018-12-19] MEDS: MORPHINE SULFATE 2 MG/ML SYRINGE IVP PRN (05:39)
[2018-12-19] MEDS: LEVOTHYROXINE 75 MCG TAB PO SCH (05:39)
[2018-12-19 05:49] LABS: Anion Gap 3 mmol/L; Blood Urea Nitrogen 8 mg/dL (9-20); Calcium 8.8 mg/dL (8.4-10.2); Carbon Dioxide 28 mmol/L (22-30); Chloride 112 mmol/L (98-107); Glucose 100 mg/dL (74-99); Potassium 3.9 mmol/L (3.5-5.1); Sodium 143 mmol/L (137-145)
[2018-12-19] MEDS ORDERED: POTASSIUM CHLORIDE ER 20 MEQ TAB.ER PO SCH (06:00)
[2018-12-19] MEDS: ALBUTEROL NEBULIZED 2.5 MG/3 ML INHALATION SCH ×4 (07:18→20:00)
[2018-12-19] MEDS: AMANTADINE HCL 100 MG CAP PO SCH ×2 (09:49→21:07)
[2018-12-19] MEDS: clonazePAM 0.5 MG TAB PO SCH ×2 (09:49→21:07)
[2018-12-19] MEDS: LIDOCAINE 5% PATCH TOPICAL SCH (12:26)
[2018-12-19] MEDS: PROPRANOLOL 10 MG TAB PO SCH ×2 (12:26→21:07)
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
[2018-12-19] MEDS: FAMOTIDINE 20 MG TAB PO SCH ×2 (14:51→21:07)
[2018-12-19] MEDS: CEPHALEXIN 500 MG CAP PO SCH ×2 (14:51→21:07)
[2018-12-19] MEDS: MEGESTROL 40 MG TAB PO SCH ×3 (14:51→21:08)
[2018-12-19] MEDS: HYDROcodone/APAP 5-325MG 1 EACH TAB PO PRN (15:01)
--- NOTE | 2018-12-19 16:04 | P.CNPUL ---
History of Present Illness Consult date: 12/19/18 Requesting physician: Cinthia Choudhury Reason for consult: dyspnea Chief complaint: Shortness of breath, subsegmental emboli History of present illness: This is a 68-year-old white male patient with past medical history of hypertension, hypothyroidism, GERD/reflux, dementia, CAD, who was recently hospitalized for altered mental status, a fall sustaining a compression fractures of the lumbar spine, patient was subsequently transferred to [facility] for neurological evaluation. Patient was discharged to [facility] 6 days ago. Patient was brought into the emergency department on 12/15/2018 with complaints of shortness of breath. Denies any chest pain, denied any hemoptysis, denied lightheadedness or dizziness, no syncopal episodes. CT angios of the chest was completed, and showed segmental branch pulmonary emboli within all lobes, moderate clot burden, hepatic venous reflux that could indicate mild heart strain. Clinically patient maintaining his oxygenation on room air, no tachycardia, no distress. He was started on IV heparin. he states she is mildly dyspneic, but in no acute distress. Patient was transferred to the intensive care unit today, he is seen in evaluation. He is resting quietly in bed, he is oriented 3. He states he is short of breath without exertion, but no acute distress, no use of a accessory muscles of breathing, he is currently on room air with a pulse ox of 98%, normotensive, he is in sinus bradycardia with a rate of 57 BPM on the monitor, denies any chest pain, lung sounds are clear, diminished at the bases, no rhonchi, no wheezing. He is on heparin drip per weight-based protocol. Patient is a suprapubic catheter in place for history of obstructive uropathy. Today's labs have been reviewed, there is no leukocytosis, hemoglobin is 11.3, sodium is 143, potassium is 3.9, chloride is 112, CO2 is 28, BUN is 8, creatinine 0.70, troponin is negative. ProBNP was within normal limits on admission at 149. Patient appears to be withdrawn, he is being followed by psychiatric services in regards to depression Review of Systems All systems: negative Constitutional: Reports poor appetite, Denies chills, Denies fever Eyes: denies blurred vision, denies pain Ears, nose, mouth and throat: Denies headache, Denies sore throat Cardiovascular: Denies chest pain, Denies shortness of breath Respiratory: Reports dyspnea, Denies cough Gastrointestinal: Denies abdominal pain, Denies diarrhea, Denies nausea, Denies vomiting Musculoskeletal: Reports frequent falls, Denies myalgias Integumentary: Denies pruritus, Denies rash Neurological: Denies numbness, Denies weakness Psychiatric: Denies anxiety, Denies depression Endocrine: Denies fatigue, Denies weight change Past Medical History Past Medical History: Cancer, Chest Pain / Angina, Dementia, GERD/Reflux, Hypertension, Osteoarthritis (OA), Thyroid Disorder Additional Past Medical History / Comment(s): HX UTI W/ SEPSIS 2013, past hx. chest pain-nothing current, tremors hands, heart murmur, esophageal spasms History of Any Multi-Drug Resistant Organisms: None Reported Past Surgical History: Prostate Surgery, Tonsillectomy Additional Past Surgical History / Comment(s): TURP, right thyroid lobectomy (), skin ca removed, SP cath placement Past Anesthesia/Blood Transfusion Reactions: No Reported Reaction Additional Past Anesthesia/Blood Transfusion Reaction / Comment(s): CLAUSTERPHOBIA Past Psychological History: Anxiety, Panic Disorder Additional Psychological History / Comment(s): ANXIETY, PANIC ATTACKS Smoking Status: Never smoker Past Alcohol Use History: None Reported Additional Past Alcohol Use History / Comment(s): Patient is a lifelong nonsmoker. He denies any marijuana, street drug or alcohol use. 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 He lives at home with his .uses walker when up, cpap machine. He denies any service. Past Drug Use History: None Reported - Past Family History Brother(s) Family Medical History: Cancer Sister(s) Family Medical History: Hypertension Father Family Medical History: Hypertension Additional Family Medical History / Comment(s): PT STATED DAD AT AGE 89 COMPLICATIONS FROM MRSA INFECTION. Mother Family Medical History: Hypertension Medications and Allergies Home Medications Medication Instructions Recorded Confirmed Type Citalopram Hydrobromide [CeleXA] 20 mg PO DAILY 05/17/18 12/15/18 History Donepezil [Aricept] 10 mg PO HS 05/17/18 12/15/18 History Levothyroxine Sodium [Synthroid] 75 mcg PO DAILY 05/17/18 12/15/18 History Amantadine HCl [Amantadine] 100 mg PO BID 12/01/18 12/15/18 History Folic Acid 1 mg PO DAILY 12/01/18 12/15/18 History Acetaminophen Tab [Tylenol Tab] 650 mg PO Q6H PRN 12/15/18 12/15/18 History Albuterol Nebulized [Ventolin 2.5 mg INHALATION RT-QID 12/15/18 12/15/18 History Nebulized] Aspirin EC [Ecotrin Low Dose] 81 mg PO DAILY 12/15/18 12/15/18 History Atorvastatin [Lipitor] 40 mg PO HS 12/15/18 12/15/18 History Cephalexin [Keflex] 500 mg PO BID@08,199912/15/18 12/15/18 History Multivitamins, Thera [Multivitamin 1 tab PO DAILY 12/15/18 12/15/18 History (formulary)] Propranolol [Inderal] 20 mg PO BID 12/15/18 12/15/18 History cloZAPine [Clozaril] 150 mg PO HS 12/15/18 12/15/18 History clonazePAM [KlonoPIN] 0.5 mg PO BID 12/15/18 12/15/18 History Allergies Allergy/AdvReac Type Severity Reaction Status Date / Time levofloxacin AdvReac Unknown Verified 12/15/18 19:04 Physical Exam Vitals: Vital Signs Temp Pulse Resp BP Pulse Ox 12/19/18 12:43 51 L 12/19/18 12:32 62 12/19/18 12:00 58 L 12 141/83 97 12/19/18 11:00 43 L 12/19/18 08:00 57 L 21 131/76 98 12/19/18 07:48 97 12/19/18 07:30 66 12/19/18 07:18 67 12/19/18 04:00 98.4 F 42 L 14 131/76 100 12/19/18 03:00 45 L 9 L 99 12/19/18 00:00 98.0 F 73 20 139/75 97 12/18/18 20:00 98.6 F 62 14 124/68 99 12/18/18 16:47 59 L 12/18/18 16:34 57 L 12/18/18 16:00 98.7 F 48 L 12 142/71 99 Intake and Output 12/19/18 12/19/18 12/19/18 06:59 14:59 22:59 Intake Total 450 100 Output Total 125 Balance 325 100 Intake: IV 200 100 Dextrose 5%-0.9% NaCl 1, 200 100 000 ml @ 50 mls/hr IV . Q20H WENDY Rx#:[id number] Intake, IV Titration 250 Amount Heparin Sod,Pork in 0.45% 250 NaCl 25,000 unit In 0.45 % NaCl 1 250ml.bag @ 18 UNITS/KG/HR 16.81 mls/hr IV .[id number] WENDY Rx#: [id number] Output: Urine 125 Other: Voiding Method Indwelling Catheter Indwelling Catheter # Bowel Movements 1 Weight 95.6 kg 95.6 kg GENERAL EXAM: Alert, pleasant, 68-year-old white male resting in bed, there is to be withdrawn, but fairly cooperative HEAD: Normocephalic/atraumatic. EYES: Normal reaction of pupils, equal size. Conjunctiva pink, sclera white. NOSE: Clear with pink turbinates. THROAT: No erythema or exudates. NECK: No masses, no JVD, no thyroid enlargement, no adenopathy. CHEST: No chest wall deformity. Symmetrical expansion. LUNGS: Equal air entry with no crackles, wheeze, rhonchi or dullness. CVS: Regular rate and rhythm, normal S1 and S2, no gallops, no murmurs, no rubs ABDOMEN: Soft, nontender. No hepatosplenomegaly, normal bowel sounds, no guarding or rigidity. EXTREMITIES: No clubbing, no edema, no cyanosis, 2+ pulses and upper and lower extremities. MUSCULOSKELETAL: Muscle strength and tone normal. SPINE: No scoliosis or deformity SKIN: No rashes CENTRAL NERVOUS SYSTEM: Alert and oriented -3. No focal deficits, tone is normal in all 4 extremities. PSYCHIATRIC: Alert and oriented -3. Appropriate affect. Intact judgment and insight. Results - Laboratory Findings CBC and BMP: 12/19/18 05:08 12/19/18 05:08 PT/INR, D-dimer PT 13.2 sec (9.0-12.0) H 12/17/18 04:17 INR 1.3 (<1.2) H 12/17/18 04:17 D-Dimer 27.36 mg/L FEU (<0.60) H 12/15/18 19:25 Abnormal lab findings: Abnormal Labs 12/15/18 12/15/18 12/15/18 19:25 19:25 19:25 WBC 12.5 H RBC 4.15 L Hgb Hct 38.6 L Neutrophils # 10.3 H Lymphocytes # PT 13.2 H INR 1.3 H APTT D-Dimer 27.36 H Potassium 5.3 H Chloride BUN 24 H Glucose POC Glucose (mg/dL) Total Protein Albumin 12/16/18 12/16/18 12/16/18 01:18 04:48 04:48 WBC 10.8 H RBC 3.91 L Hgb 12.2 L Hct 37.8 L Neutrophils # 8.3 H Lymphocytes # PT INR APTT >200.0 H* D-Dimer Potassium Chloride BUN Glucose POC Glucose (mg/dL) 104 H Total Protein Albumin 12/16/18 12/16/18 12/16/18 04:48 09:16 12:59 WBC RBC Hgb Hct Neutrophils # Lymphocytes # PT INR APTT 138.4 H* D-Dimer Potassium Chloride BUN Glucose 103 H POC Glucose (mg/dL) 100 H Total Protein Albumin 12/16/18 12/17/18 12/17/18 21:43 04:17 04:17 WBC RBC 3.79 L Hgb 11.9 L Hct 35.8 L Neutrophils # Lymphocytes # PT INR APTT 89.2 H D-Dimer Potassium Chloride 112 H BUN Glucose POC Glucose (mg/dL) Total Protein 5.6 L Albumin 3.1 L 12/17/18 12/18/18 12/18/18 04:17 05:26 05:26 WBC RBC 3.54 L Hgb 11.0 L Hct 33.9 L Neutrophils # Lymphocytes # 0.9 L PT 13.2 H INR 1.3 H APTT 72.1 H 56.8 H D-Dimer Potassium Chloride BUN Glucose POC Glucose (mg/dL) Total Protein Albumin 12/18/18 12/19/18 12/19/18 05:26 05:08 05:08 WBC RBC 3.69 L Hgb 11.3 L Hct 34.8 L Neutrophils # Lymphocytes # 0.9 L PT INR APTT D-Dimer Potassium Chloride 110 H 112 H BUN 8 L Glucose 107 H 100 H POC Glucose (mg/dL) Total Protein Albumin 12/19/18 05:08 WBC RBC Hgb Hct Neutrophils # Lymphocytes # PT INR APTT 55.8 H D-Dimer Potassium Chloride BUN Glucose POC Glucose (mg/dL) Total Protein Albumin - Diagnostic Findings Chest x-ray: report reviewed, image reviewed CT scan - chest: report reviewed, image reviewed Additional studies: EKG reviewed Assessment and Plan Plan: Assessment: #1. Acute pulmonary emboli in all subsegmental branches bilaterally, seen on the CT angios of the chest, with moderate clot burden. No tachycardia, hypoxemia, patient is mildly short of breath, but no acute distress, no chest pain, no hemoptysis. Troponins were negative 2, proBNP was within normal limits. #2. Low back pain, patient has a history of a recent fall compression fractures of the lumbar spine, patient prescribed of the back brace #3. Recent hospitalization altered mental status, and patient was hospitalized at [facility] and subsequently transferred to [facility] #4. Depression #5. Generalized weakness #6. Insomnia, lack of appetite, likely related to depression #7. History of obstructive uropathy, status post suprapubic catheter placement #8. History of dementia, GERD/reflux, hypertension, osteoarthritis, hypothyroidism Plan: We'll continue with heparin infusion, he is currently fairly comfortable, no hypoxemia, no complaints of chest pain, mildly dyspneic, but no acute distress. Not tachycardic. Troponins were negative, proBNP was within normal limits. No hypotension, no tachycardia. We'll get echocardiogram. He is being monitored in the intensive care unit, psychiatry services are following. I performed a history & physical examination of the patient and discussed their management with my nurse practitioner, Reva Morris. I reviewed the nurse practitioner's note and agree with the documented findings and plan of care. Lung sounds are positive clear breath sounds. The findings and the impression was discussed with the patient. I attest to the documentation by the nurse practitioner. Time with Patient: Greater than 30
[2018-12-19] MEDS ORDERED: risperiDONE 0.5 MG TAB PO SCH (21:00)
[2018-12-19] MEDS: ATORVASTATIN 40 MG TAB PO SCH (21:07)
[2018-12-19] MEDS: DONEPEZIL 10 MG TAB PO SCH (21:07)
--- NOTE | 2018-12-19 22:26 | P.CONS ---
History of Present Illness - Reason for Consult Consult date: 12/19/18 Pulmonary embolus - History of Present Illness The patient is a 68-year-old white male with multiple medical problems, which include severe depression. The patient was hospitalized on 12/03/18 with complains of intractable pain that had developed after suffering a fall. He was found to have compression fractures. In addition, the patient had altered mental status. He was transferred to [facility] for neurology evaluation, and then onward to [facility]. It appears that he did improve with supportive treatment, and was then transferred to [facility], 6 days ago. The patient came into the emergency room, complaining of progressive shortness of breath developing over 1 day. There was no history of chest pain, fever, cough or hemoptysis. CT of the chest revealed evidence of bilateral pulmonary emboli in segmental branches of follow-up. The patient was admitted, and started on IV heparin. Consult was placed for further evaluation and recommendations. The patient has a history of severe depression. He is overall poor historian. He, however, denied any prior history of blood clots in his legs or lungs. Denied any history of obvious bleeding, other than minor bleeding from his suprapubic catheter that has been placed previously, for obstructive uropathy. Review of Systems Constitutional: Reports fatigue, Reports lethargy, Reports poor appetite, Reports weakness Eyes: denies blurred vision, denies pain Ears: deny: decreased hearing, ear discharge, earache, tinnitus Ears, nose, mouth and throat: Denies headache, Denies sore throat Cardiovascular: Reports decreased exercise tolerance, Reports shortness of breath Respiratory: Reports dyspnea Gastrointestinal: Reports diarrhea, Denies abdominal pain, Denies nausea, Denies vomiting Genitourinary: Reports as per HPI (Obstructive uropathy requiring supra catheter ) Musculoskeletal: Reports as per HPI, Reports low back pain, Reports muscle weakness Integumentary: Denies pruritus, Denies rash Neurological: Reports as per HPI, Reports change in mentation, Reports weakness Psychiatric: Reports anhedonia, Reports depression Endocrine: Reports fatigue Hematologic/Lymphatic: Reports as per HPI Past Medical History Past Medical History: Cancer, Chest Pain / Angina, Dementia, GERD/Reflux, Hypertension, Osteoarthritis (OA), Thyroid Disorder Additional Past Medical History / Comment(s): HX UTI W/ SEPSIS 2013, past hx. chest pain-nothing current, tremors hands, heart murmur, esophageal spasms History of Any Multi-Drug Resistant Organisms: None Reported Past Surgical History: Prostate Surgery, Tonsillectomy Additional Past Surgical History / Comment(s): TURP, right thyroid lobectomy (), skin ca removed, SP cath placement Past Anesthesia/Blood Transfusion Reactions: No Reported Reaction Additional Past Anesthesia/Blood Transfusion Reaction / Comm: CLAUSTERPHOBIA Past Psychological History: Anxiety, Panic Disorder Additional Psychological History / Comment(s): ANXIETY, PANIC ATTACKS Smoking Status: Never smoker Past Alcohol Use History: None Reported Additional Past Alcohol Use History / Comment(s): Patient is a lifelong nonsmoker. He denies any marijuana, street drug or alcohol use. 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 He lives at home with his .uses walker when up, cpap machine. He denies any service. Past Drug Use History: None Reported - Past Family History Brother(s) Family Medical History: Cancer Sister(s) Family Medical History: Hypertension Father Family Medical History: Hypertension Additional Family Medical History / Comment(s): PT STATED DAD AT AGE 89 COMPLICATIONS FROM MRSA INFECTION. Mother Family Medical History: Hypertension Medications and Allergies Home Medications Medication Instructions Recorded Confirmed Type Citalopram Hydrobromide [CeleXA] 20 mg PO DAILY 05/17/18 12/15/18 History Donepezil [Aricept] 10 mg PO HS 05/17/18 12/15/18 History Levothyroxine Sodium [Synthroid] 75 mcg PO DAILY 05/17/18 12/15/18 History Amantadine HCl [Amantadine] 100 mg PO BID 12/01/18 12/15/18 History Folic Acid 1 mg PO DAILY 12/01/18 12/15/18 History Acetaminophen Tab [Tylenol Tab] 650 mg PO Q6H PRN 12/15/18 12/15/18 History Albuterol Nebulized [Ventolin 2.5 mg INHALATION RT-QID 12/15/18 12/15/18 History Nebulized] Aspirin EC [Ecotrin Low Dose] 81 mg PO DAILY 12/15/18 12/15/18 History Atorvastatin [Lipitor] 40 mg PO HS 12/15/18 12/15/18 History Cephalexin [Keflex] 500 mg PO BID@0800,199912/15/18 12/15/18 History Multivitamins, Thera [Multivitamin 1 tab PO DAILY 12/15/18 12/15/18 History (formulary)] Propranolol [Inderal] 20 mg PO BID 12/15/18 12/15/18 History cloZAPine [Clozaril] 150 mg PO HS 12/15/18 12/15/18 History clonazePAM [KlonoPIN] 0.5 mg PO BID 12/15/18 12/15/18 History Allergies Allergy/AdvReac Type Severity Reaction Status Date / Time levofloxacin AdvReac Unknown Verified 12/15/18 19:04 Physical Exam Vitals: Vital Signs Temp Pulse Resp BP Pulse Ox 12/19/18 12:43 51 L 12/19/18 12:32 62 12/19/18 12:00 58 L 12 141/83 97 12/19/18 11:00 43 L 12/19/18 08:00 57 L 21 131/76 98 12/19/18 07:48 97 12/19/18 07:30 66 12/19/18 07:18 67 12/19/18 04:00 98.4 F 42 L 14 131/76 100 12/19/18 03:00 45 L 9 L 99 12/19/18 00:00 98.0 F 73 20 139/75 97 12/18/18 20:00 98.6 F 62 14 124/68 99 Intake and Output 12/19/18 12/19/18 12/19/18 06:59 14:59 22:59 Intake Total 450 100 Output Total 125 Balance 325 100 Intake: IV 200 100 Dextrose 5%-0.9% NaCl 1, 200 100 000 ml @ 50 mls/hr IV . Q20H WENDY Rx#:[id number] Intake, IV Titration 250 Amount Heparin Sod,Pork in 0.45% 250 NaCl 25,000 unit In 0.45 % NaCl 1 250ml.bag @ 18 UNITS/KG/HR 16.81 mls/hr IV .[id number] WENDY Rx#: [id number] Output: Urine 125 Other: Voiding Method Indwelling Catheter Indwelling Catheter # Bowel Movements 1 Weight 95.6 kg 95.6 kg - Constitutional General appearance: no acute distress - EENT Eyes: EOMI, PERRLA ENT: hearing grossly normal, normal oropharynx - Neck Neck: no lymphadenopathy Thyroid: bilateral: normal size - Respiratory Respiratory: bilateral: CTA - Cardiovascular Rhythm: regular Heart sounds: normal: S1, S2 - Gastrointestinal Rectal catheter in place for diarrhea and bowel incontinence General gastrointestinal: normal bowel sounds, soft - Genitourinary Suprapubic catheter in situ Male genitourinary: enlarged prostate - Neurologic Neurologic: CNII-XII intact - Musculoskeletal Musculoskeletal: generalized weakness, strength equal bilaterally - Psychiatric The patient's responses are very slow, and he sometimes does not answer questions. Difficult to assess how well oriented he is. Does obey commands appropriately, when he does respond Results CBC & Chem 7: 12/19/18 05:08 12/19/18 05:08 Labs: Abnormal Lab Results - Last 24 Hours (Table) 12/19/18 12/19/18 12/19/18 Range/Units 05:08 05:08 05:08 RBC 3.69 L (4.30-5.90) m/uL Hgb 11.3 L (13.0-17.5) gm/dL Hct 34.8 L (39.0-53.0) % Lymphocytes # 0.9 L (1.0-4.8) k/uL APTT 55.8 H (22.0-30.0) sec Chloride 112 H (98-107) mmol/L BUN 8 L (9-20) mg/dL Glucose 100 H (74-99) mg/dL Chest x-ray: report reviewed CT scan - chest: report reviewed Assessment and Plan (1) Pulmonary embolism Narrative/Plan: This is felt to be a provoked event due to recent trauma and hospitalization ( s), and diminished mobility. The pt is on IV heparin. He can be switched to oral anticaogulant whenever felt to be appropriate by the admitting service and Pulmonary. He should be on anticaogulation for at least 6 mths. He can be reevaluated at that time re continuation based on risk profile or cessation. For eg. if the pt 's mobility remains diminished longer term treatment would need to be considered Check LE dopplers for baseline Current Visit: Yes Status: Acute Code(s): I26.99 - OTHER PULMONARY EMBOLISM WITHOUT ACUTE COR PULMONALE SNOMED Code(s): 32894657 (2) Anemia Narrative/Plan: There is a mild drop from baseline, which was normal. This is likely due to acute illness. Hgb is in the 11-12 range. I will additional anemia w/u if this drops significantly Current Visit: Yes Status: Acute Code(s): D64.9 - ANEMIA, UNSPECIFIED SNOMED Code(s): 303307981 Plan: Defer to the admitting service and other consultants for management of his multiple other medical problems
--- NOTE | 2018-12-19 22:50 | P.PN ---
Subjective his is a pleasant 68 years old male with past medical history of skin cancer, coronary artery disease, GERD, hypertension, hypothyroidism, dizziness and fall compression of fracture, 3. She has been recently admitted to the hospital for altered mental status with workup was in revealing patient was transferred to [facility] for neurological evaluation. where pt was sent later on to [facility] Now presents because of dyspnea from [facility] , however pt could not elaborate more in the history. no family at bed side. Patient also has suprapubic Sanchez catheter. With few cc of urine in the bag. Patient currently denies chest pain he has mild tachypnea. No coughing no hemoptysis. No abdominal pain. No dizziness or headache. On admission patient was bradycardic, afebrile, blood pressure is controlled and he is saturating 98% on 2 L. His WBC 10.8 K, hemoglobin was 13.2 and 12.2. BMP was unremarkable. Liver enzymes not elevated and occult blood in the stool was negative. CT edge of the chest moderate clots present. Patient was started on heparin drip and admitted to the ICU. 12/17/2018 Patient remains in the ICU, is fully awake and our intent, however he lists lethargic. Patient feels and well without specification. He has ongoing pain in his lower back from her recent compression of fracture the best continue. He has loss of appetite which has been going on for 1 or 2 weeks. No chest pain or dyspnea. No bleeding. No headache. No abdominal pain or nausea vomiting. He has suprapubic Sanchez with a decreased urine output, increase his normal saline from 50 200 mL per hour. Morphine is been added for his back pain. Patient should use his brace whenever out of bed. Also will check bladder scan. His little tachycardic and blood pressure low-normal. We will lower his Inderal for his tremor from 10 mg 3 times a day to every 12 hours. 12/18/2018 Patient looks lethargic and depressed, he looks withdrawn and does not want to participate in March activities. He feels a Place. And he refusing to eat. Patient also has some chest discomfort in the middle which is mild nonradiating. His urine output is good today. He still complaining of from his back pain at the pressure site, brace at bedside. Physical therapy evaluated the patient yesterday and recommended subacute rehab upon discharge. No leukocytosis and hemoglobin is stable. Creatinine is within normal limits as well as electrolytes. Repeat chest x-ray shows no acute event. Patient still have a little bit dyspnea mostly related to his pulmonary embolism. However we will do serial troponins and EKG as patient still bradycardic while his Inderal is on hold. No much tremor in his hand which is why he was getting the Inderal for, his heart rate is in 40s. Also going to ask for psychiatrist to evaluate the patient, usually he sees Dr. Ramsey who is a psychiatrist. Lidocaine patch for his back pain. 12/19/2018 pt is mildly dyspneic , saturating 98% on room air, he is on heparin drip for PE , pulmonary evaluation is appreciated , pt can be transferred out of the ICU, no chest pain ,vitals are stable, pt can be switched to oral anticoagulant soon . pt is been followed by psychiatry , portfolio assistant recommended US of lower ext. pt will benefit from ECF upon discharge Review of systems CONSTITUTIONAL: No fever, no malaise, no fatigue. HEENT: No recent visual problems or hearing problems. Denied any sore throat. CARDIOVASCULAR: No orthopnea, PND, no palpitations, no syncope. PULMONARY: , no hemoptysis. GASTROINTESTINAL: No diarrhea, no nausea, no vomiting, no abdominal pain. Normoactive bowel sounds. NEUROLOGICAL: No headaches, no weakness, no numbness. HEMATOLOGICAL: Denies any bleeding or petechiae. GENITOURINARY: Denies any burning micturition, frequency, or urgency. MUSCULOSKELETAL/RHEUMATOLOGICAL: Denies any joint pain, swelling, or any muscle pain. ENDOCRINE: Denies any polyuria or polydipsia. Medication: Tylenol, of Detrol, amantadine, Lipitor, Keflex, clonidine, Aricept , Pepcid, heparin, [place] 02/20/2025, Synthroid, morphine, Narcan, Inderal. Objective - Vital Signs Vital signs: Vital Signs Temp 98.3 F 12/19/18 16:00 Pulse 57 L 12/19/18 18:00 Resp 16 12/19/18 18:00 BP 135/77 12/19/18 18:00 Pulse Ox 96 12/19/18 18:00 Intake & Output 12/19/18 12/19/18 12/20/18 06:59 18:59 06:59 Intake Total 850 900 Output Total 200 600 Balance 650 300 Weight 95.6 kg 95.6 kg Intake: IV 600 900 Dextrose 5%-0.9% NaCl 1, 600 900 000 ml @ 50 mls/hr IV . Q20H WENDY Rx#:[id number] Intake, IV Titration 250 Amount Heparin Sod,Pork in 0.45% 250 NaCl 25,000 unit In 0.45 % NaCl 1 250ml.bag @ 18 UNITS/KG/HR 16.81 mls/hr IV .[id number] WENDY Rx#: [id number] Output: Urine 200 600 Other: Voiding Method Indwelling Catheter Indwelling Catheter # Bowel Movements 1 - Exam GENERAL: The patient is alert and oriented x3, not in any acute distress. Well developed, well nourished. HEENT: Pupils are round and equally reacting to light. EOMI. No scleral icterus. No conjunctival pallor. Normocephalic, atraumatic. No pharyngeal erythema. No thyromegaly. CARDIOVASCULAR: S1 and S2 present. No murmurs, rubs, or gallops. PULMONARY: Chest is clear to auscultation, no wheezing or crackles. ABDOMEN: Soft, nontender, nondistended, normoactive bowel sounds. No palpable organomegaly. Suprapubic catheter. MUSCULOSKELETAL: No joint swelling or deformity. EXTREMITIES: No cyanosis, clubbing, or pedal edema. NEUROLOGICAL: Gross neurological examination did not reveal any focal deficits. SKIN: No rashes. - Labs CBC & Chem 7: 12/19/18 05:08 12/19/18 05:08 Labs: Abnormal Lab Results - Last 24 Hours (Table) 12/19/18 12/19/18 12/19/18 Range/Units 05:08 05:08 05:08 RBC 3.69 L (4.30-5.90) m/uL Hgb 11.3 L (13.0-17.5) gm/dL Hct 34.8 L (39.0-53.0) % Lymphocytes # 0.9 L (1.0-4.8) k/uL APTT 55.8 H (22.0-30.0) sec Chloride 112 H (98-107) mmol/L BUN 8 L (9-20) mg/dL Glucose 100 H (74-99) mg/dL Assessment and Plan Assessment: Bilateral pulmonary embolism in all lobes with moderate clot burden. Patient was started on heparin drip and sent to the ICU Depression associated with decreased appetite Bradycardia Chest pain, we'll do serial troponins and EKG Generalized weakness History of essential tremor History of obstructive uropathy, status post suprapubic catheter h/o Fall, mechanical Lower back and head trauma Mild compression of fracture of L3. Using a brace with mobilization Degenerative joint disease History of skin cancer History of GERD Essential hypertension Hyperlipidemia Dementia History of myoclonic jerks since 2013 as per Plan: This is a pleasant 68 years old male who presents with bilateral PE. Patient was started on heparin drip and we will continue with that. Patient was admitted to the intensive care unit for further monitoring and management. Hemoglobin is stable and Vitas looks stable. Will call hematology consult for further recommendation. Patient heart rate was on the low side. We'll discharge her troponins and EKG. Propranolol on hold. Patient will need psychiatrist evaluation for his depression. Repeat chest x-ray no active issue.Labs and medication were reviewed.. Continue same treatment. Continue with symptomatic treatment. Resume home medication. Monitor lytes and vitals. DVT and GI prophylaxis. Further recommendations of the clinical course of the patient DVT prophylaxis: heparin GI Prophylaxis: Pepcid Prognosis is guarded, at bedside
[2018-12-20 04:29] LABS: Basophils % (A) 0 %; Eosinophils # (A) 0.1 k/uL (0-0.7); Eosinophils % (A) 1 %; HCT 33.8 % (39.0-53.0); HGB 11.2 gm/dL (13.0-17.5); Lymphocytes # (A) 1.4 k/uL (1.0-4.8); Lymphocytes % (A) 21 %; MCH 31.4 pg (25.0-35.0); MCHC 33.1 g/dL (31.0-37.0); MCV 94.9 fL (80.0-100.0); Mean Platelet Volume 6.8; Monocytes # (A) 0.4 k/uL (0-1.0); Monocytes % (A) 6 %; Neutrophils # (A) 4.5 k/uL (1.3-7.7); Neutrophils % (A) 70 %; Platelet Count 243 k/uL (150-450); RBC 3.56 m/uL (4.30-5.90); RDW 15.1 % (11.5-15.5); WBC 6.4 k/uL (3.8-10.6)
[2018-12-20 04:43] LABS: Anion Gap 3 mmol/L; Blood Urea Nitrogen 8 mg/dL (9-20); Calcium 8.9 mg/dL (8.4-10.2); Carbon Dioxide 29 mmol/L (22-30); Chloride 110 mmol/L (98-107); Glucose 97 mg/dL (74-99); Potassium 3.6 mmol/L (3.5-5.1); Sodium 142 mmol/L (137-145)
[2018-12-20] MEDS: LEVOTHYROXINE 75 MCG TAB PO SCH (05:56)
[2018-12-20] MEDS: HEPARIN SOD,PORK IN 0.45% NACL 25,000 UNIT in 0.45% NACL 1 250ML.BAG IV SCH ×2 (05:59→22:30)
[2018-12-20] MEDS: ALBUTEROL NEBULIZED 2.5 MG/3 ML INHALATION SCH ×4 (07:48→20:22)
--- NOTE | 2018-12-20 08:32 | US ---
EXAMINATION TYPE: US venous doppler duplex LE DATE OF EXAM: 12/20/2018 8:10 AM COMPARISON: NONE CLINICAL HISTORY: Rule out DVT. Known PE SIDE PERFORMED: Bilateral TECHNIQUE: The lower extremity deep venous system is examined utilizing real time linear array sonog brian with graded compression, doppler sonography and color-flow sonography. VESSELS IMAGED: External Iliac Vein (EIV) Common Femoral Vein Deep Femoral Vein Greater Saphenous Vein * Femoral Vein Popliteal Vein Small Saphenous Vein * Proximal Calf Veins (* superficial vessels) Right Leg: Positive for DVT in the popliteal vein. There is thrombus with partial compressibility st arting in the mid pop. At the distal pop and into the calf veins the vessel is distended with very li ttle flow and is non compressible. Left Leg: Negative for DVT Grayscale, color doppler, spectral doppler imaging performed of the deep veins of the lower extremiti es. There is normal flow, compressibility, vascular waveforms in the left lower extremity. IMPRESSION: Acute DVT right lower extremity felt present beginning near level of knee mid popliteal l evel extending into the more peripheral leg vessels. Mild to moderate subcutaneous edema is noted at this level on images saved.
[2018-12-20] MEDS: HYDROcodone/APAP 5-325MG 1 EACH TAB PO PRN (09:00)
[2018-12-20] MEDS: CEPHALEXIN 500 MG CAP PO SCH ×2 (09:01→22:28)
[2018-12-20] MEDS: MEGESTROL 40 MG TAB PO SCH ×4 (09:01→22:29)
[2018-12-20] MEDS: clonazePAM 0.5 MG TAB PO SCH ×2 (09:01→22:28)
[2018-12-20] MEDS: FAMOTIDINE 20 MG TAB PO SCH ×2 (09:02→22:29)
[2018-12-20] MEDS: PROPRANOLOL 10 MG TAB PO SCH ×2 (09:02→22:30)
[2018-12-20] MEDS: LIDOCAINE 5% PATCH TOPICAL SCH (09:02)
[2018-12-20] MEDS: AMANTADINE HCL 100 MG CAP PO SCH (09:03)
[2018-12-20] MEDS ORDERED: POTASSIUM CHLORIDE ER 20 MEQ TAB.ER PO SCH (12:00)
--- NOTE | 2018-12-20 12:42 | P.PN ---
Progress Note - Text Interval history: This patient is a 68-year-old male who is well known to my outpatient practice. He carries a diagnosis of major depressive disorder recurrent severe with psychosis as well as neurocognitive disorder. The patient does have a history of being admitted to the mental health unit with acute psychosis and aggressive behavior in the past. This was adequately treated with use of Clozaril and his last outpatient dose was 300 mg total daily. Since I seen him last in the office he was hospitalized at [facility] then sent to [facility] in [place]. He had experienced a fall and was sent for neurological evaluation. After that hospitalization he was sent to [facility] for physical rehabilitation. Recently he has been diagnosed with pulmonary embolism. The patient was seen in coverage by Dr. Cruz who initiated Risperdal. The patient's was at bedside. She states that the local neurologist had started the patient on Depakote Klonopin amantadine and propranolol for tremor. The patient is awake in bed he states several times that he cannot breathe. He is objectively breathing adequately he is able to speak his pulse ox is within normal limits. He is known to demonstrate odd behaviors such is air swallowing and belching he will demonstrate a disorganized shaking of his upper extremities when others are around. He has been evaluated twice by neuropsych with a second evaluation demonstrating cognitive decline. Although he has demonstrated ongoing symptoms we have been most successful in managing his psychosis and aggressiveness with Clozaril Celexa and Aricept. Mental status exam: The patient is awake he is lying in bed he has grown a muir he has a disheveled appearance he is dressed in hospital gowns. He is partially exposed he has a suprapubic catheter in place. He continues to state "I can't breathe" but objectively he appears to be in no distress. As we continue our conversation he holds up his upper extremities and shakes them in a dyssynchronous fashion. He will moan at times. He is oriented to person place month and year he incorrectly names a day the week as Saturday. He has a distraught look on his face. He appears somewhat confused. He reports no auditory or visual hallucinations. He does not answer some questions in particular when asking about delusional thoughts. Insight and judgment are impaired. Assessment plan: Neurocognitive disorder, major depressive disorder with history of psychosis, suspect delirium concurrently. The patient will be taken off of the amantadine and Risperdal. I will restart his Clozaril 50 mg twice daily. I am uncertain as to when he received his last Clozaril dose. We will plan on titrating this further. He is already on his Aricept. We will likely consider re-adding the Celexa. As an outpatient he was using Klonopin as needed but that became infrequent. This medication is currently scheduled. We will consider discontinuing it if we feel it is lending to any confusion. His states that the propranolol was added by neurology to assist with tremor. We will monitor vital signs. Again the patient is psychiatrically symptomatic at baseline and I feel that it is exacerbated at this time due to delirium.
--- NOTE | 2018-12-20 14:04 | P.PN ---
Subjective Progress Note Date: 12/20/18 This is a 68-year-old white male patient with past medical history of hypertension, hypothyroidism, GERD/reflux, dementia, CAD, who was recently hospitalized for altered mental status, a fall sustaining a compression fractures of the lumbar spine, patient was subsequently transferred to [facility] for neurological evaluation. Patient was discharged to [facility] 6 days ago. Patient was brought into the emergency department on 12/15/2018 with complaints of shortness of breath. Denies any chest pain, denied any hemoptysis, denied lightheadedness or dizziness, no syncopal episodes. CT angios of the chest was completed, and showed segmental branch pulmonary emboli within all lobes, moderate clot burden, hepatic venous reflux that could indicate mild heart strain. Clinically patient maintaining his oxygenation on room air, no tachycardia, no distress. He was started on IV heparin. he states she is mildly dyspneic, but in no acute distress. Patient was transferred to the intensive care unit today, he is seen in evaluation. He is resting quietly in bed, he is oriented 3. He states he is short of breath without exertion, but no acute distress, no use of a accessory muscles of breathing, he is currently on room air with a pulse ox of 98%, normotensive, he is in sinus bradycardia with a rate of 57 BPM on the monitor, denies any chest pain, lung sounds are clear, diminished at the bases, no rhonchi, no wheezing. He is on heparin drip per weight-based protocol. Patient is a suprapubic catheter in place for history of obstructive uropathy. Today's labs have been reviewed, there is no leukocytosis, hemoglobin is 11.3, sodium is 143, potassium is 3.9, chloride is 112, CO2 is 28, BUN is 8, creatinine 0.70, troponin is negative. ProBNP was within normal limits on admission at 149. Patient appears to be withdrawn, he is being followed by psychiatric services in regards to depression On today's evaluation, the patient is calm and comfortable in bed on room air. The Doppler of the lower extremity showed a right lower extremity DVT. The patient's not having any chest pain. Pulse ox is 97% on room air. No bleeding complications. He threatened anticoagulation well. Hemoglobin stable at 11.2. Platelet counts are also stable at 243. No other significant issues otherwise for now. Objective - Vital Signs Vital signs: Vital Signs Temp 99.0 F 12/20/18 12:00 Pulse 49 L 12/20/18 12:00 Resp 18 12/20/18 12:00 BP 160/74 12/20/18 12:00 Pulse Ox 99 12/20/18 12:00 Intake & Output 12/19/18 12/20/18 12/20/18 18:59 06:59 18:59 Intake Total 900 358.002 480 Output Total 600 400 Balance 300 -41.998 480 Weight 95.6 kg 97.4 kg Intake: IV 900 200 250 Dextrose 5%-0.9% NaCl 1, 900 200 250 000 ml @ 50 mls/hr IV . Q20H [facility] Rx#:[id number] Intake, IV Titration 158.002 Amount Heparin Sod,Pork in 0.45% 158.002 NaCl 25,000 unit In 0.45 % NaCl 1 250ml.bag @ 18 UNITS/KG/HR 16.81 mls/hr IV .[id number] [facility] Rx#: [id number] Oral 230 Output: Urine 600 400 Other: Voiding Method Indwelling Catheter Indwelling Catheter Indwelling Catheter # Voids 1 # Bowel Movements 1 - Exam GENERAL EXAM: Alert, pleasant, 68-year-old white male resting in bed, there is to be withdrawn, but fairly cooperative HEAD: Normocephalic/atraumatic. EYES: Normal reaction of pupils, equal size. Conjunctiva pink, sclera white. NOSE: Clear with pink turbinates. THROAT: No erythema or exudates. NECK: No masses, no JVD, no thyroid enlargement, no adenopathy. CHEST: No chest wall deformity. Symmetrical expansion. LUNGS: Equal air entry with no crackles, wheeze, rhonchi or dullness. CVS: Regular rate and rhythm, normal S1 and S2, no gallops, no murmurs, no rubs ABDOMEN: Soft, nontender. No hepatosplenomegaly, normal bowel sounds, no guarding or rigidity. EXTREMITIES: No clubbing, no edema, no cyanosis, 2+ pulses and upper and lower extremities. MUSCULOSKELETAL: Muscle strength and tone normal. SPINE: No scoliosis or deformity SKIN: No rashes CENTRAL NERVOUS SYSTEM: Alert and oriented -3. No focal deficits, tone is normal in all 4 extremities. PSYCHIATRIC: Alert and oriented -3. Appropriate affect. Intact judgment and insight. - Labs CBC & Chem 7: 12/20/18 04:00 12/20/18 04:00 Labs: Abnormal Lab Results - Last 24 Hours (Table) 12/20/18 12/20/18 12/20/18 Range/Units 04:00 04:00 04:00 RBC 3.56 L (4.30-5.90) m/uL Hgb 11.2 L (13.0-17.5) gm/dL Hct 33.8 L (39.0-53.0) % APTT 62.6 H (22.0-30.0) sec Chloride 110 H (98-107) mmol/L BUN 8 L (9-20) mg/dL Assessment and Plan Plan: #1. Acute pulmonary emboli in all subsegmental branches bilaterally, seen on the CT angios of the chest, with moderate clot burden. No tachycardia, hypoxemia, patient is mildly short of breath, but no acute distress, no chest pain, no hemoptysis. Troponins were negative 2, proBNP was within normal limits. The patient is also found to have a positive DVT in the popliteal vein in the right lower extremity. No DVT in the left lower extremity. #2. Low back pain, patient has a history of a recent fall compression fractures of the lumbar spine, patient prescribed of the back brace #3. Recent hospitalization altered mental status, and patient was hospitalized at [facility] and subsequently transferred to [facility] #4. Depression #5. Generalized weakness #6. Insomnia, lack of appetite, likely related to depression #7. History of obstructive uropathy, status post suprapubic catheter placement #8. History of dementia, GERD/reflux, hypertension, osteoarthritis, hypothyroidism I am Continued IV heparin. We will move this patient to oral anticoagulation, likely Eliquis within next 24 hours. He is currently on room air. He is hemodynamically stable. Psychiatry follow-up. We'll continue to follow. He has adequate pain control. Hemoglobin is stable.
--- NOTE | 2018-12-20 14:07 | P.PN ---
Subjective his is a pleasant 68 years old male with past medical history of skin cancer, coronary artery disease, GERD, hypertension, hypothyroidism, dizziness and fall compression of fracture, 3. She has been recently admitted to the hospital for altered mental status with workup was in revealing patient was transferred to [facility] for neurological evaluation. where pt was sent later on to [facility] Now presents because of dyspnea from [facility] , however pt could not elaborate more in the history. no family at bed side. Patient also has suprapubic Sanchez catheter. With few cc of urine in the bag. Patient currently denies chest pain he has mild tachypnea. No coughing no hemoptysis. No abdominal pain. No dizziness or headache. On admission patient was bradycardic, afebrile, blood pressure is controlled and he is saturating 98% on 2 L. His WBC 10.8 K, hemoglobin was 13.2 and 12.2. BMP was unremarkable. Liver enzymes not elevated and occult blood in the stool was negative. CT edge of the chest moderate clots present. Patient was started on heparin drip and admitted to the ICU. 12/17/2018 Patient remains in the ICU, is fully awake and our intent, however he lists lethargic. Patient feels and well without specification. He has ongoing pain in his lower back from her recent compression of fracture the best continue. He has loss of appetite which has been going on for 1 or 2 weeks. No chest pain or dyspnea. No bleeding. No headache. No abdominal pain or nausea vomiting. He has suprapubic Sanchez with a decreased urine output, increase his normal saline from 50 200 mL per hour. Morphine is been added for his back pain. Patient should use his brace whenever out of bed. Also will check bladder scan. His little tachycardic and blood pressure low-normal. We will lower his Inderal for his tremor from 10 mg 3 times a day to every 12 hours. 12/18/2018 Patient looks lethargic and depressed, he looks withdrawn and does not want to participate in March activities. He feels a Place. And he refusing to eat. Patient also has some chest discomfort in the middle which is mild nonradiating. His urine output is good today. He still complaining of from his back pain at the pressure site, brace at bedside. Physical therapy evaluated the patient yesterday and recommended subacute rehab upon discharge. No leukocytosis and hemoglobin is stable. Creatinine is within normal limits as well as electrolytes. Repeat chest x-ray shows no acute event. Patient still have a little bit dyspnea mostly related to his pulmonary embolism. However we will do serial troponins and EKG as patient still bradycardic while his Inderal is on hold. No much tremor in his hand which is why he was getting the Inderal for, his heart rate is in 40s. Also going to ask for psychiatrist to evaluate the patient, usually he sees Dr. Ramsey who is a psychiatrist. Lidocaine patch for his back pain. 12/19/2018 pt is mildly dyspneic , saturating 98% on room air, he is on heparin drip for PE , pulmonary evaluation is appreciated , pt can be transferred out of the ICU, no chest pain ,vitals are stable, pt can be switched to oral anticoagulant soon . pt is been followed by psychiatry , violin teacher recommended US of lower ext. pt will benefit from ECF upon discharge 12/20/2018 Patient is seen in the general medical floor, his more awake and stable today. He is more appropriate and less lethargic. He still complaining from breathing difficulty however his breathing is unlabored and he is saturating 99% on room air and at times uses oxygen up to 4 L/M. Input is appreciated. He has asymptomatic bradycardia. Propranolol was held. History my looks stable. However he is generally weak and he might benefit from ECF upon discharge. He remains on heparin drip that will switched to oral anticoagulant prior To discharge. Psychiatrist evaluated the patient in the adjusted his medication. Objective - Vital Signs Vital signs: Vital Signs Temp 99.0 F 12/20/18 12:00 Pulse 49 L 12/20/18 12:00 Resp 18 12/20/18 12:00 BP 160/74 12/20/18 12:00 Pulse Ox 99 12/20/18 12:00 Intake & Output 12/19/18 12/20/18 12/20/18 18:59 06:59 18:59 Intake Total 900 358.002 480 Output Total 600 400 Balance 300 -41.998 480 Weight 95.6 kg 97.4 kg Intake: IV 900 200 250 Dextrose 5%-0.9% NaCl 1, 900 200 250 000 ml @ 50 mls/hr IV . Q20H [facility] Rx#:[id number] Intake, IV Titration 158.002 Amount Heparin Sod,Pork in 0.45% 158.002 NaCl 25,000 unit In 0.45 % NaCl 1 250ml.bag @ 18 UNITS/KG/HR 16.81 mls/hr IV .[id number] [facility] Rx#: [id number] Oral 230 Output: Urine 600 400 Other: Voiding Method Indwelling Catheter Indwelling Catheter Indwelling Catheter # Voids 1 # Bowel Movements 1 - Exam GENERAL: The patient is alert and oriented x3, not in any acute distress. Well developed, well nourished. HEENT: Pupils are round and equally reacting to light. EOMI. No scleral icterus. No conjunctival pallor. Normocephalic, atraumatic. No pharyngeal erythema. No thyromegaly. CARDIOVASCULAR: S1 and S2 present. No murmurs, rubs, or gallops. PULMONARY: Chest is clear to auscultation, no wheezing or crackles. ABDOMEN: Soft, nontender, nondistended, normoactive bowel sounds. No palpable organomegaly. Suprapubic catheter. MUSCULOSKELETAL: No joint swelling or deformity. EXTREMITIES: No cyanosis, clubbing, or pedal edema. NEUROLOGICAL: Gross neurological examination did not reveal any focal deficits. SKIN: No rashes. - Labs CBC & Chem 7: 12/20/18 04:00 12/20/18 04:00 Labs: Abnormal Lab Results - Last 24 Hours (Table) 12/20/18 12/20/18 12/20/18 Range/Units 04:00 04:00 04:00 RBC 3.56 L (4.30-5.90) m/uL Hgb 11.2 L (13.0-17.5) gm/dL Hct 33.8 L (39.0-53.0) % APTT 62.6 H (22.0-30.0) sec Chloride 110 H (98-107) mmol/L BUN 8 L (9-20) mg/dL Assessment and Plan Assessment: Bilateral pulmonary embolism in all lobes with moderate clot burden. Patient was started on heparin drip and sent to the ICU Depression associated with decreased appetite Bradycardia Chest pain, we'll do serial troponins and EKG Generalized weakness History of essential tremor History of obstructive uropathy, status post suprapubic catheter h/o Fall, mechanical Lower back and head trauma Mild compression of fracture of L3. Using a brace with mobilization Degenerative joint disease History of skin cancer History of GERD Essential hypertension Hyperlipidemia Dementia History of myoclonic jerks since 2013 as per Plan: This is a pleasant 68 years old male who presents with bilateral PE. Patient was started on heparin drip and we will continue with that. Patient was admitted to the intensive care unit for further monitoring and management. Hemoglobin is stable and Vitas looks stable. Will call hematology consult for further recommendation. Patient heart rate was on the low side. We'll discharge her troponins and EKG. Propranolol on hold. Patient will need psychiatrist evaluation for his depression. Repeat chest x-ray no active issue.Labs and medication were reviewed.. Continue same treatment. Continue with symptomatic treatment. Resume home medication. Monitor lytes and vitals. DVT and GI prophylaxis. Further recommendations of the clinical course of the patient DVT prophylaxis: heparin GI Prophylaxis: Pepcid Prognosis is guarded, at bedside
[2018-12-20] MEDS: DEXTROSE 5%-0.9% NACL 1,000 ML IV SCH (15:14)
--- NOTE | 2018-12-20 16:27 | ECHOF ---
Referral Reason:shortness of breath, multiple PE's MEASUREMENTS -------- HEIGHT: 177.8 cm WEIGHT: 95.3 kg BP: RVIDd: 2.9 cm (< 3.3) IVSd: 1.3 cm (0.6 - 1.1) LVIDd: 3.3 cm (3.9 - 5.3) LVPWd: 1.1 cm (0.6 - 1.1) IVSs: 2.0 cm LVIDs: 1.3 cm LVPWs: 1.7 cm LAESV Index (A-L): 27.58 ml/m Ao Diam: 3.3 cm (2.0 - 3.7) AV Cusp: 2.4 cm (1.5 - 2.6) LA Diam: 3.9 cm (2.7 - 3.8) MV EXCURSION: 15.249 mm (> 18.000) MV EF SLOPE: 89 mm/s (70 - 150) EPSS: 0.7 cm MV E Lam: 0.84 m/s MV DecT: 241 ms MV A Lam: 0.81 m/s MV E/A Ratio: 1.02 RAP: 5.00 mmHg RVSP: 27.49 mmHg FINDINGS -------- Sinus rhythm. This was a technically good study. The left ventricular size is normal. There is mild concentric left ventricular hypertrophy. Overa ll left ventricular systolic function is normal with, an EF between 55 - 60 %. The right ventricle is normal in size. The left atrium is normal in size. The right atrium is normal in size. The aortic valve is trileaflet and appears structurally normal. The mitral valve leaflets are mildly thickened. Mild mitral annular calcification present. Mild m itral regurgitation is present. Mild tricuspid regurgitation present. The right ventricular systolic pressure, as measured by Doppl er, is 27.49mmHg. Pulmonic valve appears structurally normal. The aortic root size is normal. IVC Not well visulized. The pericardium is normal. CONCLUSIONS -------- 1. Sinus rhythm. 2. This was a technically good study. 3. The left ventricular size is normal. 4. There is mild concentric left ventricular hypertrophy. 5. Overall left ventricular systolic function is normal with, an EF between 55 - 60 %. 6. The right ventricle is normal in size. 7. The left atrium is normal in size. 8. The right atrium is normal in size. 9. The aortic valve is trileaflet and appears structurally normal. 10. The mitral valve leaflets are mildly thickened. 11. Mild mitral annular calcification present. 12. Mild mitral regurgitation is present. 13. Mild tricuspid regurgitation present. 14. The right ventricular systolic pressure, as measured by Doppler, is 27.49mmHg. 15. Pulmonic valve appears structurally normal. 16. The aortic root size is normal. 17. IVC Not well visulized. 18. The pericardium is normal. PATIENT ACCOUNTS MANAGER: Cande Alvarez RDCS
[2018-12-20] MEDS: cloZAPine 25 MG TAB PO SCH (22:28)
[2018-12-20] MEDS: ATORVASTATIN 40 MG TAB PO SCH (22:28)
[2018-12-20] MEDS: DONEPEZIL 10 MG TAB PO SCH (22:29)
[2018-12-21] MEDS: LEVOTHYROXINE 75 MCG TAB PO SCH (06:13)
[2018-12-21 07:36] LABS: Basophils % (A) 0 %; Eosinophils # (A) 0.1 k/uL (0-0.7); Eosinophils % (A) 2 %; HCT 32.6 % (39.0-53.0); HGB 10.6 gm/dL (13.0-17.5); Lymphocytes # (A) 1.4 k/uL (1.0-4.8); Lymphocytes % (A) 25 %; MCH 30.6 pg (25.0-35.0); MCHC 32.4 g/dL (31.0-37.0); MCV 94.7 fL (80.0-100.0); Mean Platelet Volume 6.8; Monocytes # (A) 0.4 k/uL (0-1.0); Monocytes % (A) 6 %; Neutrophils # (A) 3.6 k/uL (1.3-7.7); Neutrophils % (A) 64 %; Platelet Count 227 k/uL (150-450); Poikilocytosis Slight; RBC 3.44 m/uL (4.30-5.90); RDW 15.2 % (11.5-15.5); WBC 5.6 k/uL (3.8-10.6)
[2018-12-21 07:49] LABS: Anion Gap 6 mmol/L; Blood Urea Nitrogen 7 mg/dL (9-20); Calcium 8.7 mg/dL (8.4-10.2); Carbon Dioxide 26 mmol/L (22-30); Chloride 111 mmol/L (98-107); Glucose 90 mg/dL (74-99); Potassium 3.2 mmol/L (3.5-5.1); Sodium 143 mmol/L (137-145)
[2018-12-21] MEDS: ALBUTEROL NEBULIZED 2.5 MG/3 ML INHALATION SCH ×4 (08:00→21:22)
[2018-12-21] MEDS: PROPRANOLOL 10 MG TAB PO SCH ×2 (09:00→21:38)
[2018-12-21] MEDS: FAMOTIDINE 20 MG TAB PO SCH ×2 (09:00→21:38)
[2018-12-21] MEDS: cloZAPine 25 MG TAB PO SCH ×2 (09:00→21:37)
[2018-12-21] MEDS: clonazePAM 0.5 MG TAB PO SCH ×2 (09:01→21:38)
[2018-12-21] MEDS: MEGESTROL 40 MG TAB PO SCH ×4 (09:01→21:37)
[2018-12-21] MEDS: CEPHALEXIN 500 MG CAP PO SCH ×2 (09:01→21:38)
[2018-12-21] MEDS: LIDOCAINE 5% PATCH TOPICAL SCH (09:03)
[2018-12-21] MEDS: HYDROcodone/APAP 5-325MG 1 EACH TAB PO PRN ×2 (09:04→21:38)
[2018-12-21] MEDS: POTASSIUM CHLORIDE ER 20 MEQ TAB.ER PO SCH ×2 (12:51→17:52)
[2018-12-21] MEDS: HEPARIN SOD,PORK IN 0.45% NACL 25,000 UNIT in 0.45% NACL 1 250ML.BAG IV SCH (12:51)
[2018-12-21] MEDS: DEXTROSE 5%-0.9% NACL 1,000 ML IV SCH (12:51)
--- NOTE | 2018-12-21 14:28 | P.PN ---
Subjective 68 years old male with past medical history of skin cancer, coronary artery disease, GERD, hypertension, hypothyroidism, dizziness and fall compression of fracture, 3. She has been recently admitted to the hospital for altered mental status with workup was in revealing patient was transferred to [facility] for neurological evaluation. where pt was sent later on to [facility] Now presents because of dyspnea from [facility] , however pt could not elaborate more in the history. no family at bed side. Patient also has suprapubic Sanchez catheter. With few cc of urine in the bag. Patient currently denies chest pain he has mild tachypnea. No coughing no hemoptysis. No abdominal pain. No dizziness or headache. On admission patient was bradycardic, afebrile, blood pressure is controlled and he is saturating 98% on 2 L. His WBC 10.8 K, hemoglobin was 13.2 and 12.2. BMP was unremarkable. Liver enzymes not elevated and occult blood in the stool was negative. CT edge of the chest moderate clots present. Patient was started on heparin drip and admitted to the ICU. 12/17/2018 Patient remains in the ICU, is fully awake and our intent, however he lists lethargic. Patient feels and well without specification. He has ongoing pain in his lower back from her recent compression of fracture the best continue. He has loss of appetite which has been going on for 1 or 2 weeks. No chest pain or dyspnea. No bleeding. No headache. No abdominal pain or nausea vomiting. He has suprapubic Sanchez with a decreased urine output, increase his normal saline from 50 200 mL per hour. Morphine is been added for his back pain. Patient should use his brace whenever out of bed. Also will check bladder scan. His little tachycardic and blood pressure low-normal. We will lower his Inderal for his tremor from 10 mg 3 times a day to every 12 hours. 12/18/2018 Patient looks lethargic and depressed, he looks withdrawn and does not want to participate in March activities. He feels a Place. And he refusing to eat. Patient also has some chest discomfort in the middle which is mild nonradiating. His urine output is good today. He still complaining of from his back pain at the pressure site, brace at bedside. Physical therapy evaluated the patient yesterday and recommended subacute rehab upon discharge. No leukocytosis and hemoglobin is stable. Creatinine is within normal limits as well as electrolytes. Repeat chest x-ray shows no acute event. Patient still have a little bit dyspnea mostly related to his pulmonary embolism. However we will do serial troponins and EKG as patient still bradycardic while his Inderal is on hold. No much tremor in his hand which is why he was getting the Inderal for, his heart rate is in 40s. Also going to ask for psychiatrist to evaluate the patient, usually he sees Dr. Ramsey who is a psychiatrist. Lidocaine patch for his back pain. 12/19/2018 pt is mildly dyspneic , saturating 98% on room air, he is on heparin drip for PE , pulmonary evaluation is appreciated , pt can be transferred out of the ICU, no chest pain ,vitals are stable, pt can be switched to oral anticoagulant soon . pt is been followed by psychiatry , deputy grand jury recommended US of lower ext. pt will benefit from ECF upon discharge 12/20/2018 Patient is seen in the general medical floor, his more awake and stable today. He is more appropriate and less lethargic. He still complaining from breathing difficulty however his breathing is unlabored and he is saturating 99% on room air and at times uses oxygen up to 4 L/M. Input is appreciated. He has asymptomatic bradycardia. Propranolol was held. History my looks stable. However he is generally weak and he might benefit from ECF upon discharge. He remains on heparin drip that will switched to oral anticoagulant prior To discharge. Psychiatrist evaluated the patient in the adjusted his medication. 12/21/2018 The patient is clinically doing well and is not on oxygen and saturating 100% still complaining of shortness of breath but this is psychosomatic I believe patient is comfortable at this time. Patient does have flat affect appears to be quite a bit depressed was evaluated by psychiatric unit patient was switched to Eliquis IV heparin is being discontinued. Constitutional: Denied any fatigue denied any fever. Cardio vascular: denied any chest pain, palpitations Gastrointestinal denied any nausea vomiting Pulmonary: Denied any shortness of breath cough Neurologic denied any new focal deficits All inpatient medications were reviewed and appropriate changes in these medications as dictated in the interval history and assessment and plan. Objective - Vital Signs Vital signs: Vital Signs Temp 98.0 F 12/21/18 12:00 Pulse 59 L 12/21/18 12:00 Resp 18 12/21/18 12:00 BP 119/63 12/21/18 12:00 Pulse Ox 97 12/21/18 12:00 Intake & Output 12/20/18 12/21/18 12/21/18 18:59 06:59 18:59 Intake Total 580 239.415 484.029 Output Total 1600 Balance 580 -1360.585 484.029 Weight 96.8 kg Intake: IV 250 250 Dextrose 5%-0.9% NaCl 1, 250 250 000 ml @ 50 mls/hr IV . Q20H [facility] Rx#:[id number] Intake, IV Titration 239.415 134.029 Amount Heparin Sod,Pork in 0.45% 239.415 134.029 NaCl 25,000 unit In 0.45 % NaCl 1 250ml.bag @ 18 UNITS/KG/HR 16.81 mls/hr IV .[id number] [facility] Rx#: [id number] Oral 330 100 Output: Urine 1600 Other: Voiding Method Indwelling Catheter Indwelling Catheter Indwelling Catheter - Exam PHYSICAL EXAMINATION: GENERAL: The patient is alert and oriented x3, not in any acute distress. Well developed, well nourished. Appears to be bit tired HEENT: Pupils are round and equally reacting to light. EOMI. No scleral icterus. No conjunctival pallor. Normocephalic, atraumatic. No pharyngeal erythema. No thyromegaly. CARDIOVASCULAR: S1 and S2 present. No murmurs, rubs, or gallops. PULMONARY: Chest is clear to auscultation, no wheezing or crackles. ABDOMEN: Soft, nontender, nondistended, normoactive bowel sounds. No palpable organomegaly. MUSCULOSKELETAL: No joint swelling or deformity. EXTREMITIES: No cyanosis, clubbing, or pedal edema. NEUROLOGICAL: Gross neurological examination did not reveal any focal deficits. SKIN: No rashes. - Labs CBC & Chem 7: 12/21/18 06:54 12/21/18 06:54 Labs: Abnormal Lab Results - Last 24 Hours (Table) 12/21/18 12/21/18 12/21/18 Range/Units 06:54 06:54 06:54 RBC 3.44 L (4.30-5.90) m/uL Hgb 10.6 L (13.0-17.5) gm/dL Hct 32.6 L (39.0-53.0) % APTT 52.2 H (22.0-30.0) sec Potassium 3.2 L (3.5-5.1) mmol/L Chloride 111 H (98-107) mmol/L BUN 7 L (9-20) mg/dL Assessment and Plan Plan: -Bilateral PE and the lower extremity DVT: Patient was switched Eliquis will be discharged tomorrow -Major depression essential tremor benign -Chronic low back pain with compression fractures in the past degenerative joint disease -Obstructive uropathy for which patient is a suprapubic catheter -Hypertension next and-hyperlipidemia -Dementia Patient will be continued on present medications will be switched to oral anticoagulation.
--- NOTE | 2018-12-21 14:35 | P.PN ---
Subjective Progress Note Date: 12/21/18 This is a 68-year-old white male patient with past medical history of hypertension, hypothyroidism, GERD/reflux, dementia, CAD, who was recently hospitalized for altered mental status, a fall sustaining a compression fractures of the lumbar spine, patient was subsequently transferred to [facility] for neurological evaluation. Patient was discharged to [facility] 6 days ago. Patient was brought into the emergency department on 12/15/2018 with complaints of shortness of breath. Denies any chest pain, denied any hemoptysis, denied lightheadedness or dizziness, no syncopal episodes. CT angios of the chest was completed, and showed segmental branch pulmonary emboli within all lobes, moderate clot burden, hepatic venous reflux that could indicate mild heart strain. Clinically patient maintaining his oxygenation on room air, no tachycardia, no distress. He was started on IV heparin. he states she is mildly dyspneic, but in no acute distress. Patient was transferred to the intensive care unit today, he is seen in evaluation. He is resting quietly in bed, he is oriented 3. He states he is short of breath without exertion, but no acute distress, no use of a accessory muscles of breathing, he is currently on room air with a pulse ox of 98%, normotensive, he is in sinus bradycardia with a rate of 57 BPM on the monitor, denies any chest pain, lung sounds are clear, diminished at the bases, no rhonchi, no wheezing. He is on heparin drip per weight-based protocol. Patient is a suprapubic catheter in place for history of obstructive uropathy. Today's labs have been reviewed, there is no leukocytosis, hemoglobin is 11.3, sodium is 143, potassium is 3.9, chloride is 112, CO2 is 28, BUN is 8, creatinine 0.70, troponin is negative. ProBNP was within normal limits on admission at 149. Patient appears to be withdrawn, he is being followed by psychiatric services in regards to depression On today's evaluation, the patient is calm and comfortable in bed on room air. The Doppler of the lower extremity showed a right lower extremity DVT. The patient's not having any chest pain. Pulse ox is 97% on room air. No bleeding complications. He threatened anticoagulation well. Hemoglobin stable at 11.2. Platelet counts are also stable at 243. No other significant issues otherwise for now. On today's evaluation of 3. Thousand and , the patient remains hemodynamically stable. The patient remains on IV heparin. We are still looking into his insurance coverage regarding oral anticoagulants. No cough. No sputum production. No shortness of breath. No other significant events overnight. His resting comfortably in bed. Objective - Vital Signs Vital signs: Vital Signs Temp 98.0 F 12/21/18 12:00 Pulse 59 L 12/21/18 12:00 Resp 18 12/21/18 12:00 BP 119/63 12/21/18 12:00 Pulse Ox 97 12/21/18 12:00 Intake & Output 12/20/18 12/21/18 12/21/18 18:59 06:59 18:59 Intake Total 580 239.415 484.029 Output Total 1600 600 Balance 580 -1360.585 -115.971 Weight 96.8 kg Intake: IV 250 250 Dextrose 5%-0.9% NaCl 1, 250 250 000 ml @ 50 mls/hr IV . Q20H WENDY Rx#:[id number] Intake, IV Titration 239.415 134.029 Amount Heparin Sod,Pork in 0.45% 239.415 134.029 NaCl 25,000 unit In 0.45 % NaCl 1 250ml.bag @ 18 UNITS/KG/HR 16.81 mls/hr IV .[id number] WENDY Rx#: [id number] Oral 330 100 Output: Urine 1600 600 Other: Voiding Method Indwelling Catheter Indwelling Catheter Indwelling Catheter # Voids 1 - Exam GENERAL EXAM: Alert, pleasant, 68-year-old white male resting in bed, there is to be withdrawn, but fairly cooperative HEAD: Normocephalic/atraumatic. EYES: Normal reaction of pupils, equal size. Conjunctiva pink, sclera white. NOSE: Clear with pink turbinates. THROAT: No erythema or exudates. NECK: No masses, no JVD, no thyroid enlargement, no adenopathy. CHEST: No chest wall deformity. Symmetrical expansion. LUNGS: Equal air entry with no crackles, wheeze, rhonchi or dullness. CVS: Regular rate and rhythm, normal S1 and S2, no gallops, no murmurs, no rubs ABDOMEN: Soft, nontender. No hepatosplenomegaly, normal bowel sounds, no guarding or rigidity. EXTREMITIES: No clubbing, no edema, no cyanosis, 2+ pulses and upper and lower extremities. MUSCULOSKELETAL: Muscle strength and tone normal. SPINE: No scoliosis or deformity SKIN: No rashes CENTRAL NERVOUS SYSTEM: Alert and oriented -3. No focal deficits, tone is normal in all 4 extremities. PSYCHIATRIC: Alert and oriented -3. Appropriate affect. Intact judgment and insight. - Labs CBC & Chem 7: 12/21/18 06:54 12/21/18 06:54 Labs: Abnormal Lab Results - Last 24 Hours (Table) 12/21/18 12/21/18 12/21/18 Range/Units 06:54 06:54 06:54 RBC 3.44 L (4.30-5.90) m/uL Hgb 10.6 L (13.0-17.5) gm/dL Hct 32.6 L (39.0-53.0) % APTT 52.2 H (22.0-30.0) sec Potassium 3.2 L (3.5-5.1) mmol/L Chloride 111 H (98-107) mmol/L BUN 7 L (9-20) mg/dL Assessment and Plan Plan: #1. Acute pulmonary emboli in all subsegmental branches bilaterally, seen on the CT angios of the chest, with moderate clot burden. No tachycardia, hypoxemia, patient is mildly short of breath, but no acute distress, no chest pain, no hemoptysis. Troponins were negative 2, proBNP was within normal limits. The patient is also found to have a positive DVT in the popliteal vein in the right lower extremity. No DVT in the left lower extremity. #2. Low back pain, patient has a history of a recent fall compression fractures of the lumbar spine, patient prescribed of the back brace #3. Recent hospitalization altered mental status, and patient was hospitalized at [facility] and subsequently transferred to [facility] #4. Depression #5. Generalized weakness #6. Insomnia, lack of appetite, likely related to depression #7. History of obstructive uropathy, status post suprapubic catheter placement #8. History of dementia, GERD/reflux, hypertension, osteoarthritis, hypothyroidism I am Continued IV heparin. Oral anticoagulation based on his insurance coverage. Would recommend Eliquis and oral anticoagulants if there is adequate insurance coverage. We'll sign off the case and leave the rest of the management of the medical group.
[2018-12-21] MEDS: APIXABAN 5 MG TAB PO SCH ×2 (17:52)
[2018-12-21] MEDS: DONEPEZIL 10 MG TAB PO SCH (21:38)
[2018-12-21] MEDS: ATORVASTATIN 40 MG TAB PO SCH (21:38)
[2018-12-22] MEDS: LEVOTHYROXINE 75 MCG TAB PO SCH (06:08)
[2018-12-22] MEDS: MEGESTROL 40 MG TAB PO SCH ×3 (07:50→16:43)
[2018-12-22] MEDS: PROPRANOLOL 10 MG TAB PO SCH ×2 (07:50→07:51)
[2018-12-22] MEDS: APIXABAN 5 MG TAB PO SCH (07:51)
[2018-12-22] MEDS: clonazePAM 0.5 MG TAB PO SCH (07:51)
[2018-12-22] MEDS: CEPHALEXIN 500 MG CAP PO SCH (07:51)
[2018-12-22] MEDS: FAMOTIDINE 20 MG TAB PO SCH (07:51)
[2018-12-22] MEDS: cloZAPine 25 MG TAB PO SCH (07:51)
[2018-12-22] MEDS: LIDOCAINE 5% PATCH TOPICAL SCH (07:52)
[2018-12-22 08:30] LABS: Anion Gap 5 mmol/L; Blood Urea Nitrogen 11 mg/dL (9-20); Carbon Dioxide 25 mmol/L (22-30); Chloride 114 mmol/L (98-107); Glucose 93 mg/dL (74-99); Potassium 3.8 mmol/L (3.5-5.1); Sodium 144 mmol/L (137-145)
[2018-12-22] MEDS: ALBUTEROL NEBULIZED 2.5 MG/3 ML INHALATION SCH ×4 (09:18→19:30)
--- NOTE | 2018-12-22 11:25 | P.PN ---
Progress Note - Text Interval history: The patient is found in his room he is seated in the chair next to his bed. He was quietly resting upon my approach. He is verbally arousable. He readily engages in conversation. Although he was observed to be in no acute distress and breathing normally he states he feels short of breath. He indicates feeling better overall and expects he will be going back to an extended care facility for rehab treatment. We reviewed his psychotropic medications and his questions were answered. Mental status exam: The patient is alert he is lying comfortably in the chair eye contact is appropriate. He readily engages in conversation. He demonstrates a more expressive range of affect. He demonstrates no confusion today. He is reporting no suicidal or homicidal ideation intent or plan. He is reporting no auditory or visual hallucinations. He is endorsing no specific delusions. He demonstrates no verbal or physical aggressiveness he demonstrates no abnormal involuntary movements. Insight and judgment overall improved. Assessment plan: Neurocognitive disorder in the context of major depressive disorder. Recent delirium resolving. The patient will continue on the Clozaril I will titrate the dose to 100 mg twice daily. I expect he will be discharged today to an extended care facility for physical therapy. He will follow up with me in the office upon his discharge from rehab. The patient does not require inpatient psychiatric hospitalization.
--- NOTE | 2018-12-22 12:25 | P.DS ---
Providers Date of admission: 12/15/18 23:56 Expected date of discharge: 12/22/18 Attending physician: Cinthia Choudhury Consults: 12/18/18 15:58 Consult Physician Routine Consulting Provider: Jose Luis Pereira Consult Reason/Comments: Anticoagulation with PE Do you want consulting provider notified?: Yes 12/18/18 16:04 Consult Physician Routine Consulting Provider: Emmett Cruz Consult Reason/Comments: severe depression Do you want consulting provider notified?: Yes 12/19/18 13:41 Consult Physician Routine Consulting Provider: Jennifer Shelton Consult Reason/Comments: PE with dyspnea Do you want consulting provider notified?: Already Contacted Primary care physician: [facility] Course: Final Diagnoses: -Bilateral PE and the lower extremity DVT -Major depression essential tremor benign -Chronic low back pain with compression fractures in the past degenerative joint disease -Obstructive uropathy for which patient is a suprapubic catheter -Hypertension next and-hyperlipidemia -Dementia Hospital course:68 years old male with past medical history of skin cancer, coronary artery disease, GERD, hypertension, hypothyroidism, dizziness and fall compression of fracture, 3. She has been recently admitted to the hospital for altered mental status with workup was in revealing patient was transferred to [facility] for neurological evaluation. where pt was sent later on to [facility] Now presents because of dyspnea from [facility] , however pt could not elaborate more in the history. no family at bed side. Patient also has suprapubic Sanchez catheter. With few cc of urine in the bag. Patient currently denies chest pain he has mild tachypnea. No coughing no hemoptysis. No abdominal pain. No dizziness or headache. On admission patient was bradycardic, afebrile, blood pressure is controlled and he is saturating 98% on 2 L. His WBC 10.8 K, hemoglobin was 13.2 and 12.2. BMP was unremarkable. Liver enzymes not elevated and occult blood in the stool was negative. CT edge of the chest moderate clots present. Patient was started on heparin drip and admitted to the ICU. 12/17/2018 Patient remains in the ICU, is fully awake and our intent, however he lists lethargic. Patient feels and well without specification. He has ongoing pain in his lower back from her recent compression of fracture the best continue. He has loss of appetite which has been going on for 1 or 2 weeks. No chest pain or dyspnea. No bleeding. No headache. No abdominal pain or nausea vomiting. He has suprapubic Sanchez with a decreased urine output, increase his normal saline from 50 200 mL per hour. Morphine is been added for his back pain. Patient should use his brace whenever out of bed. Also will check bladder scan. His little tachycardic and blood pressure low-normal. We will lower his Inderal for his tremor from 10 mg 3 times a day to every 12 hours. 12/18/2018 Patient looks lethargic and depressed, he looks withdrawn and does not want to participate in March activities. He feels a Place. And he refusing to eat. Patient also has some chest discomfort in the middle which is mild nonradiating. His urine output is good today. He still complaining of from his back pain at the pressure site, brace at bedside. Physical therapy evaluated the patient yesterday and recommended subacute rehab upon discharge. No leukocytosis and hemoglobin is stable. Creatinine is within normal limits as well as electrolytes. Repeat chest x-ray shows no acute event. Patient still have a little bit dyspnea mostly related to his pulmonary embolism. However we will do serial troponins and EKG as patient still bradycardic while his Inderal is on hold. No much tremor in his hand which is why he was getting the Inderal for, his heart rate is in 40s. Also going to ask for psychiatrist to evaluate the patient, usually he sees Dr. Ramsey who is a psychiatrist. Lidocaine patch for his back pain. 12/19/2018 pt is mildly dyspneic , saturating 98% on room air, he is on heparin drip for PE , pulmonary evaluation is appreciated , pt can be transferred out of the ICU, no chest pain ,vitals are stable, pt can be switched to oral anticoagulant soon . pt is been followed by psychiatry , rate manager recommended US of lower ext. pt will benefit from ECF upon discharge 12/20/2018 Patient is seen in the general medical floor, his more awake and stable today. He is more appropriate and less lethargic. He still complaining from breathing difficulty however his breathing is unlabored and he is saturating 99% on room air and at times uses oxygen up to 4 L/M. Input is appreciated. He has asymptomatic bradycardia. Propranolol was held. History my looks stable. However he is generally weak and he might benefit from ECF upon discharge. He remains on heparin drip that will switched to oral anticoagulant prior To discharge. Psychiatrist evaluated the patient in the adjusted his medication. 12/21/2018 The patient is clinically doing well and is not on oxygen and saturating 100% still complaining of shortness of breath but this is psychosomatic I believe patient is comfortable at this time. Patient does have flat affect appears to be quite a bit depressed was evaluated by psychiatric unit patient was switched to Eliquis IV heparin is being discontinued. 12/22/2018 significant clinical improvement. No overnight events. Cleared by all consults for discharge. Patient is being discharged to [facility] in a stable condition with guarded prognosis. EXAMINATION: GENERAL: The patient is alert and oriented x3, not in any acute distress. CARDIOVASCULAR: S1 and S2 present. No murmurs, rubs, or gallops. PULMONARY: Chest is clear to auscultation, no wheezing or crackles. ABDOMEN: Soft, nontender, nondistended, normoactive bowel sounds. No palpable organomegaly. NEUROLOGICAL: Gross neurological examination did not reveal any focal deficits. The impression and plan of care has been dictated as directed. : I performed a history and examination of this patient, discussed the same with the dictator. I agree with the dictator's note ,documented as a scribe. Any additional findings or plans will be noted. Time taken: 35 minutes Patient Condition at Discharge: Stable Plan - Discharge Summary New Discharge Prescriptions: New Apixaban [Eliquis] 10 mg PO BID #1 tab cloZAPine [Clozaril] 100 mg PO BID #6 tab Famotidine [Pepcid] 20 mg PO BID tab Lidocaine 5% Patch [Lidoderm 5% Patch] 1 patch TOPICAL DAILY patch Megestrol [Megace] 40 mg PO QID tab Propranolol [Inderal] 10 mg PO BID tab Continue Levothyroxine Sodium [Synthroid] 75 mcg PO DAILY Donepezil [Aricept] 10 mg PO HS Folic Acid 1 mg PO DAILY Albuterol Nebulized [Ventolin Nebulized] 2.5 mg INHALATION RT-QID Acetaminophen Tab [Tylenol] 650 mg PO Q6H PRN PRN Reason: Fever And/ Or Pain Multivitamins, Thera [Multivitamin (formulary)] 1 tab PO DAILY Atorvastatin [Lipitor] 40 mg PO HS Aspirin EC [Ecotrin Low Dose] 81 mg PO DAILY clonazePAM [KlonoPIN] 0.5 mg PO BID #6 tablet Discontinued Citalopram Hydrobromide [CeleXA] 20 mg PO DAILY Amantadine HCl [Amantadine] 100 mg PO BID Propranolol [Inderal] 20 mg PO BID Cephalexin [Keflex] 500 mg PO BID@0800,2000 cloZAPine [Clozaril] 150 mg PO HS Discharge Medication List Donepezil [Aricept] 10 mg PO HS 05/17/18 [History] Levothyroxine Sodium [Synthroid] 75 mcg PO DAILY 05/17/18 [History] Folic Acid 1 mg PO DAILY 12/01/18 [History] Acetaminophen Tab [Tylenol] 650 mg PO Q6H PRN 12/15/18 [History] Albuterol Nebulized [Ventolin Nebulized] 2.5 mg INHALATION RT-QID 12/15/18 [ History] Aspirin EC [Ecotrin Low Dose] 81 mg PO DAILY 12/15/18 [History] Atorvastatin [Lipitor] 40 mg PO HS 12/15/18 [History] Multivitamins, Thera [Multivitamin (formulary)] 1 tab PO DAILY 12/15/18 [History ] Apixaban [Eliquis] 10 mg PO BID #1 tab 12/22/18 [Rx] Famotidine [Pepcid] 20 mg PO BID tab 12/22/18 [Rx] Lidocaine 5% Patch [Lidoderm 5% Patch] 1 patch TOPICAL DAILY patch 12/22/18 [Rx ] Megestrol [Megace] 40 mg PO QID tab 12/22/18 [Rx] Propranolol [Inderal] 10 mg PO BID tab 12/22/18 [Rx] cloZAPine [Clozaril] 100 mg PO BID #6 tab 12/22/18 [Rx] clonazePAM [KlonoPIN] 0.5 mg PO BID #6 tablet 12/22/18 [Rx] Follow up Appointment(s)/Referral(s): Jose Luis Pereira MD [STAFF PHYSICIAN] - As Needed (Receommend 6monthf/u with doppler and CTA) Jerod Gabriel DO [Primary Care Provider] - 3 Days Clemente Ramsey DO [Medical Doctor] - 1 Week (After DC from ECF) Activity/Diet/Wound Care/Special Instructions: [facility] ECF Diet: Regular Activity: As tolerated CBC, BMP in 3 days Discharge Disposition: TRANSFER TO SNF/ECF
[2018-12-22 12:28] VITALS: BP 139/79; TEMP 97.8
[2018-12-22 14:49] VITALS: BMI 28.7
[2018-12-22 15:40] VITALS: RESP 16
[2018-12-22 15:48] VITALS: PULSE 60
--- NOTE | 2018-12-22 18:16 | P.PN ---
Subjective Progress Note Date: 12/22/18 Principal diagnosis: Right lower extremity DVT, PE In follow-up today patient is denying any acute bleeding, no hematoemesis, hematuria, black or bloody stool,he has persistent shortness of breath with any activity, he is wearing his back brace. Objective - Vital Signs Vital signs: Vital Signs Temp 97.8 F 12/22/18 12:25 Pulse 60 12/22/18 15:48 Resp 16 12/22/18 15:48 BP 139/79 12/22/18 12:25 Pulse Ox 100 12/22/18 15:37 Intake & Output 12/21/18 12/22/18 12/22/18 18:59 06:59 18:59 Intake Total 584.029 450 440 Output Total 1000 550 Balance -415.971 -100 440 Weight 96 kg 96 kg Intake: IV 250 Dextrose 5%-0.9% NaCl 1, 250 000 ml @ 50 mls/hr IV . Q20H WENDY Rx#:[id number] Intake, IV Titration 134.029 450 Amount Dextrose 5%-0.9% NaCl 1, 450 000 ml @ 50 mls/hr IV . Q20H WENDY Rx#:[id number] Heparin Sod,Pork in 0.45% 134.029 NaCl 25,000 unit In 0.45 % NaCl 1 250ml.bag @ 18 UNITS/KG/HR 16.81 mls/hr IV .[id number] WENDY Rx#: [id number] Oral 200 440 Output: Urine 1000 550 Other: Voiding Method Indwelling Catheter Indwelling Catheter Indwelling Catheter # Voids 1 2 - Exam Well-developed, well-nourished male sitting in the chair, normocephalic, atraumatic, anicteric sclera, back brace is on, flat affect, depressed mood, no visible blood in the nares or the mouth, respirations are even and unlabored, no swelling - Labs CBC & Chem 7: 12/21/18 06:54 12/22/18 07:35 Labs: Abnormal Lab Results - Last 24 Hours (Table) 12/22/18 Range/Units 07:35 Chloride 114 H (98-107) mmol/L Assessment and Plan (1) Deep vein thrombosis (DVT) of right lower extremity Current Visit: Yes Status: Acute Priority: High Code(s): I82.401 - ACUTE EMBOLISM AND THOMBOS UNSP DEEP VEINS OF R LOW EXTREM SNOMED Code(s): 508765838 (2) Pulmonary embolism Current Visit: Yes Status: Acute Priority: High Code(s): I26.99 - OTHER PULMONARY EMBOLISM WITHOUT ACUTE COR PULMONALE SNOMED Code(s): 54411542 Plan: No hypercoagulable workup indicated at this time. This does appear to be a provoked blood clot secondary to recent trauma, prolonged hospitalization and immobility. Recommendation is for 6 months of anticoagulation then repeat Doppler and CTA for evaluation of continuing anticoagulation. Performance status will also be at that time. Risk versus benefit will be considered
[2018-12-22] MEDS ORDERED: cloZAPine 100 MG TAB PO SCH (21:00)
== END 2018-12-22 19:44 | DRG 176 ==
LOC: EC 18:53 → 2SICU 23:56 → 3SCARD 12-19 22:42
PROVIDERS: ADMIT Internal Medicine; ATTEND Internal Medicine
DX: I26.99 Other pulmonary embolism without acute cor pulmonale (principal); F33.3 Major depressive disorder, recurrent, severe with psychotic symptoms; I82.401 Acute embolism and thrombosis of unspecified deep veins of right lower extremity; D64.9 Anemia, unspecified; E03.9 Hypothyroidism, unspecified; E78.5 Hyperlipidemia, unspecified; F03.90 Unspecified dementia, unspecified severity, without behavioral disturbance, psychotic disturbance, mood disturbance, and anxiety; F41.0 Panic disorder [episodic paroxysmal anxiety]; G25.0 Essential tremor; G47.00 Insomnia, unspecified; I10 Essential (primary) hypertension; I25.10 Atherosclerotic heart disease of native coronary artery without angina pectoris; K21.9 Gastro-esophageal reflux disease without esophagitis; K22.4 Dyskinesia of esophagus; M19.90 Unspecified osteoarthritis, unspecified site; N13.9 Obstructive and reflux uropathy, unspecified; R79.1 Abnormal coagulation profile; Z79.82 Long term (current) use of aspirin; Z79.890 Hormone replacement therapy; Z79.899 Other long term (current) drug therapy; Z82.49 Family history of ischemic heart disease and other diseases of the circulatory system; Z85.828 Personal history of other malignant neoplasm of skin; Z87.440 Personal history of urinary (tract) infections; Z88.1 Allergy status to other antibiotic agents
CPT/HCPCS: 36415; 71045; 71046; 71275; 80048; 80053; 80061; 81001; 82272; 83036; 83690; 83735; 83880; 84132; 84439; 84443; 84484; 85025; 85379; 85610; 85730; 87086; 93005; 93306; 93970; 94640; 94760; 96361; 96365; 96375; 96376; 99285

== ENCOUNTER 2018-12-25 11:22 | Emergency (ER) | payer MEDICARE ==
[2018-12-25 11:34] VITALS: RESP 18
[2018-12-25] MEDS ORDERED: LORazepam 2 MG/ML INJ IV STA (11:45)
[2018-12-25] MEDS ORDERED: SODIUM CHLORIDE 0.9% 500 ML 500 ML IV STA (11:45)
--- NOTE | 2018-12-25 12:16 | ED ---
General Adult HPI - General Chief complaint: Shortness of Breath Stated complaint: Anxiety Time Seen by Provider: 12/25/18 11:25 Source: EMS, RN notes reviewed Mode of arrival: EMS Limitations: altered mental status - History of Present Illness Initial comments: This is a 68-year-old male who comes into the emergency department from a halfway because she was complaining shortness of breath. Patient does tell me he is short of breath he denies any pain he denies any injury or trauma. Patient denies headache patient denies numbness weakness. Patient denies lightheadedness. Patient is alert and oriented 1 however so I don't know how accurate the history is. Patient is currently on 2 L of oxygen oxygenating at 100% not tachypneic at this time. She denies any nausea vomiting. There is been no reports of any other complaint no family members with the patient. - Related Data Home Medications Medication Instructions Recorded Confirmed Donepezil [Aricept] 10 mg PO HS 05/17/18 12/25/18 Levothyroxine Sodium [Synthroid] 75 mcg PO DAILY 05/17/18 12/25/18 Acetaminophen Tab [Tylenol] 650 mg PO Q6H PRN MDD 32 grams 12/15/18 12/25/18 Albuterol Nebulized [Ventolin 2.5 mg INHALATION RT-QID 12/15/18 12/25/18 Nebulized] Aspirin EC [Ecotrin Low Dose] 81 mg PO DAILY 12/15/18 12/25/18 Atorvastatin [Lipitor] 40 mg PO HS 12/15/18 12/25/18 Multivitamins, Thera [Multivitamin 1 tab PO DAILY 12/15/18 12/25/18 (formulary)] Apixaban [Eliquis] 5 - 10 mg PO BID@0800,1600 12/25/18 12/25/18 Folic Acid 0.8 mg PO DAILY 12/25/18 12/25/18 LORazepam [Ativan] 0.5 mg PO Q12H PRN 12/25/18 12/25/18 Nitroglycerin Sl Tabs [Nitrostat] 0.4 mg SUBLINGUAL Q5M PRN 12/25/18 12/25/18 cloZAPine [Clozaril] 150 mg PO DAILY@199912/25/18 12/25/18 clonazePAM [KlonoPIN] 0.5 mg PO BID@0800,1600 12/25/18 12/25/18 Previous Rx's Medication Instructions Recorded Famotidine [Pepcid] 20 mg PO BID tab 12/22/18 Lidocaine 5% Patch [Lidoderm 5% 1 patch TOPICAL DAILY patch 12/22/18 Patch] Megestrol [Megace] 40 mg PO QID tab 12/22/18 Propranolol [Inderal] 10 mg PO BID tab 12/22/18 Allergies Allergy/AdvReac Type Severity Reaction Status Date / Time levofloxacin AdvReac Unknown Verified 12/25/18 11:34 Review of Systems ROS Statement: Those systems with pertinent positive or pertinent negative responses have been documented in the HPI. ROS Other: All systems not noted in ROS Statement are negative. Past Medical History Past Medical History: Cancer, Chest Pain / Angina, Dementia, GERD/Reflux, Hypertension, Osteoarthritis (OA), Thyroid Disorder Additional Past Medical History / Comment(s): HX UTI W/ SEPSIS 2013, past hx. chest pain-nothing current, tremors hands, heart murmur, esophageal spasms History of Any Multi-Drug Resistant Organisms: None Reported Past Surgical History: Prostate Surgery, Tonsillectomy Additional Past Surgical History / Comment(s): TURP, right thyroid lobectomy (09/08/2015), skin ca removed, SP cath placement Past Anesthesia/Blood Transfusion Reactions: No Reported Reaction Additional Past Anesthesia/Blood Transfusion Reaction / Comment(s): CLAUSTERPHOBIA Past Psychological History: Anxiety, Panic Disorder Smoking Status: Never smoker Past Alcohol Use History: None Reported Past Drug Use History: None Reported - Past Family History Brother(s) Family Medical History: Cancer Sister(s) Family Medical History: Hypertension Father Family Medical History: Hypertension Additional Family Medical History / Comment(s): PT STATED DAD AT AGE 89 COMPLICATIONS FROM MRSA INFECTION. Mother Family Medical History: Hypertension General Exam - General Exam Comments Initial Comments: GENERAL: Patient is well-developed and well-nourished. Patient is nontoxic and well- hydrated and is in no acute distress. ENT: Neck is soft and supple. No significant lymphadenopathy is noted. Oropharynx is clear. Moist mucous membranes. Neck has full range of motion without eliciting any pain. EYES: The sclera were anicteric and conjunctiva were pink and moist. Extraocular movements were intact and pupils were equal round and reactive to light. Eyelids were unremarkable. PULMONARY: Unlabored respirations. Good breath sounds bilaterally. No audible rales rhonchi or wheezing was noted. CARDIOVASCULAR: There is a regular rate and rhythm without any murmurs gallops or rubs. ABDOMEN: Soft and nontender with normal bowel sounds. No palpable organomegaly was noted. There is no palpable pulsatile mass. SKIN: Skin is clear with no lesions or rashes and otherwise unremarkable. NEUROLOGIC: Patient is alert and oriented x3. Cranial nerves II through XII are grossly intact. Motor and sensory are also intact. Normal speech, volume and content. Symmetrical smile. MUSCULOSKELETAL: Normal extremities with adequate strength and full range of motion. No lower extremity swelling or edema. No calf tenderness. LYMPHATICS: No significant lymphadenopathy is noted PSYCHIATRIC: Patient seems very anxious Limitations: altered mental status Course Vital Signs 12/25/18 12/25/18 12/25/18 11:31 12:00 13:00 Temperature 98.4 F Pulse Rate 54 L 52 L 56 L Respiratory 18 18 18 Rate Blood Pressure 128/82 128/82 162/83 O2 Sat by Pulse 100 100 100 Oximetry Medical Decision Making - Medical Decision Making EKG shows sinus bradycardia at 47 bpm NV interval is on a 34 QRS is 86 Q-T intervals 510 QTC is 451. Patient's EKG shows no ST segment elevation or depression or T wave abnormalities are noted. Previous visit showing EKG that is also bradycardic. Patient's CT shows no obvious pulmonary embolus. Patient was oxygenating 100% on 2 L throughout his whole stay. Patient never appeared tachypneic but did appear anxious. showed up and stated that she believes most this is just anxiety. - Lab Data Result diagrams: 12/25/18 12:17 12/25/18 12:17 Lab Results 12/25/18 12/25/18 12/25/18 Range/Units 12:17 12:17 12:17 WBC 8.3 (3.8-10.6) k/uL RBC 4.36 (4.30-5.90) m/uL Hgb 13.5 (13.0-17.5) gm/dL Hct 40.9 (39.0-53.0) % MCV 93.7 (80.0-100.0) fL MCH 30.9 (25.0-35.0) pg MCHC 32.9 (31.0-37.0) g/dL RDW 14.7 (11.5-15.5) % Plt Count 244 (150-450) k/uL Neutrophils % 77 % Lymphocytes % 14 % Monocytes % 6 % Eosinophils % 1 % Basophils % 0 % Neutrophils # 6.4 (1.3-7.7) k/uL Lymphocytes # 1.2 (1.0-4.8) k/uL Monocytes # 0.5 (0-1.0) k/uL Eosinophils # 0.1 (0-0.7) k/uL Basophils # 0.0 (0-0.2) k/uL PT 15.5 H (9.0-12.0) sec INR 1.6 H (<1.2) APTT 26.1 (22.0-30.0) sec D-Dimer 2.44 H (<0.60) mg/L FEU Sodium 140 (137-145) mmol/L Potassium 4.1 (3.5-5.1) mmol/L Chloride 108 H (98-107) mmol/L Carbon Dioxide 22 (22-30) mmol/L Anion Gap 10 mmol/L BUN 11 (9-20) mg/dL Creatinine 0.83 (0.66-1.25) mg/dL Est GFR (CKD-EPI)AfAm >90 (>60 ml/min/1.73 sqM) Est GFR (CKD-EPI)NonAf 89 (>60 ml/min/1.73 sqM) Glucose 89 (74-99) mg/dL Calcium 9.8 (8.4-10.2) mg/dL Magnesium 1.8 (1.6-2.3) mg/dL Total Bilirubin 1.2 (0.2-1.3) mg/dL AST 18 (17-59) U/L ALT 25 (21-72) U/L Alkaline Phosphatase 131 H (38-126) U/L Troponin I (0.000-0.034) ng/mL NT-Pro-B Natriuret Pep pg/mL Total Protein 6.7 (6.3-8.2) g/dL Albumin 3.8 (3.5-5.0) g/dL 12/25/18 12/25/18 Range/Units 12:17 12:17 WBC (3.8-10.6) k/uL RBC (4.30-5.90) m/uL Hgb (13.0-17.5) gm/dL Hct (39.0-53.0) % MCV (80.0-100.0) fL MCH (25.0-35.0) pg MCHC (31.0-37.0) g/dL RDW (11.5-15.5) % Plt Count (150-450) k/uL Neutrophils % % Lymphocytes % % Monocytes % % Eosinophils % % Basophils % % Neutrophils # (1.3-7.7) k/uL Lymphocytes # (1.0-4.8) k/uL Monocytes # (0-1.0) k/uL Eosinophils # (0-0.7) k/uL Basophils # (0-0.2) k/uL PT (9.0-12.0) sec INR (<1.2) APTT (22.0-30.0) sec D-Dimer (<0.60) mg/L FEU Sodium (137-145) mmol/L Potassium (3.5-5.1) mmol/L Chloride (98-107) mmol/L Carbon Dioxide (22-30) mmol/L Anion Gap mmol/L BUN (9-20) mg/dL Creatinine (0.66-1.25) mg/dL Est GFR (CKD-EPI)AfAm (>60 ml/min/1.73 sqM) Est GFR (CKD-EPI)NonAf (>60 ml/min/1.73 sqM) Glucose (74-99) mg/dL Calcium (8.4-10.2) mg/dL Magnesium (1.6-2.3) mg/dL Total Bilirubin (0.2-1.3) mg/dL AST (17-59) U/L ALT (21-72) U/L Alkaline Phosphatase (38-126) U/L Troponin I <0.012 (0.000-0.034) ng/mL NT-Pro-B Natriuret Pep 783 pg/mL Total Protein (6.3-8.2) g/dL Albumin (3.5-5.0) g/dL Disposition Clinical Impression: Bradycardia, Anxiety Disposition: HOME SELF-CARE Condition: Good Instructions (If sedation given, give patient instructions): Anxiety (ED) Is patient prescribed a controlled substance at d/c from ED?: No Referrals: Jerod Gabriel DO [Primary Care Provider] - 1-2 days Time of Disposition: 14:07
[2018-12-25 12:34] LABS: Basophils % (A) 0 %; Eosinophils # (A) 0.1 k/uL (0-0.7); Eosinophils % (A) 1 %; HCT 40.9 % (39.0-53.0); HGB 13.5 gm/dL (13.0-17.5); Lymphocytes # (A) 1.2 k/uL (1.0-4.8); Lymphocytes % (A) 14 %; MCH 30.9 pg (25.0-35.0); MCHC 32.9 g/dL (31.0-37.0); MCV 93.7 fL (80.0-100.0); Mean Platelet Volume 7.5; Monocytes # (A) 0.5 k/uL (0-1.0); Monocytes % (A) 6 %; Neutrophils # (A) 6.4 k/uL (1.3-7.7); Neutrophils % (A) 77 %; Platelet Count 244 k/uL (150-450); RBC 4.36 m/uL (4.30-5.90); RDW 14.7 % (11.5-15.5); WBC 8.3 k/uL (3.8-10.6)
[2018-12-25 12:47] LABS: ALT 25 U/L (21-72); AST 18 U/L (17-59); Albumin 3.8 g/dL (3.5-5.0); Alkaline Phosphatase 131 U/L (38-126); Anion Gap 10 mmol/L; Blood Urea Nitrogen 11 mg/dL (9-20); Calcium 9.8 mg/dL (8.4-10.2); Carbon Dioxide 22 mmol/L (22-30); Chloride 108 mmol/L (98-107); Glucose 89 mg/dL (74-99); Magnesium 1.8 mg/dL (1.6-2.3); Potassium 4.1 mmol/L (3.5-5.1); Sodium 140 mmol/L (137-145); Total Bilirubin 1.2 mg/dL (0.2-1.3); Total Protein 6.7 g/dL (6.3-8.2)
[2018-12-25 13:04] LABS: INR 1.6 (<1.2); Partial Thromboplastin Time 26.1 sec (22.0-30.0); Prothrombin Time 15.5 sec (9.0-12.0)
[2018-12-25 13:09] LABS: D-Dimer 2.44 mg/L FEU (<0.60)
--- NOTE | 2018-12-25 13:33 | XR ---
EXAMINATION TYPE: XR chest 2V DATE OF EXAM: 12/25/2018 COMPARISON: 12/18/2018 HISTORY: 68-year-old male difficulty breathing, shortness of breath TECHNIQUE: AP and lateral views FINDINGS: Cardiac limits of normal in size. Mild diffuse interstitial prominence appears in part chronic. There is some patchy left basilar opacity noted. No pleural effusion. IMPRESSION: 1. Borderline heart size. 2. Chronic changes, possible bronchitis/asthma. 3. Some patchy atelectasis or early infiltrate at the left base.
--- NOTE | 2018-12-25 14:00 | CT ---
EXAMINATION TYPE: CT chest angio for PE DATE OF EXAM: 12/25/2018 COMPARISON: 12/15/2018 HISTORY: 68-year-old male with pain, SOB TECHNIQUE: Contiguous axial scanning of the chest performed with IV Contrast, patient injected with 1 00 mL of Isovue 370. Coronal/sagittal MIP reconstructions performed. CT DLP: 319.6 mGycm Automated exposure control for dose reduction was used. FINDINGS: Heart upper limits of normal in size with trace pericardial fluid. Coronary vessel calcifications are present. No flattening of the interventricular septum or reflux of contrast into the hepatic veins. Mild aneurysm ascending aorta 4.0 cm unchanged. Conventional arch was a branching anatomy. Borderline to mildly enlarged caliber to the main right and left pulmonary arteries measuring up to 2 .7 cm. Satisfactory opacification of the pulmonary arterial system but with patient free breathing during th e scan. No large central or lobar pulmonary embolus. The previously seen emboli within the proximal s egmental branches have resolved. The remainder of the segmental and more distal arterial branches are essentially nondiagnostic due to the breathing motion. Some patchy atelectasis inferior lingula. No robert consolidation or pleural effusion otherwise seen. Small to moderate size hiatal hernia. Redemonstrated cysts within the right liver lobe measuring up to 3.3 cm. Bones: Endplate spondylosis mid to lower thoracic spine. IMPRESSION: 1. THE PATIENT WAS BREATHING DURING THE SCAN WHICH MARKEDLY DEGRADES ASSESSMENT. NO PULMONARY EMBOLUS TO THE PROXIMAL SEGMENTAL LEVEL. THE REMAINDER OF THE SEGMENTAL AND MORE DISTAL ARTERIAL BRANCHES AR E NONDIAGNOSTIC. EMBOLI PREVIOUSLY SEEN IN PORTIONS OF THE SEGMENTAL BRANCHES HAVE CLEARED. 2. STABLE MILD ANEURYSM ASCENDING AORTA 4.0 CM. 3. CAD, BORDERLINE HEART SIZE, AND POSSIBLE UNDERLYING PULMONARY ARTERIAL HYPERTENSION. 4. SMALL TO MODERATE-SIZED HILAR HERNIA.
[2018-12-25 14:23] VITALS: BP 132/78; PULSE 58; TEMP 98
== END 2018-12-25 14:50 | disposition home or self-care (01) ==
LOC: EC 11:22
DX: R00.1 Bradycardia, unspecified (principal); F41.9 Anxiety disorder, unspecified; F03.90 Unspecified dementia, unspecified severity, without behavioral disturbance, psychotic disturbance, mood disturbance, and anxiety; K21.9 Gastro-esophageal reflux disease without esophagitis; I10 Essential (primary) hypertension; E07.9 Disorder of thyroid, unspecified; F41.0 Panic disorder [episodic paroxysmal anxiety]; Z85.828 Personal history of other malignant neoplasm of skin; Z79.01 Long term (current) use of anticoagulants; Z79.890 Hormone replacement therapy; Z79.899 Other long term (current) drug therapy; Z79.82 Long term (current) use of aspirin; Z88.1 Allergy status to other antibiotic agents
CPT/HCPCS: 36415; 93005; 85379; 83880; 80053; 83735; 84484; 85025; 85610; 85730; 71046; 71275; 99285; 96374; J2060; Q9967

== ENCOUNTER → 2019-07-03 | Outpatient (CLI) | payer MEDICARE, OTHER ==
[2019-07-03 08:20] LABS: African American GFR (CKD) >90 (>60 ml/min/1.73 sqM); Blood Urea Nitrogen 14 mg/dL (9-20); Non-African American GFR(CKD) 85 (>60 ml/min/1.73 sqM)
--- NOTE | 2019-07-03 09:17 | US ---
EXAMINATION TYPE: US venous doppler duplex LE DATE OF EXAM: 07/03/2019 8:26 AM COMPARISON: US CLINICAL HISTORY: I26.99 PE. patient has history of PE & DVT. Does not know if he is currently on thi nners. SIDE PERFORMED: Bilateral TECHNIQUE: The lower extremity deep venous system is examined utilizing real time linear array sonog brian with graded compression, doppler sonography and color-flow sonography. VESSELS IMAGED: External Iliac Vein (EIV) Common Femoral Vein Deep Femoral Vein Greater Saphenous Vein * Femoral Vein Popliteal Vein Limited exam, patient was shaking continuously throughout exam and stated he didn't feel well. A gaston santacruz from the radiology dept stayed with us during exam. Patient went to CT after ultrasound. Right Leg: There is partial compression and flow at the pop prox area consistent for chronic DVT. Fl ow is maintained within the remainder of the right lower extremity imaged. Left Leg: Negative for DVT IMPRESSION: 1. 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 2. No sonographic evidence of deep venous arthrosis within the left lower extremity.
--- NOTE | 2019-07-03 10:30 | CT ---
EXAMINATION TYPE: CT angio chest DATE OF EXAM: 07/03/2019 COMPARISON: CTA chest December 15, 2018 and December 25, 2018. HISTORY: Follow up to PE CT DLP: 404.5 mGycm. Automated Exposure Control for Dose Reduction was Utilized. CONTRAST: CTA scan of the thorax is performed with IV Contrast, patient injected with 62 mL of Isovue 370, pulm onary embolism protocol. MIP Images are created on CT scanner and reviewed. FINDINGS: LUNGS: Significant respiratory motion artifact degradation is seen making evaluation suboptimal parti cularly for subcentimeter nodularity. There is left basilar linear scarring and/or atelectasis redemo nstrated. No suspicious focal consolidation. No pleural effusion or pneumothorax. MEDIASTINUM: There is suboptimal study with heterogeneity and most dense contrast in the SVC, there i s contrast noted in left heart system. There is no large central pulmonary embolism. Smaller segmenta l and subsegmental PE cannot be excluded on this study. There are no greater than 1 cm hilar or media stinal lymph nodes. Mild cardiomegaly remains present. Stable small to tiny pericardial effusion. Per sistent severe coronary calcification which is noted marked for underlying coronary artery disease. A scending aortic aneurysm up to 4.1 cm axial image 68 redemonstrated. Reflux of contrast into hepatic veins and IVC suggests degree of right heart failure. OTHER: Liver is diffusely low-density consistent with fatty infiltration. Simple appearing thin-eve d cyst posterior right hepatic lobe suspected axial image 131 not significant change in size from mihai or studies. IMPRESSION: Suboptimal study without large central pulmonary embolism. Smaller segmental and subsegme ntal PE cannot be excluded on this study. Significant breathing artifact redemonstrated. Ascending ao rtic aneurysm up to 4.1 cm. No suspicious new acute pulmonary process.
== END ==
LOC: RADUSMAIN 07:20
PROVIDERS: ATTEND Internal Medicine Hematology & Oncology
DX: I82.531 Chronic embolism and thrombosis of right popliteal vein (principal); I71.2 Thoracic aortic aneurysm, without rupture; Z88.1 Allergy status to other antibiotic agents
CPT/HCPCS: 82565; 84520; 93970; 71275; 36415; Q9967

== ENCOUNTER → 2021-05-22 | Outpatient (CLI) | payer MEDICARE, OTHER ==
[2021-05-22 13:01] LABS: African American GFR (CKD) >90 (>60 ml/min/1.73 sqM); Blood Urea Nitrogen 16 mg/dL (9-20); Non-African American GFR(CKD) 84 (>60 ml/min/1.73 sqM)
--- NOTE | 2021-05-22 15:00 | US ---
EXAMINATION TYPE: US venous doppler duplex LE RT DATE OF EXAM: 05/22/2021 12:30 PM COMPARISON: 07/03/2019 CLINICAL HISTORY: 70-year-old male I26.99 PULMONARY EMBOLISM, I28.529 DEEP VEIN THROMBOSIS. PE SIDE PERFORMED: Right TECHNIQUE: The lower extremity deep venous system is examined utilizing real time linear array sonog brian with graded compression, doppler sonography and color-flow sonography. FINDINGS: VESSELS IMAGED: Common Femoral Vein Deep Femoral Vein Greater Saphenous Vein * Femoral Vein Popliteal Vein Small Saphenous Vein * Proximal Calf Veins (* superficial vessels) Right Leg: Appears negative for DVT IMPRESSION: No evidence for DVT within the right lower extremity imaged from the groin to the upper calf.
--- NOTE | 2021-05-22 16:09 | CT ---
CT CHEST FOR PULMONARY EMBOLISM. EXAMINATION TYPE: CT angio chest DATE OF EXAM: 05/22/2021 INDICATION: pulmonary embolism CT DLP: 391.5 mGycm, Automated exposure control for dose reduction was used. CONTRAST: Patient injected with 100 mL of Isovue 370. COMPARISON: 07/03/2019 TECHNIQUE: CT of the chest is performed on a spiral scan at 2 mm thick sections. Study is performed with intravenous contrast timed for evaluation for pulmonary embolism. This will limit additional po rtions of the evaluation. 3-D MIP images reconstructed by the technologist are reviewed on the compu ter in the coronal and sagittal planes. FINDINGS: No persistent filling defects are evident to suggest an acute pulmonary embolism. No mediastinal or hilar adenopathy enlarged by CT criteria is evident. The ascending aorta diameter at the level of the main pulmonary artery is 4.3 cm. The main pulmonary artery diameter at the bifur cation is 3.2 cm. Coronary artery calcification is present. Lung windows are clear. Limited CT section through the upper abdomen. There is hypodensity within the posterior right lobe li roni may be a 3.4 cm hepatic cyst measuring 20 Hounsfield units IMPRESSIONS: 1. No acute pulmonary embolus. 2. Ascending thoracic aortic aneurysm currently measures 4.3 cm, previous measurement 4.1 cm.
== END | disposition home or self-care (01) ==
LOC: RADUSWWP 11:51
PROVIDERS: ATTEND Internal Medicine Hematology & Oncology
DX: I26.99 Other pulmonary embolism without acute cor pulmonale (principal); I82.529 Chronic embolism and thrombosis of unspecified iliac vein; I10 Essential (primary) hypertension
CPT/HCPCS: 82565; 84520; 93971; 71275; 36415; Q9967

== ENCOUNTER 2022-05-21 06:07 | Day surgery (SDC) | payer MEDICARE, OTHER ==
[~2022-05-21 06:07] MED LIST: ALPRAZolam 0.25 MG TAB PO PRN; ALPRAZolam 0.5 MG TAB PO PRN; ASPIRIN 325 MG TAB PO STA; ATORVASTATIN 80 MG TAB PO STA; HEPARIN SODIUM,PORCINE 10,000 UNIT in SODIUM CHLORIDE 0.9% 1,000 ML IRRIGATION PRN; HEPARIN SODIUM,PORCINE 2,500 UNIT in SODIUM CHLORIDE 0.9% 250 ML IRRIGATION PRN; NITROGLYCERIN SL TABS 0.4 MG TAB SUBLINGUAL PRN
[2022-05-21] MEDS: SODIUM CHLORIDE 0.9% 1,000 ML in EMPTY BAG 1 BAG IV SCH ×2 (06:30→20:48)
[2022-05-21] MEDS ORDERED: VERAPAMIL 2.5 MG/ML 2 ML AMP ONE (07:12)
[2022-05-21] MEDS ORDERED: fentaNYL (PF) 50 MCG/ML 2 ML AMP ONE (07:14)
[2022-05-21] MEDS ORDERED: HEPARIN SODIUM 1,000 UN/ML (10ML VL) ONE (07:14)
[2022-05-21] MEDS ORDERED: fentaNYL (PF) 50 MCG/ML 2 ML AMP IV ONE (07:33)
[2022-05-21] MEDS ORDERED: LIDOCAINE 1% INJ 10MG/ML (5 ML VIAL-PF) SQ ONE (07:38)
[2022-05-21] MEDS ORDERED: MIDAZOLAM 2 MG/2 ML VIAL IV ONE (07:39)
[2022-05-21] MEDS ORDERED: VERAPAMIL SYRINGE (5 MG/10 ML) INTRAARTER ONE (07:42)
[2022-05-21] MEDS ORDERED: HEPARIN SODIUM 1,000 UN/ML (10ML VL) IV ONE (07:46)
[2022-05-21] MEDS ORDERED: CLOPIDOGREL 75 MG TAB ONE (07:52)
[2022-05-21] MEDS ORDERED: CLOPIDOGREL 75 MG TAB PO ONE (07:54)
[2022-05-21] MEDS ORDERED: NITROGLYCERIN 1000MCG/10ML SYRINGE INTRACORON ONE (08:05)
[2022-05-21] MEDS ORDERED: IOPAMIDOL-370 125ML BTL INJ ONE (08:14)
[2022-05-21] MEDS ORDERED: IOPAMIDOL-370 100ML BTL INJ ONE (08:31)
[2022-05-21] MEDS ORDERED: RX INFO: IV CONTRAST WAS GIVEN 1 EACH MISC MISCELLANE PRN (08:43)
[2022-05-21] MEDS ORDERED: ZOLPIDEM 5 MG TAB PO PRN (08:43)
[2022-05-21] MEDS ORDERED: NITROGLYCERIN SL TABS 0.4 MG TAB SUBLINGUAL PRN ×2 (08:43→08:45)
[2022-05-21] MEDS ORDERED: ATROPINE SULFATE 0.1 MG/ML 10ML SYRINGE IV PRN (08:43)
[2022-05-21] MEDS ORDERED: MAG HYDROX/AL HYDROX/SIMETH 30 ML CUP PO PRN (08:43)
[2022-05-21] MEDS ORDERED: SODIUM CHLORIDE 0.9% 1,000 ML in EMPTY BAG 1 BAG IV SCH (08:45)
--- NOTE | 2022-05-21 08:54 | P.CARDCATH ---
Date of Procedure: 05/21/22 Description of Procedure: Cardiac Catheterization: The patient is a 71-year-old male with a known history of hypertension and hyperlipidemia who has been complaining of chest discomfort, had an abnormal MPI with anterior wall ischemia. Recommendations were made regarding cardiac catheterization, the risks and the complications were discussed with the patient who is in full understanding and agreement. Procedure Description: Patient was brought to lab[facility] filter [employer] in fasting semi-sedated state after receiving Fentanyl and Benadryl achieiving moderate conscious sedated state. Using Xylocaine Anesthesia and Seldinger technique, a 6-Romanian sheath was introduced in the right radial artery . Subsequently, selective coronary angiography was performed using a 5-Romanian 3.5 bend Sobia catheter. Multiple views of the coronary artery including hemiaxial views were obtained. The 5-Romanian Pigtail catheter was used to cross the aortic valve and LVEDP was calculated. Following that angioplasty and stenting was performed. A 6-Romanian CLS 3.5 guiding catheter was introduced into system, after cannulating the left main, a 0.014 BMW J-wire was positioned in the distal LAD, a 2.5 x 12 mm NC Treck was advanced and inflation up to 12 pino were done. Attempt to advance a 2.75 x 28 mm Xience denise point Stent was unsuccessful, the stent was removed and a 6-Romanian guide liner was advanced and with the help of the guide liner the stent was advanced, deployed at 16 pino. After removing the balloon an [place] eye IVUS was advanced and images were obtained. Following that a 3.0 x 15 mm NC Treck was advanced and inflation at 12 pino were done. Following that images were obtained and repeated and revealed a stable successful stenting. Following that, catheter and sheath were removed. Hemostasis was obtained with deployment of TR band . There was no immediate complication. Patient was returned to room in stable condition. Of note, the patient received a total of 7000 units of intravenous heparin as well as intra- arterial verapamil. He received a loading dose of clopidogrel, his ACT was followed. He had no chest discomfort but he had EKG changes that resolved at the end of the procedure. 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 Heavily calcified LAD with critical stenosis proximally 2. Moderate disease in the mid RCA 3. Mild disease in the left circumflex 4. Successful stenting of the proximal LAD with reduction of the stenosis from 99% to 0% with IVUS imaging. Recommendations: I have recommended to continue on aspirin and clopidogrel for 6 months without any interruption in addition to aggressive coronary risks modifications. The findings and the recommendations were discussed with the patient and the family and they were in full understanding and agreement. Duration of sedation is 57 minutes.
[2022-05-21] MEDS ORDERED: ASPIRIN 81 MG PO SCH (09:00)
[2022-05-21] MEDS: FAMOTIDINE 20 MG TAB PO SCH (12:08)
[2022-05-21] MEDS: cloZAPine 100 MG TAB PO SCH ×2 (12:09→20:48)
[2022-05-21] MEDS: ESCITALOPRAM 20 MG TAB PO SCH (12:09)
[2022-05-21] MEDS: ISOSORBIDE MONONITRATE ER 15 MG TAB PO SCH (12:09)
[2022-05-21] MEDS: SENNOSIDES-DOCUSATE SODIUM 1 EACH TAB PO SCH ×2 (12:09→20:47)
[2022-05-21] MEDS: FOLIC ACID 1 MG TAB PO SCH (12:09)
[2022-05-21 14:35] VITALS: BMI 4068.3
[2022-05-21] MEDS: clonazePAM 0.5 MG TAB PO SCH ×2 (16:04→20:48)
[2022-05-21] MEDS ORDERED: ATORVASTATIN 40 MG TAB PO SCH (21:00)
[2022-05-21] MEDS ORDERED: LEVOTHYROXINE 75 MCG TAB PO SCH (21:00)
[2022-05-22] MEDS: SODIUM CHLORIDE 0.9% 1,000 ML in EMPTY BAG 1 BAG IV SCH (04:53)
[2022-05-22 06:48] LABS: African American GFR (CKD) >90 (>60 ml/min/1.73 sqM); Anion Gap 5 mmol/L; Blood Urea Nitrogen 15 mg/dL (9-20); Calcium 8.5 mg/dL (8.4-10.2); Carbon Dioxide 26 mmol/L (22-30); Chloride 110 mmol/L (98-107); Glucose 92 mg/dL (74-99); Non-African American GFR(CKD) 88 (>60 ml/min/1.73 sqM); Potassium 4.1 mmol/L (3.5-5.1); Sodium 141 mmol/L (137-145)
--- NOTE | 2022-05-22 07:29 | P.PN ---
Subjective Progress Note Date: 05/22/22 PROGRESS NOTE The patient is a 71-year-old male who has been complaining of chest discomfort and had an abnormal MPI, underwent cardiac catheterization was found to have severely calcified LAD with critical stenosis, underwent stenting of the LAD. He is doing well this morning he has mild stable dyspnea, no chest discomfort. He continues to be in sinus mechanism. No dizziness, palpitations or nausea. Medications: Aspirin, Lipitor 40 mg daily, Plavix 75 mg daily, isosorbide mononitrate 15 mg daily, levothyroxine, clonazepam, Lexapro PHYSICAL EXAMINATION: Blood pressure 117/70 heart rate 60 LUNGS: Clear to auscultation HEART: Regular rate and rhythm, S1, S2. No S3. No systolic murmur ABDOMEN: Soft, nontender, no organomegaly EXTREMETIES: No edema, right radial pulse intact LAB: EKG shows sinus mechanism with no acute ST segment changes, BUN 15, creatinine 0.81 IMPRESSION: 1. Status post stenting of the LAD 2. Hyperlipidemia 3. Hypertension 4. Calcified coronary arteries PLAN: 1. Discharged home today 2. Resume anticoagulation and stop aspirin and one week 3. Follow up in one week 4. Continue other medications Objective - Vital Signs Vital signs: Vital Signs Temp 98.2 F 05/22/22 02:35 Pulse 61 05/22/22 02:35 Resp 16 05/22/22 02:35 BP 117/73 05/22/22 02:35 Pulse Ox 98 05/22/22 02:35 FiO2 Intake & Output 05/21/22 05/22/22 05/22/22 18:59 06:59 18:59 Intake Total 716 Output Total 600 800 Balance 116 -800 Weight 94.5 kg Intake: IV 400 Intake, IV Titration 80 Amount Sodium Chloride 0.9% 1, 80 000 ml In Empty Bag 1 bag @ 1 ML/KG/HR 94.5 mls/hr IV .[id number] Rx#: [id number] Oral 236 Output: Urine 600 800 Other: Voiding Method Indwelling Catheter Indwelling Catheter - Labs CBC & Chem 7: 05/22/22 06:04 Labs: Abnormal Lab Results - Last 24 Hours (Table) 05/22/22 Range/Units 06:04 Chloride 110 H (98-107) mmol/L
[2022-05-22] MEDS: ESCITALOPRAM 20 MG TAB PO SCH (08:31)
[2022-05-22] MEDS: clonazePAM 0.5 MG TAB PO SCH (08:31)
[2022-05-22] MEDS: cloZAPine 100 MG TAB PO SCH (08:31)
[2022-05-22] MEDS: SENNOSIDES-DOCUSATE SODIUM 1 EACH TAB PO SCH (08:31)
[2022-05-22] MEDS: FAMOTIDINE 20 MG TAB PO SCH (08:31)
[2022-05-22] MEDS: ISOSORBIDE MONONITRATE ER 15 MG TAB PO SCH (08:31)
[2022-05-22] MEDS: FOLIC ACID 1 MG TAB PO SCH (08:31)
[2022-05-22] MEDS ORDERED: CLOPIDOGREL 75 MG TAB PO SCH (09:00)
[2022-05-22] MEDS ORDERED: ASPIRIN 81 MG PO SCH (09:00)
[2022-05-22] MEDS ORDERED: MULTIVITAMINS, THERA 1 EACH TAB PO SCH (09:00)
[2022-05-22 09:03] VITALS: BP 161/83; PULSE 84; RESP 18; TEMP 97.9
== END 2022-05-22 13:22 | disposition home or self-care (01) ==
LOC: CATHCVL 06:07 → 6NMEDSUR 10:34 → CATHCVL 05-22 13:22
PROVIDERS: ATTEND Internal Medicine Interventional Cardiology
DX: I25.10 Atherosclerotic heart disease of native coronary artery without angina pectoris (principal); I25.83 Coronary atherosclerosis due to lipid rich plaque; I10 Essential (primary) hypertension; E78.5 Hyperlipidemia, unspecified; I73.9 Peripheral vascular disease, unspecified; Z20.822 Contact with and (suspected) exposure to COVID-19
CPT/HCPCS: 92978; 93458; 80048; 87635; C9600; C1769 ×3; C1887 ×2; C1894; C1725 ×2; C1753; C1874; J2250; J2001; J3010; S0136 ×2; J1644; Q9967 ×2

== ENCOUNTER 2023-10-17 02:41 | Inpatient (IN) | payer MEDICARE, OTHER ==
[2023-10-17 03:29] LABS: Basophils % (A) 0 %; Eosinophils % (A) 0 %; HCT 34.3 % (39.0-53.0); HGB 11.4 gm/dL (13.0-17.5); Lymphocytes # (A) 0.7 k/uL (1.0-4.8); Lymphocytes % (A) 7 %; MCH 30.5 pg (25.0-35.0); MCHC 33.3 g/dL (31.0-37.0); MCV 91.5 fL (80.0-100.0); Mean Platelet Volume 7.6; Monocytes # (A) 0.5 k/uL (0-1.0); Monocytes % (A) 5 %; Neutrophils # (A) 8.4 k/uL (1.3-7.7); Neutrophils % (A) 85 %; Platelet Count 229 k/uL (150-450); RBC 3.75 m/uL (4.30-5.90); RDW 15.9 % (11.5-15.5); WBC 9.8 k/uL (3.8-10.6)
[2023-10-17 03:33] LABS: INR 1.1 (<1.2); Partial Thromboplastin Time 30.1 sec (22.0-30.0)
[2023-10-17] MEDS: SODIUM CHLORIDE 0.9% 500 ML 500 ML IV SCH ×2 (03:39→03:40)
--- NOTE | 2023-10-17 03:46 | ED ---
URI HPI - General Chief Complaint: Upper Respiratory Infection Stated Complaint: Possible Pneumonia Time Seen by Provider: 10/17/23 02:44 Source: EMS Mode of arrival: EMS - History of Present Illness Initial Comments: Greg is a 72-year-old man brought to the emergency department today by ambulance from [facility]. Patient has dementia at baseline but apparently has been more confused for the past couple of days, he's had a fever he has had exposure to influenza and COVID at his living facility. Patient states he just does not feel well. - Related Data Home Medications Medication Instructions Recorded Confirmed Levothyroxine Sodium [Synthroid] 75 mcg PO HS 05/17/18 10/17/23 Atorvastatin [Lipitor] 40 mg PO HS 12/15/18 10/17/23 Multivitamins, Thera [Multivitamin 1 tab PO DAILY 12/15/18 10/17/23 (formulary)] Folic Acid 0.8 mg PO DAILY 12/25/18 10/17/23 Nitroglycerin Sl Tabs [Nitrostat] 0.4 mg SUBLINGUAL Q5M PRN 12/25/18 10/17/23 clonazePAM [KlonoPIN] 0.5 mg PO TUFR 12/25/18 10/17/23 Apixaban [Eliquis] 2.5 mg PO BID@0800,1600 05/18/22 10/17/23 Escitalopram [Lexapro] 20 mg PO DAILY 05/18/22 10/17/23 Famotidine [Pepcid] 20 mg PO HS 05/18/22 10/17/23 Isosorbide Mononitrate ER [Imdur] 15 mg PO DAILY 05/18/22 10/17/23 Sennosides/Docusate Sodium [Senna 1 cap PO BID 05/18/22 10/17/23 Plus 8.6-50 mg Softgel] cloZAPine [Clozaril] 100 mg PO BID 05/18/22 10/17/23 Acetaminophen Tab [Tylenol Tab] 500 mg PO Q6H PRN 10/17/23 10/17/23 Acetaminophen Tab [Tylenol Tab] 500 mg PO RT-Q6H PRN 10/17/23 10/17/23 Azithromycin [Zithromax Z Pack] See Taper PO DIRECTED 10/17/23 10/17/23 D-Mannose 1 cap PO DAILY 10/17/23 10/17/23 Donepezil HCl [Aricept] 10 mg PO HS 10/17/23 10/17/23 Furosemide [Lasix] 20 mg PO DAILY 10/17/23 10/17/23 Ipratropium-Albuterol Nebulize 3 ml INHALATION RT-Q6H PRN 10/17/23 10/17/23 [Duoneb 0.5 mg-3 mg/3 ml Soln] Lactobacillus Acidophilus 1 cap PO DAILY 10/17/23 10/17/23 [Acidophilus Probiotic] clonazePAM 0.5 mg PO TID 10/17/23 10/17/23 lisinopriL [Zestril] 10 mg PO DAILY 10/17/23 10/17/23 predniSONE [Deltasone] 40 mg PO DAILY 10/17/23 10/17/23 Previous Rx's Medication Instructions Recorded Clopidogrel [Plavix] 75 mg PO DAILY #90 tab 05/22/22 Allergies Allergy/AdvReac Type Severity Reaction Status Date / Time levofloxacin AdvReac See Comment Verified 10/17/23 07:58 Review of Systems ROS Statement: Those systems with pertinent positive or pertinent negative responses have been documented in the HPI. ROS Other: All systems not noted in ROS Statement are negative. Past Medical History Past Medical History: Cancer, Chest Pain / Angina, Dementia, GERD/Reflux, Hypertension, Osteoarthritis (OA), Thyroid Disorder Additional Past Medical History / Comment(s): HX UTI W/ SEPSIS 2013, past hx. chest pain-nothing current, tremors hands, heart murmur, esophageal spasms History of Any Multi-Drug Resistant Organisms: None Reported Past Surgical History: Prostate Surgery, Tonsillectomy Additional Past Surgical History / Comment(s): TURP, right thyroid lobectomy (1 11/08/2014), skin ca removed, SP cath placement Past Anesthesia/Blood Transfusion Reactions: No Reported Reaction Additional Past Anesthesia/Blood Transfusion Reaction / Comment(s): CLAUSTERPHOBIA Past Psychological History: Anxiety, Panic Disorder Smoking Status: Never smoker Past Alcohol Use History: None Reported Past Drug Use History: None Reported - Past Family History Brother(s) Family Medical History: Cancer Sister(s) Family Medical History: Hypertension Father Family Medical History: Hypertension Additional Family Medical History / Comment(s): PT STATED DAD AT AGE 89 COMPLICATIONS FROM MRSA INFECTION. Mother Family Medical History: Hypertension General Exam Limitations: altered mental status (Dementia, oriented to self) General appearance: alert Head exam: Present: atraumatic Eye exam: Present: normal appearance ENT exam: Present: mucous membranes dry Neck exam: Absent: meningismus Respiratory exam: Present: wheezes, rales, rhonchi, other (3L NC) Cardiovascular Exam: Present: regular rate, normal rhythm GI/Abdominal exam: Present: soft. Absent: distended Rectal exam: Present: deferred Neurological exam: Present: alert Psychiatric exam: Present: normal affect, normal mood Skin exam: Present: warm, dry, intact Course Vital Signs 10/17/23 10/17/23 02:48 05:45 Temperature 98.5 F Pulse Rate 87 84 Respiratory 19 22 Rate Blood Pressure 122/108 103/67 O2 Sat by Pulse 93 L 91 L Oximetry Medical Decision Making - Medical Decision Making Was pt. sent in by a medical professional or institution (, PA, [employer], urgent care, hospital, or [facility]...) When possible be specific @ -[No] Did you speak to anyone other than the patient for history (EMS, parent, family, police, friend...)? What history was obtained from this source @ -[No] Did you review nursing and triage notes (agree or disagree)? Why? @ -[I reviewed and agree with nursing and triage notes] Were old charts reviewed (outside hosp., previous admission, EMS record, old EKG, old radiological studies, urgent care reports/EKG's, [facility] records)? Report findings @ -Previous labs were reviewed Differential Diagnosis (chest pain, altered mental status, abdominal pain women, abdominal pain men, vaginal bleeding, weakness, fever, dyspnea, syncope, headach e, dizziness, GI bleed, back pain, seizure, CVA, palpatations, mental health)? @ -Differential Altered Mental Status: Hypoglycemia, DKA, hypercapnia, ETOH, overdose, CO poisoning, trauma, myxedema coma, HTN encephalopathy, infection, encephalitis, psychosis, intercranial hemorrhage, hepatic encephalopathy, meningitis, CVA, this is not meant to be an all-inclusive list EKG interpreted by me (3pts min.). @ -[As above] X-rays interpreted by me (1pt min.). @ -No focal consolidations CT interpreted by me (1pt min.). @ -[None done] U/S interpreted by me (1pt. min.). @ -[None done] What testing was considered but not performed or refused? (CT, X-rays, U/S, labs)? Why? @ -[None] What meds were considered but not given or refused? Why? @ -[None] Did you discuss the management of the patient with other professionals (professionals i.e. , PA, [employer], lab, RT, psych nurse, social security assessor, stonework tracer, teacher, infantry officer, skilled nursing case manager)? Give summary @ -Dr Garcia Was smoking cessation discussed for >3mins.? @ -[No] Was critical care preformed (if so, how long)? @ -[No] Were there social determinants of health that impacted care today? How? (Homelessness, low income, unemployed, alcoholism, drug addiction, transport ation, low edu. Level, literacy, decrease access to med. care, residential, rehab)? @ -[No] Was there de-escalation of care discussed even if they declined (Discuss DNR or withdrawal of care, Hospice)? DNR status @ Yes patient DNR What co-morbidities impacted this encounter? (DM, HTN, Smoking, COPD, CAD, Cancer, CVA, ARF, Chemo, Hep., AIDS, mental health diagnosis, sleep apnea, morbid obesity)? @ -[None] Was patient admitted / discharged? Hospital course, mention meds given and route, prescriptions, significant lab abnormalities, going to OR and other pertinent info. @ Admit Pt was seen and evaluated, history is obtained from EMS and patient Elderly gentleman in moderate respiratory distress, tested positive for influenza no signs of pneumonia on lab. Patient has wet crackling rattling sound in the lungs, he is placed on 3 L nasal cannula for support. We'll consider BiPAP if he does not improve. Patient received first dose of Tamiflu in the ER and will be admitted to Dr. oliva for further management. Undiagnosed new problem with uncertain prognosis? @ Yes Drug Therapy requiring intensive monitoring for toxicity (Heparin, Nitro, Insulin, Cardizem)? @ -[No] Were any procedures done? @ -[No] Diagnosis/symptom? @ Influenza Acute, or Chronic, or Acute on Chronic? @ Acute Uncomplicated (without systemic symptoms) or Complicated (systemic symptoms)? @ -[default] Side effects of treatment? @ -[No] Exacerbation, Progression, or Severe Exacerbation? @ -[No] Poses a threat to life or bodily function? How? (Chest pain, [place], [place], pneumonia, PE, COPD, DKA, ARF, appy, cholecystitis, CVA, Diverticulitis, Homicidal, Suicidal, threat to staff... and all critical care pts) @ Yes could progress to respiratory failure Diagnosis/symptom? @ -OTILIO Acute, or Chronic, or Acute on Chronic? @ Acute Uncomplicated (without systemic symptoms) or Complicated (systemic symptoms)? @ -[default] Side effects of treatment? @ -[none] Exacerbation, Progression, or Severe Exacerbation] @ -[no] Poses a threat to life or bodily function? @ Yes, could worsen to renal failure - Lab Data Result diagrams: 10/17/23 02:53 10/17/23 02:53 Lab Results 10/17/23 10/17/23 10/17/23 Range/Units 02:53 02:53 02:53 WBC 9.8 (3.8-10.6) k/uL RBC 3.75 L (4.30-5.90) m/uL Hgb 11.4 L (13.0-17.5) gm/dL Hct 34.3 L (39.0-53.0) % MCV 91.5 (80.0-100.0) fL MCH 30.5 (25.0-35.0) pg MCHC 33.3 (31.0-37.0) g/dL RDW 15.9 H (11.5-15.5) % Plt Count 229 (150-450) k/uL MPV 7.6 Neutrophils % 85 % Lymphocytes % 7 % Monocytes % 5 % Eosinophils % 0 % Basophils % 0 % Neutrophils # 8.4 H (1.3-7.7) k/uL Lymphocytes # 0.7 L (1.0-4.8) k/uL Monocytes # 0.5 (0-1.0) k/uL Eosinophils # 0.0 (0-0.7) k/uL Basophils # 0.0 (0-0.2) k/uL PT 12.0 (10.0-12.5) sec INR 1.1 (<1.2) APTT 30.1 H (22.0-30.0) sec Sodium 140 (137-145) mmol/L Potassium 4.4 (3.5-5.1) mmol/L Chloride 102 (98-107) mmol/L Carbon Dioxide 26 (22-30) mmol/L Anion Gap 12 mmol/L BUN 48 H (9-20) mg/dL Creatinine 2.02 H (0.66-1.25) mg/dL Est GFR (CKD-EPI)AfAm 37 (>60 ml/min/1.73 sqM) Est GFR (CKD-EPI)NonAf 32 (>60 ml/min/1.73 sqM) Glucose 127 H (74-99) mg/dL Plasma Lactic Acid Tay (0.7-2.0) mmol/L Calcium 8.8 (8.4-10.2) mg/dL Total Bilirubin 0.7 (0.2-1.3) mg/dL AST 31 (17-59) U/L ALT 16 (4-49) U/L Alkaline Phosphatase 80 (38-126) U/L Total Protein 6.5 (6.3-8.2) g/dL Albumin 3.8 (3.5-5.0) g/dL Influenza Type A (PCR) (Not Detectd) Influenza Type B (PCR) (Not Detectd) RSV (PCR) (Not Detectd) SARS-CoV-2 (PCR) (Not Detectd) 10/17/23 10/17/23 Range/Units 02:53 03:21 WBC (3.8-10.6) k/uL RBC (4.30-5.90) m/uL Hgb (13.0-17.5) gm/dL Hct (39.0-53.0) % MCV (80.0-100.0) fL MCH (25.0-35.0) pg MCHC (31.0-37.0) g/dL RDW (11.5-15.5) % Plt Count (150-450) k/uL MPV Neutrophils % % Lymphocytes % % Monocytes % % Eosinophils % % Basophils % % Neutrophils # (1.3-7.7) k/uL Lymphocytes # (1.0-4.8) k/uL Monocytes # (0-1.0) k/uL Eosinophils # (0-0.7) k/uL Basophils # (0-0.2) k/uL PT (10.0-12.5) sec INR (<1.2) APTT (22.0-30.0) sec Sodium (137-145) mmol/L Potassium (3.5-5.1) mmol/L Chloride (98-107) mmol/L Carbon Dioxide (22-30) mmol/L Anion Gap mmol/L BUN (9-20) mg/dL Creatinine (0.66-1.25) mg/dL Est GFR (CKD-EPI)AfAm (>60 ml/min/1.73 sqM) Est GFR (CKD-EPI)NonAf (>60 ml/min/1.73 sqM) Glucose (74-99) mg/dL Plasma Lactic Acid Tay 1.3 (0.7-2.0) mmol/L Calcium (8.4-10.2) mg/dL Total Bilirubin (0.2-1.3) mg/dL AST (17-59) U/L ALT (4-49) U/L Alkaline Phosphatase (38-126) U/L Total Protein (6.3-8.2) g/dL Albumin (3.5-5.0) g/dL Influenza Type A (PCR) Detected A (Not Detectd) Influenza Type B (PCR) Not Detected (Not Detectd) RSV (PCR) Not Detected (Not Detectd) SARS-CoV-2 (PCR) Not Detected (Not Detectd) - EKG Data -: EKG Interpreted by Me EKG shows normal: sinus rhythm Rate: normal EKG Comments: EKG interpreted by me. EKG was obtained at 2:49 AM rate is 80 rhythm is sinus with a right bundle, SD 124 QRS 134 QTC [address] elevations or depressions or evidence of acute ischemia or infarction. Disposition Clinical Impression: Influenza A, OTILIO (acute kidney injury) Disposition: ADMITTED IP TO THIS HOSP Is patient prescribed a controlled substance at d/c from ED?: No
--- NOTE | 2023-10-17 03:48 | XR ---
EXAM: XR Chest, 1 View CLINICAL HISTORY: ITS.REASON XR Reason: Fever TECHNIQUE: Frontal view of the chest. COMPARISON: No relevant prior studies available. FINDINGS: Lungs: Unremarkable. No consolidation. Pleural space: Unremarkable. No pneumothorax. Heart: Cardiomegaly. Mediastinum: Unremarkable. Normal mediastinal contour. Bones/joints: Unremarkable. No acute fracture. IMPRESSION: No acute findings in the chest.
[2023-10-17 04:29] LABS: ALT 16 U/L (4-49); AST 31 U/L (17-59); African American GFR (CKD) 37 (>60 ml/min/1.73 sqM); Albumin 3.8 g/dL (3.5-5.0); Alkaline Phosphatase 80 U/L (38-126); Anion Gap 12 mmol/L; Blood Urea Nitrogen 48 mg/dL (9-20); Calcium 8.8 mg/dL (8.4-10.2); Carbon Dioxide 26 mmol/L (22-30); Chloride 102 mmol/L (98-107); Glucose 127 mg/dL (74-99); Non-African American GFR(CKD) 32 (>60 ml/min/1.73 sqM); Potassium 4.4 mmol/L (3.5-5.1); Sodium 140 mmol/L (137-145); Total Bilirubin 0.7 mg/dL (0.2-1.3); Total Protein 6.5 g/dL (6.3-8.2)
[2023-10-17] MEDS ORDERED: ACETAMINOPHEN TAB 325 MG TAB PO PRN (06:07)
[2023-10-17] MEDS ORDERED: NALOXONE 0.4 MG/ML 1 ML VIAL IV PRN (06:07)
[2023-10-17] MEDS ORDERED: IBUPROFEN 400 MG TAB PO PRN (06:07)
[2023-10-17] MEDS ORDERED: OSELTAMIVIR 75 MG CAP PO SCH (09:00)
[2023-10-17] MEDS ORDERED: ACETAMINOPHEN TAB 500 MG TAB PO PRN ×2 (10:04)
[2023-10-17] MEDS ORDERED: NITROGLYCERIN SL TABS 0.4 MG TAB SUBLINGUAL PRN (10:05)
[2023-10-17] MEDS ORDERED: predniSONE 20 MG TAB PO SCH (10:15)
[2023-10-17] MEDS: cloZAPine 100 MG TAB PO SCH ×2 (12:15→21:41)
[2023-10-17] MEDS: ESCITALOPRAM 20 MG TAB PO SCH (12:15)
[2023-10-17] MEDS: OSELTAMIVIR 60 MG/10 ML ORAL SYRINGE PO SCH ×2 (12:15→21:42)
[2023-10-17] MEDS: CLOPIDOGREL 75 MG TAB PO SCH (12:15)
[2023-10-17] MEDS: MULTIVITAMINS, THERA 1 EACH TAB PO SCH (12:15)
[2023-10-17] MEDS: SENNOSIDES-DOCUSATE SODIUM 1 EACH TAB PO SCH ×2 (12:16→21:43)
[2023-10-17] MEDS: FOLIC ACID 1 MG TAB PO SCH (12:16)
[2023-10-17] MEDS: clonazePAM 0.5 MG TAB PO SCH ×3 (12:16→21:48)
[2023-10-17] MEDS ORDERED: dexAMETHasone 2 MG TAB PO SCH (13:00)
[2023-10-17] MEDS: ISOSORBIDE MONONITRATE ER 15 MG TAB PO SCH (13:50)
[2023-10-17] MEDS: APIXABAN 2.5 MG TABLET PO SCH (15:35)
--- NOTE | 2023-10-17 18:07 | P.CNPUL ---
History of Present Illness Consult date: 10/17/23 Reason for consult: dyspnea History of present illness: 72-year-old male [facility] because of worsening shortness of breath,, chest tightness, wheezing, and bronchospasm. The patient is a very poor historian. He has advanced dementia with impairment of the cognitive functions. He has a list of comorbid conditions including previous history of a right lower extremity DVT and pulmonary embolism and the patient has limited on anticoagulation. He has had previous TIA, hypertension, hyperlipidemia, depression, esophageal spasm, chronic anxiety, carotid artery stenosis, and he has very impaired performance of functional status suffers from poor balance and frequent falls and his been essentially bedridden [facility] patient. The patient tested positive for influenza A.. Chest x-ray shows no clear indication for pneumonia. Is currently on 2 L of Oxymizer nasal cannula. Pulse ox on was in the order of 90%. No agitation. Blood work shows edematous, 0.8, hemoglobin 11.4, BUN is at 48 with a creatinine of 2.0 to and this is consistent with an acute kidney injury. Review of Systems ROS unobtainable: due to mental status Past Medical History Past Medical History: Cancer, Chest Pain / Angina, Dementia, GERD/Reflux, H ypertension, Osteoarthritis (OA), Thyroid Disorder Additional Past Medical History / Comment(s): HX UTI W/ SEPSIS 2013, past hx. chest pain-nothing current, tremors hands, heart murmur, esophageal spasms History of Any Multi-Drug Resistant Organisms: None Reported Past Surgical History: Prostate Surgery, Tonsillectomy Additional Past Surgical History / Comment(s): TURP, right thyroid lobectomy (), skin ca removed, SP cath placement Past Anesthesia/Blood Transfusion Reactions: No Reported Reaction Additional Past Anesthesia/Blood Transfusion Reaction / Comment(s): CLAUSTERPHOBIA Past Psychological History: Anxiety, Panic Disorder Smoking Status: Never smoker Past Alcohol Use History: None Reported Past Drug Use History: None Reported - Past Family History Brother(s) Family Medical History: Cancer Sister(s) Family Medical History: Hypertension Father Family Medical History: Hypertension Additional Family Medical History / Comment(s): PT STATED DAD AT AGE 89 COMPLICATIONS FROM MRSA INFECTION. Mother Family Medical History: Hypertension Medications and Allergies Home Medications Medication Instructions Recorded Confirmed Type Levothyroxine Sodium [Synthroid] 75 mcg PO HS 05/17/18 10/17/23 History Atorvastatin [Lipitor] 40 mg PO HS 12/15/18 10/17/23 History Multivitamins, Thera [Multivitamin 1 tab PO DAILY 12/15/18 10/17/23 History (formulary)] Folic Acid 0.8 mg PO DAILY 12/25/18 10/17/23 History Nitroglycerin Sl Tabs [Nitrostat] 0.4 mg SUBLINGUAL Q5M PRN 12/25/18 10/17/23 History clonazePAM [KlonoPIN] 0.5 mg PO TUFR 12/25/18 10/17/23 History Apixaban [Eliquis] 2.5 mg PO BID@0800,1600 05/18/22 10/17/23 History Escitalopram [Lexapro] 20 mg PO DAILY 05/18/22 10/17/23 History Famotidine [Pepcid] 20 mg PO HS 05/18/22 10/17/23 History Isosorbide Mononitrate ER [Imdur] 15 mg PO DAILY 05/18/22 10/17/23 History Sennosides/Docusate Sodium [Senna 1 cap PO BID 05/18/22 10/17/23 History Plus 8.6-50 mg Softgel] cloZAPine [Clozaril] 100 mg PO BID 05/18/22 10/17/23 History Clopidogrel [Plavix] 75 mg PO DAILY #90 tab 05/22/22 10/17/23 Rx Acetaminophen Tab [Tylenol Tab] 500 mg PO Q6H PRN 10/17/23 10/17/23 History Acetaminophen Tab [Tylenol Tab] 500 mg PO RT-Q6H PRN 10/17/23 10/17/23 History Azithromycin [Zithromax Z Pack] See Taper PO DIRECTED 10/17/23 10/17/23 History D-Mannose 1 cap PO DAILY 10/17/23 10/17/23 History Donepezil HCl [Aricept] 10 mg PO HS 10/17/23 10/17/23 History Furosemide [Lasix] 20 mg PO DAILY 10/17/23 10/17/23 History Ipratropium-Albuterol Nebulize 3 ml INHALATION RT-Q6H PRN 10/17/23 10/17/23 History [Duoneb 0.5 mg-3 mg/3 ml Soln] Lactobacillus Acidophilus 1 cap PO DAILY 10/17/23 10/17/23 History [Acidophilus Probiotic] clonazePAM 0.5 mg PO TID 10/17/23 10/17/23 History lisinopriL [Zestril] 10 mg PO DAILY 10/17/23 10/17/23 History predniSONE [Deltasone] 40 mg PO DAILY 10/17/23 10/17/23 History Allergies Allergy/AdvReac Type Severity Reaction Status Date / Time levofloxacin AdvReac See Comment Verified 10/17/23 07:58 Physical Exam Vitals: Vital Signs Temp Pulse Resp BP Pulse Ox 10/17/23 15:00 85 17 117/76 95 10/17/23 13:00 82 18 116/68 10/17/23 08:00 89 19 103/67 97 10/17/23 05:45 84 22 103/67 91 L 10/17/23 02:48 98.5 F 87 19 122/108 93 L Intake and Output 10/17/23 10/17/23 10/17/23 06:59 14:59 22:59 Other: Weight 90.718 kg GENERAL EXAM: Alert, pleasant, 72-year-old white male resting in bed, there is to be withdrawn, but fairly cooperative , very poor historian, unable to give any reliable information HEAD: Normocephalic/atraumatic. EYES: Normal reaction of pupils, equal size. Conjunctiva pink, sclera white. NOSE: Clear with pink turbinates. THROAT: No erythema or exudates. NECK: No masses, no JVD, no thyroid enlargement, no adenopathy. CHEST: No chest wall deformity. Symmetrical expansion. LUNGS: Diminished breath sounds along with scattered Wheezes throughout the lung field bilaterally CVS: Regular rate and rhythm, normal S1 and S2, no gallops, no murmurs, no rubs ABDOMEN: Soft, nontender. No hepatosplenomegaly, normal bowel sounds, no guarding or rigidity. EXTREMITIES: No clubbing, no edema, no cyanosis, 2+ pulses and upper and lower extremities. MUSCULOSKELETAL: Muscle strength and tone normal. SPINE: No scoliosis or deformity SKIN: No rashes CENTRAL NERVOUS SYSTEM: Patient is confused, alert and oriented 0. Impairment of the cognitive functions related to underlying dementia. No focal deficits, tone is normal in all 4 extremities. PSYCHIATRIC: Unable to complete Results - Laboratory Findings CBC and BMP: 10/17/23 02:53 10/17/23 02:53 PT/INR, D-dimer PT 12.0 sec (10.0-12.5) 10/17/23 02:53 INR 1.1 (<1.2) 10/17/23 02:53 Abnormal lab findings: Abnormal Labs 10/17/23 10/17/23 10/17/23 02:53 02:53 02:53 RBC 3.75 L Hgb 11.4 L Hct 34.3 L RDW 15.9 H Neutrophils # 8.4 H Lymphocytes # 0.7 L APTT 30.1 H BUN 48 H Creatinine 2.02 H Glucose 127 H Influenza Type A (PCR) 10/17/23 03:21 RBC Hgb Hct RDW Neutrophils # Lymphocytes # APTT BUN Creatinine Glucose Influenza Type A (PCR) Detected A - Diagnostic Findings Chest x-ray: image reviewed Assessment and Plan Plan: Acute influenza infection with secondary shortness of breath. The patient tested positive for influenza A. Vaccination status is not known. He is having increased shortness of breath, dyspnea, chest tightness and wheezing secondary to viral tracheal bronchitis. No clear indication for pneumonia Acute hypoxic respiratory failure currently on 2 L of O2 nasal cannula Acute kidney injury likely secondary to intravascular volume depletion dehydration Advanced dementia with significant impairment of cognitive functions assisted resident with significant debility Previous history of DVT of the right lower extremity and pulmonary embolism maintain on anticoagulation with Eliquis Difficult his mobility and the patient has had previous episodes of fall and compression fracture of the lumbar spine and he suffers from chronic back pain Chronic anxiety/depression Hypertension Hypothyroidism Osteoarthritis Previous history of TIA Carotid artery stenosis Impaired performance and functional status and the patient is a DNR/DNI CODE STATUS Plan We'll put the patient on on DuoNeb nebulized treatments 4 times a day [id number] Start the patient Tamiflu, dose adjusted for renal failure IV fluids with normal saline at rate of 100 mL an hour We'll put the patient on Solu-Medrol 40 mg every 8 hours Resume all medications including anti-cognition with Eliquis Titrate oxygen flow to maintain a saturation above 90% We'll continue to follow
[2023-10-17] MEDS: methylPREDNISolone SOD SUCCI 40 MG/ML 1 ML VIAL IV SCH ×2 (18:51→23:30)
[2023-10-17] MEDS: IPRATROPIUM-ALBUTEROL 3 ML NEB INHALATION SCH (18:52)
--- NOTE | 2023-10-17 20:43 | P.HPIM ---
History of Present Illness H&P Date: 10/17/23 Chief Complaint: Fever This is a pleasant 72-year-old patient follows with Dr. Gabriel and resident of [facility]. Because of dementia patient not a very good historian. As per the EMS report patient been having a congested cough. Was recorded to have a fever of 104. Pulse ox a drug over 88% on room air. In the ER patient other congested. Tired. He would answer some simple questions. Some cough. No sputum. No urinary symptoms. Review of systems: GEN.: Fever EYES: None HEENT: None NECK: None RESPIRATORY: [As above CARDIOVASCULAR: None GASTROINTESTINAL: None GENITOURINARY: None MUSCULOSKELETAL: None LYMPHATICS: None HEMATOLOGICAL: None PSYCHIATRY: [Forgetful NEUROLOGICAL: None Social history: Lives at [facility]. . Nonsmoker. No alcohol. Does use a walker. CPAP. Physical examination: VITAL SIGNS: Reported at [facility] but you 104, presentation here 87, 19, 1 22 x 1 8, 93% on 2 L. Pulse ox 88% room air at the [facility] GENERAL: BMI 27.1, sitting up in bed awake congested. EYES: Pupils equal. Conjunctiva normal. HEENT: External appearance of nose and ears normal, oral cavity grossly normal. NECK: JVD not raised; masses not palpable. HEART: First and second heart sounds are normal; no edema. LUNGS:[ Respiratory rate increased, decreased breath sound congested chest. ABDOMEN: Soft, nontender, liver spleen not palpable, no masses palpable. PSYCH: Patient thinks he is at [facility], year 2018, he thinks a season-fall.l. MUSCULOSKELETAL:No Clubbing/cyanosis;muscles-grossly intact. OA NEUROLOGICAL: Cranial nerves grossly intact; no facial asymmetry, power and sensation grossly intact. LYMPHATICS: No lymph nodes palpable in the axilla and neck INVESTIGATIONS, reviewed in the clinical context: 10/17/2023: White count 9.8 hemoglobin 11.4 platelets 229 sodium 140 potassium 4.4 BUN 48 creatinine 2.02 Influenza type A detected EKG tracing personally reviewed by me-right bundle branch block Chest x-ray film personally reviewed by me-no obvious infiltrate Assessment and plan: -Acute influenza A infection causing a fever of 140s in the F with a pulse ox of 88%. Better here. Tamiflu 30 mg every 12 -Hypoxia secondary to influenza a with a pulse ox of 88% on room air at the F. Supplemental oxygen given -Severe cognitive impairment secondary to late onset Alzheimer's dementia Aricept. -GERD -Essential hypertension Zestril -Hyperlipidemia Lipitor -Primary osteoarthritis -Hypothyroid Synthroid -Depression and anxiety Klonopin Lexapro -Prior history of DVT and PE Eliquis -DO NOT RESUSCITATE Past Medical History Past Medical History: Cancer, Chest Pain / Angina, Dementia, GERD/Reflux, Hypertension, Osteoarthritis (OA), Thyroid Disorder Additional Past Medical History / Comment(s): HX UTI W/ SEPSIS 2013, past hx. c hest pain-nothing current, tremors hands, heart murmur, esophageal spasms History of Any Multi-Drug Resistant Organisms: None Reported Past Surgical History: Prostate Surgery, Tonsillectomy Additional Past Surgical History / Comment(s): TURP, right thyroid lobectomy (09/08/2015), skin ca removed, SP cath placement Past Anesthesia/Blood Transfusion Reactions: No Reported Reaction Additional Past Anesthesia/Blood Transfusion Reaction / Comment(s): CLAUSTERPHOBIA Past Psychological History: Anxiety, Panic Disorder Smoking Status: Never smoker Past Alcohol Use History: None Reported Past Drug Use History: None Reported - Past Family History Brother(s) Family Medical History: Cancer Sister(s) Family Medical History: Hypertension Father Family Medical History: Hypertension Additional Family Medical History / Comment(s): PT STATED DAD AT AGE 89 COMPLICATIONS FROM MRSA INFECTION. Mother Family Medical History: Hypertension Medications and Allergies Home Medications Medication Instructions Recorded Confirmed Type Levothyroxine Sodium [Synthroid] 75 mcg PO HS 05/17/18 10/17/23 History Atorvastatin [Lipitor] 40 mg PO HS 12/15/18 10/17/23 History Multivitamins, Thera [Multivitamin 1 tab PO DAILY 12/15/18 10/17/23 History (formulary)] Folic Acid 0.8 mg PO DAILY 12/25/18 10/17/23 History Nitroglycerin Sl Tabs [Nitrostat] 0.4 mg SUBLINGUAL Q5M PRN 12/25/18 10/17/23 History clonazePAM [KlonoPIN] 0.5 mg PO TUFR 12/25/18 10/17/23 History Apixaban [Eliquis] 2.5 mg PO BID@0800,1600 05/18/22 10/17/23 History Escitalopram [Lexapro] 20 mg PO DAILY 05/18/22 10/17/23 History Famotidine [Pepcid] 20 mg PO HS 05/18/22 10/17/23 History Isosorbide Mononitrate ER [Imdur] 15 mg PO DAILY 05/18/22 10/17/23 History Sennosides/Docusate Sodium [Senna 1 cap PO BID 05/18/22 10/17/23 History Plus 8.6-50 mg Softgel] cloZAPine [Clozaril] 100 mg PO BID 05/18/22 10/17/23 History Clopidogrel [Plavix] 75 mg PO DAILY #90 tab 05/22/22 10/17/23 Rx Acetaminophen Tab [Tylenol Tab] 500 mg PO Q6H PRN 10/17/23 10/17/23 History Acetaminophen Tab [Tylenol Tab] 500 mg PO RT-Q6H PRN 10/17/23 10/17/23 History Azithromycin [Zithromax Z Pack] See Taper PO DIRECTED 10/17/23 10/17/23 History D-Mannose 1 cap PO DAILY 10/17/23 10/17/23 History Donepezil HCl [Aricept] 10 mg PO HS 10/17/23 10/17/23 History Furosemide [Lasix] 20 mg PO DAILY 10/17/23 10/17/23 History Ipratropium-Albuterol Nebulize 3 ml INHALATION RT-Q6H PRN 10/17/23 10/17/23 History [Duoneb 0.5 mg-3 mg/3 ml Soln] Lactobacillus Acidophilus 1 cap PO DAILY 10/17/23 10/17/23 History [Acidophilus Probiotic] clonazePAM 0.5 mg PO TID 10/17/23 10/17/23 History lisinopriL [Zestril] 10 mg PO DAILY 10/17/23 10/17/23 History predniSONE [Deltasone] 40 mg PO DAILY 10/17/23 10/17/23 History Allergies Allergy/AdvReac Type Severity Reaction Status Date / Time levofloxacin AdvReac See Comment Verified 10/17/23 07:58 Physical Exam Vitals: Vital Signs Temp Pulse Resp BP Pulse Ox 10/17/23 08:00 89 19 103/67 97 10/17/23 05:45 84 22 103/67 91 L 10/17/23 02:48 98.5 F 87 19 122/108 93 L Intake and Output 10/16/23 10/17/23 10/17/23 22:59 06:59 14:59 Other: Weight 90.718 kg Results CBC & Chem 7: 10/17/23 02:53 10/17/23 02:53 Labs: Abnormal Lab Results - Last 24 Hours (Table) 10/17/23 10/17/23 10/17/23 Range/Units 02:53 02:53 02:53 RBC 3.75 L (4.30-5.90) m/uL Hgb 11.4 L (13.0-17.5) gm/dL Hct 34.3 L (39.0-53.0) % RDW 15.9 H (11.5-15.5) % Neutrophils # 8.4 H (1.3-7.7) k/uL Lymphocytes # 0.7 L (1.0-4.8) k/uL APTT 30.1 H (22.0-30.0) sec BUN 48 H (9-20) mg/dL Creatinine 2.02 H (0.66-1.25) mg/dL Glucose 127 H (74-99) mg/dL Influenza Type A (PCR) (Not Detectd) 10/17/23 Range/Units 03:21 RBC (4.30-5.90) m/uL Hgb (13.0-17.5) gm/dL Hct (39.0-53.0) % RDW (11.5-15.5) % Neutrophils # (1.3-7.7) k/uL Lymphocytes # (1.0-4.8) k/uL APTT (22.0-30.0) sec BUN (9-20) mg/dL Creatinine (0.66-1.25) mg/dL Glucose (74-99) mg/dL Influenza Type A (PCR) Detected A (Not Detectd)
[2023-10-17] MEDS ORDERED: DONEPEZIL 10 MG TAB PO SCH (21:00)
[2023-10-17] MEDS ORDERED: FAMOTIDINE 20 MG TAB PO SCH (21:00)
[2023-10-17] MEDS ORDERED: ATORVASTATIN 40 MG TAB PO SCH (21:00)
[2023-10-17] MEDS ORDERED: LEVOTHYROXINE 75 MCG TAB PO SCH (21:00)
[2023-10-18 01:34] VITALS: RESP 18
[2023-10-18] MEDS: ISOSORBIDE MONONITRATE ER 15 MG TAB PO SCH (08:44)
[2023-10-18] MEDS: MULTIVITAMINS, THERA 1 EACH TAB PO SCH (08:44)
[2023-10-18] MEDS: ESCITALOPRAM 20 MG TAB PO SCH (08:44)
[2023-10-18] MEDS: FOLIC ACID 1 MG TAB PO SCH (08:44)
[2023-10-18] MEDS: SENNOSIDES-DOCUSATE SODIUM 1 EACH TAB PO SCH (08:44)
[2023-10-18] MEDS: CLOPIDOGREL 75 MG TAB PO SCH (08:44)
[2023-10-18] MEDS: APIXABAN 2.5 MG TABLET PO SCH ×2 (08:44→15:42)
[2023-10-18] MEDS: cloZAPine 100 MG TAB PO SCH (08:44)
[2023-10-18] MEDS: clonazePAM 0.5 MG TAB PO SCH ×2 (08:44→15:42)
[2023-10-18] MEDS: IPRATROPIUM-ALBUTEROL 3 ML NEB INHALATION SCH ×3 (09:28→15:38)
[2023-10-18] MEDS ORDERED: clonazePAM 0.5 MG TAB PO SCH (10:05)
[2023-10-18] MEDS: OSELTAMIVIR 60 MG/10 ML ORAL SYRINGE PO SCH (10:34)
[2023-10-18] MEDS: methylPREDNISolone SOD SUCCI 40 MG/ML 1 ML VIAL IV SCH ×2 (10:34→15:41)
[2023-10-18 13:16] LABS: African American GFR (CKD) >90 (>60 ml/min/1.73 sqM); Anion Gap 13 mmol/L; Blood Urea Nitrogen 44 mg/dL (9-20); Calcium 9.1 mg/dL (8.4-10.2); Carbon Dioxide 23 mmol/L (22-30); Chloride 106 mmol/L (98-107); Glucose 166 mg/dL (74-99); Non-African American GFR(CKD) 78 (>60 ml/min/1.73 sqM); Potassium 4.3 mmol/L (3.5-5.1); Sodium 142 mmol/L (137-145)
--- NOTE | 2023-10-18 14:11 | P.DS ---
Providers Date of admission: 10/17/23 06:12 Expected date of discharge: 10/18/23 Attending physician: Gaurav Garcia Consults: 10/17/23 12:54 Consult Physician Routine Consulting Provider: Jennifer Shelton Consult Reason/Comments: COVID-remjosefinair Do you want consulting provider notified?: Yes [facility] Course: Chief Complaint: Fever This is a pleasant 72-year-old patient follows with Dr. Gabriel and resident of [facility]. Because of dementia patient not a very good historian. As per the EMS report patient been having a congested cough. Was recorded to have a fever of 104. Pulse ox a drug over 88% on room air. In the ER patient other congested. Tired. He would answer some simple questions. Some cough. No sputum. No urinary symptoms. 10/18/2023: Sitting up in bed. Feeling much better. Occasional cough. Eating about 50%. Pulse ox 96% room air. Discharge on a course of Tamiflu and prednisone taper. Social history: Lives at [facility]. . Nonsmoker. No alcohol. Does use a walker. CPAP. Physical examination: VITAL SIGNS: 98.6, 82, 18, 131/82, 96% room air GENERAL: [, Breathing much better. EYES: Pupils equal. Conjunctiva normal. HEENT: External appearance of nose and ears normal, oral cavity grossly normal. NECK: JVD not raised; masses not palpable. HEART: First and second heart sounds are normal; no edema. LUNGS:[ Respiratory rate increased, decreased breath sound congested chest. ABDOMEN: Soft, nontender, liver spleen not palpable, no masses palpable. PSYCH: Patient thinks he is at [employer], year 2018, he thinks a season-fall.l. MUSCULOSKELETAL:No Clubbing/cyanosis;muscles-grossly intact. OA NEUROLOGICAL: Cranial nerves grossly intact; no facial asymmetry, power and sensation grossly intact. LYMPHATICS: No lymph nodes palpable in the axilla and neck INVESTIGATIONS, reviewed in the clinical context: 10/17/2023: White count 9.8 hemoglobin 11.4 platelets 229 sodium 140 potassium 4.4 BUN 48 creatinine 2.02 Influenza type A detected EKG tracing personally reviewed by me-right bundle branch block Chest x-ray film personally reviewed by me-no obvious infiltrate Assessment and plan: -Acute influenza A infection causing a fever of 140s in the ECF with a pulse ox of 88%. Causing sepsis.: Better Tamiflu -Secondary bronchospasm -Hypoxia secondary to influenza a with a pulse ox of 88% on room air at the ECF.: Resolved Supplemental oxygen given -Severe cognitive impairment secondary to late onset Alzheimer's dementia Aricept. -GERD -Essential hypertension Zestril -Hyperlipidemia Lipitor -Primary osteoarthritis -Hypothyroid Synthroid -Depression and anxiety Klonopin Lexapro -Prior history of DVT and PE Eliquis -DO NOT RESUSCITATE Disposition: Return to [facility] Past Medical History Past Medical History: Cancer, Chest Pain / Angina, Dementia, GERD/Reflux, Hypertension, Osteoarthritis (OA), Thyroid Disorder Additional Past Medical History / Comment(s): HX UTI W/ SEPSIS 2013, past hx. chest pain-nothing current, tremors hands, heart murmur, esophageal spasms History of Any Multi-Drug Resistant Organisms: None Reported Past Surgical History: Prostate Surgery, Tonsillectomy Additional Past Surgical History / Comment(s): TURP, right thyroid lobectomy (09/08/2015), skin ca removed, SP cath placement Past Anesthesia/Blood Transfusion Reactions: No Reported Reaction Additional Past Anesthesia/Blood Transfusion Reaction / Comment(s): CLAUSTERPHOBIA Past Psychological History: Anxiety, Panic Disorder Smoking Status: Never smoker Past Alcohol Use History: None Reported Past Drug Use History: None Reported Plan - Discharge Summary Discharge Rx Participant: No New Discharge Prescriptions: New predniSONE 10 mg PO DAILY #30 tab clonazePAM [KlonoPIN] 0.5 mg PO TID #9 tab Oseltamivir [Tamiflu] 75 mg PO Q12HR #10 cap clonazePAM [KlonoPIN] 0.5 mg PO TUFR #2 tab Continue Levothyroxine Sodium [Synthroid] 75 mcg PO HS Multivitamins, Thera [Multivitamin (formulary)] 1 tab PO DAILY Atorvastatin [Lipitor] 40 mg PO HS Nitroglycerin Sl Tabs [Nitrostat] 0.4 mg SUBLINGUAL Q5M PRN PRN Reason: Angina Folic Acid 0.8 mg PO DAILY Famotidine [Pepcid] 20 mg PO HS Isosorbide Mononitrate ER [Imdur] 15 mg PO DAILY Escitalopram [Lexapro] 20 mg PO DAILY Clopidogrel [Plavix] 75 mg PO DAILY #90 tab Ipratropium-Albuterol Nebulize [Duoneb 0.5 mg-3 mg/3 ml Soln] 3 ml INHALATION RT-Q6H PRN PRN Reason: Shortness Of Breath Or Wheezing Furosemide [Lasix] 20 mg PO DAILY D-Mannose 1 cap PO DAILY clonazePAM 0.5 mg PO TID #9 tab clonazePAM [KlonoPIN] 0.5 mg PO TUFR #3 tab cloZAPine [Clozaril] 100 mg PO BID Apixaban [Eliquis] 2.5 mg PO BID@0800,1600 Sennosides/Docusate Sodium [Senna Plus 8.6-50 mg Softgel] 1 cap PO BID Acetaminophen Tab [Tylenol] 500 mg PO RT-Q6H PRN PRN Reason: Pain lisinopriL [Zestril] 10 mg PO DAILY Donepezil HCl [Aricept] 10 mg PO HS Lactobacillus Acidophilus [Acidophilus Probiotic] 1 cap PO DAILY Discontinued Acetaminophen Tab [Tylenol Tab] 500 mg PO Q6H PRN PRN Reason: Pain predniSONE [Deltasone] 40 mg PO DAILY Azithromycin [Zithromax Z Pack] See Taper PO DIRECTED Discharge Medication List Levothyroxine Sodium [Synthroid] 75 mcg PO HS 05/17/18 [History] Atorvastatin [Lipitor] 40 mg PO HS 12/15/18 [History] Multivitamins, Thera [Multivitamin (formulary)] 1 tab PO DAILY 12/15/18 [History] Folic Acid 0.8 mg PO DAILY 12/25/18 [History] Nitroglycerin Sl Tabs [Nitrostat] 0.4 mg SUBLINGUAL Q5M PRN 12/25/18 [History] Apixaban [Eliquis] 2.5 mg PO BID@0800,1600 05/18/22 [History] Escitalopram [Lexapro] 20 mg PO DAILY 05/18/22 [History] Famotidine [Pepcid] 20 mg PO HS 05/18/22 [History] Isosorbide Mononitrate ER [Imdur] 15 mg PO DAILY 05/18/22 [History] Sennosides/Docusate Sodium [Senna Plus 8.6-50 mg Softgel] 1 cap PO BID 07/29/22 [History] cloZAPine [Clozaril] 100 mg PO BID 05/18/22 [History] Clopidogrel [Plavix] 75 mg PO DAILY #90 tab 05/22/22 [Rx] Acetaminophen Tab [Tylenol] 500 mg PO RT-Q6H PRN 10/17/23 [History] D-Mannose 1 cap PO DAILY 10/17/23 [History] Donepezil HCl [Aricept] 10 mg PO HS 10/17/23 [History] Furosemide [Lasix] 20 mg PO DAILY 10/17/23 [History] Ipratropium-Albuterol Nebulize [Duoneb 0.5 mg-3 mg/3 ml Soln] 3 ml INHALATION RT-Q6H PRN 10/17/23 [History] Lactobacillus Acidophilus [Acidophilus Probiotic] 1 cap PO DAILY 10/17/23 [History] lisinopriL [Zestril] 10 mg PO DAILY 10/17/23 [History] Oseltamivir [Tamiflu] 75 mg PO Q12HR #10 cap 10/18/23 [Rx] clonazePAM 0.5 mg PO TID #9 tab 10/18/23 [Rx] clonazePAM [KlonoPIN] 0.5 mg PO TID #9 tab 10/18/23 [Rx] clonazePAM [KlonoPIN] 0.5 mg PO TUFR #2 tab 10/18/23 [Rx] clonazePAM [KlonoPIN] 0.5 mg PO TUFR #3 tab 10/18/23 [Rx] predniSONE 10 mg PO DAILY #30 tab 10/18/23 [Rx] Follow up Appointment(s)/Referral(s): Jerod Gabriel DO [Primary Care Provider] - 1-2 days
[2023-10-18 15:58] VITALS: BP 132/76; PULSE 76; TEMP 98.7
--- NOTE | 2023-10-18 17:08 | P.PN ---
Subjective Progress Note Date: 10/18/23 72-year-old male patient brought in from the custodial because of worsening shortness of breath,, chest tightness, wheezing, and bronchospasm. The patient is a very poor historian. He has advanced dementia with impairment of the cognitive functions. He has a list of comorbid conditions including previous history of a right lower extremity DVT and pulmonary embolism and the patient has limited on anticoagulation. He has had previous TIA, hypertension, hyperlipidemia, depression, esophageal spasm, chronic anxiety, carotid artery stenosis, and he has very impaired performance of functional status suffers from poor balance and frequent falls and his been essentially bedridden custodial patient. The patient tested positive for influenza A.. Chest x-ray shows no clear indication for pneumonia. Is currently on 2 L of Oxymizer nasal cannula. Pulse ox on was in the order of 90%. No agitation. Blood work shows edematous, 0.8, hemoglobin 11.4, BUN is at 48 with a creatinine of 2.0 to and this is consistent with an acute kidney injury. On today's evaluation of 10/18/2023, the patient has no specific complaints. Resting comfortably in bed and he remains on room air oxygen. No fever or chills and no other significant issues otherwise. He has significant dementia. He is going back to his custodial.Labs are all stable with a BUN of 44 and a creatinine of 0.9 and acute kidney injury is improved. Sodium levels of 142. The patient will be placed on his home medications addition to Tamiflu. He be also given a course of prednisone. Objective - Vital Signs Vital signs: Vital Signs Temp 98.6 F 10/18/23 13:05 Pulse 82 10/18/23 13:05 Resp 18 10/18/23 13:05 BP 131/82 10/18/23 13:05 Pulse Ox 96 10/18/23 13:05 FiO2 Intake & Output 10/17/23 10/18/23 10/18/23 18:59 06:59 18:59 Output Total 500 Balance -500 Weight 90.718 kg Output: Urine 500 Other: Voiding Method Indwelling Catheter Indwelling Catheter # Voids 3 # Bowel Movements 1 - Exam GENERAL EXAM: Alert, pleasant, 72-year-old white male resting in bed, there is to be withdrawn, but fairly cooperative , very poor historian, unable to give any reliable information HEAD: Normocephalic/atraumatic. EYES: Normal reaction of pupils, equal size. Conjunctiva pink, sclera white. NOSE: Clear with pink turbinates. THROAT: No erythema or exudates. NECK: No masses, no JVD, no thyroid enlargement, no adenopathy. CHEST: No chest wall deformity. Symmetrical expansion. LUNGS: Diminished breath sounds along with scattered Wheezes throughout the lung field bilaterally CVS: Regular rate and rhythm, normal S1 and S2, no gallops, no murmurs, no rubs ABDOMEN: Soft, nontender. No hepatosplenomegaly, normal bowel sounds, no guarding or rigidity. EXTREMITIES: No clubbing, no edema, no cyanosis, 2+ pulses and upper and lower extremities. MUSCULOSKELETAL: Muscle strength and tone normal. SPINE: No scoliosis or deformity SKIN: No rashes CENTRAL NERVOUS SYSTEM: Patient is confused, alert and oriented 0. Impairment of the cognitive functions related to underlying dementia. No focal deficits, tone is normal in all 4 extremities. PSYCHIATRIC: Unable to complete - Labs CBC & Chem 7: 10/17/23 02:53 10/18/23 12:43 Labs: Abnormal Lab Results - Last 24 Hours (Table) 10/18/23 Range/Units 12:43 BUN 44 H (9-20) mg/dL Glucose 166 H (74-99) mg/dL Microbiology - Last 24 Hours (Table) 10/17/23 03:30 Blood Culture - Preliminary Blood 10/17/23 03:45 Blood Culture - Preliminary Blood Assessment and Plan Plan: Acute influenza infection with secondary shortness of breath. The patient tested positive for influenza A. Vaccination status is not known. He is having increased shortness of breath, dyspnea, chest tightness and wheezing secondary to viral tracheal bronchitis. No clear indication for pneumonia, the patient is currently on Tamiflu, clinically improved Acute hypoxic respiratory failure currently on room air oxygen Acute kidney injury likely secondary to intravascular volume depletion dehydration, improved Advanced dementia with significant impairment of cognitive functions shelter resident with significant debility Previous history of DVT of the right lower extremity and pulmonary embolism maintain on anticoagulation with Eliquis Difficult his mobility and the patient has had previous episodes of fall and compression fracture of the lumbar spine and he suffers from chronic back pain Chronic anxiety/depression Hypertension Hypothyroidism Osteoarthritis Previous history of TIA Carotid artery stenosis Impaired performance and functional status and the patient is a DNR/DNI CODE STATUS Plan We'll put the patient on on DuoNeb nebulized treatments 4 times a day [id number] Patient will go back to his custodial on Tamiflu on a course of prednisone Resume medications from the custodial Resume all medications including anti-cognition with Eliquis Titrate oxygen flow to maintain a saturation above 90% Oxygen stable and the renal functions and fluid. The patient will be released back to his custodial.
== END 2023-10-18 16:03 | DRG 872 ==
LOC: EC 02:41 → 4SSUR 06:12
PROVIDERS: ADMIT Hospitalist; ATTEND Hospitalist
PROC: 3E0F7SF Introduction of Other Gas into Respiratory Tract, Via Natural or Artificial Opening (ICD-10-PCS; principal; 2023-10-17)
PROC: 05HF33Z Insertion of Infusion Device into Left Cephalic Vein, Percutaneous Approach (ICD-10-PCS; 2023-10-18)
DX: A41.89 Other specified sepsis (principal); N17.9 Acute kidney failure, unspecified; J10.1 Influenza due to other identified influenza virus with other respiratory manifestations; E78.5 Hyperlipidemia, unspecified; Z86.73 Personal history of transient ischemic attack (TIA), and cerebral infarction without residual deficits; Z11.52 Encounter for screening for COVID-19; Z74.01 Bed confinement status; I65.29 Occlusion and stenosis of unspecified carotid artery; F02.80 Dementia in other diseases classified elsewhere, unspecified severity, without behavioral disturbance, psychotic disturbance, mood disturbance, and anxiety; K21.9 Gastro-esophageal reflux disease without esophagitis; F32.A Depression, unspecified; F41.9 Anxiety disorder, unspecified; E03.9 Hypothyroidism, unspecified; Z79.890 Hormone replacement therapy; Z66 Do not resuscitate; G30.1 Alzheimer's disease with late onset; J20.8 Acute bronchitis due to other specified organisms; Z86.711 Personal history of pulmonary embolism; Z86.718 Personal history of other venous thrombosis and embolism; I45.10 Unspecified right bundle-branch block; M19.91 Primary osteoarthritis, unspecified site; Z79.01 Long term (current) use of anticoagulants; Z79.02 Long term (current) use of antithrombotics/antiplatelets; Z79.899 Other long term (current) drug therapy; Z82.49 Family history of ischemic heart disease and other diseases of the circulatory system; Z87.440 Personal history of urinary (tract) infections
CPT/HCPCS: 36415; 71045; 80048; 80053; 83605; 85025; 85610; 85730; 87040; 87636; 93005; 94640; 94760; 96361; 96374; 99285

== ENCOUNTER 2024-07-29 15:14 | Inpatient (IN) | payer MEDICARE, OTHER ==
--- NOTE | 2024-07-29 16:06 | ED ---
Lower Extremity Injury HPI - General Chief Complaint: Extremity Injury, Lower Stated Complaint: covid +, fall, hip injury Time Seen by Provider: 07/29/24 15:20 Source: EMS, RN notes reviewed Mode of arrival: EMS Limitations: altered mental status - History of Present Illness Initial Comments: This is a 73-year-old male who presents to the emergency department for a fall. Patient lives at [facility]. He reportedly had an unwitnessed fall around 3 AM. For an unknown reason, EMS was not notified immediately. Patient is on Eliquis. After the fall he had reportedly been ambulating, however he then started to complain of right hip pain. They did an x-ray and he was found to have a femoral head fracture. It is unclear if he hit his head or if there was any LOC. Patient has a history of Alzheimer's and is unable to provide much history of his own. He is currently complaining of pain to the neck. Per EMS, [facility] advised that the patient was COVID positive. MD Complaint: hip injury - Related Data Home Medications Medication Instructions Recorded Confirmed RX: Levothyroxine Sodium 75 mcg PO HS 05/17/18 07/29/24 [Synthroid] RX: Atorvastatin [Lipitor] 40 mg PO HS 12/15/18 07/29/24 RX: Multivitamins, Thera 1 tab PO DAILY 12/15/18 07/29/24 [Multivitamin (formulary)] RX: Folic Acid 0.8 mg PO DAILY 12/25/18 07/29/24 RX: Nitroglycerin Sl Tabs 0.4 mg SUBLINGUAL Q5M PRN 12/25/18 07/29/24 [Nitrostat] RX: Apixaban [Eliquis] 2.5 mg PO BID 05/18/22 07/29/24 RX: Escitalopram [Lexapro] 20 mg PO DAILY 05/18/22 07/29/24 RX: Isosorbide Mononitrate ER 15 mg PO DAILY 05/18/22 07/29/24 [Imdur] RX: Sennosides/Docusate Sodium 1 cap PO DIRECTED 05/18/22 07/29/24 [Senna Plus 8.6-50 mg Softgel] RX: cloZAPine [Clozaril] 100 mg PO BID 05/18/22 07/29/24 D-Mannose 1 cap PO DAILY 10/17/23 07/29/24 RX: Acetaminophen Tab [Tylenol] 500 mg PO Q6H 10/17/23 07/29/24 RX: Donepezil HCl [Aricept] 10 mg PO HS 10/17/23 07/29/24 RX: Furosemide [Lasix] 20 mg PO DAILY 10/17/23 07/29/24 RX: lisinopriL [Zestril] 10 mg PO DAILY 10/17/23 07/29/24 Acetaminophen Tab [Tylenol Tab] 500 mg PO Q6HR PRN 07/29/24 07/29/24 Ascorbic Acid [Vitamin C] 1,000 mg PO DAILY 07/29/24 07/29/24 Cholecalciferol (Vitamin D3) 50 mcg PO DAILY 07/29/24 07/29/24 [Vitamin D3 (50 Mcg = 2000 Iu) Chew Tab] Famotidine [Pepcid] 40 mg PO HS 07/29/24 07/29/24 Lactobacillus Acidophilus 1 cap PO HS 07/29/24 07/29/24 [Acidophilus Probiotic] RX: Quercetin 500 mg PO DAILY 07/29/24 07/29/24 RX: clonazePAM [KlonoPIN] 0.5 mg PO TID@0800,1200,1800 07/29/24 07/29/24 RX: clonazePAM [KlonoPIN] 0.5 mg PO TUFR@0900 07/29/24 07/29/24 Zinc Gluconate [Zinc] 50 mg PO DAILY 07/29/24 07/29/24 Allergies Allergy/AdvReac Type Severity Reaction Status Date / Time levofloxacin AdvReac See Comment Verified 07/29/24 17:39 Review of Systems ROS Statement: Those systems with pertinent positive or pertinent negative responses have been documented in the HPI. ROS Other: All systems not noted in ROS Statement are negative. Past Medical History Past Medical History: Cancer, Chest Pain / Angina, Dementia, GERD/Reflux, Hypertension, Osteoarthritis (OA), Thyroid Disorder Additional Past Medical History / Comment(s): HX UTI W/ SEPSIS 2013, past hx. chest pain-nothing current, tremors hands, heart murmur, esophageal spasms History of Any Multi-Drug Resistant Organisms: None Reported Past Surgical History: Prostate Surgery, Tonsillectomy Additional Past Surgical History / Comment(s): TURP, right thyroid lobectomy (09/08/2015), skin ca removed, SP cath placement Past Anesthesia/Blood Transfusion Reactions: No Reported Reaction Additional Past Anesthesia/Blood Transfusion Reaction / Comment(s): CLAUSTERPHOBIA Past Psychological History: Anxiety, Panic Disorder Smoking Status: Never smoker Past Alcohol Use History: None Reported Past Drug Use History: None Reported - Past Family History Brother(s) Family Medical History: Cancer Sister(s) Family Medical History: Hypertension Father Family Medical History: Hypertension Additional Family Medical History / Comment(s): PT STATED DAD AT AGE 89 COMPLICATIONS FROM MRSA INFECTION. Mother Family Medical History: Hypertension General Exam Limitations: altered mental status General appearance: alert, in no apparent distress Head exam: Present: atraumatic, normocephalic, normal inspection Eye exam: Present: normal appearance, PERRL, EOMI. Absent: scleral icterus, conjunctival injection, periorbital swelling Respiratory exam: Present: normal lung sounds bilaterally. Absent: respiratory distress, wheezes, rales, rhonchi, stridor Cardiovascular Exam: Present: regular rate, normal rhythm, normal heart sounds. Absent: systolic murmur, diastolic murmur, rubs, gallop, clicks Extremities exam: Present: other (Shortening and external rotation of the right lower extremity. 2+ DP and PT pulses) Neurological exam: Present: alert Psychiatric exam: Present: normal affect, normal mood Skin exam: Present: warm, dry, intact, normal color. Absent: rash Course Vital Signs 07/29/24 07/29/24 15:30 18:32 Temperature 98.7 F 98.7 F Pulse Rate 104 H 93 Respiratory 20 20 Rate Blood Pressure 89/52 115/65 O2 Sat by Pulse 93 L 98 Oximetry Medical Decision Making - Medical Decision Making This is a 73 year old male who presents to the emergency department for a fall. Was pt. sent in by a medical professional or institution? @ -No Did you speak to anyone other than the patient for history? @ -EMS provided the majority of the history. Did you review nursing and triage notes? @ -Yes, and I agree, it is accurate with regards to the patient's symptoms. Were old charts reviewed? @ -No Differential Diagnosis? @ -Differential Musculoskeletal Muscular strain, contusion, ligament sprain, fracture, arthritis, septic arthritis, bursitis, cellulitis, muscle spasm, nerve compression, DVT, arterial occlusion, herpes zoster, electrolyte abnormality, tumor.... This is not meant to be in all inclusive list EKG interpreted by me (3pts min.)? @ -EKG interpreted by me demonstrating the following: Sinus rhythm. Ventricular rate 98 bpm, MS interval 138 ms, QRS duration 96 ms, QTc 406 ms. X-rays interpreted by me (1pt min.)? @ -Chest x-ray obtained, my interpretation identifies no localized consolidations or infiltrates. X-ray of the right hip and AP pelvis obtained. My interpretation identifies a right femoral neck fracture. CT interpreted by me (1pt min.)? @ -CT scan of the pelvis obtained. My interpretation identifies a right fem oral neck fracture. U/S interpreted by me (1pt. min.)? @ -Not obtained What testing was considered but not performed? (CT, X-rays, U/S, labs)? Why? @ -None What meds were considered but not given? Why? @ -None Did you discuss the management of the patient with other professionals? @ -Yes, Dr. Espinoza, orthopedics, who advised admission to [facility] with medicine on consult. Did you reconcile home meds? @ -Yes - Eliquis held for preoperative purposes Was smoking cessation discussed for >3mins.? @ -No Was critical care preformed (if so, how long)? @ -No Were there social determinants of health that impacted care today? How? (Homelessness, low income, unemployed, alcoholism, drug addiction, transportation, low edu. Level, literacy, decrease access to med. care, detention, rehab)? @ -No Was there de-escalation of care discussed even if they declined? (Discuss DNR or withdrawal of care, Hospice)? @ -No What co-morbidities impacted this encounter? (DM, HTN, Smoking, COPD, CAD, Cancer, CVA, Hep., AIDS, mental health diagnosis, sleep apnea, morbid obesity)? @ -Dementia, HTN, Hx of PE Was patient admitted / discharged? @ -Admitted. When the patient had arrived EMS advised that [facility] had already obtained x-rays confirming a femoral neck fracture. The initial x-ray here from my interpretation did have a deformity, however radiology read this as negative. CT scan of the pelvis was subsequently obtained confirming a virtually nondisplaced femoral neck fracture. CT scan of the brain and C-spine obtained as well due to it being an unwitnessed fall and unclear head injury. This was unremarkable. Preoperative workup performed including a chest x-ray, which was unremarkable, and blood work. Lab work demonstrates an OTILIO. Patient was given a liter bolus of IV fluids. Repeat COVID test here was confirmed to be positive. Patient admitted to orthopedics for right femoral neck fracture. Medicine listed as consult. Sanchez catheter was placed due to required immobilization. Case discussed with ED attending Dr. Cedeño. Undiagnosed new problem with uncertain prognosis? @ -None Drug Therapy requiring intensive monitoring for toxicity (Heparin, Nitro, Insulin, Cardizem)? @ -None Were any procedures done? @ -None Diagnosis/symptom? @ -Fall, right femoral neck fracture Acute, or Chronic, or Acute on Chronic? @ -Acute Uncomplicated (without systemic symptoms) or Complicated (systemic symptoms)? @ -Uncomplicated Side effects of treatment? @ -None Exacerbation, Progression, or Severe Exacerbation] @ -Not applicable Poses a threat to life or bodily function? @ -Yes, this will limit his ability to ambulate. - Lab Data Result diagrams: 07/29/24 16:15 07/29/24 16:15 Lab Results 07/29/24 07/29/24 07/29/24 Range/Units 16:15 16:15 16:15 WBC 10.2 (3.8-10.6) k/uL RBC 3.50 L (4.30-5.90) m/uL Hgb 11.0 L (13.0-17.5) gm/dL Hct 32.7 L (39.0-53.0) % MCV 93.5 (80.0-100.0) fL MCH 31.4 (25.0-35.0) pg MCHC 33.6 (31.0-37.0) g/dL RDW 15.4 (11.5-15.5) % Plt Count 254 (150-450) k/uL MPV 7.4 Neutrophils % 88 % Lymphocytes % 5 % Monocytes % 5 % Eosinophils % 1 % Basophils % 0 % Neutrophils # 9.0 H (1.3-7.7) k/uL Lymphocytes # 0.5 L (1.0-4.8) k/uL Monocytes # 0.5 (0-1.0) k/uL Eosinophils # 0.1 (0-0.7) k/uL Basophils # 0.0 (0-0.2) k/uL PT 11.9 (10.0-12.5) sec INR 1.1 (<1.2) APTT 28.6 (22.0-30.0) sec Sodium 137 (137-145) mmol/L Potassium 4.5 (3.5-5.1) mmol/L Chloride 106 (98-107) mmol/L Carbon Dioxide 21 L (22-30) mmol/L Anion Gap 10 mmol/L BUN 48 H (9-20) mg/dL Creatinine 2.24 H (0.66-1.25) mg/dL Est GFR (CKD-EPI)AfAm 32 (>60 ml/min/1.73 sqM) Est GFR (CKD-EPI)NonAf 28 (>60 ml/min/1.73 sqM) Glucose 118 H (74-99) mg/dL POC Glucose (mg/dL) (70-110) mg/dL POC Glu Furniture Duster ID Calcium 8.3 L (8.4-10.2) mg/dL Total Bilirubin 0.9 (0.2-1.3) mg/dL AST 34 (17-59) U/L ALT 14 (4-49) U/L Alkaline Phosphatase 70 (38-126) U/L Total Protein 6.3 (6.3-8.2) g/dL Albumin 3.9 (3.5-5.0) g/dL Influenza Type A (PCR) (Not Detectd) Influenza Type B (PCR) (Not Detectd) RSV (PCR) (Not Detectd) SARS-CoV-2 (PCR) (Not Detectd) 07/29/24 07/29/24 Range/Units 16:21 16:52 WBC (3.8-10.6) k/uL RBC (4.30-5.90) m/uL Hgb (13.0-17.5) gm/dL Hct (39.0-53.0) % MCV (80.0-100.0) fL MCH (25.0-35.0) pg MCHC (31.0-37.0) g/dL RDW (11.5-15.5) % Plt Count (150-450) k/uL MPV Neutrophils % % Lymphocytes % % Monocytes % % Eosinophils % % Basophils % % Neutrophils # (1.3-7.7) k/uL Lymphocytes # (1.0-4.8) k/uL Monocytes # (0-1.0) k/uL Eosinophils # (0-0.7) k/uL Basophils # (0-0.2) k/uL PT (10.0-12.5) sec INR (<1.2) APTT (22.0-30.0) sec Sodium (137-145) mmol/L Potassium (3.5-5.1) mmol/L Chloride (98-107) mmol/L Carbon Dioxide (22-30) mmol/L Anion Gap mmol/L BUN (9-20) mg/dL Creatinine (0.66-1.25) mg/dL Est GFR (CKD-EPI)AfAm (>60 ml/min/1.73 sqM) Est GFR (CKD-EPI)NonAf (>60 ml/min/1.73 sqM) Glucose (74-99) mg/dL POC Glucose (mg/dL) 125 H (70-110) mg/dL POC Glu Furniture Duster ID Vagts Suzin Calcium (8.4-10.2) mg/dL Total Bilirubin (0.2-1.3) mg/dL AST (17-59) U/L ALT (4-49) U/L Alkaline Phosphatase (38-126) U/L Total Protein (6.3-8.2) g/dL Albumin (3.5-5.0) g/dL Influenza Type A (PCR) Not Detected (Not Detectd) Influenza Type B (PCR) Not Detected (Not Detectd) RSV (PCR) Not Detected (Not Detectd) SARS-CoV-2 (PCR) Detected A (Not Detectd) - Radiology Data Radiology results: report reviewed, image reviewed Disposition Clinical Impression: Fall, Fracture of femoral neck, right Disposition: ADMITTED IP TO THIS HOSP
[2024-07-29 16:22] LABS: Glucose,Whole Blood 125 mg/dL (70-110)
[2024-07-29 16:39] LABS: Basophils % (A) 0 %; Eosinophils # (A) 0.1 k/uL (0-0.7); Eosinophils % (A) 1 %; HCT 32.7 % (39.0-53.0); Lymphocytes # (A) 0.5 k/uL (1.0-4.8); Lymphocytes % (A) 5 %; MCH 31.4 pg (25.0-35.0); MCHC 33.6 g/dL (31.0-37.0); MCV 93.5 fL (80.0-100.0); Mean Platelet Volume 7.4; Monocytes # (A) 0.5 k/uL (0-1.0); Monocytes % (A) 5 %; Neutrophils % (A) 88 %; Platelet Count 254 k/uL (150-450); RDW 15.4 % (11.5-15.5); WBC 10.2 k/uL (3.8-10.6)
--- NOTE | 2024-07-29 16:47 | CT ---
EXAMINATION TYPE: CT brain bettie pugh con DATE OF EXAM: 07/29/2024 COMPARISON: None HISTORY: Fall, c/o sore neck. CT DLP: 1522.[address] of the brain was performed. The ventricles, basal cisterns and sulci overlying the cerebral convexities demonstrate mild enlargem ent. There is no evidence for intracranial hemorrhage or sulcal effacement. There is decreased attenuatio n about the periventricular white matter and deep white matter of both cerebral hemispheres, compatib le with chronic small vessel ischemia. No mass effects are seen. If symptoms persist consider MRI. Osseous calvarium is intact. IMPRESSION: 1. Age related atrophic and chronic small vessel ischemic change without acute intracranial process seen at this time. CT Cervical Spine: Unenhanced CT of the cervical spine was performed with bone and soft tissue window settings submitted . Coronal and sagittal reconstruction is obtained. There is normal alignment and prevertebral soft tissues. No evidence for acute cervical fracture . Scattered degenerative disc disease and spondylosis. Biapical scarring. IMPRESSION: 1. No evidence for acute fracture or subluxation of the cervical spine. [facility], , 07/29/2024 4:45 PM
[2024-07-29 16:48] LABS: ALT 14 U/L (4-49); African American GFR (CKD) 32 (>60 ml/min/1.73 sqM); Albumin 3.9 g/dL (3.5-5.0); Anion Gap 10 mmol/L; Blood Urea Nitrogen 48 mg/dL (9-20); Calcium 8.3 mg/dL (8.4-10.2); Carbon Dioxide 21 mmol/L (22-30); Chloride 106 mmol/L (98-107); Glucose 118 mg/dL (74-99); Non-African American GFR(CKD) 28 (>60 ml/min/1.73 sqM); Sodium 137 mmol/L (137-145); Total Bilirubin 0.9 mg/dL (0.2-1.3); Total Protein 6.3 g/dL (6.3-8.2)
--- NOTE | 2024-07-29 16:50 | XR ---
EXAMINATION TYPE: XR Hip RT and AP Pelvis DATE OF EXAM: 07/29/2024 CLINICAL HISTORY: pain TECHNIQUE: AP and frogleg views of the right hip are obtained. An single view pelvis obtained. COMPARISON: None. FINDINGS: There is no acute fracture/dislocation evident. The joint space appears within normal li mits. The overlying soft tissue appears unremarkable. IMPRESSION: 1. There is no acute fracture or dislocation. ICD 10 NO FRACTURE, INITIAL EVALUATION [facility], , 07/29/2024 4:48 PM
--- NOTE | 2024-07-29 16:50 | XR ---
EXAMINATION TYPE: XR chest 1V DATE OF EXAM: 07/29/2024 HISTORY: Shortness of breath. COMPARISON: 10/17/2023 TECHNIQUE: Single view of the chest is submitted. FINDINGS: Demonstrated are scattered senescent parenchymal change. There is no evidence for focal infiltrate. The heart is stable. Hilar and mediastinal structures are within normal limits. Degenerative changes are seen of the dorsal spine. IMPRESSION: 1. Chronic changes without evidence for acute pulmonary disease. [facility], , 07/29/2024 4:48 PM
[2024-07-29 16:52] LABS: INR 1.1 (<1.2); Partial Thromboplastin Time 28.6 sec (22.0-30.0); Prothrombin Time 11.9 sec (10.0-12.5)
[2024-07-29 16:59] LABS: AST 34 U/L (17-59); Alkaline Phosphatase 70 U/L (38-126); Potassium 4.5 mmol/L (3.5-5.1)
--- NOTE | 2024-07-29 17:20 | CT ---
EXAMINATION TYPE: CT pelvis wo con DATE OF EXAM: 07/29/2024 COMPARISON: None HISTORY: Rt hip pain after fall. CT DLP: 562.5 mGycm Automated exposure control for dose reduction was used. Unenhanced CT of the pelvis was performed wit h bone and soft tissue window settings submitted in the coronal, axial and sagittal planes. FINDINGS: There is a virtually nondisplaced fracture at the femoral head/femoral neck junction. No additional f racture seen with certainty. Degenerative changes greater trochanter. [id number] degenerative j oint space narrowing. Lower lumbar arthropathy. Suprapubic catheter is seen within the urinary bladde r. Urinary bladder diverticulum seen. Sigmoid diverticulosis. IMPRESSION: There is a virtually nondisplaced fracture at the femoral head/femoral neck junction. [facility], , 07/29/2024 5:18 PM
[2024-07-29] MEDS ORDERED: ONDANSETRON 4 MG/2 ML VIAL IVP PRN (17:36)
[2024-07-29] MEDS ORDERED: ACETAMINOPHEN TAB 325 MG TAB PO PRN (17:36)
[2024-07-29] MEDS ORDERED: NALOXONE 0.4 MG/ML 1 ML VIAL IV PRN (17:36)
[2024-07-29] MEDS ORDERED: ACETAMINOPHEN TAB 500 MG TAB PO PRN (17:55)
[2024-07-29] MEDS ORDERED: NITROGLYCERIN SL TABS 0.4 MG TAB SUBLINGUAL PRN (17:55)
[2024-07-29] MEDS: SODIUM CHLORIDE 0.9% 1,000 ML IV SCH (18:24)
[2024-07-29] MEDS: SODIUM CHLORIDE 0.9% 1,000 ML IV STA (18:24)
[2024-07-29] MEDS: ACETAMINOPHEN TAB 500 MG TAB PO SCH (18:25)
[2024-07-29] MEDS: clonazePAM 0.5 MG TAB PO SCH (18:25)
[2024-07-29 19:27] LABS: Amorphous Sediment,Urine Rare /hpf; Appearance,Urine Cloudy (Clear); Bacteria,Urine Many /hpf; Bilirubin,Urine Negative (Negative); Blood,Urine Negative (Negative); Color,Urine Light Yellow; Glucose,Urine (UA) Negative (Negative); Ketones,Urine Negative (Negative); Leukocyte Esterase,Urine Large (Negative); Mucus,Urine Rare /hpf; Nitrite,Urine Positive (Negative); Protein,Urine 1+ (Negative); RBC,Urine 2 /hpf (0-5); Specific Gravity,Urine 1.013 (1.001-1.035); Squamous Epithelial Cell,Urine <1 /hpf (0-4); Urobilinogen,Urine <2.0 mg/dL (<2.0); WBC,Urine 60 /hpf (0-5)
[2024-07-29] MEDS: LACTOBACILLUS ACIDOPHILUS/PECT 1 EACH CAPSULE PO SCH (21:38)
[2024-07-29] MEDS: cloZAPine 100 MG TAB PO SCH (21:38)
[2024-07-29] MEDS: DONEPEZIL 10 MG TAB PO SCH (21:38)
[2024-07-29] MEDS: LEVOTHYROXINE 75 MCG TAB PO SCH (21:38)
[2024-07-29] MEDS: FAMOTIDINE 20 MG TAB PO SCH (21:38)
[2024-07-29] MEDS: ATORVASTATIN 40 MG TAB PO SCH (21:38)
--- NOTE | 2024-07-29 22:48 | P.EN ---
Patient seen and examined. Medically stable to proceed for surgery. Moderate perioperative cardiovascular risk. No contraindications. Full consult to follow
--- NOTE | 2024-07-30 08:06 | P.HPOR ---
History of Present Illness H&P Date: 07/30/24 Chief Complaint: Right minimally displaced femoral neck fracture Patient was unable to provide history this morning when examined at bedside. Per chart review, this is a 73-year-old male who has advanced Alzheimer's dementia who presented to the emergency department via EMS for a fall. Patient lives at [facility]. He reportedly had an unwitnessed fall on 07/29/2024. Patient is on Eliquis. After the fall he had reportedly been ambulating, however he then started to complain of right hip pain. They did an x-ray and he was found to have a femoral head fracture. It is unclear if he hit his head or if there was any LOC. Patient has a history of Alzheimer's and is unable to provide any history of his own this morning. Per EMS, [facility] advised that the patient was COVID positive. In the emergency department he had hip and pelvis x-rays and a pelvis CT that confirmed a minimally displaced right femoral neck fracture. He had a head CT and the report stated no acute cranial process, and a cervical spine CT report that stated no evidence of an acute fractures or subluxation in the cervical spine. Review of Systems ROS unobtainable: due to mental status Past Medical History Past Medical History: Cancer, Chest Pain / Angina, Dementia, GERD/Reflux, Hypertension, Osteoarthritis (OA), Thyroid Disorder Additional Past Medical History / Comment(s): HX UTI W/ SEPSIS 2013, past hx. chest pain-nothing current, tremors hands, heart murmur, esophageal spasms History of Any Multi-Drug Resistant Organisms: None Reported Past Surgical History: Prostate Surgery, Tonsillectomy Additional Past Surgical History / Comment(s): TURP, right thyroid lobectomy (09/08/2015), skin ca removed, SP cath placement Past Anesthesia/Blood Transfusion Reactions: No Reported Reaction Additional Past Anesthesia/Blood Transfusion Reaction / Comment(s): CLAUSTERPHOBIA Past Psychological History: Anxiety, Panic Disorder Additional Psychological History / Comment(s): ANXIETY, PANIC ATTACKS Smoking Status: Never smoker Past Alcohol Use History: None Reported Additional Past Alcohol Use History / Comment(s): Patient is a lifelong nonsmoker. He denies any marijuana, street drug or alcohol use. 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 He lives at home with his .uses walker when up, cpap machine. He denies any service. Past Drug Use History: None Reported - Past Family History Brother(s) Family Medical History: Cancer Sister(s) Family Medical History: Hypertension Father Family Medical History: Hypertension Additional Family Medical History / Comment(s): PT STATED DAD AT AGE 89 COMPLICATIONS FROM MRSA INFECTION. Mother Family Medical History: Hypertension Medications and Allergies Home Medications Medication Instructions Recorded Confirmed Type Levothyroxine Sodium [Synthroid] 75 mcg PO HS 05/17/18 07/29/24 History Atorvastatin [Lipitor] 40 mg PO HS 12/15/18 07/29/24 History Multivitamins, Thera [Multivitamin 1 tab PO DAILY 12/15/18 07/29/24 History (formulary)] Folic Acid 0.8 mg PO DAILY 12/25/18 07/29/24 History Nitroglycerin Sl Tabs [Nitrostat] 0.4 mg SUBLINGUAL Q5M PRN 12/25/18 07/29/24 History Apixaban [Eliquis] 2.5 mg PO BID 05/18/22 07/29/24 History Escitalopram [Lexapro] 20 mg PO DAILY 05/18/22 07/29/24 History Isosorbide Mononitrate ER [Imdur] 15 mg PO DAILY 05/18/22 07/29/24 History Sennosides/Docusate Sodium [Senna 1 cap PO DIRECTED 05/18/22 07/29/24 History Plus 8.6-50 mg Softgel] cloZAPine [Clozaril] 100 mg PO BID 05/18/22 07/29/24 History Acetaminophen Tab [Tylenol] 500 mg PO Q6H 10/17/23 07/29/24 History D-Mannose 1 cap PO DAILY 10/17/23 07/29/24 History Donepezil HCl [Aricept] 10 mg PO HS 10/17/23 07/29/24 History Furosemide [Lasix] 20 mg PO DAILY 10/17/23 07/29/24 History lisinopriL [Zestril] 10 mg PO DAILY 10/17/23 07/29/24 History Acetaminophen Tab [Tylenol Tab] 500 mg PO Q6HR PRN 07/29/24 07/29/24 History Ascorbic Acid [Vitamin C] 1,000 mg PO DAILY 07/29/24 07/29/24 History Cholecalciferol (Vitamin D3) 50 mcg PO DAILY 07/29/24 07/29/24 History [Vitamin D3 (50 Mcg = 2000 Iu) Chew Tab] Famotidine [Pepcid] 40 mg PO HS 07/29/24 07/29/24 History Lactobacillus Acidophilus 1 cap PO HS 07/29/24 07/29/24 History [Acidophilus Probiotic] Quercetin 500 mg PO DAILY 07/29/24 07/29/24 History Zinc Gluconate [Zinc] 50 mg PO DAILY 07/29/24 07/29/24 History clonazePAM [KlonoPIN] 0.5 mg PO TID@0800,1200,1800 07/29/24 07/29/24 History clonazePAM [KlonoPIN] 0.5 mg PO TUFR@0900 07/29/24 07/29/24 History Allergies Allergy/AdvReac Type Severity Reaction Status Date / Time levofloxacin AdvReac See Comment Verified 07/29/24 17:39 Physical Examination Patient was examined at bedside this morning. A focused exam of the right lower extremity was conducted. Patient was resting in bed, awake, alert, but unable to answer meaningful questions. On inspection there are no scars or lesions over the anterior right hip. The right lower extremity is externally rotated. The skin appears pink and well-perfused. Right femoral nerve function is grossly intact. Patient is able to plantarflex and dorsiflex the right ankles and toes. The right foot is pink and well-perfused with capillary refill under 2 seconds. Results - Labs Labs: Abnormal Lab Results - Last 24 Hours (Table) 07/29/24 07/29/24 07/29/24 Range/Units 16:15 16:15 16:21 RBC 3.50 L (4.30-5.90) m/uL Hgb 11.0 L (13.0-17.5) gm/dL Hct 32.7 L (39.0-53.0) % Neutrophils # 9.0 H (1.3-7.7) k/uL Lymphocytes # 0.5 L (1.0-4.8) k/uL Carbon Dioxide 21 L (22-30) mmol/L BUN 48 H (9-20) mg/dL Creatinine 2.24 H (0.66-1.25) mg/dL Glucose 118 H (74-99) mg/dL POC Glucose (mg/dL) 125 H (70-110) mg/dL Calcium 8.3 L (8.4-10.2) mg/dL Urine Protein (Negative) Ur Leukocyte Esterase (Negative) Urine WBC (0-5) /hpf Urine WBC Clumps (None) /hpf Amorphous Sediment (None) /hpf Urine Bacteria (None) /hpf Urine Mucus (None) /hpf SARS-CoV-2 (PCR) (Not Detectd) 07/29/24 07/29/24 Range/Units 16:52 18:38 RBC (4.30-5.90) m/uL Hgb (13.0-17.5) gm/dL Hct (39.0-53.0) % Neutrophils # (1.3-7.7) k/uL Lymphocytes # (1.0-4.8) k/uL Carbon Dioxide (22-30) mmol/L BUN (9-20) mg/dL Creatinine (0.66-1.25) mg/dL Glucose (74-99) mg/dL POC Glucose (mg/dL) (70-110) mg/dL Calcium (8.4-10.2) mg/dL Urine Protein 1+ H (Negative) Ur Leukocyte Esterase Large H (Negative) Urine WBC 60 H (0-5) /hpf Urine WBC Clumps Rare H (None) /hpf Amorphous Sediment Rare H (None) /hpf Urine Bacteria Many H (None) /hpf Urine Mucus Rare H (None) /hpf SARS-CoV-2 (PCR) Detected A (Not Detectd) H & H 07/29/24 Range/Units 16:15 Hgb 11.0 L (13.0-17.5) gm/dL Hct 32.7 L (39.0-53.0) % Coagulation 07/29/24 Range/Units 16:15 INR 1.1 (<1.2) Result Diagrams: 07/29/24 16:15 07/29/24 16:15 Assessment and Plan Assessment: 1. Minimally displaced right femoral neck fracture 2. Advanced Alzheimer's dementia. (1) Fracture of femoral neck, right Current Visit: Yes Status: Acute Code(s): S72.001A - FRACTURE OF UNSP PART OF NECK OF RIGHT FEMUR, INIT SNOMED Code(s): 5039659 Plan: Plan for right hip hemiarthroplasty so patient will be able to ambulate and be weightbearing as tolerated on 07/30/2024, later this afternoon. NPO. Pain control. Appreciate medical management involvement with this case.
[2024-07-30] MEDS: FOLIC ACID 1 MG TAB PO SCH (09:07)
[2024-07-30] MEDS: CHOLECALCIFEROL 25 MCG (1000 IU) TABLET PO SCH (09:07)
[2024-07-30] MEDS: D MANNOSE PO SCH (09:07)
[2024-07-30] MEDS: ASCORBIC ACID 500 MG TAB PO SCH (09:07)
[2024-07-30] MEDS: MULTIVITAMINS, THERA 1 EACH TAB PO SCH (09:08)
[2024-07-30] MEDS: NON FORMULARY DRUG (Quercetin [Quercetin] 500 MG Capsule) PO SCH (09:08)
[2024-07-30] MEDS: ZINC SULFATE 220 MG CAP PO SCH (09:08)
[2024-07-30] MEDS: ISOSORBIDE MONONITRATE ER 30 MG TAB.ER.24H PO SCH (09:24)
[2024-07-30] MEDS: PANTOPRAZOLE 40 MG/10 ML VIAL IV SCH (09:24)
[2024-07-30] MEDS: ESCITALOPRAM 20 MG TAB PO SCH (09:24)
[2024-07-30] MEDS: FUROSEMIDE 20 MG TAB PO SCH (09:24)
[2024-07-30] MEDS: lisinopriL 10 MG TAB PO SCH (09:24)
--- NOTE | 2024-07-30 14:51 | P.CONS ---
History of Present Illness - Reason for Consult Consult date: 07/29/24 Medical management Requesting physician: Pardeep Espinoza - Chief Complaint Femur fracture - History of Present Illness This is a pleasant 73-year-old patient follows with Dr. Gabriel and resident of [facility]. During because of dementia. As per the EMS: Patient had fallen last night unwitnessed around 0300. Patient had been complaining of right hip pain this afternoon. Found to have fracture of the right femoral head. Also was found to be positive for COVID with mild shortness of breath was put on oxygen 2 L. There has been no change in patient's baseline of cognition. When I saw the patient. Patient somewhat lethargic. Does open his eyes at time s to speak occasional words. Slightly congested. Review of systems: Difficult to obtain because of patient's cognition Social history: Lives at [facility]. . Nonsmoker. No alcohol. Does use a walker. CPAP. Physical examination: VITAL SIGNS: 98.5, 89, 20, 122 x 78, 90% room air GENERAL: Resting in bed, a bit lethargic slightly congested appearing. EYES: Pupils equal. Conjunctiva normal. HEENT: External appearance of nose and ears normal, oral cavity grossly normal. NECK: JVD not raised; masses not palpable. HEART: First and second heart sounds are normal; no edema. LUNGS:[ Respiratory rate increased, decreased breath sound, some expiratory crackles. ABDOMEN: Soft, nontender, liver spleen not palpable, no masses palpable. Suprapubic catheter PSYCH: P patient can only answer some simple questions and doses of. MUSCULOSKELETAL:No Clubbing/cyanosis;muscles-grossly intact. OA. Limited range of motion right hip NEUROLOGICAL: Cranial nerves grossly intact; no facial asymmetry, power and sensation grossly intact. LYMPHATICS: No lymph nodes palpable in the axilla and neck INVESTIGATIONS, reviewed in the clinical context: White count 10.2 hemoglobin 11 platelets 254 sodium 137 potassium 4.5 BUN 48 creatinine 2.24 COVID PCR: Detected EKG tracing normal sinus rhythm. Nonspecific ST/T wave changes Chest x-ray film personally reviewed by me-some cardiomegaly. Some scattered infiltrates X-ray right hip: No fracture See ED pelvis without contrast: Virtually nondisplaced fracture of the femoral head neck junction. Assessment and plan: -Acute nondisplaced fracture of the femoral head and neck junction right side secondary to fall Patient be taken to the OR tomorrow. -Acute COVID-19 pneumonitis, causing hypoxia Add dexamethasone, 6 mg a day -Acute hypoxic respiratory failure, secondary to COVID-19 Supplement oxygen -Severe cognitive impairment secondary to late onset Alzheimer's dementia Aricept. -GERD -Essential hypertension Lisinopril -Bladder outflow obstruction with suprapubic catheter, chronic -Hyperlipidemia Lipitor -Primary osteoarthritis -Hypothyroid Synthroid -Depression and anxiety Klonopin Lexapro -Prior history of DVT and PE Eliquis -DO NOT RESUSCITATE Perioperative cardiovascular risk assessment: Given patient's advanced age comorbidities patient is a moderate to high risk for pericardiovascular compl ications. Has no medical contraindications to proceed for surgery. Past Medical History Past Medical History: Cancer, Chest Pain / Angina, Dementia, GERD/Reflux, Hypertension, Osteoarthritis (OA), Thyroid Disorder Additional Past Medical History / Comment(s): HX UTI W/ SEPSIS 2013, past hx. chest pain-nothing current, tremors hands, heart murmur, esophageal spasms History of Any Multi-Drug Resistant Organisms: None Reported Past Surgical History: Prostate Surgery, Tonsillectomy Additional Past Surgical History / Comment(s): TURP, right thyroid lobectomy (09/08/2015), skin ca removed, SP cath placement Past Anesthesia/Blood Transfusion Reactions: No Reported Reaction Additional Past Anesthesia/Blood Transfusion Reaction / Comm: CLAUSTERPHOBIA Past Psychological History: Anxiety, Panic Disorder Additional Psychological History / Comment(s): ANXIETY, PANIC ATTACKS Smoking Status: Never smoker Past Alcohol Use History: None Reported Additional Past Alcohol Use History / Comment(s): Patient is a lifelong nonsmoker. He denies any marijuana, street drug or alcohol use. 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 He lives at home with his .uses walker when up, cpap machine. He denies any service. Past Drug Use History: None Reported - Past Family History Brother(s) Family Medical History: Cancer Sister(s) Family Medical History: Hypertension Father Family Medical History: Hypertension Additional Family Medical History / Comment(s): PT STATED DAD AT AGE 89 COMPLICATIONS FROM MRSA INFECTION. Mother Family Medical History: Hypertension Medications and Allergies Home Medications Medication Instructions Recorded Confirmed Type Levothyroxine Sodium [Synthroid] 75 mcg PO HS 05/17/18 07/29/24 History Atorvastatin [Lipitor] 40 mg PO HS 12/15/18 07/29/24 History Multivitamins, Thera [Multivitamin 1 tab PO DAILY 12/15/18 07/29/24 History (formulary)] Folic Acid 0.8 mg PO DAILY 12/25/18 07/29/24 History Nitroglycerin Sl Tabs [Nitrostat] 0.4 mg SUBLINGUAL Q5M PRN 12/25/18 07/29/24 History Apixaban [Eliquis] 2.5 mg PO BID 05/18/22 07/29/24 History Escitalopram [Lexapro] 20 mg PO DAILY 05/18/22 07/29/24 History Isosorbide Mononitrate ER [Imdur] 15 mg PO DAILY 05/18/22 07/29/24 History Sennosides/Docusate Sodium [Senna 1 cap PO DIRECTED 05/18/22 07/29/24 History Plus 8.6-50 mg Softgel] cloZAPine [Clozaril] 100 mg PO BID 05/18/22 07/29/24 History Acetaminophen Tab [Tylenol] 500 mg PO Q6H 10/17/23 07/29/24 History D-Mannose 1 cap PO DAILY 10/17/23 07/29/24 History Donepezil HCl [Aricept] 10 mg PO HS 10/17/23 07/29/24 History Furosemide [Lasix] 20 mg PO DAILY 10/17/23 07/29/24 History lisinopriL [Zestril] 10 mg PO DAILY 10/17/23 07/29/24 History Acetaminophen Tab [Tylenol Tab] 500 mg PO Q6HR PRN 07/29/24 07/29/24 History Ascorbic Acid [Vitamin C] 1,000 mg PO DAILY 07/29/24 07/29/24 History Cholecalciferol (Vitamin D3) 50 mcg PO DAILY 07/29/24 07/29/24 History [Vitamin D3 (50 Mcg = 2000 Iu) Chew Tab] Famotidine [Pepcid] 40 mg PO HS 07/29/24 07/29/24 History Lactobacillus Acidophilus 1 cap PO HS 07/29/24 07/29/24 History [Acidophilus Probiotic] Quercetin 500 mg PO DAILY 07/29/24 07/29/24 History Zinc Gluconate [Zinc] 50 mg PO DAILY 07/29/24 07/29/24 History clonazePAM [KlonoPIN] 0.5 mg PO TID@0800,1200,1800 07/29/24 07/29/24 History clonazePAM [KlonoPIN] 0.5 mg PO TUFR@0900 07/29/24 07/29/24 History Allergies Allergy/AdvReac Type Severity Reaction Status Date / Time levofloxacin AdvReac See Comment Verified 07/29/24 17:39 Physical Exam Vitals: Vital Signs Temp Pulse Pulse Resp BP BP Pulse Ox 07/29/24 19:41 98.5 F 89 20 122/78 90 L 07/29/24 18:32 98.7 F 93 20 115/65 98 07/29/24 15:30 98.7 F 104 H 20 89/52 93 L Intake and Output 07/29/24 07/29/24 07/29/24 06:59 14:59 22:59 Output Total 50 Balance -50 Output: Urine 50 Uretheral (Sanchez) 50 Other: Weight 106.05 kg Results CBC & Chem 7: 07/29/24 16:15 07/29/24 16:15 Labs: Abnormal Lab Results - Last 24 Hours (Table) 07/29/24 07/29/24 07/29/24 Range/Units 16:15 16:15 16:21 RBC 3.50 L (4.30-5.90) m/uL Hgb 11.0 L (13.0-17.5) gm/dL Hct 32.7 L (39.0-53.0) % Neutrophils # 9.0 H (1.3-7.7) k/uL Lymphocytes # 0.5 L (1.0-4.8) k/uL Carbon Dioxide 21 L (22-30) mmol/L BUN 48 H (9-20) mg/dL Creatinine 2.24 H (0.66-1.25) mg/dL Glucose 118 H (74-99) mg/dL POC Glucose (mg/dL) 125 H (70-110) mg/dL Calcium 8.3 L (8.4-10.2) mg/dL Urine Protein (Negative) Ur Leukocyte Esterase (Negative) Urine WBC (0-5) /hpf Urine WBC Clumps (None) /hpf Amorphous Sediment (None) /hpf Urine Bacteria (None) /hpf Urine Mucus (None) /hpf SARS-CoV-2 (PCR) (Not Detectd) 07/29/24 07/29/24 Range/Units 16:52 18:38 RBC (4.30-5.90) m/uL Hgb (13.0-17.5) gm/dL Hct (39.0-53.0) % Neutrophils # (1.3-7.7) k/uL Lymphocytes # (1.0-4.8) k/uL Carbon Dioxide (22-30) mmol/L BUN (9-20) mg/dL Creatinine (0.66-1.25) mg/dL Glucose (74-99) mg/dL POC Glucose (mg/dL) (70-110) mg/dL Calcium (8.4-10.2) mg/dL Urine Protein 1+ H (Negative) Ur Leukocyte Esterase Large H (Negative) Urine WBC 60 H (0-5) /hpf Urine WBC Clumps Rare H (None) /hpf Amorphous Sediment Rare H (None) /hpf Urine Bacteria Many H (None) /hpf Urine Mucus Rare H (None) /hpf SARS-CoV-2 (PCR) Detected A (Not Detectd)
--- NOTE | 2024-07-30 14:58 | P.PN ---
Progress Note - Text Progress Note Date: 07/30/24 - Chief Complaint Femur fracture - History of Present Illness This is a pleasant 73-year-old patient follows with Dr. Gabriel and resident of [facility]. During because of dementia. As per the EMS: Patient had fallen last night unwitnessed around 0300. Patient had been complaining of right hip pain this afternoon. Found to have fracture of the right femoral head. Also was found to be positive for COVID with mild shortness of breath was put on oxygen 2 L. There has been no change in patient's baseline of cognition. When I saw the patient. Patient somewhat lethargic. Does open his eyes at times to speak occasional words. Slightly congested. July 30: Patient seen this morning. Laying in bed. Bit lethargic. Arousable. Will answer occasional question. Nasal cannula. Pending surgery. N.p.o. except meds for surgery Active Medications Acetaminophen (Acetaminophen Tab 325 Mg Tab) 650 mg PO Q6HR PRN PRN Reason: Mild Pain or Fever > 100.5 Acetaminophen (Acetaminophen Tab 500 Mg Tab) 500 mg PO Q6H [facility] Last Admin: 07/30/24 12:25 Dose: Not Given Acetaminophen (Acetaminophen Tab 500 Mg Tab) 500 mg PO Q6HR PRN PRN Reason: Mild Pain (Scale 1 to 3) Hydrocodone Bitart/Acetaminophen (Hydrocodone/Apap 5-325mg 1 Each Tab) 1 each PO Q4HR PRN PRN Reason: Moderate Pain (Scale 4 to 6) Ascorbic Acid (Ascorbic Acid 500 Mg Tab) 1,000 mg PO DAILY [facility] Last Admin: 07/30/24 09:07 Dose: Not Given Atorvastatin Calcium (Atorvastatin 40 Mg Tab) 40 mg PO HS [facility] Last Admin: 07/29/24 21:38 Dose: 40 mg Cholecalciferol (Cholecalciferol 25 Mcg (1000 Iu) Tablet) 50 mcg PO DAILY [facility] Last Admin: 07/30/24 09:07 Dose: Not Given Clonazepam (Clonazepam 0.5 Mg Tab) 0.5 mg PO TID@0800,1200,1800 [facility] Last Admin: 07/30/24 12:26 Dose: Not Given Clonazepam (Clonazepam 0.5 Mg Tab) 0.5 mg PO TUFR@0900 [facility] Clozapine (Clozapine 100 Mg Tab) 100 mg PO BID [facility] Stop: 08/05/24 23:59 Last Admin: 07/30/24 09:24 Dose: 100 mg Donepezil HCl (Donepezil 10 Mg Tab) 10 mg PO HS [facility] Last Admin: 07/29/24 21:38 Dose: 10 mg Escitalopram Oxalate (Escitalopram 20 Mg Tab) 20 mg PO DAILY [facility] Last Admin: 07/30/24 09:24 Dose: 20 mg Famotidine (Famotidine 20 Mg Tab) 40 mg PO HS [facility] Last Admin: 07/29/24 21:38 Dose: 40 mg Folic Acid (Folic Acid 1 Mg Tab) 1 mg PO DAILY [facility] Last Admin: 07/30/24 09:07 Dose: Not Given Furosemide (Furosemide 20 Mg Tab) 20 mg PO DAILY [facility] Last Admin: 07/30/24 09:24 Dose: 20 mg Sodium Chloride (Saline 0.9%) 1,000 mls @ 75 mls/hr IV .[id number] [facility] Last Admin: 07/30/24 09:22 Dose: 75 mls/hr Isosorbide Mononitrate (Isosorbide Mononitrate Er 30 Mg Tab.Er.24h) 15 mg PO DAILY [facility] Last Admin: 07/30/24 09:24 Dose: 15 mg Lactobacillus Acidophilus (Lactobacillus Acidophilus/Pect 1 Each Capsule) 1 each PO HS [facility] Last Admin: 07/29/24 21:38 Dose: 1 each Levothyroxine Sodium (Levothyroxine 75 Mcg Tab) 75 mcg PO HS [facility] Last Admin: 07/29/24 21:38 Dose: 75 mcg Lisinopril (Lisinopril 10 Mg Tab) 10 mg PO DAILY [facility] Last Admin: 07/30/24 09:24 Dose: 10 mg Morphine Sulfate (Morphine Sulfate 4 Mg/Ml Syringe) 4 mg IV Q4HR PRN PRN Reason: Severe Pain (Scale 7 to 10) Multivitamins (Multivitamins, Thera 1 Each Tab) 1 each PO DAILY [facility] Last Admin: 07/30/24 09:08 Dose: Not Given Naloxone HCl (Naloxone 0.4 Mg/Ml 1 Ml Vial) 0.2 mg IV Q2M PRN PRN Reason: Opioid Reversal Nitroglycerin (Nitroglycerin Sl Tabs 0.4 Mg Tab) 0.4 mg SUBLINGUAL Q5M PRN PRN Reason: Chest Pain Non-Formulary Medication (D-Mannose) 1 cap PO DAILY [facility] Last Admin: 07/30/24 09:07 Dose: Not Given Non-Formulary Medication (Quercetin [Quercetin]) 500 mg PO DAILY [facility] Last Admin: 07/30/24 09:08 Dose: Not Given Ondansetron HCl (Ondansetron 4 Mg/2 Ml Vial) 4 mg IVP Q8HR PRN PRN Reason: Nausea And Vomiting Pantoprazole Sodium (Pantoprazole 40 Mg/10 Ml Vial) 40 mg IV DAILY [facility] Last Admin: 07/30/24 09:24 Dose: 40 mg Senna/Docusate Sodium (Sennosides-Docusate Sodium 1 Each Tab) 1 each PO BID [facility] Zinc Sulfate (Zinc Sulfate 220 Mg Cap) 220 mg PO DAILY [facility] Last Admin: 07/30/24 09:08 Dose: Not Given Review of systems: Difficult to obtain because of patient's cognition Social history: Lives at [facility]. . Nonsmoker. No alcohol. Does use a walker. CPAP. Physical examination: VITAL SIGNS: 98.5, 82, 18, 115 x 68, 96% on 3 L GENERAL: Resting in bed, a bit lethargic slightly congested sounding EYES: Pupils equal. Conjunctiva normal. HEENT: External appearance of nose and ears normal, oral cavity grossly normal. NECK: JVD not raised; masses not palpable. HEART: First and second heart sounds are normal; no edema. LUNGS:[ Respiratory rate increased, decreased breath sound, some expiratory crackles. ABDOMEN: Soft, nontender, liver spleen not palpable, no masses palpable. Suprapubic catheter PSYCH: P patient can only answer some simple questions and doses of. MUSCULOSKELETAL:No Clubbing/cyanosis;muscles-grossly intact. OA. Limited range of motion right hip NEUROLOGICAL: Cranial nerves grossly intact; no facial asymmetry, power and sensation grossly intact. INVESTIGATIONS, reviewed in the clinical context: White count 10.2 hemoglobin 11 platelets 254 sodium 137 potassium 4.5 BUN 48 creatinine 2.24 COVID PCR: Detected EKG tracing normal sinus rhythm. Nonspecific ST/T wave changes Chest x-ray film personally reviewed by me-some cardiomegaly. Some scattered infiltrates X-ray right hip: No fracture See ED pelvis without contrast: Virtually nondisplaced fracture of the femoral head neck junction. Previous labs: February 2024: Creatinine 1.2 Assessment and plan: -Acute nondisplaced fracture of the femoral head and neck junction right side secondary to fall: Slow to respond Pending OR today -Acute metabolic encephalopathy from COVID-19 -Acute COVID-19 pneumonitis, causing hypoxia Add dexamethasone, 6 mg a day -Acute kidney injury likely ATN IV fluids. Repeat labs. -Acute hypoxic respiratory failure, secondary to COVID-19 Supplement oxygen -Severe cognitive impairment secondary to late onset Alzheimer's dementia Aricept. -GERD -Essential hypertension Lisinopril -Bladder outflow obstruction with suprapubic catheter, chronic -Hyperlipidemia Lipitor -Primary osteoarthritis -Hypothyroid Synthroid -Depression and anxiety Klonopin Lexapro -Prior history of DVT and PE Eliquis -DO NOT RESUSCITATE Pending surgery. Repeat labs. Continue oxygen. Past Medical History Past Medical History: Cancer, Chest Pain / Angina, Dementia, GERD/Reflux, Hypertension, Osteoarthritis (OA), Thyroid Disorder Additional Past Medical History / Comment(s): HX UTI W/ SEPSIS 2013, past hx. chest pain-nothing current, tremors hands, heart murmur, esophageal spasms History of Any Multi-Drug Resistant Organisms: None Reported Past Surgical History: Prostate Surgery, Tonsillectomy Additional Past Surgical History / Comment(s): TURP, right thyroid lobectomy (09/08/2015), skin ca removed, SP cath placement Past Anesthesia/Blood Transfusion Reactions: No Reported Reaction Additional Past Anesthesia/Blood Transfusion Reaction / Comm: CLAUSTERPHOBIA Past Psychological History: Anxiety, Panic Disorder Additional Psychological History / Comment(s): ANXIETY, PANIC ATTACKS Smoking Status: Never smoker Past Alcohol Use History: None Reported Additional Past Alcohol Use History / Comment(s): Patient is a lifelong nonsmoker. He denies any marijuana, street drug or alcohol use. 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 He lives at home with his .uses walker when up, cpap machine. He denies any service. Past Drug Use History: None Reported
[2024-07-30 15:32] LABS: African American GFR (CKD) 63 (>60 ml/min/1.73 sqM); Anion Gap 12 mmol/L; Blood Urea Nitrogen 41 mg/dL (9-20); Carbon Dioxide 20 mmol/L (22-30); Chloride 109 mmol/L (98-107); Glucose 105 mg/dL (74-99); Non-African American GFR(CKD) 54 (>60 ml/min/1.73 sqM); Potassium 4.1 mmol/L (3.5-5.1); Sodium 141 mmol/L (137-145)
[2024-07-30] MEDS: ENOXAPARIN 40 MG/0.4 ML SYRINGE SQ SCH (16:20)
[2024-07-30] MEDS ORDERED: diazePAM 5 MG TAB PO PRN (16:57)
[2024-07-30] MEDS ORDERED: HYDROmorphone 0.5 MG/0.5 ML SYRINGE IVP PRN ×3 (16:57)
[2024-07-30] MEDS ORDERED: MAGNESIUM HYDROXIDE 2,400 MG/30 ML CUP PO PRN (16:57)
[2024-07-30] MEDS ORDERED: NALOXONE 0.4 MG/ML 1 ML VIAL IV PRN (16:57)
[2024-07-30] MEDS: dexAMETHasone 2 MG TAB PO SCH (17:01)
[2024-07-30] MEDS: IV FLUID CONTINUATION 600 ML IV ONE (17:04)
[2024-07-30] MEDS ORDERED: SUCCINYLCHOLINE CHLORIDE 200 MG/10 ML VIAL IV ONE (17:06)
[2024-07-30] MEDS ORDERED: NEOSTIGMINE 1 MG/ML 10 ML VIAL ONE (17:06)
[2024-07-30] MEDS ORDERED: ACETAMINOPHEN IV (For NPO) 1,000 MG/100 ML VIAL ONE (17:06)
[2024-07-30] MEDS ORDERED: NALOXONE 0.4 MG/ML 1 ML VIAL ONE (17:06)
[2024-07-30] MEDS ORDERED: KETOROLAC 30 MG/ML 1 ML VIAL ONE (17:06)
[2024-07-30] MEDS ORDERED: LIDOCAINE 1% INJ 10MG/ML (20 ML MDV) ONE (17:06)
[2024-07-30] MEDS ORDERED: TRANEXAMIC 1,000 MG/100ML-NACL PREMIX BAG ONE (17:06)
[2024-07-30] MEDS ORDERED: GLYCOPYRROLATE 0.2 MG/ML 2 ML VIAL ONE (17:06)
[2024-07-30] MEDS ORDERED: ROCURONIUM 10 MG/ML (5 ML VIAL) IV ONE (17:06)
[2024-07-30] MEDS ORDERED: PROPOFOL 10 MG/ML 20 ML VIAL IV ONE (17:06)
[2024-07-30] MEDS ORDERED: fentaNYL (PF) 50 MCG/ML 2 ML AMP ONE (17:06)
[2024-07-30] MEDS ORDERED: PHENYLEPHRINE-0.9% NACL SYG 1,000 MCG/10 ML SYRINGE ONE (17:06)
[2024-07-30] MEDS: ROPIVACAINE/EPI/CLONIDINE/KET 50 ML SYRINGE MISCELLANE PRN (17:46)
[2024-07-30] MEDS: LACTATED RINGERS 1,000 ML IV ONE ×2 (17:53→19:04)
[2024-07-30] MEDS: VANCOMYCIN 1,000 MG VIAL MISCELLANE ONE (17:58)
[2024-07-30] MEDS: EPINEPHrine 2 MG in SODIUM CHLORIDE 0.9% 200 ML IV ONE (17:58)
[2024-07-30] MEDS: LACTATED RINGERS 1,000 ML IV SCH (18:59)
--- NOTE | 2024-07-30 19:27 | P.OP ---
Date of Procedure: 07/30/24 Preoperative Diagnosis: 1. Displaced right femoral neck fracture 2. Advanced dementia Postoperative Diagnosis: Same Procedure(s) Performed: Right direct anterior hip hemiarthroplasty Implants: Accolade C size #4 Standard offset, 50 mm OD head, 28 mm ID head with a +4mm neck Anesthesia: JOHN regional Surgeon: Jaspreet Posey Anesthesiologist/Physician #1: Cayden Wilkes Estimated Blood Loss (ml): 200 IV fluids (ml): 1,600 Urine output (ml): 300 Pathology: none sent Condition: stable Disposition: PACU Indications for Procedure: I met with the patient and their family to discuss treatment options. The patient has a displaced femoral neck fracture and based on their age, activity level, and medical comorbidities I recommended a hip hemiarthroplasty to facilitate early mobilization. My recommendation was to perform the hemiarthroplasty through a direct anterior approach to help lower the risk of dislocation and improve postoperative recovery and use cemented fixation of the femoral component to reduce the risk of fracture and postoperative thigh pain. We discussed the potential risks and complications of a hemiarthroplasty for displaced femoral neck fracture at length. Risks discussed include are certainly not limited to risks from anesthesia, superficial infection requiring local wound care and possibly surgical debridement, deep periprosthetic joint infection and the treatment for this, damage to local blood vessels or nerves particularly the lateral femoral cutaneous nerve, intraoperative fracture, postoperative periprosthetic fracture, leg length discrepancy, hip dislocation, aseptic loosening, groin pain, thigh pain, progression of arthritis requiring conversion to total hip arthroplasty, complications related to cementing the component, an inability to regain preinjury level of function, DVT, PE, acute coronary event, stroke, pneumonia, urinary tract infection, failure to thrive, and possibly . The patient and their family understand that while these are the most common complications other less common complications are possible. They provided their verbal and written consent to go forward with surgery. Operative Findings: Displaced femoral neck fracture with large hemarthrosis Description of Procedure: The patient was identified in the preoperative holding area and the correct hip was marked with my initials. I reviewed the procedure and consent with the patient. All of their questions were answered. The patient was then brought back into the operating room by anesthesia. [facility] by the anesthesia team. Preoperative antibiotics and tranexamic acid were also given. After the patient was under anesthesia I examined their ankles to determine their preoperative leg length discrepancy. The skin over the anterior aspect of the hip was shaved to remove hair over the site of planned incision. Both feet and ankles were padded with webril and boots for the [place] were applied. The patient was then carefully transferred onto the [place] table. A perineal post was immediately placed. The arms were placed on arm holders and were well-padded. Both boots were secured to the spars on the [place] table. The patient was positioned so that the pelvis was centered over the post. Nonsterile drapes were applied. A timeout was performed identifying the correct patient, operative extremity, and procedure. At this point fluoroscopy was brought in to take preoperative images of the pelvis and operative hip. A metallic bar was used to create a bi-ischial line for use as a reference to leg length adjustments during the procedure. Global offset was also measured on both the operative and nonoperative leg. Fluoroscopy was then brought out and a pre-scrub using a chlorhexidine scrub brush was performed. The operative limb was then prepped and draped in the standard sterile fashion. An anterior longitudinal incision was made lateral and distal to the ASIS. The skin and subcutaneous tissues were incised sharply. The underlying tensor fascia was identified and incised in its midportion. The fascia was dissected free from the underlying muscle and the muscle belly was retracted. A blunt tipped cobra retractor was placed over the superior neck under the muscle fibers of the gluteus minimus. The deep enveloping fascia of the tensor was incised. The anterior leash of vessels were then identified and cauterized. The fascia between the rectus and the capsule was then incised and the pre-capsular fat was excised. A second Cobra was placed inferior to the neck. The interval between the rectus and iliocapsularis and the hip capsule was developed and a retractor was placed carefully over the anterior rim of the acetabulum. A T-shaped anterior capsulotomy was performed. A hemarthrosis consistent with a femoral neck fracture was identified. The superior capsular leaflet was left in place in the inferior capsular flap was excised. The Cobra retractors were placed intracapsularly. A displaced femoral neck fracture was then identified. We then made a femoral neck osteotomy according to preoperative and intraoperative templating and confirmed the level of the osteotomy using fluoroscopic imaging. The femoral head was removed, passed off to the back table, and sized. The superior capsular flap was excised. On inspection of the acetabulum there were minimal degenerative changes with intact cartilage. Attention was then turned to the femur. The remnant dorsal lateral capsule was excised. The short external rotators were visible and protected. A bone hook was used to confirm appropriate translation of the trochanter away from the acetabulum. The leg was then extended and adducted and the bone hook was used to elevate the femur for broaching. A box osteotome and blunt tipped canal sound was then utilized to gain access to the femoral canal. We then sequentially broached the femur in appropriate anteversion until torsional stability was achieved and the implant was felt to have reached the appropriate size to allow trialing. The neck cut was brought flush to the trial broach with a calcar planar. A trial neck and head were then placed onto the broach and the hip was atraumatically reduced under direct visualization. External rotation to 90 was performed to assess stability. Fluoroscopy was brought in. An AP and lateral fluoroscopic image of the proximal femur was obtained to assess position and fill of the trial broach. An AP of the pelvis was then obtained and matched to the preoperative image taken. A bi-ischial bar was then placed and measurements were taken to assess changes in length and offset. The hip was then carefully dislocated, the proximal femur was exposed, and the trial implants were removed. The proximal femur was then prepared for cementing. The canal was thoroughly irrigated with pulsatile lavage to remove blood and marrow contents. A cement restrictor was placed to a depth just distal to the tip of the final implant. Epinephrine-soaked gauze was then packed into the proximal femur. 2 bags of cement with antibiotics were then mixed using a centrifuge and placed into a cement gun. Anesthesia was notified that cementing was about to commence to make sure the patient was appropriately ventilated and hydrated. Once the cement had reached appropriate consistency, the cement gun was used to fill the canal in a retrograde fashion starting at the restrictor. Cement was then pressurized into the canal with a blue tipped stock drier tender. The stem was then carefully introduced into the cement taking care to guide the implant into appropriate version. The stem was held in position until the cement had fully set. All extra cement was removed while the cement was hardening. The trunnion was cleansed and the final head was tapped into place to engage the Licona taper. The acetabulum was irrigated and visualized to be free of debris. The hip was carefully reduced. Stability was checked clinically with external rotation to 90 and there was no evidence of instability. Final fluoroscopic images were taken. The wound was then thoroughly irrigated with Irrisept. 3 L of sterile saline was irrigated through the wound using pulsatile lavage. Local anesthetic cocktail was injected into the soft tissues around the surgical field. The wound was then closed in layers. A sterile dressing was placed over the surgical incision. The drapes were taken down and the patient was carefully transferred off of the [place] table. Following removal of the boots the leg lengths felt acceptable. The patient was then taken to recovery room having tolerated the procedure well. Caydne Wilkes MD required as a skilled real estate administrative assistant due to the complexity of surgery for patient positioning, draping, exposure, retraction, closure of wound, and application of dressing PLAN: The patient can weight-bear as tolerated on the operative extremity. 2 doses of postoperative antibiotics. DVT prophylaxis can resume Eliquis tomorrow. Physical therapy for gait training.
[2024-07-30 20:15] LABS: Glucose,Whole Blood 154 mg/dL (70-110)
[2024-07-30] MEDS ORDERED: ASPIRIN 81 MG PO SCH (21:00)
--- NOTE | 2024-07-30 21:51 | XR ---
EXAMINATION TYPE: XR Hip Limited RT DATE OF EXAM: 07/30/2024 7:04 PM CLINICAL INDICATION:Male, 73 years old with history of RIGHT ANTERIOR HIP; PHH COMPARISON: None. TECHNIQUE and FINDINGS: Fluoroscopic spot views were obtained intraoperatively and saved to PACS during placement of right hi p arthroplasty. Total fluoroscopy time 32.1 seconds. Please refer to operative note for full details . IMPRESSION: Documentation of fluoroscopy. [facility], , 07/30/2024 9:49 PM
[2024-07-31 06:24] LABS: Basophils % (A) 0 %; Eosinophils # (A) 0.3 k/uL (0-0.7); Eosinophils % (A) 4 %; HCT 30.6 % (39.0-53.0); HGB 10.3 gm/dL (13.0-17.5); Lymphocytes # (A) 0.9 k/uL (1.0-4.8); Lymphocytes % (A) 11 %; MCH 30.7 pg (25.0-35.0); MCHC 33.6 g/dL (31.0-37.0); MCV 91.6 fL (80.0-100.0); Mean Platelet Volume 8.3; Monocytes # (A) 0.5 k/uL (0-1.0); Monocytes % (A) 6 %; Neutrophils # (A) 6.8 k/uL (1.3-7.7); Neutrophils % (A) 79 %; Platelet Count 199 k/uL (150-450); Poikilocytosis Slight; RBC 3.34 m/uL (4.30-5.90); RDW 15.7 % (11.5-15.5); WBC 8.7 k/uL (3.8-10.6)
[2024-07-31 06:27] LABS: African American GFR (CKD) 67 (>60 ml/min/1.73 sqM); Anion Gap 5 mmol/L; Blood Urea Nitrogen 39 mg/dL (9-20); Calcium 8.2 mg/dL (8.4-10.2); Carbon Dioxide 24 mmol/L (22-30); Chloride 111 mmol/L (98-107); Glucose 103 mg/dL (74-99); Non-African American GFR(CKD) 58 (>60 ml/min/1.73 sqM); Potassium 4.6 mmol/L (3.5-5.1); Sodium 140 mmol/L (137-145)
--- NOTE | 2024-07-31 07:45 | P.PN ---
Subjective Progress Note Date: 07/31/24 Principal diagnosis: Displaced right femoral neck fracture status post right direct anterior hip hemiarthroplasty on 07/30/[address] Posey Patient was transferred to the ICU after surgery on 07/30/2024 for tachypnea. This morning when spoke to patient at bedside patient continued to be awake, alert, but remains confused due to chronic advanced Alzheimer's dementia. Objective - Vital Signs Vital signs: Vital Signs Temp 98.1 F 07/31/24 04:00 Pulse 88 07/31/24 07:00 Resp 15 07/31/24 07:00 BP 117/74 07/31/24 07:00 Pulse Ox 96 07/31/24 07:00 FiO2 Intake & Output 07/30/24 07/31/24 07/31/24 18:59 06:59 18:59 Intake Total 1651 1400 100 Output Total 1000 1055 50 Balance 651 345 50 Weight 106.05 kg 109.2 kg Intake: IV 1651 Intake, IV Titration 1000 100 Amount Lactated Ringers 1,000 ml 1000 100 @ 100 mls/hr IV .Q10H [facility] Rx#:[id number] Oral 400 Output: Urine 800 1055 50 Estimated Blood Loss 200 Other: Voiding Method Indwelling Catheter - Exam Patient was examined at bedside this morning. Patient was resting in bed comfortably. Patient was awake and alert, but not able to answer questions due to chronic Alzheimer's dementia. On inspection there is a surgical dressing over the anterior aspect of the right hip, it is clean, dry, intact, without strikethrough. There is generalized swelling about the right thigh. Patient's right femoral nerve function is grossly intact. Patient is able to plantarflex and dorsiflex the right ankle and toes. Patient's foot is pink and appears well-perfused. - Labs CBC & Chem 7: 07/31/24 05:19 07/31/24 05:19 Labs: Abnormal Lab Results - Last 24 Hours (Table) 07/30/24 07/30/24 07/31/24 Range/Units 14:59 20:14 05:19 RBC 3.34 L (4.30-5.90) m/uL Hgb 10.3 L (13.0-17.5) gm/dL Hct 30.6 L (39.0-53.0) % RDW 15.7 H (11.5-15.5) % Lymphocytes # 0.9 L (1.0-4.8) k/uL Chloride 109 H (98-107) mmol/L Carbon Dioxide 20 L (22-30) mmol/L BUN 41 H (9-20) mg/dL Creatinine 1.28 H (0.66-1.25) mg/dL Glucose 105 H (74-99) mg/dL POC Glucose (mg/dL) 154 H (70-110) mg/dL Calcium 8.0 L (8.4-10.2) mg/dL 07/31/24 Range/Units 05:19 RBC (4.30-5.90) m/uL Hgb (13.0-17.5) gm/dL Hct (39.0-53.0) % RDW (11.5-15.5) % Lymphocytes # (1.0-4.8) k/uL Chloride 111 H (98-107) mmol/L Carbon Dioxide (22-30) mmol/L BUN 39 H (9-20) mg/dL Creatinine (0.66-1.25) mg/dL Glucose 103 H (74-99) mg/dL POC Glucose (mg/dL) (70-110) mg/dL Calcium 8.2 L (8.4-10.2) mg/dL Assessment and Plan Assessment: 1. Postop day #1 status post right direct anterior hemiarthroplasty for minimally displaced right femoral neck fracture 2. Advanced Alzheimer's dementia. (1) Fracture of femoral neck, right Current Visit: Yes Status: Acute Code(s): S72.001A - FRACTURE OF UNSP PART OF NECK OF RIGHT FEMUR, INIT SNOMED Code(s): 2483979 Plan: Patient may weight-bear as tolerated on operative extremity with walker and assistance. Leave surgical dressing, if becomes saturated please contact our office. Continue pain control as needed. Will defer medical management to the medical and ICU team at this point, thank you for your involvement in this case.
--- NOTE | 2024-07-31 09:07 | XR ---
EXAMINATION TYPE: XR chest 1V portable DATE OF EXAM: 07/31/2024 HISTORY: Shortness of breath. COMPARISON: 07/29/2024 TECHNIQUE: Single view of the chest is submitted. FINDINGS: Demonstrated are scattered senescent parenchymal change. Prominent interstitial appearance of the lungs which can reflect atypical pneumonia. Correlate clinic ally. The heart is stable. Hilar and mediastinal structures are within normal limits. Degenerative changes are seen of the dorsal spine. IMPRESSION: 1. Prominent interstitial appearance of the lungs which can reflect atypical pneumonia. Correlate cl inically. [facility], , 07/31/2024 9:05 AM
--- NOTE | 2024-07-31 09:56 | P.CNPUL ---
History of Present Illness Consult date: 07/31/24 Reason for consult: other (Critical care management) Chief complaint: Hypotension History of present illness: 73-year-old man with history of advanced Alzheimer's dementia currently living at [facility] presents to the emergency department following a fall and was found to have a right femoral head fracture. Patient underwent right direct anterior hip hemiarthroplasty. Following the surgery patient was found to be hypotensive and a bit groggy/difficult to arouse and was transferred to the ICU for further observation and management. At that time patient was saturating 94% on 3 L nasal cannula. Following arrival in the ICU late last night patient was saturating in the high 90%'s on 3 L nasal cannula resting comfortably in bed without any acute concerns or complaints. He was found to be positive for COVID-19 upon arrival in the emergency department, although the patient is currently without any symptoms. Repeat chest x-ray done while patient in the ICU showed prominent interstitial appearance of the lungs which can reflect atypical pneumonia. Patient is currently receiving 100 cc/h lactated ringer as well as cefazolin. He is WBCs 8.7, Hgb 10.3, hct 30.6, PLT 199; sodium 140, potassium 4.6, BUN 39, creatinine 1.22. At this time the patient is able to be downgraded to general medicine floor from the ICU. REVIEW OF SYSTEMS: Difficult to obtain due to his cognition secondary to patient's advanced Alzheimer's dementia PHYSICAL EXAMINATION: GENERAL: The patient is alert and oriented x3, not in any acute distress. Resting comfortably. HEENT: Pupils are round and equally reacting to light. EOMI. No scleral icterus. No conjunctival pallor. Normocephalic, atraumatic. No pharyngeal erythema. No thyromegaly. CARDIOVASCULAR: S1 and S2 present. No murmurs, rubs, or gallops. PULMONARY: Some diminished breath sounds, some crackles noted ABDOMEN: Soft, nontender, nondistended, normoactive bowel sounds. No palpable organomegaly. MUSCULOSKELETAL: Limited range of motion of the right hip following surgery, with surgical dressing over the anterior aspect of the hip that is clean, dry, intact. EXTREMITIES: No cyanosis, clubbing, or pedal edema. NEUROLOGICAL: Somewhat altered secondary to advanced Alzheimer's dementia SKIN: No rashes. Assessment and plan # Postop day #1 s/p right direct anterior hemiarthroplasty for minimally displaced right femoral neck fracture Patient presented emergency department following a fall in which x-ray revealed a right femoral head fracture Surgical dressing over the anterior aspect of the right hip that is clean, dry, intact Continue pain control as per orthopedic surgery's recommendations # Advanced Alzheimer's dementia # OTILIO - Improving On arrival BUN 48, creatinine 2.24 Patient received liter bolus of IV fluids Prior to surgery patient had been receiving normal saline 75 cc/h Since surgery patient has been receiving 100 cc/h lactated ringer Today (07/31) BUN 39, creatinine 1.22 Patient received 20 mg Lasix today # Acute COVID-19 infection Was noted to have tested positive Medi [place] prior to arrival in the emergency department Retested in the emergency department noted to be positive Patient presently states he has no current symptoms, chest x-ray done today (07/31) did show prominent interstitial appearance which can reflect atypical pneumonia Patient currently on 3 L nasal cannula saturating in the high 90%'s Continue to monitor patient signs and symptoms and oxygenation # Hypothyroid Maintained on 75 mcg Synthroid nightly GI prophylaxis: Pepcid 40 mg nightly DVT Prophylaxis: Maintained at home on Eliquis, currently being held Sanchez catheter in place Continue to monitor vital signs, monitor CBC, monitor CMP Continue telemetry monitoring. Continue with symptomatic treatment Resume home medication Further condition as per the clinical course of the patient Dictation was produced using [employer] dictation software. please excuse any grammatical, word or spelling errors. Past Medical History Past Medical History: Cancer, Chest Pain / Angina, Dementia, GERD/Reflux, Hypertension, Osteoarthritis (OA), Thyroid Disorder Additional Past Medical History / Comment(s): HX UTI W/ SEPSIS 2013, past hx. c hest pain-nothing current, tremors hands, heart murmur, esophageal spasms History of Any Multi-Drug Resistant Organisms: None Reported Past Surgical History: Prostate Surgery, Tonsillectomy Additional Past Surgical History / Comment(s): TURP, right thyroid lobectomy (09/08/2015), skin ca removed, SP cath placement Past Anesthesia/Blood Transfusion Reactions: No Reported Reaction Additional Past Anesthesia/Blood Transfusion Reaction / Comment(s): CLAUSTERPHOBIA Past Psychological History: Anxiety, Panic Disorder Additional Psychological History / Comment(s): ANXIETY, PANIC ATTACKS Smoking Status: Never smoker Past Alcohol Use History: None Reported Additional Past Alcohol Use History / Comment(s): Patient is a lifelong nonsmoker. He denies any marijuana, street drug or alcohol use. 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 He lives at home with his .uses walker when up, cpap machine. He denies any service. Past Drug Use History: None Reported - Past Family History Brother(s) Family Medical History: Cancer Sister(s) Family Medical History: Hypertension Father Family Medical History: Hypertension Additional Family Medical History / Comment(s): PT STATED DAD AT AGE 89 COMPLICATIONS FROM MRSA INFECTION. Mother Family Medical History: Hypertension Medications and Allergies Home Medications Medication Instructions Recorded Confirmed Type Levothyroxine Sodium [Synthroid] 75 mcg PO HS 05/17/18 07/29/24 History Atorvastatin [Lipitor] 40 mg PO HS 12/15/18 07/29/24 History Multivitamins, Thera [Multivitamin 1 tab PO DAILY 12/15/18 07/29/24 History (formulary)] Folic Acid 0.8 mg PO DAILY 12/25/18 07/29/24 History Nitroglycerin Sl Tabs [Nitrostat] 0.4 mg SUBLINGUAL Q5M PRN 12/25/18 07/29/24 History Apixaban [Eliquis] 2.5 mg PO BID 05/18/22 07/29/24 History Escitalopram [Lexapro] 20 mg PO DAILY 05/18/22 07/29/24 History Isosorbide Mononitrate ER [Imdur] 15 mg PO DAILY 05/18/22 07/29/24 History Sennosides/Docusate Sodium [Senna 1 cap PO DIRECTED 05/18/22 07/29/24 History Plus 8.6-50 mg Softgel] cloZAPine [Clozaril] 100 mg PO BID 05/18/22 07/29/24 History Acetaminophen Tab [Tylenol] 500 mg PO Q6H 10/17/23 07/29/24 History D-Mannose 1 cap PO DAILY 10/17/23 07/29/24 History Donepezil HCl [Aricept] 10 mg PO HS 10/17/23 07/29/24 History Furosemide [Lasix] 20 mg PO DAILY 10/17/23 07/29/24 History lisinopriL [Zestril] 10 mg PO DAILY 10/17/23 07/29/24 History Acetaminophen Tab [Tylenol Tab] 500 mg PO Q6HR PRN 07/29/24 07/29/24 History Ascorbic Acid [Vitamin C] 1,000 mg PO DAILY 07/29/24 07/29/24 History Cholecalciferol (Vitamin D3) 50 mcg PO DAILY 07/29/24 07/29/24 History [Vitamin D3 (50 Mcg = 2000 Iu) Chew Tab] Famotidine [Pepcid] 40 mg PO HS 07/29/24 07/29/24 History Lactobacillus Acidophilus 1 cap PO HS 07/29/24 07/29/24 History [Acidophilus Probiotic] Quercetin 500 mg PO DAILY 07/29/24 07/29/24 History Zinc Gluconate [Zinc] 50 mg PO DAILY 07/29/24 07/29/24 History clonazePAM [KlonoPIN] 0.5 mg PO TID@0800,1200,1800 07/29/24 07/29/24 History clonazePAM [KlonoPIN] 0.5 mg PO TUFR@0900 07/29/24 07/29/24 History Allergies Allergy/AdvReac Type Severity Reaction Status Date / Time levofloxacin AdvReac See Comment Verified 07/29/24 17:39 Physical Exam Vitals: Vital Signs Temp Pulse Pulse Resp BP BP Pulse Ox 07/31/24 09:00 80 16 106/77 98 07/31/24 08:11 96 07/31/24 08:00 98.6 F 74 14 113/82 98 07/31/24 07:00 88 15 117/74 96 07/31/24 06:00 80 14 106/72 98 07/31/24 05:00 76 13 121/75 97 07/31/24 04:00 98.1 F 75 14 104/67 99 07/31/24 03:00 78 14 102/67 98 07/31/24 02:00 78 15 111/74 97 07/31/24 01:00 87 16 133/75 97 07/31/24 00:00 97.9 F 85 15 127/83 96 07/30/24 23:00 89 18 134/88 95 07/30/24 22:05 92 16 134/88 93 L 07/30/24 22:00 98 15 124/70 94 L 07/30/24 21:00 97 17 127/73 94 L 07/30/24 13:38 90 16 109/69 94 L 07/30/24 09:21 98.5 F 82 18 115/68 96 Intake and Output 07/30/24 07/31/24 07/31/24 22:59 06:59 14:59 Intake Total 2251 800 300 Output Total 1525 530 155 Balance 726 270 145 Intake: IV 1651 200 Lactated Ringers 1,000 ml 200 @ 100 mls/hr IV .Q10H [facility] Rx#:[id number] Intake, IV Titration 200 800 100 Amount Lactated Ringers 1,000 ml 200 800 100 @ 100 mls/hr IV .Q10H [facility] Rx#:[id number] Oral 400 Output: Urine 1325 530 155 Estimated Blood Loss 200 Other: Voiding Method Indwelling Catheter Indwelling Catheter Weight 109.2 kg Results - Laboratory Findings CBC and BMP: 07/31/24 05:19 07/31/24 05:19 PT/INR, D-dimer PT 11.9 sec (10.0-12.5) 07/29/24 16:15 INR 1.1 (<1.2) 07/29/24 16:15 Abnormal lab findings: Abnormal Labs 07/29/24 07/29/24 07/29/24 16:15 16:15 16:21 RBC 3.50 L Hgb 11.0 L Hct 32.7 L RDW Neutrophils # 9.0 H Lymphocytes # 0.5 L Chloride Carbon Dioxide 21 L BUN 48 H Creatinine 2.24 H Glucose 118 H POC Glucose (mg/dL) 125 H Calcium 8.3 L Urine Protein Ur Leukocyte Esterase Urine WBC Urine WBC Clumps Amorphous Sediment Urine Bacteria Urine Mucus SARS-CoV-2 (PCR) 07/29/24 07/29/24 07/30/24 16:52 18:38 14:59 RBC Hgb Hct RDW Neutrophils # Lymphocytes # Chloride 109 H Carbon Dioxide 20 L BUN 41 H Creatinine 1.28 H Glucose 105 H POC Glucose (mg/dL) Calcium 8.0 L Urine Protein 1+ H Ur Leukocyte Esterase Large H Urine WBC 60 H Urine WBC Clumps Rare H Amorphous Sediment Rare H Urine Bacteria Many H Urine Mucus Rare H SARS-CoV-2 (PCR) Detected A 07/30/24 07/31/24 07/31/24 20:14 05:19 05:19 RBC 3.34 L Hgb 10.3 L Hct 30.6 L RDW 15.7 H Neutrophils # Lymphocytes # 0.9 L Chloride 111 H Carbon Dioxide BUN 39 H Creatinine Glucose 103 H POC Glucose (mg/dL) 154 H Calcium 8.2 L Urine Protein Ur Leukocyte Esterase Urine WBC Urine WBC Clumps Amorphous Sediment Urine Bacteria Urine Mucus SARS-CoV-2 (PCR)
[2024-07-31] MEDS: MELOXICAM 7.5 MG TAB PO SCH (11:50)
[2024-07-31] MEDS: SENNOSIDES-DOCUSATE SODIUM 1 EACH TAB PO SCH (11:51)
[2024-07-31] MEDS: clonazePAM 0.5 MG TAB PO SCH (11:51)
--- NOTE | 2024-07-31 13:56 | P.PN ---
Subjective Progress Note Date: 07/31/24 73-year-old man with history of advanced Alzheimer's dementia currently living at [facility] presents to the emergency department following a fall and was found to have a right femoral head fracture. Patient underwent right direct anterior hip hemiarthroplasty. Following the surgery patient was found to be hypotensive and a bit groggy/difficult to arouse and was transferred to the ICU for further observation and management. At that time patient was saturating 94% on 3 L nasal cannula. Following arrival in the ICU late last night patient was saturating in the high 90%'s on 3 L nasal cannula resting comfortably in bed without any acute concerns or complaints. He was found to be positive for COVI D-19 upon arrival in the emergency department, although the patient is currently without any symptoms. Repeat chest x-ray done while patient in the ICU showed prominent interstitial appearance of the lungs which can reflect atypical pneumonia. Patient is currently receiving 100 cc/h lactated ringer as well as cefazolin. He is WBCs 8.7, Hgb 10.3, hct 30.6, PLT 199; sodium 140, potassium 4.6, BUN 39, creatinine 1.22. At this time the patient is able to be downgraded to general medicine floor from the ICU. Objective - Vital Signs Vital signs: Vital Signs Temp 98.6 F 07/31/24 08:00 Pulse 96 07/31/24 10:00 Resp 10 L 07/31/24 10:00 BP 139/87 07/31/24 10:00 Pulse Ox 96 07/31/24 10:00 FiO2 Intake & Output 07/30/24 07/31/24 07/31/24 18:59 06:59 18:59 Intake Total 1651 1400 400 Output Total 1000 1055 155 Balance 651 345 245 Weight 106.05 kg 109.2 kg Intake: IV 1651 300 Lactated Ringers 1,000 ml 300 @ 100 mls/hr IV .Q10H [facility] Rx#:[id number] Intake, IV Titration 1000 100 Amount Lactated Ringers 1,000 ml 1000 100 @ 100 mls/hr IV .Q10H [facility] Rx#:[id number] Oral 400 Output: Urine 800 1055 155 Estimated Blood Loss 200 Other: Voiding Method Indwelling Catheter Indwelling Catheter - Exam GENERAL: The patient is alert and oriented x3, not in any acute distress. Resting comfortably. HEENT: Pupils are round and equally reacting to light. EOMI. No scleral icterus. No conjunctival pallor. Normocephalic, atraumatic. No pharyngeal erythema. No thyromegaly. CARDIOVASCULAR: S1 and S2 present. No murmurs, rubs, or gallops. PULMONARY: Some diminished breath sounds, some crackles noted ABDOMEN: Soft, nontender, nondistended, normoactive bowel sounds. No palpable organomegaly. MUSCULOSKELETAL: Limited range of motion of the right hip following surgery, with surgical dressing over the anterior aspect of the hip that is clean, dry, intact. EXTREMITIES: No cyanosis, clubbing, or pedal edema. NEUROLOGICAL: Somewhat altered secondary to advanced Alzheimer's dementia SKIN: No rashes. - Labs CBC & Chem 7: 07/31/24 05:19 07/31/24 05:19 Labs: Abnormal Lab Results - Last 24 Hours (Table) 07/30/24 07/30/24 07/31/24 Range/Units 14:59 20:14 05:19 RBC 3.34 L (4.30-5.90) m/uL Hgb 10.3 L (13.0-17.5) gm/dL Hct 30.6 L (39.0-53.0) % RDW 15.7 H (11.5-15.5) % Lymphocytes # 0.9 L (1.0-4.8) k/uL Chloride 109 H (98-107) mmol/L Carbon Dioxide 20 L (22-30) mmol/L BUN 41 H (9-20) mg/dL Creatinine 1.28 H (0.66-1.25) mg/dL Glucose 105 H (74-99) mg/dL POC Glucose (mg/dL) 154 H (70-110) mg/dL Calcium 8.0 L (8.4-10.2) mg/dL 07/31/24 Range/Units 05:19 RBC (4.30-5.90) m/uL Hgb (13.0-17.5) gm/dL Hct (39.0-53.0) % RDW (11.5-15.5) % Lymphocytes # (1.0-4.8) k/uL Chloride 111 H (98-107) mmol/L Carbon Dioxide (22-30) mmol/L BUN 39 H (9-20) mg/dL Creatinine (0.66-1.25) mg/dL Glucose 103 H (74-99) mg/dL POC Glucose (mg/dL) (70-110) mg/dL Calcium 8.2 L (8.4-10.2) mg/dL Assessment and Plan Assessment: 1. Minimally displaced right femoral neck fracturePostop day #1 -- Patient is s/p right direct anterior hemiarthroplasty for minimally displaced right femoral neck fracture Patient presented emergency department following a fall in which x-ray revealed a right femoral head fracture Surgical dressing over the anterior aspect of the right hip that is clean, d ry, intact Continue pain control as per orthopedic surgery's recommendations 2. Advanced Alzheimer's dementia; Aricept 10 mg daily 3. OTILIO - Improving On arrival BUN 48, creatinine 2.24 Patient received liter bolus of IV fluids Prior to surgery patient had been receiving normal saline 75 cc/h Since surgery patient has been receiving 100 cc/h lactated ringer Today (07/31) BUN 39, creatinine 1.22 Patient received 20 mg Lasix yesterday 4. Acute COVID-19 infection Was noted to have tested positive [facility] [place] prior to arrival in the emergency department Retested in the emergency department noted to be positive Patient presently states he has no current symptoms, chest x-ray done today (07/31) did show prominent interstitial appearance which can reflect atypical pneumonia Patient currently on 3 L nasal cannula saturating in the high 90%'s Continue to monitor patient signs and symptoms and oxygenation 5. Hypothyroid Maintained on 75 mcg Synthroid nightly GI prophylaxis: Pepcid 40 mg nightly DVT Prophylaxis: Maintained at home on Eliquis, currently being held
[2024-07-31] MEDS: MORPHINE SULFATE 4 MG/ML SYRINGE IV PRN (23:50)
--- NOTE | 2024-08-01 07:41 | P.PN ---
Subjective No acute events per nursing. The transferred out of the ICU yesterday. Objective - Vital Signs Vital signs: Vital Signs Temp 98.3 F 08/01/24 06:47 Pulse 70 08/01/24 06:47 Resp 16 08/01/24 06:47 BP 128/82 08/01/24 06:47 Pulse Ox 98 08/01/24 06:47 FiO2 Intake & Output 07/31/24 08/01/24 08/01/24 18:59 06:59 18:59 Intake Total 900 Output Total 1160 1200 Balance -260 -1200 Intake: IV 800 Lactated Ringers 1,000 ml 800 @ 100 mls/hr IV .Q10H [facility] Rx#:[id number] Intake, IV Titration 100 Amount Lactated Ringers 1,000 ml 100 @ 100 mls/hr IV .Q10H [facility] Rx#:[id number] Output: Urine 1160 1200 Other: Voiding Method Indwelling Catheter Indwelling Catheter - Exam 10 comfortably in bed. No obvious distress. The dressing over the hip is intact. - Labs CBC & Chem 7: 07/31/24 05:19 07/31/24 05:19 Assessment and Plan Assessment: Postoperative day #2 status post right direct anterior hip hemiarthroplasty Plan: Continue treatment as outlined yesterday. The patient can weight-bear as tolerated on his operative extremity. I would like him to mobilize out of bed into a chair. DVT prophylaxis per internal medicine. Discharge to subacute nursing facility or rehab when medically stable.
--- NOTE | 2024-08-01 10:50 | P.PN ---
Subjective 73-year-old man with history of advanced Alzheimer's dementia currently living at [facility] presents to the emergency department following a fall and was found to have a right femoral head fracture. Patient underwent right direct anterior hip hemiarthroplasty. Following the surgery patient was found to be hypotensive and a bit groggy/difficult to arouse and was transferred to the ICU for further observation and management. At that time patient was saturating 94% on 3 L nasal cannula. Following arrival in the ICU late last night patient was saturating in the high 90%'s on 3 L nasal cannula resting comfortably in bed without any acute concerns or complaints. He was found to be positive for COVID-19 upon arrival in the emergency department, although the patient is currently without any symptoms. Repeat chest x-ray done while patient in the ICU showed prominent interstitial appearance of the lungs which can reflect atypical pneumonia. Patient is currently receiving 100 cc/h lactated ringer as well as cefazolin. He is WBCs 8.7, Hgb 10.3, hct 30.6, PLT 199; sodium 140, potassium 4.6, BUN 39, creatinine 1.22. At this time the patient is able to be downgraded to general medicine floor from the ICU. 08/01/24 Patient lying in bed does not look in distress and looks relaxed He is mildly tachypneic on 4 L oxygen via nasal cannula. Patient does not think he was on oxygen at home He does not complain from significant urinary symptoms, no dysuria or urgency. No suprapubic or flank pain He has mild pain in his right hip area, surgical wound is closed with dressing in place. No other new complaints Labs from today are still pending Objective - Vital Signs Vital signs: Vital Signs Temp 98.3 F 08/01/24 06:47 Pulse 70 08/01/24 06:47 Resp 16 08/01/24 06:47 BP 128/82 08/01/24 06:47 Pulse Ox 98 08/01/24 06:47 FiO2 Intake & Output 07/31/24 08/01/24 08/01/24 18:59 06:59 18:59 Intake Total 900 Output Total 1160 1200 Balance -260 -1200 Intake: IV 800 Lactated Ringers 1,000 ml 800 @ 100 mls/hr IV .Q10H [facility] Rx#:[id number] Intake, IV Titration 100 Amount Lactated Ringers 1,000 ml 100 @ 100 mls/hr IV .Q10H [facility] Rx#:[id number] Output: Urine 1160 1200 Other: Voiding Method Indwelling Catheter Indwelling Catheter Indwelling Catheter - Exam GENERAL: The patient is alert and oriented x3, not in any acute distress. Well developed, well nourished. Generally weak HEENT: Pupils are round and equally reacting to light. EOMI. No scleral icterus. No conjunctival pallor. Normocephalic, atraumatic. No pharyngeal erythema. No thyromegaly. CARDIOVASCULAR: S1 and S2 present. No murmurs, rubs, or gallops. PULMONARY: Chest is clear to auscultation, no wheezing , no crackles. ABDOMEN: Soft, nontender, nondistended, normoactive bowel sounds. No palpable organomegaly. MUSCULOSKELETAL: No joint swelling or deformity. EXTREMITIES: No cyanosis, clubbing, or pedal edema. NEUROLOGICAL: Gross neurological examination did not reveal any focal deficits. SKIN: No rashes. no petechiae. - Labs CBC & Chem 7: 07/31/24 05:19 07/31/24 05:19 Assessment and Plan Assessment: 1. Minimally displaced right femoral neck fracturePostop day #1 -- Patient is s/p right direct anterior hemiarthroplasty for minimally displaced right femoral neck fracture Patient presented emergency department following a fall in which x-ray revealed a right femoral head fracture Surgical dressing over the anterior aspect of the right hip that is clean, dry, intact Continue pain control as per orthopedic surgery's recommendations 2. Advanced Alzheimer's dementia; Aricept 10 mg daily 3. OTILIO - Improving On arrival BUN 48, creatinine 2.24 Patient received liter bolus of IV fluids Prior to surgery patient had been receiving normal saline 75 cc/h Since surgery patient has been receiving 100 cc/h lactated ringer Today (07/31) BUN 39, creatinine 1.22 Patient received 20 mg Lasix yesterday 4. Acute COVID-19 infection Was noted to have tested positive [facility] [place] prior to arrival in the emergency department Retested in the emergency department noted to be positive Patient presently states he has no current symptoms, chest x-ray done today (07/31) did show prominent interstitial appearance which can reflect atypical pneumonia Patient currently on 3 L nasal cannula saturating in the high 90%'s Continue to monitor patient signs and symptoms and oxygenation 5. Hypothyroid Maintained on 75 mcg Synthroid nightly GI prophylaxis: Pepcid 40 mg nightly DVT Prophylaxis: Maintained at home on Eliquis, currently being held
[2024-08-02 09:55] LABS: Basophils # (A) 0.05 X 10*3/uL (0.00-0.10); Basophils % (A) 0.4 %; Eosinophils # (A) 0.03 X 10*3/uL (0.04-0.35); Eosinophils % (A) 0.2 %; HCT 28.9 % (39.6-50.0); HGB 9.1 g/dL (13.0-17.0); Lymphocytes # (A) 1.06 X 10*3/uL (0.90-5.00); Lymphocytes % (A) 7.9 %; MCH 30.2 pg (27.0-32.0); MCHC 31.5 g/dL (32.0-37.0); Mean Platelet Volume 10.6 FL (9.5-12.2); Monocytes # (A) 1.08 X 10*3/uL (0.20-1.00); NRBC Per 100 WBC 0 X 10*3/uL (0.00-0.01); Neutrophils # (A) 10.57 X 10*3/uL (1.80-7.70); Neutrophils % (A) 78.7 %; Platelet Count 234 X 10*3/uL (140-440); RBC 3.01 X 10*6/uL (4.40-5.60); RDW 15.1 % (11.5-14.5); WBC 13.44 X 10*3/uL (4.50-10.00)
--- NOTE | 2024-08-02 10:42 | P.PN ---
Subjective Progress Note Date: 08/02/24 Principal diagnosis: Right femoral neck fracture. Status post hemiarthroplasty right hip. Reported COVID-19 infection. This is a 73-year-old male who is status post hemiarthroplasty of the right hip for a femoral neck fracture. Today is postop day #3. The patient reportedly has COVID-19 infection. He has no new complaints or concerns today. Vital signs are stable. Objective - Vital Signs Vital signs: Vital Signs Temp 97.8 F 08/02/24 06:55 Pulse 68 08/02/24 06:55 Resp 18 08/02/24 06:55 BP 164/91 08/02/24 06:57 Pulse Ox 95 08/02/24 07:49 FiO2 Intake & Output 08/01/24 08/02/24 08/02/24 18:59 06:59 18:59 Output Total 950 Balance -950 Output: Urine 950 Other: Voiding Method Indwelling Catheter Indwelling Catheter # Bowel Movements 0 1 - Exam This is a pleasant 73-year-old male in no acute distress. He has slight confusion this morning but is oriented to person. Exam of the right hip reveals that his dressing is clean, dry and intact. There is some soft tissue swelling about the thigh. He has full foot and ankle motion without difficulty or pain. Neurovascular status to the lower extremity is intact. - Labs CBC & Chem 7: 08/02/24 04:28 07/31/24 05:19 Labs: Abnormal Lab Results - Last 24 Hours (Table) 08/02/24 Range/Units 04:28 WBC 13.44 H (4.50-10.00) X 10*3/uL RBC 3.01 L (4.40-5.60) X 10*6/uL Hgb 9.1 L (13.0-17.0) g/dL Hct 28.9 L (39.6-50.0) % MCHC 31.5 L (32.0-37.0) g/dL RDW 15.1 H (11.5-14.5) % Immature Gran # 0.65 H (0.00-0.04) X 10*3/uL Neutrophils # 10.57 H (1.80-7.70) X 10*3/uL Monocytes # 1.08 H (0.20-1.00) X 10*3/uL Eosinophils # 0.03 L (0.04-0.35) X 10*3/uL Assessment and Plan (1) Status post hip hemiarthroplasty Current Visit: Yes Status: Acute Code(s): Z96.649 - PRESENCE OF UNSPECIFIED ARTIFICIAL HIP JOINT SNOMED Code(s): 985176257 (2) Fracture of femoral neck, right Current Visit: Yes Status: Acute Code(s): S72.001A - FRACTURE OF UNSP PART OF NECK OF RIGHT FEMUR, INIT SNOMED Code(s): 9875929 Plan: The clinical findings are discussed with the patient. We will continue current orthopedic care. Anticipate discharge to inpatient rehab when cleared medically.
--- NOTE | 2024-08-02 16:33 | P.PN ---
Subjective 73-year-old man with history of advanced Alzheimer's dementia currently living at [facility] presents to the emergency department following a fall and was found to have a right femoral head fracture. Patient underwent right direct anterior hip hemiarthroplasty. Following the surgery patient was found to be hypotensive and a bit groggy/difficult to arouse and was transferred to the ICU for further observation and management. At that time patient was saturating 94% on 3 L nasal cannula. Following arrival in the ICU late last night patient was saturating in the high 90%'s on 3 L nasal cannula resting comfortably in bed without any acute concerns or complaints. He was found to be positive for COVID-19 upon arrival in the emergency department, although the patient is currently without any symptoms. Repeat chest x-ray done while patient in the ICU showed prominent interstitial appearance of the lungs which can reflect atypical pneumonia. Patient is currently receiving 100 cc/h lactated ringer as well as cefazolin. He is WBCs 8.7, Hgb 10.3, hct 30.6, PLT 199; sodium 140, potassium 4.6, BUN 39, creatinine 1.22. At this time the patient is able to be downgraded to general medicine floor from the ICU. 08/01/24 Patient lying in bed does not look in distress and looks relaxed He is mildly tachypneic on 4 L oxygen via nasal cannula. Patient does not think he was on oxygen at home He does not complain from significant urinary symptoms, no dysuria or urgency. No suprapubic or flank pain He has mild pain in his right hip area, surgical wound is closed with dressing in place. No other new complaints Labs from today are still pending 08/02 Patient generally weak, awake alert, follows simple commands but still confused No significant suprapubic tenderness, suprapubic catheter in place He is on insulin per orthopedic team Will monitor creatinine tomorrow and hemoglobin Objective - Vital Signs Vital signs: Vital Signs Temp 97.8 F 08/02/24 06:55 Pulse 68 08/02/24 06:55 Resp 18 08/02/24 06:55 BP 164/91 08/02/24 06:57 Pulse Ox 95 08/02/24 07:49 FiO2 Intake & Output 08/01/24 08/02/24 08/02/24 18:59 06:59 18:59 Output Total 950 Balance -950 Output: Urine 950 Other: Voiding Method Indwelling Catheter Indwelling Catheter # Bowel Movements 0 1 - Exam GENERAL: The patient is alert and oriented x3, not in any acute distress. Well developed, well nourished. Generally weak HEENT: Pupils are round and equally reacting to light. EOMI. No scleral icterus. No conjunctival pallor. Normocephalic, atraumatic. No pharyngeal erythema. No thyromegaly. CARDIOVASCULAR: S1 and S2 present. No murmurs, rubs, or gallops. PULMONARY: Chest is clear to auscultation, no wheezing , no crackles. ABDOMEN: Soft, nontender, nondistended, normoactive bowel sounds. No palpable organomegaly. MUSCULOSKELETAL: No joint swelling or deformity. EXTREMITIES: No cyanosis, clubbing, or pedal edema. NEUROLOGICAL: Gross neurological examination did not reveal any focal deficits. SKIN: No rashes. no petechiae. - Labs CBC & Chem 7: 08/02/24 04:28 07/31/24 05:19 Assessment and Plan Assessment: 1. Minimally displaced right femoral neck fracturePostop day #1 -- Patient is s/p right direct anterior hemiarthroplasty for minimally displaced right femoral neck fracture Patient presented emergency department following a fall in which x-ray revealed a right femoral head fracture Surgical dressing over the anterior aspect of the right hip that is clean, dry, intact Continue pain control as per orthopedic surgery's recommendations 2. Advanced Alzheimer's dementia; Aricept 10 mg daily 3. OTILIO - Improving On arrival BUN 48, creatinine 2.24 Patient received liter bolus of IV fluids Prior to surgery patient had been receiving normal saline 75 cc/h Since surgery patient has been receiving 100 cc/h lactated ringer Today (07/31) BUN 39, creatinine 1.22 Patient received 20 mg Lasix yesterday 4. Acute COVID-19 infection Was noted to have tested positive Medi [place] prior to arrival in the emergency department Retested in the emergency department noted to be positive Patient presently states he has no current symptoms, chest x-ray done today (07/31) did show prominent interstitial appearance which can reflect atypical pneumonia Patient currently on 3 L nasal cannula saturating in the high 90%'s Continue to monitor patient signs and symptoms and oxygenation 5. Hypothyroid Maintained on 75 mcg Synthroid nightly GI prophylaxis: Pepcid 40 mg nightly DVT Prophylaxis: Maintained at home on Eliquis, currently being held
[2024-08-03] MEDS: HYDROcodone/APAP 5-325MG 1 EACH TAB PO PRN (01:17)
[2024-08-03 08:33] LABS: HCT 26.6 % (39.6-50.0); HGB 8.4 g/dL (13.0-17.0); MCH 30.1 pg (27.0-32.0); MCHC 31.6 g/dL (32.0-37.0); MCV 95.3 FL (80.0-97.0); Mean Platelet Volume 10.5 FL (9.5-12.2); NRBC Per 100 WBC 0.03 X 10*3/uL (0.00-0.01); Platelet Count 269 X 10*3/uL (140-440); RBC 2.79 X 10*6/uL (4.40-5.60); RDW 15.2 % (11.5-14.5); WBC 11.84 X 10*3/uL (4.50-10.00)
--- NOTE | 2024-08-03 08:39 | P.PN ---
Subjective Progress Note Date: 08/03/24 Principal diagnosis: Displaced right femoral neck fracture status post right direct anterior hip hemiarthroplasty on 07/30/[address] Posey Patient was up to bathroom with aide and then sat down in chair when entering the room. Patient was awake, alert, and pleasantly confused but able to state that they have very little right hip pain. I discussed with nursing staff and their pain has been controlled with oral [place] pain medication. Objective - Vital Signs Vital signs: Vital Signs Temp 97.9 F 08/03/24 07:05 Pulse 68 08/03/24 07:05 Resp 17 08/03/24 07:05 BP 168/96 08/03/24 07:05 Pulse Ox 96 08/03/24 07:05 FiO2 Intake & Output 08/02/24 08/03/24 08/03/24 18:59 06:59 18:59 Intake Total 1200 Output Total 600 850 Balance -600 350 Intake: Intake, IV Titration 1200 Amount Lactated Ringers 1,000 ml 1200 @ 100 mls/hr IV .Q10H [facility] Rx#:[id number] Output: Urine 600 850 Other: Voiding Method Indwelling Catheter Indwelling Catheter # Bowel Movements 1 - Exam Patient was examined at bedside this morning. Patient was resting in chair comfortably. Patient was awake and alert, able to answer a couple questions. On inspection there is a surgical dressing over the anterior aspect of the right hip, it is clean, dry, intact, without strikethrough. There is generalized swelling about the right thigh. Patient's right femoral nerve function is grossly intact. Patient is able to plantarflex and dorsiflex the right ankle and toes. Patient's foot is pink and appears well-perfused. - Labs CBC & Chem 7: 08/03/24 03:08 07/31/24 05:19 Labs: Abnormal Lab Results - Last 24 Hours (Table) 08/02/24 08/03/24 Range/Units 04:28 03:08 WBC 13.44 H 11.84 H (4.50-10.00) X 10*3/uL RBC 3.01 L 2.79 L (4.40-5.60) X 10*6/uL Hgb 9.1 L 8.4 L (13.0-17.0) g/dL Hct 28.9 L 26.6 L (39.6-50.0) % MCHC 31.5 L 31.6 L (32.0-37.0) g/dL RDW 15.1 H 15.2 H (11.5-14.5) % Immature Gran # 0.65 H (0.00-0.04) X 10*3/uL Neutrophils # 10.57 H (1.80-7.70) X 10*3/uL Monocytes # 1.08 H (0.20-1.00) X 10*3/uL Eosinophils # 0.03 L (0.04-0.35) X 10*3/uL NRBC/100 WBC Diff 0.03 H (0.00-0.01) X 10*3/uL Assessment and Plan Assessment: 1. 07/30/2024 status post right direct anterior hemiarthroplasty for minimally displaced right femoral neck fracture 2. Advanced Alzheimer's dementia. (1) Fracture of femoral neck, right Current Visit: Yes Status: Acute Code(s): S72.001A - FRACTURE OF UNSP PART OF NECK OF RIGHT FEMUR, INIT SNOMED Code(s): 9271041 Plan: Patient may weight-bear as tolerated on operative extremity with walker and assistance. Leave surgical dressing, if becomes saturated please contact our office. Continue pain control as needed. Patient worked with physical therapy and assisted facility was recommended. Dispo patient is cleared from an orthopedic standpoint to be transferred to assisted facility.
[2024-08-03 08:49] LABS: BUN/Creat Ratio 24.09 Ratio (12.00-20.00); Blood Urea Nitrogen 26.5 mg/dL (9.0-27.0); Calcium 8.3 mg/dL (8.7-10.3); Carbon Dioxide 25.6 mmol/L (21.6-31.8); Chloride 110 mmol/L (96-109); Glucose 125 mg/dL (70-110); Potassium 4.2 mmol/L (3.5-5.5); Sodium 145 mmol/L (135-145)
--- NOTE | 2024-08-03 09:37 | P.PN ---
Subjective 73-year-old man with history of advanced Alzheimer's dementia currently living at [facility] presents to the emergency department following a fall and was found to have a right femoral head fracture. Patient underwent right direct anterior hip hemiarthroplasty. Following the surgery patient was found to be hypotensive and a bit groggy/difficult to arouse and was transferred to the ICU for further observation and management. At that time patient was saturating 94% on 3 L nasal cannula. Following arrival in the ICU late last night patient was saturating in the high 90%'s on 3 L nasal cannula resting comfortably in bed without any acute concerns or complaints. He was found to be positive for COVID-19 upon arrival in the emergency department, although the patient is currently without any symptoms. Repeat chest x-ray done while patient in the ICU showed prominent interstitial appearance of the lungs which can reflect atypical pneumonia. Patient is currently receiving 100 cc/h lactated ringer as well as cefazolin. He is WBCs 8.7, Hgb 10.3, hct 30.6, PLT 199; sodium 140, potassium 4.6, BUN 39, creatinine 1.22. At this time the patient is able to be downgraded to general medicine floor from the ICU. 08/01/24 Patient lying in bed does not look in distress and looks relaxed He is mildly tachypneic on 4 L oxygen via nasal cannula. Patient does not think he was on oxygen at home He does not complain from significant urinary symptoms, no dysuria or urgency. No suprapubic or flank pain He has mild pain in his right hip area, surgical wound is closed with dressing in place. No other new complaints Labs from today are still pending 08/02 Patient generally weak, awake alert, follows simple commands but still confused No significant suprapubic tenderness, suprapubic catheter in place He is on insulin per orthopedic team Will monitor creatinine tomorrow and hemoglobin 08/03 Patient was more agitated and confused last night, bedside nurse requested to place a sitter. This morning patient is up in bed, he is pleasant smiling, he looks relaxed, he is disoriented to time place and person. Possible patient has elements of dementia, this needs to be checked as an outpatient after his acute illness subsides. He denies specific complaint Yesterday has some suprapubic discomfort, Sanchez catheter in place. We will check urine analysis. Also is mildly tachypneic we will check chest x-ray, if there is concerns of infection will start antibiotics Patient had CT of the brain on admission which was negative for acute process. He fell at home but no more falling. Patient will benefit from ECF upon discharge Patient is stable from orthopedic perspective Patient currently on Decadron Review of systems CONSTITUTIONAL: No fever, no malaise, no fatigue. HEENT: No recent visual problems or hearing problems. Denied any sore throat. CARDIOVASCULAR: No orthopnea, PND, no palpitations, no syncope. PULMONARY: No shortness of breath, no cough, no hemoptysis. GASTROINTESTINAL: No diarrhea, no nausea, no vomiting, no abdominal pain. Normoactive bowel sounds. NEUROLOGICAL: No headaches, no weakness, no numbness. HEMATOLOGICAL: Denies any bleeding or petechiae. GENITOURINARY: Denies any burning micturition, frequency, or urgency. MUSCULOSKELETAL/RHEUMATOLOGICAL: Denies any joint pain, swelling, or any muscle pain. ENDOCRINE: Denies any polyuria or polydipsia. Active Medications Generic Name Dose Route Start Last Admin Trade Name Freq PRN Reason Stop Dose Admin Acetaminophen 650 mg 07/29/24 17:36 Acetaminophen Tab 325 Mg Tab PO Q6HR PRN Mild Pain or Fever > 100.5 Acetaminophen 500 mg 07/29/24 18:00 08/03/24 05:44 Acetaminophen Tab 500 Mg Tab PO 500 mg Q6H WENDY Administration Acetaminophen 500 mg 07/29/24 17:55 Acetaminophen Tab 500 Mg Tab PO Q6HR PRN Mild Pain (Scale 1 to 3) Hydrocodone Bitart/Acetaminophen 1 each 07/29/24 17:36 08/03/24 01:17 Hydrocodone/Apap 5-325mg 1 Each Tab PO 1 each Q4HR PRN Administration Moderate Pain (Scale 4 to 6) Ascorbic Acid 1,000 mg 07/30/24 09:00 08/03/24 09:00 Ascorbic Acid 500 Mg Tab PO 1,000 mg DAILY WENDY Administration Atorvastatin Calcium 40 mg 07/29/24 21:00 08/02/24 21:20 Atorvastatin 40 Mg Tab PO 40 mg HS WENDY Administration Cholecalciferol 50 mcg 07/30/24 09:00 08/03/24 09:01 Cholecalciferol 25 Mcg (1000 Iu) Tablet PO 50 mcg DAILY WENDY Administration Clonazepam 0.5 mg 07/29/24 18:00 08/03/24 09:00 Clonazepam 0.5 Mg Tab PO 0.5 mg TID@0800,1200,1800 WENDY Administration Clonazepam 0.5 mg 07/31/24 09:00 07/31/24 11:51 Clonazepam 0.5 Mg Tab PO 0.5 mg TUFR@0900 WENDY Administration Clozapine 100 mg 07/29/24 21:00 08/03/24 08:58 Clozapine 100 Mg Tab PO 08/05/24 23:59 100 mg BID WENDY Administration Dexamethasone 6 mg 07/30/24 15:00 08/03/24 09:01 Dexamethasone 2 Mg Tab PO 6 mg DAILY WENDY Administration Diazepam 2.5 mg 07/30/24 16:57 Diazepam 5 Mg Tab PO Q8HR PRN Mild Spasms Donepezil HCl 10 mg 07/29/24 21:00 08/02/24 21:21 Donepezil 10 Mg Tab PO 10 mg HS WENDY Administration Enoxaparin Sodium 40 mg 07/30/24 15:00 08/03/24 08:58 Enoxaparin 40 Mg/0.4 Ml Syringe SQ 40 mg DAILY WENDY Administration Escitalopram Oxalate 20 mg 07/30/24 09:00 08/03/24 09:00 Escitalopram 20 Mg Tab PO 20 mg DAILY WENDY Administration Famotidine 40 mg 07/29/24 21:00 08/02/24 21:21 Famotidine 20 Mg Tab PO 40 mg HS WENDY Administration Folic Acid 1 mg 07/30/24 09:00 08/03/24 09:00 Folic Acid 1 Mg Tab PO 1 mg DAILY WENDY Administration Furosemide 20 mg 07/30/24 09:00 08/03/24 09:01 Furosemide 20 Mg Tab PO 20 mg DAILY WENDY Administration Hydromorphone HCl 0.125 mg 07/30/24 16:57 Hydromorphone 0.5 Mg/0.5 Ml Syringe IVP Q3HR PRN Pain Scale 1 to 3 Hydromorphone HCl 0.5 mg 07/30/24 16:57 Hydromorphone 0.5 Mg/0.5 Ml Syringe IVP Q3HR PRN Pain Scale 7 to 10 Hydromorphone HCl 0.25 mg 07/30/24 16:57 Hydromorphone 0.5 Mg/0.5 Ml Syringe IVP Q3HR PRN Pain Scale 4 to 6 Lactated Ringer's 1,000 mls @ 100 mls/hr 07/30/24 17:00 08/03/24 08:57 Lactated Ringers IV 100 mls/hr .Q10H WENDY Administration Isosorbide Mononitrate 15 mg 07/30/24 09:00 08/03/24 08:58 Isosorbide Mononitrate Er 30 Mg Tab.Er.24h PO 15 mg DAILY WENDY Administration Lactobacillus Acidophilus 1 each 07/29/24 21:00 08/02/24 21:20 Lactobacillus Acidophilus/Pect 1 Each Capsule PO 1 each HS WENDY Administration Levothyroxine Sodium 75 mcg 07/29/24 21:00 08/02/24 21:21 Levothyroxine 75 Mcg Tab PO 75 mcg HS WENDY Administration Lisinopril 10 mg 07/30/24 09:00 08/03/24 08:58 Lisinopril 10 Mg Tab PO 10 mg DAILY WENDY Administration Magnesium Hydroxide 2,400 mg 07/30/24 16:57 Magnesium Hydroxide 2,400 Mg/30 Ml Cup PO DAILY PRN Constipation Meloxicam 7.5 mg 07/31/24 09:00 08/03/24 09:00 Meloxicam 7.5 Mg Tab PO 7.5 mg DAILY WENDY Administration Morphine Sulfate 4 mg 07/29/24 17:36 08/01/24 06:26 Morphine Sulfate 4 Mg/Ml Syringe IV 4 mg Q4HR PRN Administration Severe Pain (Scale 7 to 10) Multivitamins 1 each 07/30/24 09:00 08/03/24 09:01 Multivitamins, Thera 1 Each Tab PO 1 each DAILY WENDY Administration Naloxone HCl 0.2 mg 07/29/24 17:36 Naloxone 0.4 Mg/Ml 1 Ml Vial IV Q2M PRN Opioid Reversal Naloxone HCl 0.2 mg 07/30/24 16:57 Naloxone 0.4 Mg/Ml 1 Ml Vial IV Q2M PRN Opioid Reversal Nitroglycerin 0.4 mg 07/29/24 17:55 Nitroglycerin Sl Tabs 0.4 Mg Tab SUBLINGUAL Q5M PRN Chest Pain Non-Formulary Medication 500 mg 07/30/24 09:00 08/03/24 09:05 Quercetin [Quercetin] PO Not Given DAILY WENDY Ondansetron HCl 4 mg 07/29/24 17:36 Ondansetron 4 Mg/2 Ml Vial IVP Q8HR PRN Nausea And Vomiting Senna/Docusate Sodium 1 each 07/31/24 09:00 08/03/24 09:01 Sennosides-Docusate Sodium 1 Each Tab PO Not Given BID [facility] Zinc Sulfate 220 mg 07/30/24 09:00 08/03/24 08:58 Zinc Sulfate 220 Mg Cap PO 220 mg DAILY WENDY Administration Objective - Vital Signs Vital signs: Vital Signs Temp 97.9 F 08/03/24 07:05 Pulse 68 08/03/24 07:05 Resp 17 08/03/24 07:05 BP 168/96 08/03/24 07:05 Pulse Ox 96 08/03/24 09:04 FiO2 Intake & Output 08/02/24 08/03/24 08/03/24 18:59 06:59 18:59 Intake Total 1200 Output Total 600 850 Balance -600 350 Intake: Intake, IV Titration 1200 Amount Lactated Ringers 1,000 ml 1200 @ 100 mls/hr IV .Q10H WENDY Rx#:[id number] Output: Urine 600 850 Other: Voiding Method Indwelling Catheter Indwelling Catheter # Bowel Movements 1 - Exam GENERAL: The patient is alert and oriented x3, not in any acute distress. Well developed, well nourished. Generally weak HEENT: Pupils are round and equally reacting to light. EOMI. No scleral icterus. No conjunctival pallor. Normocephalic, atraumatic. No pharyngeal erythema. No t hyromegaly. CARDIOVASCULAR: S1 and S2 present. No murmurs, rubs, or gallops. PULMONARY: Chest is clear to auscultation, no wheezing , no crackles. ABDOMEN: Soft, nontender, nondistended, normoactive bowel sounds. No palpable organomegaly. MUSCULOSKELETAL: No joint swelling or deformity. EXTREMITIES: No cyanosis, clubbing, or pedal edema. NEUROLOGICAL: Gross neurological examination did not reveal any focal deficits. SKIN: No rashes. no petechiae. - Labs CBC & Chem 7: 08/03/24 03:08 08/03/24 03:08 Labs: Abnormal Lab Results - Last 24 Hours (Table) 08/02/24 08/03/24 08/03/24 Range/Units 04:28 03:08 03:08 WBC 13.44 H 11.84 H (4.50-10.00) X 10*3/uL RBC 3.01 L 2.79 L (4.40-5.60) X 10*6/uL Hgb 9.1 L 8.4 L (13.0-17.0) g/dL Hct 28.9 L 26.6 L (39.6-50.0) % MCHC 31.5 L 31.6 L (32.0-37.0) g/dL RDW 15.1 H 15.2 H (11.5-14.5) % Immature Gran # 0.65 H (0.00-0.04) X 10*3/uL Neutrophils # 10.57 H (1.80-7.70) X 10*3/uL Monocytes # 1.08 H (0.20-1.00) X 10*3/uL Eosinophils # 0.03 L (0.04-0.35) X 10*3/uL NRBC/100 WBC Diff 0.03 H (0.00-0.01) X 10*3/uL Chloride 110 H (96-109) mmol/L BUN/Creatinine Ratio 24.09 H (12.00-20.00) Ratio Glucose 125 H (70-110) mg/dL Calcium 8.3 L (8.7-10.3) mg/dL Assessment and Plan Assessment: 1. Minimally displaced right femoral neck fracturePostop day #1 -- Patient is s/p right direct anterior hemiarthroplasty for minimally displaced right femoral neck fracture Patient presented emergency department following a fall in which x-ray revealed a right femoral head fracture Surgical dressing over the anterior aspect of the right hip that is clean, dry, intact Continue pain control as per orthopedic surgery's recommendations 2. Advanced Alzheimer's dementia; Aricept 10 mg daily 3. OTILIO - Improving On arrival BUN 48, creatinine 2.24 Patient received liter bolus of IV fluids Prior to surgery patient had been receiving normal saline 75 cc/h Since surgery patient has been receiving 100 cc/h lactated ringer Today (07/31) BUN 39, creatinine 1.22 Patient received 20 mg Lasix yesterday 4. Acute COVID-19 infection Was noted to have tested positive Medi Seymour prior to arrival in the emergency department Retested in the emergency department noted to be positive Patient presently states he has no current symptoms, chest x-ray done today (07/31) did show prominent interstitial appearance which can reflect atypical pneumonia Patient currently on 3 L nasal cannula saturating in the high 90%'s Continue to monitor patient signs and symptoms and oxygenation - Recheck urine analysis and chest x-ray for follow-up 5. Hypothyroid Maintained on 75 mcg Synthroid nightly GI prophylaxis: Pepcid 40 mg nightly DVT Prophylaxis: Maintained at home on Eliquis, currently being held
--- NOTE | 2024-08-03 10:35 | XR ---
EXAMINATION TYPE: XR chest 1V DATE OF EXAM: 08/03/2024 10:20 AM CLINICAL INDICATION: Male, 73 years old with history of Shortness of breath; PHH COMPARISON: Chest radiographs from 07/31/2024 TECHNIQUE: XR chest 1V Frontal view of the chest. FINDINGS: Lungs/Pleura: There is no evidence of pleural effusion, focal consolidation, or pneumothorax. Pulmonary vascularity: Unremarkable. Heart/mediastinum: Cardiomediastinal silhouette is prominent in size. Musculoskeletal: No acute osseous pathology. Other findings: None IMPRESSION: Low lung volumes with a generalized hazy appearance which could represent atelectasis versus pulmonar y edema correlate with serum BNP. [facility], , 08/03/2024 10:33 AM
[2024-08-03 11:07] LABS: Basophils # (M) 0 X 10*3/uL (0.00-0.10); Eosinophils # (M) 0 X 10*3/uL (0.04-0.35); Lymphocytes # (M) 1.42 X 10*3/uL (0.90-5.00); Monocytes # (M) 0.24 X 10*3/uL (0.20-1.00); Myelocytes % 3 % (0-0); Neutrophils # (M) 9.83 X 10*3/uL (1.80-7.70); Neutrophils % (M) 83 %; RBC Morphology Normal (Normal)
[2024-08-03 13:56] VITALS: BMI 30.9
[2024-08-03 15:37] LABS: Appearance,Urine Cloudy (Clear); Bacteria,Urine Rare /hpf; Bilirubin,Urine Negative (Negative); Blood,Urine Negative (Negative); Budding Yeast,Urine Few /hpf; Color,Urine Yellow; Glucose,Urine (UA) Negative (Negative); Ketones,Urine Negative (Negative); Leukocyte Esterase,Urine Large (Negative); Mucus,Urine Rare /hpf; Nitrite,Urine Positive (Negative); PH, Urine 5.5 (5.0-8.0); Protein,Urine Trace (Negative); RBC,Urine 2 /hpf (0-5); Squamous Epithelial Cell,Urine <1 /hpf (0-4); Urobilinogen,Urine <2.0 mg/dL (<2.0); WBC,Urine 61 /hpf (0-5)
[2024-08-04 07:45] LABS: African American GFR (CKD) >90 (>60 ml/min/1.73 sqM); Anion Gap 6 mmol/L; Blood Urea Nitrogen 26 mg/dL (9-20); Calcium 8.7 mg/dL (8.4-10.2); Carbon Dioxide 28 mmol/L (22-30); Chloride 110 mmol/L (98-107); Glucose 129 mg/dL (74-99); Non-African American GFR(CKD) 78 (>60 ml/min/1.73 sqM); Potassium 4.3 mmol/L (3.5-5.1); Sodium 144 mmol/L (137-145)
--- NOTE | 2024-08-04 09:21 | P.PN ---
Subjective Progress Note Date: 08/04/24 no acute events. Objective - Vital Signs Vital signs: Vital Signs Temp 98.4 F 08/04/24 07:06 Pulse 67 08/04/24 07:06 Resp 17 08/04/24 07:06 BP 210/107 08/04/24 07:06 Pulse Ox 95 08/04/24 07:06 FiO2 Intake & Output 08/03/24 08/04/24 08/04/24 18:59 06:59 18:59 Intake Total 300 Output Total 200 675 Balance -200 -375 Weight 109.2 kg Intake: Intake, IV Titration 300 Amount Lactated Ringers 1,000 ml 300 @ 100 mls/hr IV .Q10H WENDY Rx#:[id number] Output: Urine 200 675 Suprapubic 675 Other: Voiding Method Indwelling Catheter Indwelling Catheter # Bowel Movements 1 - Exam the patient is resting comfortably in bed. Dressing over his hip is intact. His thigh and calf are soft. He is moving his toes up and down. - Labs CBC & Chem 7: 08/03/24 03:08 08/04/24 03:27 Labs: Abnormal Lab Results - Last 24 Hours (Table) 08/03/24 08/03/24 08/04/24 Range/Units 03:08 10:30 03:27 Neutrophils # (Manual) 9.83 H (1.80-7.70) X 10*3/uL Eosinophils # (Manual) 0 L (0.04-0.35) X 10*3/uL Chloride 110 H (98-107) mmol/L BUN 26 H (9-20) mg/dL Glucose 129 H (74-99) mg/dL Urine Protein Trace H (Negative) Ur Leukocyte Esterase Large H (Negative) Urine WBC 61 H (0-5) /hpf Urine Bacteria Rare H (None) /hpf Urine Mucus Rare H (None) /hpf Urine Yeast (Budding) Few H (None) /hpf Assessment and Plan Assessment: postoperative day #5 status post right direct anterior hip hemiarthroplasty Advanced dementia Plan: continue treatment as outlined yesterday. He is clear for discharge from an orthopedic standpoint. Discharge planning is in process and he will likely discharge to rehab tomorrow.
[2024-08-04 09:26] LABS: HCT 27.7 % (39.6-50.0); HGB 8.8 g/dL (13.0-17.0); MCH 30.2 pg (27.0-32.0); MCHC 31.8 g/dL (32.0-37.0); MCV 95.2 FL (80.0-97.0); Mean Platelet Volume 10.4 FL (9.5-12.2); NRBC Per 100 WBC 0.05 X 10*3/uL (0.00-0.01); Platelet Count 298 X 10*3/uL (140-440); RBC 2.91 X 10*6/uL (4.40-5.60); RDW 15.1 % (11.5-14.5)
[2024-08-04 11:30] LABS: Basophils # (M) 0 X 10*3/uL (0.00-0.10); Eosinophils # (M) 0 X 10*3/uL (0.04-0.35); Lymphocytes # (M) 1.31 X 10*3/uL (0.90-5.00); Metamyelocytes % 1 % (0-0); Monocytes # (M) 0.36 X 10*3/uL (0.20-1.00); Myelocytes % 4 % (0-0); Neutrophils # (M) 9.64 X 10*3/uL (1.80-7.70); Neutrophils % (M) 81 %; Nucleated Red Blood Cells 2 /100 WBCS
[2024-08-04 12:42] VITALS: RESP 18; TEMP 98.2
--- NOTE | 2024-08-04 13:27 | P.DS ---
Providers Date of admission: 07/29/24 17:26 Attending physician: Jaspreet Posey Consults: 07/29/24 17:36 Consult Physician Urgent Consulting Provider: Gaurav Garcia Consult Reason/Comments: Medical management, surgical clearance Do you want consulting provider notified?: Yes 07/31/24 01:27 Consult Physician Routine Consulting Provider: Reynaldo Villarreal Reason/Comments: icu management Do you want consulting provider notified?: Already Contacted Primary care physician: [facility] Course: The patient is a 73 year old male with advanced dementia who was admitted with a right hip fracture. He was seen and cleared for surgery by Internal Medicine. He underwent an uncomplicated partial hip replacement. Following surgery he did well from an orthopaedic standpoint. Internal medicine managed his medical issues. Physical therapy worked with the patient. He was cleared for discharge to rehab on 08/04/2024. Patient Condition at Discharge: Stable Plan - Discharge Summary Discharge Rx Participant: Yes New Discharge Prescriptions: New Omeprazole 20 mg PO DAILY #30 tab Meloxicam [Mobic] 7.5 mg PO DAILY tab HYDROcodone/APAP 5-325MG [Courtland 5] 1 - 2 each PO Q6HR PRN #48 tab PRN Reason: Pain Ondansetron [Zofran] 4 mg PO Q6HR PRN #30 tab PRN Reason: Nausea Cefuroxime [Ceftin] 250 mg PO BID #10 tab Enoxaparin [Lovenox] 40 mg SQ DAILY each Continue Levothyroxine Sodium [Synthroid] 75 mcg PO HS Multivitamins, Thera [Multivitamin (formulary)] 1 tab PO DAILY Atorvastatin [Lipitor] 40 mg PO HS Nitroglycerin Sl Tabs [Nitrostat] 0.4 mg SUBLINGUAL Q5M PRN PRN Reason: Chest Pain Folic Acid 0.8 mg PO DAILY Isosorbide Mononitrate ER [Imdur] 15 mg PO DAILY Escitalopram [Lexapro] 20 mg PO DAILY Furosemide [Lasix] 20 mg PO DAILY D-Mannose 1 cap PO DAILY cloZAPine [Clozaril] 100 mg PO BID Acetaminophen Tab [Tylenol] 500 mg PO Q6H lisinopriL [Zestril] 10 mg PO DAILY Donepezil HCl [Aricept] 10 mg PO HS Quercetin 500 mg PO DAILY Lactobacillus Acidophilus [Acidophilus Probiotic] 1 cap PO HS Famotidine [Pepcid] 40 mg PO HS Cholecalciferol (Vitamin D3) [Vitamin D3 (50 Mcg = 2000 Iu) Chew Tab] 50 mcg PO DAILY Ascorbic Acid [Vitamin C] 1,000 mg PO DAILY Changed clonazePAM [KlonoPIN] 0.5 mg PO TUFR@0900 #6 tab clonazePAM [KlonoPIN] 0.5 mg PO TID@0800,1200,1800 #9 tab Sennosides/Docusate Sodium [Senna Plus 8.6-50 mg Softgel] 1 cap PO BID #0 Discontinued Zinc Gluconate [Zinc] 50 mg PO DAILY Apixaban [Eliquis] 2.5 mg PO BID Acetaminophen Tab [Tylenol Tab] 500 mg PO Q6HR PRN PRN Reason: Mild Pain (Scale 1 To 3) Discharge Medication List Levothyroxine Sodium [Synthroid] 75 mcg PO HS 05/17/18 [History] Atorvastatin [Lipitor] 40 mg PO HS 12/15/18 [History] Multivitamins, Thera [Multivitamin (formulary)] 1 tab PO DAILY 12/15/18 [History] Folic Acid 0.8 mg PO DAILY 12/25/18 [History] Nitroglycerin Sl Tabs [Nitrostat] 0.4 mg SUBLINGUAL Q5M PRN 12/25/18 [History] Escitalopram [Lexapro] 20 mg PO DAILY 05/18/22 [History] Isosorbide Mononitrate ER [Imdur] 15 mg PO DAILY 05/18/22 [History] cloZAPine [Clozaril] 100 mg PO BID 05/18/22 [History] Acetaminophen Tab [Tylenol] 500 mg PO Q6H 10/17/23 [History] D-Mannose 1 cap PO DAILY 10/17/23 [History] Donepezil HCl [Aricept] 10 mg PO HS 10/17/23 [History] Furosemide [Lasix] 20 mg PO DAILY 10/17/23 [History] lisinopriL [Zestril] 10 mg PO DAILY 10/17/23 [History] Ascorbic Acid [Vitamin C] 1,000 mg PO DAILY 07/29/24 [History] Cholecalciferol (Vitamin D3) [Vitamin D3 (50 Mcg = 2000 Iu) Chew Tab] 50 mcg PO DAILY 07/29/24 [History] Famotidine [Pepcid] 40 mg PO HS 07/29/24 [History] Lactobacillus Acidophilus [Acidophilus Probiotic] 1 cap PO HS 07/29/24 [History] Quercetin 500 mg PO DAILY 07/29/24 [History] HYDROcodone/APAP 5-325MG [Courtland 5] 1 - 2 each PO Q6HR PRN #48 tab 08/03/24 [Rx] Omeprazole 20 mg PO DAILY #30 tab 08/03/24 [Rx] Ondansetron [Zofran] 4 mg PO Q6HR PRN #30 tab 08/03/24 [Rx] Cefuroxime [Ceftin] 250 mg PO BID #10 tab 08/04/24 [Rx] Enoxaparin [Lovenox] 40 mg SQ DAILY each 08/04/24 [Rx] Meloxicam [Mobic] 7.5 mg PO DAILY tab 08/04/24 [Rx] Sennosides/Docusate Sodium [Senna Plus 8.6-50 mg Softgel] 1 cap PO BID #0 08/04/24 [Rx] clonazePAM [KlonoPIN] 0.5 mg PO TID@0800,1200,1800 #9 tab 08/04/24 [Rx] clonazePAM [KlonoPIN] 0.5 mg PO TUFR@0900 #6 tab 08/04/24 [Rx] Follow up Appointment(s)/Referral(s): Jerod Gabriel DO [Primary Care Provider] - 1-2 days Jaspreet Posey MD [Medical Doctor] - 2 Weeks Activity/Diet/Wound Care/Special Instructions: 1. Weight-bear as tolerated on your operative extremity unless instructed otherwise. Use a walker or other assistive device to ambulate. 2. Leave surgical dressing in place. If your dressing becomes saturated with blood, there is drainage, or the dressing becomes loose please contact the office. 3. It is okay to shower with your surgical dressing, but do not submerge in water (no hot tubs, bath's, swimming etc.) 4. DVT prophylaxis per medicine. Take your blood clot prevention medication as prescribed (aspirin, Eliquis, Xarelto, and Plavix are commonly prescribed medications for blood clot prevention) 5. While taking Courtland or Percocet for pain take a stool softener (Ex: Colace) and drink lots of water. 6. Keep all follow-up appointments as scheduled. You will usually be seen in 1-2 weeks following surgery. 7. Please contact the office with any questions or concerns [phone] Discharge Disposition: TRANSFER TO SNF/ECF
--- NOTE | 2024-08-04 16:36 | P.PN ---
Progress Note - Text Progress Note Date: 08/04/24 - Chief Complaint Femur fracture - History of Present Illness This is a pleasant 73-year-old patient follows with Dr. Gabriel and resident of [facility] [place]. During because of dementia. As per the EMS: Patient had fallen last night unwitnessed around 0300. Patient had been complaining of right hip pain this afternoon. Found to have fracture of the right femoral head. Also was found to be positive for COVID with mild shortness of breath was put on oxygen 2 L. There has been no change in patient's baseline of cognition. When I saw the patient. Patient somewhat lethargic. Does open his eyes at times to speak occasional words. Slightly congested. July 30: Patient seen this morning. Laying in bed. Bit lethargic. Arousable. Will answer occasional question. Nasal cannula. Pending surgery. N.p.o. except meds for surgery July 31 73-year-old man with history of advanced Alzheimer's dementia currently living at [facility] presents to the emergency department following a fall and was found to have a right femoral head fracture. Patient underwent right direct anterior hip hemiarthroplasty. Following the surgery patient was found to be hypotensive and a bit groggy/difficult to arouse and was transferred to the ICU for further observation and management. At that time patient was saturating 94% on 3 L nasal cannula. Following arrival in the ICU late last night patient was saturating in the high 90%'s on 3 L nasal cannula resting comfortably in bed without any acute concerns or complaints. He was found to be positive for COVID-19 upon arrival in the emergency department, although the patient is cur rently without any symptoms. Repeat chest x-ray done while patient in the ICU showed prominent interstitial appearance of the lungs which can reflect atypical pneumonia. Patient is currently receiving 100 cc/h lactated ringer as well as cefazolin. He is WBCs 8.7, Hgb 10.3, hct 30.6, PLT 199; sodium 140, potassium 4.6, BUN 39, creatinine 1.22. At this time the patient is able to be downgraded to general medicine floor from the ICU. 08/01/24 Patient lying in bed does not look in distress and looks relaxed He is mildly tachypneic on 4 L oxygen via nasal cannula. Patient does not think he was on oxygen at home He does not complain from significant urinary symptoms, no dysuria or urgency. No suprapubic or flank pain He has mild pain in his right hip area, surgical wound is closed with dressing in place. No other new complaints Labs from today are still pending 08/02 Patient generally weak, awake alert, follows simple commands but still confused No significant suprapubic tenderness, suprapubic catheter in place He is on insulin per orthopedic team Will monitor creatinine tomorrow and hemoglobin 08/03 Patient was more agitated and confused last night, bedside nurse requested to place a sitter. This morning patient is up in bed, he is pleasant smiling, he looks relaxed, he is disoriented to time place and person. Possible patient has elements of dementia, this needs to be checked as an outpatient after his acute illness subsides. He denies specific complaint Yesterday has some suprapubic discomfort, Sanchez catheter in place. We will check urine analysis. Also is mildly tachypneic we will check chest x-ray, if there is concerns of infection will start antibiotics Patient had CT of the brain on admission which was negative for acute process. He fell at home but no more falling. Patient will benefit from ECF upon discharge Patient is stable from orthopedic perspective Patient currently on Decadron August 04: A bit delirious. Even on simple questions. I did feed the patient able to eat. Otherwise appears comfortable. Patient getting IV ceftriaxone for his UTI. Will give 5 more days of oral Ceftin. Active Medications Acetaminophen (Acetaminophen Tab 325 Mg Tab) 650 mg PO Q6HR PRN PRN Reason: Mild Pain or Fever > 100.5 Acetaminophen (Acetaminophen Tab 500 Mg Tab) 500 mg PO Q6H [facility] Last Admin: 08/04/24 12:08 Dose: 500 mg Acetaminophen (Acetaminophen Tab 500 Mg Tab) 500 mg PO Q6HR PRN PRN Reason: Mild Pain (Scale 1 to 3) Hydrocodone Bitart/Acetaminophen (Hydrocodone/Apap 5-325mg 1 Each Tab) 1 each PO Q4HR PRN PRN Reason: Moderate Pain (Scale 4 to 6) Last Admin: 08/03/24 01:17 Dose: 1 each Ascorbic Acid (Ascorbic Acid 500 Mg Tab) 1,000 mg PO DAILY [facility] Last Admin: 08/04/24 08:12 Dose: 1,000 mg Atorvastatin Calcium (Atorvastatin 40 Mg Tab) 40 mg PO HS [facility] Last Admin: 08/03/24 22:09 Dose: 40 mg Cholecalciferol (Cholecalciferol 25 Mcg (1000 Iu) Tablet) 50 mcg PO DAILY [facility] Last Admin: 08/04/24 08:12 Dose: 50 mcg Clonazepam (Clonazepam 0.5 Mg Tab) 0.5 mg PO TID@0800,1200,1800 [facility] Last Admin: 08/04/24 12:08 Dose: 0.5 mg Clonazepam (Clonazepam 0.5 Mg Tab) 0.5 mg PO TUFR@0900 [facility] Last Admin: 08/04/24 09:53 Dose: Not Given Clozapine (Clozapine 100 Mg Tab) 100 mg PO BID [facility] Stop: 08/05/24 23:59 Last Admin: 08/04/24 08:13 Dose: 100 mg Dexamethasone (Dexamethasone 2 Mg Tab) 6 mg PO DAILY [facility] Last Admin: 08/04/24 08:12 Dose: 6 mg Diazepam (Diazepam 5 Mg Tab) 2.5 mg PO Q8HR PRN PRN Reason: Mild Spasms Donepezil HCl (Donepezil 10 Mg Tab) 10 mg PO HS [facility] Last Admin: 08/03/24 22:09 Dose: 10 mg Enoxaparin Sodium (Enoxaparin 40 Mg/0.4 Ml Syringe) 40 mg SQ DAILY [facility] Last Admin: 08/04/24 08:13 Dose: 40 mg Escitalopram Oxalate (Escitalopram 20 Mg Tab) 20 mg PO DAILY [facility] Last Admin: 08/04/24 08:11 Dose: 20 mg Famotidine (Famotidine 20 Mg Tab) 40 mg PO HS [facility] Last Admin: 08/03/24 22:09 Dose: 40 mg Folic Acid (Folic Acid 1 Mg Tab) 1 mg PO DAILY [facility] Last Admin: 08/04/24 08:12 Dose: 1 mg Furosemide (Furosemide 20 Mg Tab) 20 mg PO DAILY [facility] Last Admin: 08/04/24 08:12 Dose: 20 mg Hydromorphone HCl (Hydromorphone 0.5 Mg/0.5 Ml Syringe) 0.125 mg IVP Q3HR PRN PRN Reason: Pain Scale 1 to 3 Hydromorphone HCl (Hydromorphone 0.5 Mg/0.5 Ml Syringe) 0.5 mg IVP Q3HR PRN PRN Reason: Pain Scale 7 to 10 Hydromorphone HCl (Hydromorphone 0.5 Mg/0.5 Ml Syringe) 0.25 mg IVP Q3HR PRN PRN Reason: Pain Scale 4 to 6 Ceftriaxone Sodium 1 gm/ (Sodium Chloride) 50 mls @ 100 mls/hr IVPB Q24HR [facility]; Protocol Last Admin: 08/04/24 10:16 Dose: 100 mls/hr Isosorbide Mononitrate (Isosorbide Mononitrate Er 30 Mg Tab.Er.24h) 15 mg PO DAILY [facility] Last Admin: 08/04/24 08:11 Dose: 15 mg Lactobacillus Acidophilus (Lactobacillus Acidophilus/Pect 1 Each Capsule) 1 each PO HS [facility] Last Admin: 08/03/24 22:09 Dose: 1 each Levothyroxine Sodium (Levothyroxine 75 Mcg Tab) 75 mcg PO HS [facility] Last Admin: 08/03/24 22:09 Dose: 75 mcg Lisinopril (Lisinopril 10 Mg Tab) 10 mg PO DAILY [facility] Last Admin: 08/04/24 08:12 Dose: 10 mg Magnesium Hydroxide (Magnesium Hydroxide 2,400 Mg/30 Ml Cup) 2,400 mg PO DAILY PRN PRN Reason: Constipation Meloxicam (Meloxicam 7.5 Mg Tab) 7.5 mg PO DAILY [facility] Last Admin: 08/04/24 09:54 Dose: Not Given Morphine Sulfate (Morphine Sulfate 4 Mg/Ml Syringe) 4 mg IV Q4HR PRN PRN Reason: Severe Pain (Scale 7 to 10) Last Admin: 08/01/24 06:26 Dose: 4 mg Multivitamins (Multivitamins, Thera 1 Each Tab) 1 each PO DAILY [facility] Last Admin: 08/04/24 08:12 Dose: 1 each Naloxone HCl (Naloxone 0.4 Mg/Ml 1 Ml Vial) 0.2 mg IV Q2M PRN PRN Reason: Opioid Reversal Naloxone HCl (Naloxone 0.4 Mg/Ml 1 Ml Vial) 0.2 mg IV Q2M PRN PRN Reason: Opioid Reversal Nitroglycerin (Nitroglycerin Sl Tabs 0.4 Mg Tab) 0.4 mg SUBLINGUAL Q5M PRN PRN Reason: Chest Pain Non-Formulary Medication (Quercetin [Quercetin]) 500 mg PO DAILY [facility] Last Admin: 08/04/24 09:54 Dose: Not Given Ondansetron HCl (Ondansetron 4 Mg/2 Ml Vial) 4 mg IVP Q8HR PRN PRN Reason: Nausea And Vomiting Senna/Docusate Sodium (Sennosides-Docusate Sodium 1 Each Tab) 1 each PO BID [facility] Last Admin: 08/04/24 09:54 Dose: Not Given Zinc Sulfate (Zinc Sulfate 220 Mg Cap) 220 mg PO DAILY [facility] Last Admin: 08/04/24 08:12 Dose: 220 mg Review of systems: Difficult to obtain because of patient's cognition Social history: Lives at [facility]. . Nonsmoker. No alcohol. Does use a walker. CPAP. Physical examination: VITAL SIGNS: 98.2, 70, 18, 158 x 75, 95% room air GENERAL: Resting in bed, a bit lethargic but arousable EYES: Pupils equal. Conjunctiva normal. HEENT: External appearance of nose and ears normal, oral cavity grossly normal. NECK: JVD not raised; masses not palpable. HEART: First and second heart sounds are normal; no edema. LUNGS:[ Respiratory rate increased, decreased breath sound, some expiratory crackles. ABDOMEN: Soft, nontender, liver spleen not palpable, no masses palpable. Suprapubic catheter PSYCH: Able to answer occasionally. A bit lethargic but arousable MUSCULOSKELETAL:No Clubbing/cyanosis;muscles-grossly intact. OA. Limited range of motion right hip NEUROLOGICAL: Cranial nerves grossly intact; no facial asymmetry, power and sensation grossly intact. INVESTIGATIONS, reviewed in the clinical context: August 04: White count 11.9 hemoglobin 8.8 platelets 298 sodium 144 potassium 4.3 creatinine 0.95 White count 10.2 hemoglobin 11 platelets 254 sodium 137 potassium 4.5 BUN 48 creatinine 2.24 COVID PCR: Detected EKG tracing normal sinus rhythm. Nonspecific ST/T wave changes Chest x-ray film personally reviewed by me-some cardiomegaly. Some scattered infiltrates X-ray right hip: No fracture See ED pelvis without contrast: Virtually nondisplaced fracture of the femoral head neck junction. Previous labs: February 2024: Creatinine 1.2 Assessment and plan: -Acute nondisplaced fracture of the femoral head and neck junction right side secondary to fall: Slow to respond Right direct anterior hip hemiarthroplasty on July [address] Posey -Acute metabolic encephalopathy from COVID-19 -Acute COVID-19 pneumonitis, causing hypoxia: Improved Dexamethasone discontinued -Acute kidney injury likely ATN IV fluids. Admission creatinine 2.24 down to 0.95 -Acute hypoxic respiratory failure, secondary to COVID-19: Resolved Supplement oxygen -Severe cognitive impairment secondary to late onset Alzheimer's dementia Aricept. -GERD -Essential hypertension Lisinopril -Bladder outflow obstruction with suprapubic catheter, chronic -Hyperlipidemia Lipitor -Primary osteoarthritis Pain medication as needed -Hypothyroid Synthroid -Depression and anxiety Klonopin Lexapro -Prior history of DVT and PE Eliquis -DO NOT RESUSCITATE Patient to be getting discharged to rehab today. Medications reviewed Past Medical History Past Medical History: Cancer, Chest Pain / Angina, Dementia, GERD/Reflux, Hypertension, Osteoarthritis (OA), Thyroid Disorder Additional Past Medical History / Comment(s): HX UTI W/ SEPSIS 2013, past hx. chest pain-nothing current, tremors hands, heart murmur, esophageal spasms History of Any Multi-Drug Resistant Organisms: None Reported Past Surgical History: Prostate Surgery, Tonsillectomy Additional Past Surgical History / Comment(s): TURP, right thyroid lobectomy (09/08/2015), skin ca removed, SP cath placement Past Anesthesia/Blood Transfusion Reactions: No Reported Reaction Additional Past Anesthesia/Blood Transfusion Reaction / Comm: CLAUSTERPHOBIA Past Psychological History: Anxiety, Panic Disorder Additional Psychological History / Comment(s): ANXIETY, PANIC ATTACKS Smoking Status: Never smoker Past Alcohol Use History: None Reported Additional Past Alcohol Use History / Comment(s): Patient is a lifelong nonsmoker. He denies any marijuana, street drug or alcohol use. 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 He lives at home with his .uses walker when up, cpap machine. He denies any service. Past Drug Use History: None Reported
[2024-08-04 18:48] VITALS: BP 144/88; PULSE 75
== END 2024-08-04 19:00 | DRG 521 ==
LOC: EC 15:14 → 4SSUR 17:26 → 2SICU 07-30 20:09 → 4SSUR 07-31 16:40
PROVIDERS: ADMIT Orthopaedic Surgery; ATTEND Orthopaedic Surgery
PROC: 0SRR0J9 Replacement of Right Hip Joint, Femoral Surface with Synthetic Substitute, Cemented, Open Approach (ICD-10-PCS; principal; 2024-07-30 09:55)
DX: S72.001A Fracture of unspecified part of neck of right femur, initial encounter for closed fracture (principal); G93.41 Metabolic encephalopathy; U07.1 COVID-19; J96.01 Acute respiratory failure with hypoxia; N17.0 Acute kidney failure with tubular necrosis; J12.82 Pneumonia due to coronavirus disease 2019; F02.84 Dementia in other diseases classified elsewhere, unspecified severity, with anxiety; N39.0 Urinary tract infection, site not specified; F02.83 Dementia in other diseases classified elsewhere, unspecified severity, with mood disturbance; Z66 Do not resuscitate; S72.051A Unspecified fracture of head of right femur, initial encounter for closed fracture; I10 Essential (primary) hypertension; G30.1 Alzheimer's disease with late onset; N32.0 Bladder-neck obstruction; E03.9 Hypothyroidism, unspecified; E78.5 Hyperlipidemia, unspecified; F32.A Depression, unspecified; F41.0 Panic disorder [episodic paroxysmal anxiety]; K21.9 Gastro-esophageal reflux disease without esophagitis; M19.91 Primary osteoarthritis, unspecified site; W19.XXXA Unspecified fall, initial encounter; Z88.1 Allergy status to other antibiotic agents; Z79.890 Hormone replacement therapy; Z79.01 Long term (current) use of anticoagulants; Z79.899 Other long term (current) drug therapy; Z86.711 Personal history of pulmonary embolism; Z86.718 Personal history of other venous thrombosis and embolism; Y92.129 Unspecified place in nursing home as the place of occurrence of the external cause; Y99.8 Other external cause status; Z82.49 Family history of ischemic heart disease and other diseases of the circulatory system
CPT/HCPCS: 36415; 51702; 70450; 71045; 72125; 72192; 73501; 73502; 80048; 80053; 81001; 85025; 85610; 85730; 87077; 87086; 87186; 87636; 93005; 94760; 96360; 99285

== ENCOUNTER 2025-02-23 22:10 | Inpatient (IN) | payer MEDICARE, OTHER ==
--- NOTE | 2025-02-23 22:14 | ED ---
Abdominal Pain HPI - General Stated Complaint: Possible bowel obstruction Time Seen by Provider: 02/23/25 22:11 Source: RN notes reviewed, old records reviewed Mode of arrival: ambulatory Limitations: no limitations - History of Present Illness Initial Comments: This is a 74-year-old male to the ER for evaluation patient presents today for evaluation regards to severe abdominal pain. Patient unable to provide history contrary [facility] facility where he had an x-ray showing a small bowel obstruction possible MD Complaint: abdominal pain -: days(s) Location: periumbilical, epigastric, suprapubic Radiation: epigastric Migration to: no migration, periumbilical, epigastric, suprapubic Severity: severe Severity scale (1-10): 10 Quality: stabbing Consistency: constant Improves With: nothing Worsens With: nothing Associated Symptoms: nausea, vomiting Treatments Prior to Arrival: other (0) - Related Data Home Medications Medication Instructions Recorded Confirmed Levothyroxine Sodium [Synthroid] 75 mcg PO HS 05/17/18 02/24/25 Atorvastatin [Lipitor] 40 mg PO HS 12/15/18 02/24/25 Multivitamins, Thera [Multivitamin 1 tab PO DAILY 12/15/18 02/24/25 (formulary)] Nitroglycerin Sl Tabs [Nitrostat] 0.4 mg SUBLINGUAL Q5M PRN 12/25/18 02/24/25 Escitalopram [Lexapro] 20 mg PO DAILY 05/18/22 02/24/25 Isosorbide Mononitrate ER [Imdur] 15 mg PO DAILY 05/18/22 02/24/25 D-Mannose 500 mg PO DAILY 10/17/23 02/24/25 lisinopriL [Zestril] 10 mg PO DAILY 10/17/23 02/24/25 Famotidine [Pepcid] 40 mg PO HS 07/29/24 02/24/25 Lactobacillus Acidophilus 1 cap PO HS 07/29/24 02/24/25 [Acidophilus Probiotic] Albuterol Nebulized [Ventolin 2.5 mg INHALATION RT-Q4H PRN 02/24/25 02/24/25 Nebulized] Apixaban [Eliquis] 2.5 mg PO BID 02/24/25 02/24/25 Cholecalciferol [Vitamin D3 (25 50 mcg PO DAILY 02/24/25 02/24/25 Mcg = 1000 Iu)] Folic Acid 0.8 mg PO DAILY 02/24/25 02/24/25 Memantine [Namenda] 5 mg PO BID 02/24/25 02/24/25 Previous Rx's Medication Instructions Recorded Omeprazole 20 mg PO DAILY #30 tab 08/03/24 Sennosides/Docusate Sodium [Senna 1 cap PO BID #0 08/04/24 Plus 8.6-50 mg Softgel] HYDROcodone/APAP 5-325MG [[place] 1 tab PO Q6HR PRN #12 tab 02/27/25 5-325] cloZAPine [Clozaril] 100 mg PO BID #6 tab 02/27/25 clonazePAM [KlonoPIN] 0.5 mg PO TID #9 tab 02/27/25 clonazePAM [KlonoPIN] 0.5 mg PO TUFR #10 tab 02/27/25 Allergies Allergy/AdvReac Type Severity Reaction Status Date / Time levofloxacin AdvReac See Comment Verified 02/24/25 10:51 Review of Systems ROS Statement: Those systems with pertinent positive or pertinent negative responses have been documented in the HPI. ROS Other: All systems not noted in ROS Statement are negative. Past Medical History Past Medical History: Cancer, Chest Pain / Angina, Dementia, GERD/Reflux, Hypertension, Osteoarthritis (OA), Thyroid Disorder Additional Past Medical History / Comment(s): HX UTI W/ SEPSIS 2013, past hx. chest pain-nothing current, tremors hands, heart murmur, esophageal spasms History of Any Multi-Drug Resistant Organisms: None Reported Past Surgical History: Prostate Surgery, Tonsillectomy Additional Past Surgical History / Comment(s): TURP, right thyroid lobectomy (09/08/2015), skin ca removed, SP cath placement Past Anesthesia/Blood Transfusion Reactions: No Reported Reaction Additional Past Anesthesia/Blood Transfusion Reaction / Comment(s): PORTER TERPHOBIA Past Psychological History: Anxiety, Panic Disorder Additional Psychological History / Comment(s): ANXIETY, PANIC ATTACKS Smoking Status: Never smoker Past Alcohol Use History: None Reported Additional Past Alcohol Use History / Comment(s): Patient is a lifelong no nsmoker. He denies any marijuana, street drug or alcohol use. 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 He lives at home with his .uses walker when up, cpap machine. He denies any service. Past Drug Use History: None Reported - Past Family History Brother(s) Family Medical History: Cancer Sister(s) Family Medical History: Hypertension Father Family Medical History: Hypertension Additional Family Medical History / Comment(s): PT STATED DAD AT AGE 89 COMPLICATIONS FROM MRSA INFECTION. Mother Family Medical History: Hypertension General Exam General appearance: alert, in no apparent distress Head exam: Present: atraumatic, normocephalic, normal inspection Eye exam: Present: normal appearance, PERRL, EOMI. Absent: scleral icterus, conjunctival injection, periorbital swelling ENT exam: Present: normal exam, mucous membranes moist Neck exam: Present: normal inspection. Absent: tenderness, meningismus, lymphadenopathy Respiratory exam: Present: normal lung sounds bilaterally. Absent: respiratory distress, wheezes, rales, rhonchi, stridor Cardiovascular Exam: Present: regular rate, normal rhythm, normal heart sounds. Absent: systolic murmur, diastolic murmur, rubs, gallop, clicks GI/Abdominal exam: Present: soft, normal bowel sounds. Absent: distended, tenderness, guarding, rebound, rigid Extremities exam: Present: normal inspection, full ROM, normal capillary refill. Absent: tenderness, pedal edema, joint swelling, calf tenderness Back exam: Present: normal inspection Neurological exam: Present: alert, oriented X3, CN II-XII intact Psychiatric exam: Present: normal affect, normal mood Skin exam: Present: warm, dry, intact, normal color. Absent: rash Course Vital Signs 02/23/25 02/23/25 02/24/25 22:11 22:57 02:15 Temperature 98.8 F 98.4 F Pulse Rate 71 79 68 Respiratory 16 16 16 Rate Blood Pressure 106/49 106/49 128/74 O2 Sat by Pulse 97 95 98 Oximetry 02/24/25 04:01 Temperature 98.8 F Pulse Rate 70 Respiratory 18 Rate Blood Pressure 129/90 O2 Sat by Pulse 97 Oximetry - Reevaluation(s) Reevaluation #1: 02/24/25 00:01 Records reviewed Reevaluation #2: 02/24/25 00:01 Symptoms improved Reevaluation #3: 02/24/25 00:01 Informed of results and questions answered Reevaluation #4: Was pt. sent in by a medical professional or institution (MOJGAN Tripp, DIRECTOR OF TEACHING AND LEARNING, urgent care, hospital, or residential...) When possible be specific @ -no Did you speak to anyone other than the patient for history (EMS, parent, family, police, friend...)? What history was obtained from this source @ -no Did you review nursing and triage notes (agree or disagree)? Why? @ -agree Are old charts reviewed (outside hosp., previous admission, EMS record, old EKG, old radiological studies, urgent care reports/EKG's, residential records)? Report findings @ -yes Differential Diagnosis (chest pain, altered mental status, abdominal pain women, abdominal pain men, vaginal bleeding, weakness, fever, dyspnea, syncope, headache, dizziness, GI bleed, back pain, seizure, CVA, palpatations, mental health, musculoskeletal)? @ -prior EKG interpreted by me (3pts min.). @ -no X-rays interpreted by me (1pt min.). @ -no CT interpreted by me (1pt min.). @ -Yes positive for small bowel obstruction U/S interpreted by me (1pt. min.). @ -no What testing was considered but not performed or refused? (CT, X-rays, U/S, labs)? Why? @ -none What meds were considered but not given or refused? Why? @ -none Did you discuss the management of the patient with other professionals (carlos jaime i.e. MOJGAN Tripp, DIRECTOR OF TEACHING AND LEARNING, lab, RT, psych nurse, social work specialist, clinical rn liaison, teacher, commercial account officer, adult protective caseworker)? Give summary @ -no Was smoking cessation discussed for >3mins.? @ -no Was critical care preformed (if so, how long)? @ -no Were there social determinants of health that impacted care today? How? (Homelessness, low income, unemployed, alcoholism, drug addiction, transportation, low edu. Level, literacy, decrease access to med. care, residential, rehab)? @ -none Was there de-escalation of care discussed even if they declined (Discuss DNR or withdrawal of care, Hospice)? DNR status @ -no What co-morbidities impacted this encounter? (DM, HTN, Smoking, COPD, CAD, Cancer, CVA, ARF, Chemo, Hep., AIDS, mental health diagnosis, sleep apnea, morbid obesity)? @ -none Was patient admitted / discharged? Hospital course, mention meds given and route, prescriptions, significant lab abnormalities, going to OR and other pertinent info. @ - 74 male will be admitted for small bowel obstruction n.p.o. Admitted Undiagnosed new problem with uncertain prognosis? @ -no Drug Therapy requiring intensive monitoring for toxicity (Heparin, Nitro, Insulin, Cardizem)? @ -no Were any procedures done? @ -no Diagnosis/symptom? @ -Small bowel obstruction Acute, or Chronic, or Acute on Chronic? @ -Acute Uncomplicated (without systemic symptoms) or Complicated (systemic symptoms)? @ -Complicated Side effects of treatment? @ -no Exacerbation, Progression, or Severe Exacerbation? @ -exacerbation Poses a threat to life or bodily function? How? (Chest pain, USA, DE, pneumonia, PE, COPD, DKA, ARF, appy, cholecystitis, CVA, Diverticulitis, Homicidal, Suicidal, threat to staff... and all critical care pts) @ -yes extremes of age Reevaluation #5: Differential Abdominal Pain Men: Appendicitis, cholecystitis, diverticulosis, ischemic bowel, pancreatitis, hepatitis, UTI, gastroenteritis, AAA, incarcerated hernia, bowel obstruction, constipation, inflammatory bowel, hepatitis, peptic ulcer disease, splenic infarction, perforated viscus, testicular torsion, this is not meant to be an all-inclusive list - Consultations Consultation #1: Trisha Garcia agrees to admit this patient Medical Decision Making - Medical Decision Making 74 male will be admitted for small bowel obstruction n.p.o. - Lab Data Result diagrams: 02/25/25 06:08 02/27/25 03:17 Lab Results 02/23/25 02/23/25 02/23/25 Range/Units 22:23 22:23 22:23 WBC 8.17 (4.50-10.00) 10*3/uL RBC 4.08 L (4.40-5.60) 10*6/uL Hgb 11.9 L (13.0-17.0) g/dL Hct 36.1 L (39.6-50.0) % MCV 88.5 (80.0-97.0) fL MCH 29.2 (27.0-32.0) pg MCHC 33.0 (32.0-37.0) g/dL Plt Count 400 (140-440) 10*3/uL MPV 9.5 (9.5-12.2) fL Immature Gran % (Auto) 1.8 % Neutrophils % 73.9 % Lymphocytes % 11.1 % Monocytes % 12.7 % Eosinophils % 0.1 % Basophils % 0.4 % Immature Gran # 0.15 H (0.00-0.04) 10*3/uL Neutrophils # 6.03 (1.80-7.70) 10*3/uL Lymphocytes # 0.91 (0.90-5.00) 10*3/uL Monocytes # 1.04 H (0.20-1.00) 10*3/uL Eosinophils # 0.01 L (0.04-0.35) 10*3/uL Basophils # 0.03 (0.00-0.10) 10*3/uL PT 12.3 (10.0-12.5) sec INR 1.1 (<1.2) APTT 23.3 (22.0-30.0) sec Sodium 141 (137-145) mmol/L Potassium 4.5 (3.5-5.1) mmol/L Chloride 100 (98-107) mmol/L Carbon Dioxide 24 (22-30) mmol/L Anion Gap 17 mmol/L BUN 87 H (9-20) mg/dL Creatinine 2.47 H (0.66-1.25) mg/dL Est GFR (CKD-EPI)AfAm 28 (>60 ml/min/1.73 sqM) Est GFR (CKD-EPI)NonAf 24 (>60 ml/min/1.73 sqM) Glucose 142 H (74-99) mg/dL Plasma Lactic Acid Tay (0.7-2.0) mmol/L Calcium 9.6 (8.4-10.2) mg/dL Total Bilirubin 0.8 (0.2-1.3) mg/dL AST 23 (17-59) U/L ALT 14 (4-49) U/L Alkaline Phosphatase 101 (38-126) U/L Total Protein 6.9 (6.3-8.2) g/dL Albumin 4.2 (3.5-5.0) g/dL Amylase 53 (30-110) U/L Lipase 170 (23-300) U/L /04/14 Range/Units 22:23 WBC (4.50-10.00) 10*3/uL RBC (4.40-5.60) 10*6/uL Hgb (13.0-17.0) g/dL Hct (39.6-50.0) % MCV (80.0-97.0) fL MCH (27.0-32.0) pg MCHC (32.0-37.0) g/dL Plt Count (140-440) 10*3/uL MPV (9.5-12.2) fL Immature Gran % (Auto) % Neutrophils % % Lymphocytes % % Monocytes % % Eosinophils % % Basophils % % Immature Gran # (0.00-0.04) 10*3/uL Neutrophils # (1.80-7.70) 10*3/uL Lymphocytes # (0.90-5.00) 10*3/uL Monocytes # (0.20-1.00) 10*3/uL Eosinophils # (0.04-0.35) 10*3/uL Basophils # (0.00-0.10) 10*3/uL PT (10.0-12.5) sec INR (<1.2) APTT (22.0-30.0) sec Sodium (137-145) mmol/L Potassium (3.5-5.1) mmol/L Chloride (98-107) mmol/L Carbon Dioxide (22-30) mmol/L Anion Gap mmol/L BUN (9-20) mg/dL Creatinine (0.66-1.25) mg/dL Est GFR (CKD-EPI)AfAm (>60 ml/min/1.73 sqM) Est GFR (CKD-EPI)NonAf (>60 ml/min/1.73 sqM) Glucose (74-99) mg/dL Plasma Lactic Acid Tay 1.5 (0.7-2.0) mmol/L Calcium (8.4-10.2) mg/dL Total Bilirubin (0.2-1.3) mg/dL AST (17-59) U/L ALT (4-49) U/L Alkaline Phosphatase (38-126) U/L Total Protein (6.3-8.2) g/dL Albumin (3.5-5.0) g/dL Amylase (30-110) U/L Lipase (23-300) U/L - Radiology Data Radiology results: report reviewed (CT abdomen pelvis positive for small bowel obstruction), image reviewed Disposition Clinical Impression: Generalized weakness, SBO (small bowel obstruction) Disposition: ADMITTED IP TO THIS HOSP Is patient prescribed a controlled substance at d/c from ED?: No Time of Disposition: 23:55
[2025-02-23] MEDS: SODIUM CHLORIDE 0.9% 1,000 ML IV ONE (22:22)
[2025-02-23] MEDS: ONDANSETRON 4 MG/2 ML VIAL IVP STA (22:27)
[2025-02-23] MEDS: PANTOPRAZOLE 40 MG/10 ML VIAL IVP STA (22:27)
[2025-02-23] MEDS: MORPHINE SULFATE 4 MG/ML SYRINGE IVP STA (22:37)
[2025-02-23 22:38] LABS: Basophils # (A) 0.03 10*3/uL (0.00-0.10); Basophils % (A) 0.4 %; Eosinophils # (A) 0.01 10*3/uL (0.04-0.35); Eosinophils % (A) 0.1 %; HCT 36.1 % (39.6-50.0); HGB 11.9 g/dL (13.0-17.0); Lymphocytes # (A) 0.91 10*3/uL (0.90-5.00); Lymphocytes % (A) 11.1 %; MCH 29.2 pg (27.0-32.0); MCV 88.5 fL (80.0-97.0); Mean Platelet Volume 9.5 fL (9.5-12.2); Monocytes # (A) 1.04 10*3/uL (0.20-1.00); Monocytes % (A) 12.7 %; Neutrophils # (A) 6.03 10*3/uL (1.80-7.70); Neutrophils % (A) 73.9 %; Platelet Count 400 10*3/uL (140-440); RBC 4.08 10*6/uL (4.40-5.60); RDW 16.2 % (11.5-14.5); WBC 8.17 10*3/uL (4.50-10.00)
[2025-02-23 22:52] LABS: ALT 14 U/L (4-49); AST 23 U/L (17-59); African American GFR (CKD) 28 (>60 ml/min/1.73 sqM); Albumin 4.2 g/dL (3.5-5.0); Alkaline Phosphatase 101 U/L (38-126); Amylase 53 U/L (30-110); Anion Gap 17 mmol/L; Blood Urea Nitrogen 87 mg/dL (9-20); Calcium 9.6 mg/dL (8.4-10.2); Carbon Dioxide 24 mmol/L (22-30); Chloride 100 mmol/L (98-107); Glucose 142 mg/dL (74-99); Lipase 170 U/L (23-300); Non-African American GFR(CKD) 24 (>60 ml/min/1.73 sqM); Potassium 4.5 mmol/L (3.5-5.1); Sodium 141 mmol/L (137-145); Total Bilirubin 0.8 mg/dL (0.2-1.3); Total Protein 6.9 g/dL (6.3-8.2)
[2025-02-23 22:54] LABS: INR 1.1 (<1.2); Partial Thromboplastin Time 23.3 sec (22.0-30.0); Prothrombin Time 12.3 sec (10.0-12.5)
--- NOTE | 2025-02-23 23:30 | CT ---
EXAMINATION TYPE: CT abdomen pelvis wo con DATE OF EXAM: 02/23/2025 10:53 PM COMPARISON: 07/29/2024 CLINICAL INDICATION: Male, 74 years old with history of abdominal pain, Pt. comes from [facility] [place]- hx o f chronic constipation. Pt. c/o N/V- states he had 3-4 very small, loose bowel movements. Pt. had XR completed today that showed dilation of small bowel. hx of skin ca removed, SP cath placement TECHNIQUE: Axial images were obtained from above the diaphragm to the pubic rami in the axial plane a t 5 mm thick sections. Reconstructed images are reviewed on the computer in the coronal plane. CONTRAST: mL of . Study performed without Oral Contrast DLP: 1031 mGycm, Automated exposure control for dose reduction was used. FINDINGS: Limited CT sections are obtained the lung bases. The lung bases are clear. Extensive dense coronary artery calcification present. CT ABDOMEN: Liver: There is a 3.9 cm posterior right lobe liver cyst. Additional cysts anterior right margin esteban uring 2.5 cm. Spleen: Normal Pancreas: Fatty infiltration with mild atrophy Adrenal glands: The adrenal glands are normal. Gallbladder: Normal Kidneys: No masses are evident. No hydronephrosis is present. No cysts are present. No suspicious renal stones are evident. Aorta: Vascular calcification is within the aorta. Inferior vena cava: Normal. CT PELVIS: There are multiple dilated small bowel loops. Fecal debris is within the distal colon. There appears to be a transition within the mid ileum. This study is without oral contrast limiting portions of the examination. Appendix: Normal as visualized. Urinary bladder: Suprapubic catheter is present. There appears to be a diverticulum extending from th e left side of the urinary bladder estimated at 3.2 cm in AP dimension. Genitourinary structures: Prostate is not identified. Osseous structures: No suspicious lytic or sclerotic lesions. Superior endplate compression deformiti es are present L1-3. Sclerotic areas present T10 and right medial iliac wing IMPRESSION: 1. Dilated fluid-filled small bowel loops or transition in the mid ileum region. Findings suggestive for a partial small bowel obstruction. Report was called to the emergency room physician by Dr. Angelic diaz by telephone at the time of interpretation. 2. Suprapubic catheter. The urinary bladder diverticulum is present on the left. [facility], , 02/23/2025 11:27 PM
[2025-02-23] MEDS ORDERED: MORPHINE SULFATE 4 MG/ML SYRINGE IV PRN (23:57)
[2025-02-23] MEDS ORDERED: NALOXONE 0.4 MG/ML 1 ML VIAL IV PRN (23:57)
[2025-02-24] MEDS: DEXTROSE 5%-0.45% NACL 1,000 ML IV SCH (00:14)
[2025-02-24 07:12] LABS: Basophils # (A) 0.03 10*3/uL (0.00-0.10); Basophils % (A) 0.4 %; Eosinophils # (A) 0.05 10*3/uL (0.04-0.35); Eosinophils % (A) 0.6 %; HCT 32.3 % (39.6-50.0); HGB 10.3 g/dL (13.0-17.0); Lymphocytes % (A) 9.4 %; MCHC 31.9 g/dL (32.0-37.0); Mean Platelet Volume 9.6 fL (9.5-12.2); Monocytes # (A) 1.02 10*3/uL (0.20-1.00); Neutrophils # (A) 6.46 10*3/uL (1.80-7.70); Neutrophils % (A) 75.7 %; Platelet Count 321 10*3/uL (140-440); RBC 3.55 10*6/uL (4.40-5.60); RDW 16.2 % (11.5-14.5); WBC 8.52 10*3/uL (4.50-10.00)
[2025-02-24 07:28] LABS: ALT 11 U/L (4-49); AST 18 U/L (17-59); African American GFR (CKD) 37 (>60 ml/min/1.73 sqM); Albumin 3.5 g/dL (3.5-5.0); Alkaline Phosphatase 89 U/L (38-126); Anion Gap 11 mmol/L; Blood Urea Nitrogen 77 mg/dL (9-20); Calcium 8.9 mg/dL (8.4-10.2); Carbon Dioxide 26 mmol/L (22-30); Chloride 105 mmol/L (98-107); Glucose 125 mg/dL (74-99); Magnesium 2.6 mg/dL (1.6-2.3); Non-African American GFR(CKD) 32 (>60 ml/min/1.73 sqM); Phosphorus 3.4 mg/dL (2.5-4.5); Potassium 3.9 mmol/L (3.5-5.1); Sodium 142 mmol/L (137-145); Total Bilirubin 0.6 mg/dL (0.2-1.3); Total Protein 5.8 g/dL (6.3-8.2)
[2025-02-24] MEDS ORDERED: ACETAMINOPHEN IV (For NPO) 1,000 MG in EMPTY BAG 1 BAG IVPB PRN (09:11)
[2025-02-24] MEDS: PANTOPRAZOLE 40 MG/10 ML VIAL IV SCH (10:11)
[2025-02-24 11:31] LABS: Glucose,Whole Blood 120 mg/dL (70-110)
[2025-02-24] MEDS: ENOXAPARIN 40 MG/0.4 ML SYRINGE SQ SCH (12:59)
[2025-02-24] MEDS ORDERED: ACETAMINOPHEN TAB 325 MG TAB PO PRN (14:09)
--- NOTE | 2025-02-24 14:11 | P.GSCN ---
History of Present Illness Consult date: 02/24/25 History of present illness: CHIEF COMPLAINT: Abdominal pain HISTORY OF PRESENT ILLNESS: This is a 74-year-old male who presented to the ER with abdominal pain and an x-ray at his [facility] that reported small bowel obstruction. Patient does have a known history of dementia as well as a past surgical history of TURP with a suprapubic catheter. CT scan abdomen pelvis had reported partial small bowel obstruction with transition point noted in the mid ileum. Per nursing staff patient has had no vomiting. PAST MEDICAL HISTORY: See below PAST SURGICAL HISTORY: See below MEDICATIONS: See below ALLERGIES: See below SOCIAL HISTORY: No illicit drug use. REVIEW OF SYSTEMS: CONSTITUTIONAL: Denies fever or chills. HEENT: Denies blurred vision, vision changes, or eye pain. Denies hemoptysis CARDIOVASCULAR: Denies chest pain or pressure. RESPIRATORY: No shortness of breath. GASTROINTESTINAL: See HPI for pertinent findings HEMATOLOGIC: Denies bleeding disorders. GENITOURINARY: Denies any blood in urine or increased urinary frequency. SKIN: Denies pruitis. Denies rash. PHYSICAL EXAM: VITAL SIGNS: Reviewed GENERAL: Well-developed in no acute distress. HEENT: No sclera icterus. Extraocular movements grossly intact. Moist buccal mucosa. Head is atraumatic, normocephalic. No nasal drainage. ABDOMEN: Soft. Mildly distended. Tenderness to palpation around the umbilicus area. Suprapubic catheter noted. NEUROLOGIC: Awake and alert. Pleasantly confused. LABORATORY DATA: WBC 8.52 Hgb 10.3 platelets 321 Sodium 142 potassium 3.9 creatinine 1.98 IMAGING: CT scan abdomen pelvis reported dilated fluid-filled small bowel loops or transition in the mid ileum region. Findings suggest partial small bowel obstruction. ASSESSMENT: 1. Partial small bowel obstruction PLAN: - Keep patient n.p.o. except medications - Small bowel follow-through with Gastrografin ordered for diagnostic and possible therapeutic management of PSBO - Monitor for any bowel function. Nursing staff to record bowel movements in chart. - Continue IV fluids Physician Hardening Machine Operator Helper note has been reviewed by physician. Signing provider agrees with the documented findings, assessment, and plan of care. Attestation Patient seen and examined at bedside. Presented with chief complaint of concern for bowel obstruction based on x-ray performed at his Nursing facility. Patient does have baseline dementia and difficult to obtain history. Recommended nursing staff to record any bowel movements in the chart. On exam, he does not have any significant tenderness and mild distention is noted. Based on patient's inability to provide great history, we will plan for small bowel series for further evaluation of any bowel obstruction. Further evaluation after imaging is completed. Harmeet Mejias DO Past Medical History Past Medical History: Cancer, Chest Pain / Angina, Dementia, GERD/Reflux, Hypertension, Osteoarthritis (OA), Thyroid Disorder Additional Past Medical History / Comment(s): HX UTI W/ SEPSIS 2013, past hx. chest pain-nothing current, tremors hands, heart murmur, esophageal spasms History of Any Multi-Drug Resistant Organisms: None Reported Past Surgical History: Prostate Surgery, Tonsillectomy Additional Past Surgical History / Comment(s): TURP, right thyroid lobectomy (09/08/2015), skin ca removed, SP cath placement Past Anesthesia/Blood Transfusion Reactions: No Reported Reaction Additional Past Anesthesia/Blood Transfusion Reaction / Comm: CLAUSTERPHOBIA Past Psychological History: Anxiety, Panic Disorder Additional Psychological History / Comment(s): ANXIETY, PANIC ATTACKS Smoking Status: Never smoker Past Alcohol Use History: None Reported Additional Past Alcohol Use History / Comment(s): Patient is a lifelong nonsm oker. He denies any marijuana, street drug or alcohol use. 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 He lives at home with his .uses walker when up, cpap machine. He denies any service. Past Drug Use History: None Reported - Past Family History Brother(s) Family Medical History: Cancer Sister(s) Family Medical History: Hypertension Father Family Medical History: Hypertension Additional Family Medical History / Comment(s): PT STATED DAD AT AGE 89 COMPLICATIONS FROM MRSA INFECTION. Mother Family Medical History: Hypertension Medications and Allergies Home Medications Medication Instructions Recorded Confirmed Type Levothyroxine Sodium [Synthroid] 75 mcg PO HS 05/17/18 02/24/25 History Atorvastatin [Lipitor] 40 mg PO HS 12/15/18 02/24/25 History Multivitamins, Thera [Multivitamin 1 tab PO DAILY 12/15/18 02/24/25 History (formulary)] Nitroglycerin Sl Tabs [Nitrostat] 0.4 mg SUBLINGUAL Q5M PRN 12/25/18 02/24/25 History Escitalopram [Lexapro] 20 mg PO DAILY 05/18/22 02/24/25 History Isosorbide Mononitrate ER [Imdur] 15 mg PO DAILY 05/18/22 02/24/25 History cloZAPine [Clozaril] 100 mg PO BID 05/18/22 02/24/25 History D-Mannose 500 mg PO DAILY 10/17/23 02/24/25 History Furosemide [Lasix] 20 mg PO DAILY 10/17/23 02/24/25 History lisinopriL [Zestril] 10 mg PO DAILY 10/17/23 02/24/25 History Famotidine [Pepcid] 40 mg PO HS 07/29/24 02/24/25 History Lactobacillus Acidophilus 1 cap PO HS 07/29/24 02/24/25 History [Acidophilus Probiotic] Omeprazole 20 mg PO DAILY #30 tab 08/03/24 02/24/25 Rx Sennosides/Docusate Sodium [Senna 1 cap PO BID #0 08/04/24 02/24/25 Rx Plus 8.6-50 mg Softgel] Albuterol Nebulized [Ventolin 2.5 mg INHALATION RT-Q4H PRN 02/24/25 02/24/25 History Nebulized] Apixaban [Eliquis] 2.5 mg PO BID 02/24/25 02/24/25 History Cholecalciferol [Vitamin D3 (25 50 mcg PO DAILY 02/24/25 02/24/25 History Mcg = 1000 Iu)] Folic Acid 0.8 mg PO DAILY 02/24/25 02/24/25 History HYDROcodone/APAP 5-325MG [Grimes 5] 1 tab PO Q6HR PRN 02/24/25 02/24/25 History Memantine [Namenda] 5 mg PO BID 02/24/25 02/24/25 History clonazePAM [KlonoPIN] 0.5 mg PO TID 02/24/25 02/24/25 History clonazePAM [KlonoPIN] 0.5 mg PO TUFR 02/24/25 02/24/25 History Allergies Allergy/AdvReac Type Severity Reaction Status Date / Time levofloxacin AdvReac See Comment Verified 02/24/25 10:51 Surgical - Exam Osteopathic Statement: *. No significant issues noted on an osteopathic structural exam other than those noted in the History and Physical/Consult. Vital Signs Temp Pulse Resp BP Pulse Ox 98.8 F 71 16 106/49 97 02/23/25 22:11 02/23/25 22:11 02/23/25 22:11 02/23/25 22:11 02/23/25 22:11 Results - Labs 02/24/25 06:31 02/24/25 06:31 Abnormal Lab Results - Last 24 Hours (Table) 02/23/25 02/23/25 02/24/25 Range/Units 22:23 22:23 06:31 RBC 4.08 L 3.55 L (4.40-5.60) 10*6/uL Hgb 11.9 L 10.3 L (13.0-17.0) g/dL Hct 36.1 L 32.3 L (39.6-50.0) % MCHC 31.9 L (32.0-37.0) g/dL Immature Gran # 0.15 H 0.16 H (0.00-0.04) 10*3/uL Lymphocytes # 0.80 L (0.90-5.00) 10*3/uL Monocytes # 1.04 H 1.02 H (0.20-1.00) 10*3/uL Eosinophils # 0.01 L (0.04-0.35) 10*3/uL BUN 87 H (9-20) mg/dL Creatinine 2.47 H (0.66-1.25) mg/dL Glucose 142 H (74-99) mg/dL Magnesium (1.6-2.3) mg/dL Total Protein (6.3-8.2) g/dL 02/24/25 Range/Units 06:31 RBC (4.40-5.60) 10*6/uL Hgb (13.0-17.0) g/dL Hct (39.6-50.0) % MCHC (32.0-37.0) g/dL Immature Gran # (0.00-0.04) 10*3/uL Lymphocytes # (0.90-5.00) 10*3/uL Monocytes # (0.20-1.00) 10*3/uL Eosinophils # (0.04-0.35) 10*3/uL BUN 77 H (9-20) mg/dL Creatinine 1.98 H (0.66-1.25) mg/dL Glucose 125 H (74-99) mg/dL Magnesium 2.6 H (1.6-2.3) mg/dL Total Protein 5.8 L (6.3-8.2) g/dL Diabetes panel 02/23/25 02/24/25 Range/Units 22:23 06:31 Sodium 141 142 (137-145) mmol/L Potassium 4.5 3.9 (3.5-5.1) mmol/L Chloride 100 105 (98-107) mmol/L Carbon Dioxide 24 26 (22-30) mmol/L BUN 87 H 77 H (9-20) mg/dL Creatinine 2.47 H 1.98 H (0.66-1.25) mg/dL Glucose 142 H 125 H (74-99) mg/dL Calcium 9.6 8.9 (8.4-10.2) mg/dL AST 23 18 (17-59) U/L ALT 14 11 (4-49) U/L Alkaline Phosphatase 101 89 (38-126) U/L Total Protein 6.9 5.8 L (6.3-8.2) g/dL Albumin 4.2 3.5 (3.5-5.0) g/dL Calcium panel 02/23/25 02/24/25 Range/Units 22:23 06:31 Calcium 9.6 8.9 (8.4-10.2) mg/dL Phosphorus 3.4 (2.5-4.5) mg/dL Albumin 4.2 3.5 (3.5-5.0) g/dL Pituitary panel 02/23/25 02/24/25 Range/Units 22:23 06:31 Sodium 141 142 (137-145) mmol/L Potassium 4.5 3.9 (3.5-5.1) mmol/L Chloride 100 105 (98-107) mmol/L Carbon Dioxide 24 26 (22-30) mmol/L BUN 87 H 77 H (9-20) mg/dL Creatinine 2.47 H 1.98 H (0.66-1.25) mg/dL Glucose 142 H 125 H (74-99) mg/dL Calcium 9.6 8.9 (8.4-10.2) mg/dL Adrenal panel 02/23/25 02/24/25 Range/Units 22:23 06:31 Sodium 141 142 (137-145) mmol/L Potassium 4.5 3.9 (3.5-5.1) mmol/L Chloride 100 105 (98-107) mmol/L Carbon Dioxide 24 26 (22-30) mmol/L BUN 87 H 77 H (9-20) mg/dL Creatinine 2.47 H 1.98 H (0.66-1.25) mg/dL Glucose 142 H 125 H (74-99) mg/dL Calcium 9.6 8.9 (8.4-10.2) mg/dL Total Bilirubin 0.8 0.6 (0.2-1.3) mg/dL AST 23 18 (17-59) U/L ALT 14 11 (4-49) U/L Alkaline Phosphatase 101 89 (38-126) U/L Total Protein 6.9 5.8 L (6.3-8.2) g/dL Albumin 4.2 3.5 (3.5-5.0) g/dL
[2025-02-24] MEDS ORDERED: ALBUTEROL NEBULIZED 2.5 MG/3 ML INHALATION PRN (17:41)
[2025-02-24] MEDS ORDERED: HYDROcodone/APAP 5-325MG 1 EACH TAB PO PRN (17:41)
[2025-02-24] MEDS ORDERED: LEVOTHYROXINE IVP 100 MCG/5 ML VIAL IV SCH (17:45)
--- NOTE | 2025-02-24 18:00 | FL ---
EXAMINATION TYPE: FL small bowel follow through DATE OF EXAM: 02/24/2025 5:18 PM COMPARISON: CT abdomen pelvis most recent from 01/16/2016. CLINICAL INDICATION:Male, 74 years old with history of abdominal pain, follow up on SBO; TECHNIQUE: The procedure was explained and patient history elicited. All patient questions were ans wered prior to start of procedure. A e mail system administrator radiograph of the abdomen was also reviewed. The patient was asked to ingest liquid Gastrografin and incremental frontal abdominal radiographs were then taken until contrast was visualized in the cecum. FINDINGS: The e mail system administrator abdominal radiograph demonstrates a normal bowel gas pattern without dilated loops of small or large bowel. There is no evidence of organomegaly or pneumoperitoneum. No abnormal calcifications . The visualized osseous structures are intact. Right hip arthroplasty hardware appears intact. Contrast is seen extending from the duodenojejunal junction into the cecum after 255 minutes, which i s within the expected time period. The small bowel follows normal distribution and contour without a ny evidence of extraluminal or intraluminal irregularity. There is no displacement of bowel loops or extraluminal extravasation of contrast material. Small bowel mucosal folds are felt to be within nor mal limits. IMPRESSION: Transient of oral contrast from the stomach to the large bowel without evidence for bowel obstruction . [facility], , 02/24/2025 5:58 PM
[2025-02-24] MEDS: ISOSORBIDE MONONITRATE ER 15 MG TAB PO SCH (18:36)
[2025-02-24] MEDS: lisinopriL 10 MG TAB PO SCH (18:36)
[2025-02-24] MEDS: clonazePAM 0.5 MG TAB PO SCH (18:36)
--- NOTE | 2025-02-24 20:53 | P.HPIM ---
History of Present Illness H&P Date: 02/24/25 Chief Complaint: Abdominal pain Pleasant 74-year-old patient follows with Dr. Gabriel and resident of [facility]. Because of poor cognition patient not able to give much of a history. As per the ER patient presented with abdominal pain. CT scan in the ER showed dilated fluid-filled small bowel loops. With transition in the mid ileum region. Surgery was consulted. The patient does state he has had abdominal pain. Patient not able to give much details. No family at the bedside. Review of systems: Cannot get much history from the patient. Social history: Lives at [facility]. . Nonsmoker. No alcohol. Does use a walker. CPAP. Physical examination: VITAL SIGNS: 98.8, 71, 16, 106 x 49, 97% room air upon presentation GENERAL: Resting in bed, awake not in distress EYES: Pupils equal. Conjunctiva normal. HEENT: External appearance of nose and ears normal, oral cavity grossly normal. NECK: JVD not raised; masses not palpable. HEART: First and second heart sounds are normal; no edema. LUNGS:[ Respiratory rate i normal decreased breath sound, ABDOMEN: Soft, nontender, liver spleen not palpable, no masses palpable. Suprapubic catheter PSYCH: Patient answers simple questions. Not able to correlate sentences. MUSCULOSKELETAL:No Clubbing/cyanosis;muscles-grossly intact. OA. NEUROLOGICAL: Cranial nerves grossly intact; no facial asymmetry, power and sensation grossly intact. INVESTIGATIONS, reviewed in the clinical context: February 24: White count 8.5 hemoglobin 10.3 platelets 321 potassium 3.9 BUN 77 creatinine 1.98 February 23: BUN [address] abdomen pelvis: Dilated fluid-filled small bowel loops transition in the mid ileum region. Suggestive of partial small bowel obstruction. Previous labs: July 2024: Creatinine 0.95 Assessment and plan: -Acute small bowel obstruction. Transition point appears to be in the mid ileum region. Presenting with abdominal pain. General surgery consulted. Patient was n.p.o. except medications. -Acute kidney injury likely ATN, from bowel obstruction IV fluids. Follow labs -Severe cognitive impairment secondary to late onset Alzheimer's dementia Aricept. -GERD -Essential hypertension Lisinopril -Bladder outflow obstruction with suprapubic catheter, chronic -Hyperlipidemia Lipitor -Primary osteoarthritis Tylenol as needed -Hypothyroid Synthroid -Depression and anxiety Klonopin Lexapro -Prior history of DVT and PE Eliquis General Surgery following. N.p.o. except medications. IV fluids Past Medical History Past Medical History: Cancer, Chest Pain / Angina, Dementia, GERD/Reflux, Hypertension, Osteoarthritis (OA), Thyroid Disorder Additional Past Medical History / Comment(s): HX UTI W/ SEPSIS 2013, past hx. chest pain-nothing current, tremors hands, heart murmur, esophageal spasms History of Any Multi-Drug Resistant Organisms: None Reported Past Surgical History: Prostate Surgery, Tonsillectomy Additional Past Surgical History / Comment(s): TURP, right thyroid lobectomy (09/08/2015), skin ca removed, SP cath placement Past Anesthesia/Blood Transfusion Reactions: No Reported Reaction Additional Past Anesthesia/Blood Transfusion Reaction / Comment(s): CLAUSTERPHOBIA Past Psychological History: Anxiety, Panic Disorder Additional Psychological History / Comment(s): ANXIETY, PANIC ATTACKS Smoking Status: Never smoker Past Alcohol Use History: None Reported Additional Past Alcohol Use History / Comment(s): Patient is a lifelong nonsmoker. He denies any marijuana, street drug or alcohol use. 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 He lives at home with his .uses walker when up, cpap machine. He denies any service. Past Drug Use History: None Reported - Past Family History Brother(s) Family Medical History: Cancer Sister(s) Family Medical History: Hypertension Father Family Medical History: Hypertension Additional Family Medical History / Comment(s): PT STATED DAD AT AGE 89 COMPLICATIONS FROM MRSA INFECTION. Mother Family Medical History: Hypertension Medications and Allergies Home Medications Medication Instructions Recorded Confirmed Type Levothyroxine Sodium [Synthroid] 75 mcg PO HS 05/17/18 02/24/25 History Atorvastatin [Lipitor] 40 mg PO HS 12/15/18 02/24/25 History Multivitamins, Thera [Multivitamin 1 tab PO DAILY 12/15/18 02/24/25 History (formulary)] Nitroglycerin Sl Tabs [Nitrostat] 0.4 mg SUBLINGUAL Q5M PRN 12/25/18 02/24/25 History Escitalopram [Lexapro] 20 mg PO DAILY 05/18/22 02/24/25 History Isosorbide Mononitrate ER [Imdur] 15 mg PO DAILY 05/18/22 02/24/25 History cloZAPine [Clozaril] 100 mg PO BID 05/18/22 02/24/25 History D-Mannose 500 mg PO DAILY 10/17/23 02/24/25 History Furosemide [Lasix] 20 mg PO DAILY 10/17/23 02/24/25 History lisinopriL [Zestril] 10 mg PO DAILY 10/17/23 02/24/25 History Famotidine [Pepcid] 40 mg PO HS 07/29/24 02/24/25 History Lactobacillus Acidophilus 1 cap PO HS 07/29/24 02/24/25 History [Acidophilus Probiotic] Omeprazole 20 mg PO DAILY #30 tab 08/03/24 02/24/25 Rx Sennosides/Docusate Sodium [Senna 1 cap PO BID #0 08/04/24 02/24/25 Rx Plus 8.6-50 mg Softgel] Albuterol Nebulized [Ventolin 2.5 mg INHALATION RT-Q4H PRN 02/24/25 02/24/25 History Nebulized] Apixaban [Eliquis] 2.5 mg PO BID 02/24/25 02/24/25 History Cholecalciferol [Vitamin D3 (25 50 mcg PO DAILY 02/24/25 02/24/25 History Mcg = 1000 Iu)] Folic Acid 0.8 mg PO DAILY 02/24/25 02/24/25 History HYDROcodone/APAP 5-325MG [Eloy 5] 1 tab PO Q6HR PRN 02/24/25 02/24/25 History Memantine [Namenda] 5 mg PO BID 02/24/25 02/24/25 History clonazePAM [KlonoPIN] 0.5 mg PO TID 02/24/25 02/24/25 History clonazePAM [KlonoPIN] 0.5 mg PO TUFR 02/24/25 02/24/25 History Allergies Allergy/AdvReac Type Severity Reaction Status Date / Time levofloxacin AdvReac See Comment Verified 02/24/25 10:51 Physical Exam Vitals: Vital Signs Temp Pulse Pulse Resp BP BP BP 02/24/25 06:56 98.4 F 80 18 130/75 02/24/25 04:17 99.6 F 81 17 149/76 02/24/25 04:01 98.8 F 70 18 129/90 02/24/25 02:15 98.4 F 68 16 128/74 02/23/25 22:57 79 16 106/49 02/23/25 22:11 98.8 F 71 16 106/49 Pulse Ox 02/24/25 06:56 94 L 02/24/25 04:17 92 L 02/24/25 04:01 97 02/24/25 02:15 98 02/23/25 22:57 95 02/23/25 22:11 97 Intake and Output 02/23/25 02/24/25 02/24/25 22:59 06:59 14:59 Output Total 350 610 Balance -350 -610 Output: Urine 350 610 Other: Voiding Method Indwelling Catheter Weight 93.894 kg 93.894 kg Results CBC & Chem 7: 02/24/25 06:31 02/24/25 06:31 Labs: Abnormal Lab Results - Last 24 Hours (Table) 02/23/25 02/23/25 02/24/25 Range/Units 22:23 22:23 06:31 RBC 4.08 L 3.55 L (4.40-5.60) 10*6/uL Hgb 11.9 L 10.3 L (13.0-17.0) g/dL Hct 36.1 L 32.3 L (39.6-50.0) % MCHC 31.9 L (32.0-37.0) g/dL Immature Gran # 0.15 H 0.16 H (0.00-0.04) 10*3/uL Lymphocytes # 0.80 L (0.90-5.00) 10*3/uL Monocytes # 1.04 H 1.02 H (0.20-1.00) 10*3/uL Eosinophils # 0.01 L (0.04-0.35) 10*3/uL BUN 87 H (9-20) mg/dL Creatinine 2.47 H (0.66-1.25) mg/dL Glucose 142 H (74-99) mg/dL Magnesium (1.6-2.3) mg/dL Total Protein (6.3-8.2) g/dL 02/24/25 Range/Units 06:31 RBC (4.40-5.60) 10*6/uL Hgb (13.0-17.0) g/dL Hct (39.6-50.0) % MCHC (32.0-37.0) g/dL Immature Gran # (0.00-0.04) 10*3/uL Lymphocytes # (0.90-5.00) 10*3/uL Monocytes # (0.20-1.00) 10*3/uL Eosinophils # (0.04-0.35) 10*3/uL BUN 77 H (9-20) mg/dL Creatinine 1.98 H (0.66-1.25) mg/dL Glucose 125 H (74-99) mg/dL Magnesium 2.6 H (1.6-2.3) mg/dL Total Protein 5.8 L (6.3-8.2) g/dL Thrombosis Risk Factor Assmnt - Choose All That Apply Each Factor Represents 1 point: Medical pt on bed rest, Obesity (BMI >25) Other Risk Factors: Yes Each Risk Factor Represents 2 Points: Patient confined to bed Each Risk Factor Represents 3 Points: Age 75 years or older Other congenital or acquired thrombophilia - If yes, enter type in comment: No Thrombosis Risk Factor Assessment Total Risk Factor Score: 7 Thrombosis Risk Factor Assessment Level: High Risk
--- NOTE | 2025-02-24 20:53 | P.EN ---
Patient has a moderate-sized loose bowel movement. Abdomen soft. Will start on clear liquids. Subcu Lovenox 80 every 12. Repeat x-ray in the morning.
[2025-02-24] MEDS: ONDANSETRON 4 MG/2 ML VIAL IVP PRN (21:28)
[2025-02-24] MEDS: LEVOTHYROXINE 75 MCG TAB PO SCH (21:29)
[2025-02-24] MEDS: ATORVASTATIN 40 MG TAB PO SCH (21:29)
[2025-02-24] MEDS: cloZAPine 100 MG TAB PO SCH (21:29)
[2025-02-24] MEDS: MEMANTINE 5 MG TAB PO SCH (21:30)
[2025-02-24] MEDS: LACTATED RINGERS 1,000 ML IV SCH (21:30)
[2025-02-24] MEDS: ENOXAPARIN 80 MG/0.8 ML SYRINGE SQ SCH (21:39)
[2025-02-25 06:40] LABS: Basophils # (A) 0.06 10*3/uL (0.00-0.10); Basophils % (A) 0.5 %; Eosinophils # (A) 0.02 10*3/uL (0.04-0.35); Eosinophils % (A) 0.2 %; HCT 38.6 % (39.6-50.0); HGB 12.4 g/dL (13.0-17.0); Lymphocytes # (A) 1.38 10*3/uL (0.90-5.00); Lymphocytes % (A) 12.1 %; MCH 29.5 pg (27.0-32.0); MCHC 32.1 g/dL (32.0-37.0); MCV 91.7 fL (80.0-97.0); Mean Platelet Volume 10.2 fL (9.5-12.2); Monocytes # (A) 1.15 10*3/uL (0.20-1.00); Monocytes % (A) 10.1 %; Neutrophils % (A) 72.3 %; Platelet Count 349 10*3/uL (140-440); RBC 4.21 10*6/uL (4.40-5.60); RDW 16.2 % (11.5-14.5); WBC 11.36 10*3/uL (4.50-10.00)
[2025-02-25 06:58] LABS: African American GFR (CKD) 63 (>60 ml/min/1.73 sqM); Anion Gap 13 mmol/L; Blood Urea Nitrogen 57 mg/dL (9-20); Calcium 10.1 mg/dL (8.4-10.2); Carbon Dioxide 26 mmol/L (22-30); Chloride 114 mmol/L (98-107); Glucose 114 mg/dL (74-99); Non-African American GFR(CKD) 54 (>60 ml/min/1.73 sqM); Sodium 153 mmol/L (137-145)
[2025-02-25 07:04] LABS: Potassium 4.6 mmol/L (3.5-5.1)
[2025-02-25] MEDS: ESCITALOPRAM 20 MG TAB PO SCH (09:28)
[2025-02-25] MEDS: FOLIC ACID 1 MG TAB PO SCH (09:28)
--- NOTE | 2025-02-25 13:05 | P.PN ---
Subjective Progress Note Date: 02/25/25 SURGICAL PROGRESS NOTE CHIEF COMPLAINT: PSBO HISTORY OF PRESENT ILLNESS: Patient lying in bed comfortably. Denies any abdominal pain. Patient had a moderate-sized bowel movement last night and medicine has started clear liquid diet. Patient since small bowel follow- through patient has had multiple bowel movements. Small bowel follow-through showed no evidence of bowel obstruction. PHYSICAL EXAM: VITAL SIGNS: Reviewed. GENERAL: Well-developed in no acute distress. ABDOMEN: Soft. Nondistended. Nontender. NEUROLOGIC: Alert and oriented. Cranial nerves II through XII grossly intact. ASSESSMENT: 1. Partial small bowel obstruction resolvi Resolved. No evidence of bowel obstruction noted on small bowel follow-through PLAN: - Advance to full liquids - Continue to monitor Physician Tin Whiz Machine Operator note has been reviewed by physician. Signing provider agrees with the documented findings, assessment, and plan of care. Attestation Patient seen and examined at bedside. Patient did undergo small bowel series yesterday with no obvious obstruction noted. Having multiple bowel movements. Patient able to be advanced in diet. No plan for surgical intervention. Surgically stable for discharge. Harmeet Mejias DO Objective - Vital Signs Vital signs: Vital Signs Temp 98.7 F 02/25/25 07:34 Pulse 75 02/25/25 07:34 Resp 16 02/25/25 07:34 BP 158/88 02/25/25 07:34 Pulse Ox 94 L 02/25/25 07:34 FiO2 Intake & Output 02/24/25 02/25/25 02/25/25 18:59 06:59 18:59 Intake Total 750 Output Total 1510 Balance -1510 750 Intake: Oral 750 Output: Urine 1510 Other: Voiding Method Indwelling Catheter Indwelling Catheter # Voids 5 # Bowel Movements 1 4 - Labs CBC & Chem 7: 02/25/25 06:08 02/25/25 06:08 Labs: Abnormal Lab Results - Last 24 Hours (Table) 02/25/25 02/25/25 Range/Units 06:08 06:08 WBC 11.36 H (4.50-10.00) 10*3/uL RBC 4.21 L (4.40-5.60) 10*6/uL Hgb 12.4 L (13.0-17.0) g/dL Hct 38.6 L (39.6-50.0) % RDW 16.2 H (11.5-14.5) % Immature Gran # 0.55 H (0.00-0.04) 10*3/uL Neutrophils # 8.20 H (1.80-7.70) 10*3/uL Monocytes # 1.15 H (0.20-1.00) 10*3/uL Eosinophils # 0.02 L (0.04-0.35) 10*3/uL Sodium 153 H (137-145) mmol/L Chloride 114 H (98-107) mmol/L BUN 57 H (9-20) mg/dL Creatinine 1.28 H (0.66-1.25) mg/dL Glucose 114 H (74-99) mg/dL
[2025-02-25 13:35] LABS: Clozapine (Clozaril) 234 ng/mL (200-700); Norclozapine 172 ng/mL (200-700)
--- NOTE | 2025-02-25 14:57 | P.PN ---
Progress Note - Text Progress Note Date: 02/25/25 Chief Complaint: Abdominal pain Pleasant 74-year-old patient follows with Dr. Gabriel and resident of [facility]. Because of poor cognition patient not able to give much of a history. As per the ER patient presented with abdominal pain. CT scan in the ER showed dilated fluid-filled small bowel loops. With transition in the mid ileum region. Surgery was consulted. The patient does state he has had abdominal pain. Patient not able to give much details. No family at the bedside. February 25: Patient required moderate Jose bowel movement yesterday. Started on clear liquids last night. Abdomen soft. X-ray yesterday showed no further SBO. Small bowel follow-through yesterday showed no further obstruction. Per surgery patient will advance to full liquid diet. No nausea vomiting. Patient is answering simple questions. No abdominal pain. Active Medications Acetaminophen (Acetaminophen Tab 325 Mg Tab) 650 mg PO Q4HR PRN PRN Reason: Fever and/ or mild Pain 1-3 Hydrocodone Bitart/Acetaminophen (Hydrocodone/Apap 5-325mg 1 Each Tab) 1 each PO Q6HR PRN PRN Reason: Pain Albuterol Sulfate (Albuterol Nebulized 2.5 Mg/3 Ml) 2.5 mg INHALATION RT-Q4H PRN PRN Reason: Shortness Of Breath/Cough Atorvastatin Calcium (Atorvastatin 40 Mg Tab) 40 mg PO HS [facility] Last Admin: 02/24/25 21:29 Dose: 40 mg Clonazepam (Clonazepam 0.5 Mg Tab) 0.5 mg PO TID [facility] Last Admin: 02/25/25 09:28 Dose: 0.5 mg Clonazepam (Clonazepam 0.5 Mg Tab) 0.5 mg PO TuFr@2100 [facility] Clozapine (Clozapine 100 Mg Tab) 100 mg PO BID [facility] Stop: 03/03/25 23:00 Last Admin: 02/25/25 09:28 Dose: 100 mg Enoxaparin Sodium (Enoxaparin 80 Mg/0.8 Ml Syringe) 80 mg SQ Q12HR [facility] Last Admin: 02/25/25 09:29 Dose: 80 mg Escitalopram Oxalate (Escitalopram 20 Mg Tab) 20 mg PO DAILY [facility] Last Admin: 02/25/25 09:28 Dose: 20 mg Folic Acid (Folic Acid 1 Mg Tab) 1 mg PO DAILY [facility] Last Admin: 02/25/25 09:28 Dose: 1 mg Lactated Ringer's (Lactated Ringers) 1,000 mls @ 80 mls/hr IV .[id number] [facility] Last Admin: 02/25/25 09:29 Dose: 80 mls/hr Isosorbide Mononitrate (Isosorbide Mononitrate Er 15 Mg Tab) 15 mg PO DAILY [facility] Last Admin: 02/25/25 09:28 Dose: 15 mg Levothyroxine Sodium (Levothyroxine 75 Mcg Tab) 75 mcg PO HS [facility] Last Admin: 02/24/25 21:29 Dose: 75 mcg Lisinopril (Lisinopril 10 Mg Tab) 10 mg PO DAILY [facility] Last Admin: 02/25/25 09:28 Dose: 10 mg Memantine (Memantine 5 Mg Tab) 5 mg PO BID [facility] Last Admin: 02/25/25 09:28 Dose: 5 mg Morphine Sulfate (Morphine Sulfate 4 Mg/Ml Syringe) 4 mg IV Q4HR PRN PRN Reason: Moderate-Severe Pain (4-10) Naloxone HCl (Naloxone 0.4 Mg/Ml 1 Ml Vial) 0.2 mg IV Q2M PRN PRN Reason: Opioid Reversal Ondansetron HCl (Ondansetron 4 Mg/2 Ml Vial) 4 mg IVP Q8HR PRN PRN Reason: Nausea And Vomiting Last Admin: 02/24/25 21:28 Dose: 4 mg Pantoprazole Sodium (Pantoprazole 40 Mg/10 Ml Vial) 40 mg IV DAILY [facility] Last Admin: 02/25/25 09:29 Dose: 40 mg Social history: Lives at [facility]. . Nonsmoker. No alcohol. Does use a walker. CPAP. Physical examination: VITAL SIGNS: 98.2, 74, 14, 138 x 67, 95% room air GENERAL: Resting in bed, comfortable EYES: Pupils equal. Conjunctiva normal. HEENT: External appearance of nose and ears normal, oral cavity grossly normal. NECK: JVD not raised; masses not palpable. HEART: First and second heart sounds are normal; no edema. LUNGS:[ Respiratory rate i normal decreased breath sound, ABDOMEN: Soft, nontender, liver spleen not palpable, no masses palpable. Suprapubic catheter PSYCH: Patient is able to hold simple conversation.. MUSCULOSKELETAL:No Clubbing/cyanosis;muscles-grossly intact. OA. NEUROLOGICAL: Cranial nerves grossly intact; no facial asymmetry, power and sensation grossly intact. INVESTIGATIONS, reviewed in the clinical context: February 25: White count 9.3 hemoglobin 12.4 sodium 153 potassium 4.6 BUN 57 creatinine 1.28 February 24: White count 8.5 hemoglobin 10.3 platelets 321 potassium 3.9 BUN 77 creatinine 1.98 February 23: BUN [address] abdomen pelvis: Dilated fluid-filled small bowel loops transition in the mid ileum region. Suggestive of partial small bowel obstruction. Previous labs: July 2024: Creatinine 0.95 Assessment and plan: -Acute small bowel obstruction. Transition point appears to be in the mid ileum region. Presenting with abdominal pain.: Improved Had a good sized bowel movement yesterday. Repeat x-ray no SBO. Small bowel follow-through unremarkable Advance to full liquids this afternoon -Acute kidney injury likely ATN, from bowel obstruction: Improving IV fluids. Follow labs -Severe cognitive impairment secondary to late onset Alzheimer's dementia Aricept. -Hypernatremia, likely from free water deficit, with decreased oral intake Patient started on clear liquids overnight. Full liquids this afternoon. Continue IV fluids. -GERD -Essential hypertension Lisinopril -Bladder outflow obstruction with suprapubic catheter, chronic -Hyperlipidemia Lipitor -Primary osteoarthritis Tylenol as needed -Hypothyroid Synthroid -Depression and anxiety Klonopin Lexapro -Prior history of DVT and PE Eliquis Diet advanced. Continue IV fluids. Follow labs Past Medical History Past Medical History: Cancer, Chest Pain / Angina, Dementia, GERD/Reflux, Hypertension, Osteoarthritis (OA), Thyroid Disorder Additional Past Medical History / Comment(s): HX UTI W/ SEPSIS 2013, past hx. chest pain-nothing current, tremors hands, heart murmur, esophageal spasms History of Any Multi-Drug Resistant Organisms: None Reported Past Surgical History: Prostate Surgery, Tonsillectomy Additional Past Surgical History / Comment(s): TURP, right thyroid lobectomy (09/08/2015), skin ca removed, SP cath placement Past Anesthesia/Blood Transfusion Reactions: No Reported Reaction Additional Past Anesthesia/Blood Transfusion Reaction / Comment(s): CLAUSTERPHOBIA Past Psychological History: Anxiety, Panic Disorder Additional Psychological History / Comment(s): ANXIETY, PANIC ATTACKS Smoking Status: Never smoker Past Alcohol Use History: None Reported Additional Past Alcohol Use History / Comment(s): Patient is a lifelong nonsmoker. He denies any marijuana, street drug or alcohol use. 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 He lives at home with his .uses walker when up, cpap machine. He denies any service. Past Drug Use History: None Reported
[2025-02-26 05:55] LABS: African American GFR (CKD) 64 (>60 ml/min/1.73 sqM); Anion Gap 8 mmol/L; Blood Urea Nitrogen 32 mg/dL (9-20); Calcium 9.7 mg/dL (8.4-10.2); Carbon Dioxide 33 mmol/L (22-30); Chloride 109 mmol/L (98-107); Glucose 104 mg/dL (74-99); Non-African American GFR(CKD) 55 (>60 ml/min/1.73 sqM); Potassium 3.4 mmol/L (3.5-5.1); Sodium 150 mmol/L (137-145)
[2025-02-26] MEDS: SODIUM CHLORIDE 0.45% 1,000 ML IV SCH (10:28)
--- NOTE | 2025-02-26 12:38 | P.PN ---
Subjective Progress Note Date: 02/26/25 SURGICAL PROGRESS NOTE CHIEF COMPLAINT: PSBO HISTORY OF PRESENT ILLNESS: Patient lying in bed comfortably. Denies any abdominal pain. Nursing staff charting bowel movements. Patient ate 75% of his breakfast this morning. Vital stable. Sodium 150 potassium 3.4 creatinine 1.26 PHYSICAL EXAM: VITAL SIGNS: Reviewed. GENERAL: Well-developed in no acute distress. ABDOMEN: Soft. Nondistended. Nontender. NEUROLOGIC: Alert and oriented. Cranial nerves II through XII grossly intact. ASSESSMENT: 1. Partial small bowel obstruction resolved. No evidence of bowel obstruction noted on small bowel follow-through PLAN: -Continue regular diet -No surgical intervention planned -Patient can be discharged from surgical standpoint when medically cleared -Electrolyte correction per medicine team Physician Cut Filer note has been reviewed by physician. Signing provider agrees with the documented findings, assessment, and plan of care. Attestation Patient seen and examined at bedside. Having bowel function and tolerating diet. No evidence of bowel obstruction at this time. Electrolyte abnormalities noted and being treated by medicine service. No plan for surgical intervention. Will continue to provide recommendations based on patient's clinical progress. Harmeet Mejias DO Objective - Vital Signs Vital signs: Vital Signs Temp 98.4 F 02/26/25 06:51 Pulse 75 02/26/25 06:51 Resp 18 02/26/25 06:51 BP 164/79 02/26/25 06:51 Pulse Ox 97 02/26/25 06:51 FiO2 Intake & Output 02/25/25 02/26/25 02/26/25 18:59 06:59 18:59 Intake Total 250 Output Total 700 Balance 250 -700 Intake: Oral 250 Output: Urine 700 Other: Voiding Method Indwelling Catheter # Voids 1 # Bowel Movements 1 - Labs CBC & Chem 7: 02/25/25 06:08 02/26/25 05:07 Labs: Abnormal Lab Results - Last 24 Hours (Table) 02/24/25 02/26/25 Range/Units 10:54 05:07 Sodium 150 H (137-145) mmol/L Potassium 3.4 L (3.5-5.1) mmol/L Chloride 109 H (98-107) mmol/L Carbon Dioxide 33 H (22-30) mmol/L BUN 32 H (9-20) mg/dL Creatinine 1.26 H (0.66-1.25) mg/dL Glucose 104 H (74-99) mg/dL Norclozapine 172 L (200-700) ng/mL
[2025-02-26] MEDS: POTASSIUM CHLORIDE ER 20 MEQ TAB.ER PO STA (13:51)
--- NOTE | 2025-02-26 15:22 | P.PN ---
Progress Note - Text Progress Note Date: 02/26/25 Chief Complaint: Abdominal pain Pleasant 74-year-old patient follows with Dr. Gabriel and resident of [facility]. Because of poor cognition patient not able to give much of a history. As per the ER patient presented with abdominal pain. CT scan in the ER showed dilated fluid-filled small bowel loops. With transition in the mid ileum region. Surgery was consulted. The patient does state he has had abdominal pain. Patient not able to give much details. No family at the bedside. February 25: Patient required moderate sized bowel movement yesterday. Started on clear liquids last night. Abdomen soft. X-ray yesterday showed no further SBO. Small bowel follow-through yesterday showed no further obstruction. Per surgery patient will advance to full liquid diet. No nausea vomiting. Patient is answering simple questions. No abdominal pain. February 26: Did tolerate a regular breakfast today. Was getting lactated Ringer's. Sodium at 150. Will change to half saline. Sodium better by tomorrow will discharge to ECF. Abdomen soft. Comfortable Active Medications Acetaminophen (Acetaminophen Tab 325 Mg Tab) 650 mg PO Q4HR PRN PRN Reason: Fever and/ or mild Pain 1-3 Hydrocodone Bitart/Acetaminophen (Hydrocodone/Apap 5-325mg 1 Each Tab) 1 each PO Q6HR PRN PRN Reason: Pain Albuterol Sulfate (Albuterol Nebulized 2.5 Mg/3 Ml) 2.5 mg INHALATION RT-Q4H PRN PRN Reason: Shortness Of Breath/Cough Atorvastatin Calcium (Atorvastatin 40 Mg Tab) 40 mg PO HS [facility] Last Admin: 02/25/25 21:37 Dose: 40 mg Clonazepam (Clonazepam 0.5 Mg Tab) 0.5 mg PO TID [facility] Last Admin: 02/26/25 10:26 Dose: 0.5 mg Clonazepam (Clonazepam 0.5 Mg Tab) 0.5 mg PO TuFr@2100 [facility] Clozapine (Clozapine 100 Mg Tab) 100 mg PO BID [facility] Stop: 03/03/25 23:00 Last Admin: 02/26/25 10:26 Dose: 100 mg Enoxaparin Sodium (Enoxaparin 80 Mg/0.8 Ml Syringe) 80 mg SQ Q12HR [facility] Last Admin: 02/26/25 10:25 Dose: 80 mg Escitalopram Oxalate (Escitalopram 20 Mg Tab) 20 mg PO DAILY [facility] Last Admin: 02/26/25 10:26 Dose: 20 mg Folic Acid (Folic Acid 1 Mg Tab) 1 mg PO DAILY [facility] Last Admin: 02/26/25 10:25 Dose: 1 mg Sodium Chloride (Saline 0.45%) 1,000 mls @ 100 mls/hr IV .Q10H [facility] Last Admin: 02/26/25 10:28 Dose: Not Given Isosorbide Mononitrate (Isosorbide Mononitrate Er 15 Mg Tab) 15 mg PO DAILY [facility] Last Admin: 02/26/25 10:25 Dose: 15 mg Levothyroxine Sodium (Levothyroxine 75 Mcg Tab) 75 mcg PO HS [facility] Last Admin: 02/25/25 21:37 Dose: 75 mcg Lisinopril (Lisinopril 10 Mg Tab) 10 mg PO DAILY [facility] Last Admin: 02/26/25 10:25 Dose: 10 mg Memantine (Memantine 5 Mg Tab) 5 mg PO BID [facility] Last Admin: 02/26/25 10:25 Dose: 5 mg Naloxone HCl (Naloxone 0.4 Mg/Ml 1 Ml Vial) 0.2 mg IV Q2M PRN PRN Reason: Opioid Reversal Ondansetron HCl (Ondansetron 4 Mg/2 Ml Vial) 4 mg IVP Q8HR PRN PRN Reason: Nausea And Vomiting Last Admin: 02/24/25 21:28 Dose: 4 mg Social history: Lives at [facility]. . Nonsmoker. No alcohol. Does use a walker. CPAP. Physical examination: VITAL SIGNS: 98.4, 75, 18, 164 x 79, 97% room air GENERAL: Resting in bed, comfortable EYES: Pupils equal. Conjunctiva normal. HEENT: External appearance of nose and ears normal, oral cavity grossly normal. NECK: JVD not raised; masses not palpable. HEART: First and second heart sounds are normal; no edema. LUNGS:[ Respiratory rate i normal decreased breath sound, ABDOMEN: Soft, nontender, liver spleen not palpable, no masses palpable. Suprapubic catheter PSYCH: Answering simple questions MUSCULOSKELETAL:No Clubbing/cyanosis;muscles-grossly intact. OA. NEUROLOGICAL: Cranial nerves grossly intact; no facial asymmetry, power and sensation grossly intact. INVESTIGATIONS, reviewed in the clinical context: February 26: White count 5.1 hemoglobin 13 platelets 155 potassium 4.1 BUN 24 creatinine 1.37 February 8: White count 9.3 hemoglobin 12.4 sodium 153 potassium 4.6 BUN 57 creatinine 1.28 February 24: White count 8.5 hemoglobin 10.3 platelets 321 potassium 3.9 BUN 77 creatinine 1.98 February 6: BUN [address] abdomen pelvis: Dilated fluid-filled small bowel loops transition in the mid ileum region. Suggestive of partial small bowel obstruction. Previous labs: July 2024: Creatinine 0.95 Assessment and plan: -Acute small bowel obstruction. Transition point appears to be in the mid ileum region. Presenting with abdominal pain.: Resolved Having bowel movements Tolerated regular diet today -Acute kidney injury likely ATN, from bowel obstruction: Improving IV fluids. Follow labs -Severe cognitive impairment secondary to late onset Alzheimer's dementia Aricept. -Hypernatremia, likely from free water deficit, with decreased oral intake: Slow to respond Change IV fluids to half saline. 100 cc out. Encourage oral intake -GERD -Essential hypertension Lisinopril -Bladder outflow obstruction with suprapubic catheter, chronic -Hyperlipidemia Lipitor -Primary osteoarthritis Tylenol as needed -Hypothyroid Synthroid -Depression and anxiety Klonopin Lexapro -Prior history of DVT and PE Eliquis Change IV fluids to half saline. Repeat labs in the morning. He is clinically doing well Past Medical History Past Medical History: Cancer, Chest Pain / Angina, Dementia, GERD/Reflux, Hypertension, Osteoarthritis (OA), Thyroid Disorder Additional Past Medical History / Comment(s): HX UTI W/ SEPSIS 2013, past hx. chest pain-nothing current, tremors hands, heart murmur, esophageal spasms History of Any Multi-Drug Resistant Organisms: None Reported Past Surgical History: Prostate Surgery, Tonsillectomy Additional Past Surgical History / Comment(s): TURP, right thyroid lobectomy (09/08/2015), skin ca removed, SP cath placement Past Anesthesia/Blood Transfusion Reactions: No Reported Reaction Additional Past Anesthesia/Blood Transfusion Reaction / Comment(s): CLAUSTERPHOBIA Past Psychological History: Anxiety, Panic Disorder Additional Psychological History / Comment(s): ANXIETY, PANIC ATTACKS Smoking Status: Never smoker Past Alcohol Use History: None Reported Additional Past Alcohol Use History / Comment(s): Patient is a lifelong nonsmoker. He denies any marijuana, street drug or alcohol use. 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 He lives at home with his .uses walker when up, cpap machine. He denies any service. Past Drug Use History: None Reported
[2025-02-26] MEDS: clonazePAM 0.5 MG TAB PO SCH (22:58)
[2025-02-27 04:29] LABS: African American GFR (CKD) 80 (>60 ml/min/1.73 sqM); Anion Gap 6 mmol/L; Blood Urea Nitrogen 20 mg/dL (9-20); Calcium 8.9 mg/dL (8.4-10.2); Carbon Dioxide 31 mmol/L (22-30); Chloride 105 mmol/L (98-107); Glucose 92 mg/dL (74-99); Non-African American GFR(CKD) 69 (>60 ml/min/1.73 sqM); Potassium 3.6 mmol/L (3.5-5.1); Sodium 142 mmol/L (137-145)
--- NOTE | 2025-02-27 09:55 | P.PN ---
Progress Note - Text Progress Note Date: 02/27/25 CHIEF COMPLAINT: PSBO HISTORY OF PRESENT ILLNESS: No acute events overnight. Denies pain. Tolerating diet PHYSICAL EXAM: VITAL SIGNS: Reviewed. GENERAL: Well-developed in no acute distress. ABDOMEN: Soft. Nondistended. Nontender. NEUROLOGIC: Alert and oriented. Cranial nerves II through XII grossly intact. ASSESSMENT: 1. Partial small bowel obstruction resolved. No evidence of bowel obstruction noted on small bowel follow-through PLAN: -Continue regular diet -No surgical intervention planned -Patient can be discharged from surgical standpoint when medically cleared Rikki De La Fuente DO [facility] [phone]
--- NOTE | 2025-02-27 14:06 | P.DS ---
Providers Date of admission: 02/23/25 23:57 Expected date of discharge: 02/27/25 Attending physician: Gaurav Garcia Consults: 02/23/25 23:57 Consult Physician Routine Consulting Provider: Rikki De La Fuente Consult Reason/Comments: sbo Do you want consulting provider notified?: Yes Primary care physician: Jerod [facility] Course: Chief Complaint: Abdominal pain Pleasant 74-year-old patient follows with Dr. Gabriel and resident of [facility]. Because of poor cognition patient not able to give much of a history. As per the ER patient presented with abdominal pain. CT scan in the ER showed dilated fluid-filled small bowel loops. With transition in the mid ileum region. Surgery was consulted. The patient does state he has had abdominal pain. Patient not able to give much details. No family at the bedside. February 25: Patient required moderate sized bowel movement yesterday. Started on clear liquids last night. Abdomen soft. X-ray yesterday showed no further SBO. Small bowel follow-through yesterday showed no further obstruction. Per surgery patient will advance to full liquid diet. No nausea vomiting. Patient is answering simple questions. No abdominal pain. February 26: Did tolerate a regular breakfast today. Was getting lactated Ringer's. Sodium at 150. Will change to half saline. Sodium better by tomorrow will discharge to ECF. Abdomen soft. Comfortable February 27: Tolerating diet well. Had a BM last night. Sodium corrected. Return to ECF. Abdomen soft. Social history: Lives at [facility]. . Nonsmoker. No alcohol. Does use a walker. CPAP. Physical examination: VITAL SIGNS: 98.2, 75, 16, 115 x 80, 96% room air GENERAL: Up in chair, comfortable EYES: Pupils equal. Conjunctiva normal. HEENT: External appearance of nose and ears normal, oral cavity grossly normal. NECK: JVD not raised; masses not palpable. HEART: First and second heart sounds are normal; no edema. LUNGS:[ Respiratory rate i normal decreased breath sound, ABDOMEN: Soft, nontender, liver spleen not palpable, no masses palpable. Suprapubic catheter PSYCH: Answering simple questions MUSCULOSKELETAL:No Clubbing/cyanosis;muscles-grossly intact. OA. NEUROLOGICAL: Cranial nerves grossly intact; no facial asymmetry, power and sensation grossly intact. INVESTIGATIONS, reviewed in the clinical context: February 27: Potassium 3.6 creatinine 1.05 sodium 142 February 25: White count 9.3 hemoglobin 12.4 sodium 153 potassium 4.6 BUN 57 creatinine 1.28 February 24: White count 8.5 hemoglobin 10.3 platelets 321 potassium 3.9 BUN 77 creatinine 1.98 February 23: BUN [address] abdomen pelvis: Dilated fluid-filled small bowel loops transition in the mid ileum region. Suggestive of partial small bowel obstruction. Previous labs: July 2024: Creatinine 0.95 Assessment and plan: -Acute small bowel obstruction. Transition point appears to be in the mid ileum region. Presenting with abdominal pain.: Resolved Having bowel movements Tolerating diet -Acute kidney injury likely ATN, from bowel obstruction: Improved IV fluids. Follow labs -Severe cognitive impairment secondary to late onset Alzheimer's dementia Aricept. -Hypernatremia, likely from free water deficit, with decreased oral intake: Improved Received IV fluids -GERD -Essential hypertension Lisinopril -Bladder outflow obstruction with suprapubic catheter, chronic -Hyperlipidemia Lipitor -Primary osteoarthritis Tylenol as needed -Hypothyroid Synthroid -Depression and anxiety Klonopin Lexapro -Prior history of DVT and PE Eliquis [facility] Labs: CBC BMP: 2 days Past Medical History Past Medical History: Cancer, Chest Pain / Angina, Dementia, GERD/Reflux, Hypertension, Osteoarthritis (OA), Thyroid Disorder Additional Past Medical History / Comment(s): HX UTI W/ SEPSIS 2013, past hx. chest pain-nothing current, tremors hands, heart murmur, esophageal spasms History of Any Multi-Drug Resistant Organisms: None Reported Past Surgical History: Prostate Surgery, Tonsillectomy Additional Past Surgical History / Comment(s): TURP, right thyroid lobectomy (09/08/2015), skin ca removed, SP cath placement Past Anesthesia/Blood Transfusion Reactions: No Reported Reaction Additional Past Anesthesia/Blood Transfusion Reaction / Comment(s): CLAUSTERPHOBIA Past Psychological History: Anxiety, Panic Disorder Additional Psychological History / Comment(s): ANXIETY, PANIC ATTACKS Smoking Status: Never smoker Past Alcohol Use History: None Reported Additional Past Alcohol Use History / Comment(s): Patient is a lifelong nonsmoker. He denies any marijuana, street drug or alcohol use. 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 He lives at home with his .uses walker when up, cpap machine. He denies any service. Past Drug Use History: None Reported Plan - Discharge Summary Discharge Rx Participant: Yes New Discharge Prescriptions: Continue Levothyroxine Sodium [Synthroid] 75 mcg PO HS Multivitamins, Thera [Multivitamin (formulary)] 1 tab PO DAILY Atorvastatin [Lipitor] 40 mg PO HS Nitroglycerin Sl Tabs [Nitrostat] 0.4 mg SUBLINGUAL Q5M PRN PRN Reason: Chest Pain Isosorbide Mononitrate ER [Imdur] 15 mg PO DAILY Escitalopram [Lexapro] 20 mg PO DAILY D-Mannose 500 mg PO DAILY Omeprazole 20 mg PO DAILY #30 tab Memantine [Namenda] 5 mg PO BID Apixaban [Eliquis] 2.5 mg PO BID Cholecalciferol [Vitamin D3 (25 Mcg = 1000 Iu)] 50 mcg PO DAILY Albuterol Nebulized [Ventolin Nebulized] 2.5 mg INHALATION RT-Q4H PRN PRN Reason: Shortness Of Breath/Cough cloZAPine [Clozaril] 100 mg PO BID #6 tab lisinopriL [Zestril] 10 mg PO DAILY Lactobacillus Acidophilus [Acidophilus Probiotic] 1 cap PO HS Famotidine [Pepcid] 40 mg PO HS Sennosides/Docusate Sodium [Senna Plus 8.6-50 mg Softgel] 1 cap PO BID #0 Folic Acid 0.8 mg PO DAILY Changed clonazePAM [KlonoPIN] 0.5 mg PO TID #9 tab clonazePAM [KlonoPIN] 0.5 mg PO TUFR #10 tab HYDROcodone/APAP 5-325MG [[place] 5-325] 1 tab PO Q6HR PRN #12 tab PRN Reason: Pain Discontinued Furosemide [Lasix] 20 mg PO DAILY Discharge Medication List Levothyroxine Sodium [Synthroid] 75 mcg PO HS 05/17/18 [History] Atorvastatin [Lipitor] 40 mg PO HS 12/15/18 [History] Multivitamins, Thera [Multivitamin (formulary)] 1 tab PO DAILY 12/15/18 [History] Nitroglycerin Sl Tabs [Nitrostat] 0.4 mg SUBLINGUAL Q5M PRN 12/25/18 [History] Escitalopram [Lexapro] 20 mg PO DAILY 05/18/22 [History] Isosorbide Mononitrate ER [Imdur] 15 mg PO DAILY 05/18/22 [History] D-Mannose 500 mg PO DAILY 10/17/23 [History] lisinopriL [Zestril] 10 mg PO DAILY 10/17/23 [History] Famotidine [Pepcid] 40 mg PO HS 07/29/24 [History] Lactobacillus Acidophilus [Acidophilus Probiotic] 1 cap PO HS 07/29/24 [History] Omeprazole 20 mg PO DAILY #30 tab 08/03/24 [Rx] Sennosides/Docusate Sodium [Senna Plus 8.6-50 mg Softgel] 1 cap PO BID #0 08/04/24 [Rx] Albuterol Nebulized [Ventolin Nebulized] 2.5 mg INHALATION RT-Q4H PRN 02/24/25 [History] Apixaban [Eliquis] 2.5 mg PO BID 02/24/25 [History] Cholecalciferol [Vitamin D3 (25 Mcg = 1000 Iu)] 50 mcg PO DAILY 02/24/25 [History] Folic Acid 0.8 mg PO DAILY 02/24/25 [History] Memantine [Namenda] 5 mg PO BID 02/24/25 [History] HYDROcodone/APAP 5-325MG [[place] 5-325] 1 tab PO Q6HR PRN #12 tab 02/27/25 [Rx] cloZAPine [Clozaril] 100 mg PO BID #6 tab 02/27/25 [Rx] clonazePAM [KlonoPIN] 0.5 mg PO TID #9 tab 02/27/25 [Rx] clonazePAM [KlonoPIN] 0.5 mg PO TUFR #10 tab 02/27/25 [Rx] Follow up Appointment(s)/Referral(s): Jerod Gabriel DO [Primary Care Provider] - [facility] - As Needed
[2025-02-27 15:21] VITALS: BP 124/77; PULSE 88; RESP 18; TEMP 98.3
== END 2025-02-27 14:45 | DRG 388 ==
LOC: EC 22:10 → 4SSUR 23:57
PROVIDERS: ADMIT Hospitalist; ATTEND Hospitalist
DX: K56.600 Partial intestinal obstruction, unspecified as to cause (principal); N17.0 Acute kidney failure with tubular necrosis; E87.0 Hyperosmolality and hypernatremia; F02.83 Dementia in other diseases classified elsewhere, unspecified severity, with mood disturbance; I10 Essential (primary) hypertension; E89.0 Postprocedural hypothyroidism; F32.A Depression, unspecified; F02.84 Dementia in other diseases classified elsewhere, unspecified severity, with anxiety; G30.1 Alzheimer's disease with late onset; M19.91 Primary osteoarthritis, unspecified site; N32.0 Bladder-neck obstruction; K21.9 Gastro-esophageal reflux disease without esophagitis; E78.5 Hyperlipidemia, unspecified; F41.0 Panic disorder [episodic paroxysmal anxiety]; Z79.01 Long term (current) use of anticoagulants; Z79.890 Hormone replacement therapy; Z79.899 Other long term (current) drug therapy; Z86.711 Personal history of pulmonary embolism; Z86.718 Personal history of other venous thrombosis and embolism; Z87.440 Personal history of urinary (tract) infections; Z90.79 Acquired absence of other genital organ(s); Z85.828 Personal history of other malignant neoplasm of skin
CPT/HCPCS: 36415; 74176; 74250; 80048; 80053; 80159; 82150; 83605; 83690; 83735; 84100; 85025; 85610; 85730; 96361; 96374; 96375; 99285